=== PATIENT | female | born 1940 | race Two or more races ===

== ENCOUNTER 2017-09-08 08:51 | Inpatient (IN) | payer OTHER, MEDICAID ==
[~2017-09-08] VITALS: Ht 152.4 cm; Wt 97.3 kg
[~2017-09-08 08:51] MED LIST: AMLO5TAB2 PO; ASPI81CH59 PO; FURO20TA3 PO; HYDR25TA4 PO; INSUINJ32 SC; LOSA50TA6 PO; OMEP20CA74 PO
[2017-09-08 10:19] LABS: Basophils # (auto) 0.1 uL; Basophils % (auto) 0.8 % (0.0-2.0); Eosinophils # (auto) 0.6 uL; Eosinophils % (auto) 4.6 % (0.0-7.0); Hematocrit 44.2 % (36.0-46.0); Hemoglobin 14.2 g/dL (12.2-16.2); Lymphocytes # (auto) 1.9 uL; Lymphocytes % (auto) 14.8 % (10.0-50.0); Mean Corpuscular Hemoglobin 29.5 pg (28.0-32.0); Mean Corpuscular Hgb Conc. 32.1 g/dL (32.0-36.0); Mean Corpuscular Volume 91.9 fL (80.0-100.0); Monocytes # (auto) 0.8 uL; Monocytes % (auto) 6.5 % (0.0-12.0); Neutrophils # (auto) 9.2 uL; Neutrophils % (auto) 73.3 % (37.0-80.0); Platelet Count (auto) 343 10^3/uL (140-450); Red Blood Cells 4.81 10^6/uL (4.0-5.20); Red Cell Distribution Width 14.7 % (11.8-14.3); White Blood Cell 12.6 10^3/uL (4.4-10.8)
[2017-09-08 10:39] LABS: Alanine Aminotransferase 17 U/L (13-56); Albumin 3.2 g/dL (3.4-5.0); Alkaline Phosphatase 100 U/L (45-117); Anion Gap 5 (5-15); Aspartate Aminotransferase 16 U/L (15-37); BUN/Creatinine Ratio 12.6; Bilirubin, Total 0.4 mg/dL (0.2-1.0); Blood Urea Nitrogen 14 mg/dL (7-18); Calcium 8.7 mg/dL (8.5-10.1); Carbon Dioxide 31 mmol/L (21-32); Chloride 104 mmol/L (98-107); GFR African American 61 mL/min; GFR Non-African American 50 mL/min; Glucose 62 mg/dL (74-106); Potassium 3.3 mmol/L (3.5-5.1); Sodium 140 mmol/L (136-145); Total Protein 7.4 g/dL (6.4-8.2)
[2017-09-08] MEDS ORDERED: FUROSEMIDE 40 MG/4 ML VIAL IV ONE (10:45)
[2017-09-08] MEDS ORDERED: NITROGLYCERIN 0.4 MG SL TAB SL PRN (11:45)
[2017-09-08] MEDS ORDERED: MORPHINE SULFATE 4 MG/ML SYR/VIAL IV PRN (11:45)
[2017-09-08] MEDS ORDERED: PANTOPRAZOLE 40 MG/10 ML VIAL IV ONE (11:45)
[2017-09-08] MEDS ORDERED: ASPirin 81 mg TAB PO ONE (11:45)
[2017-09-08] MEDS ORDERED: DEXTROSE (50%) 50ML SYRG IV PRN (11:45)
[2017-09-08] MEDS ORDERED: AZITHROMYCIN 500MG/ 250ML 250 ML IV ONE (11:45)
[2017-09-08] MEDS ORDERED: ONDANSETRON HCL 4 MG/2 ML VIAL IV PRN (11:45)
[2017-09-08] MEDS ORDERED: methylPREDNISolone SOD SUCC 125 MG/2 ML VL IV ONE (11:45)
[2017-09-08] MEDS ORDERED: SIMV-13 PO (11:52)
[2017-09-08] MEDS ORDERED: ACLI1AER2 IN (11:52)
[2017-09-08] MEDS ORDERED: BUME2TAB3 PO (11:52)
[2017-09-08] MEDS ORDERED: METO25TA5 PO (11:52)
[2017-09-08] MEDS ORDERED: ALBU0.084 NEB (11:52)
[2017-09-08] MEDS: POTASSIUM CHL 10% (20 MEQ/15ML) 15ml ORAL SOLN PO SCH (12:05)
[2017-09-08] MEDS: hydrALAZINE HCL 20 MG/ML VL IV SCH ×2 (12:12→18:09)
[2017-09-08] MEDS: ALBUTEROL SULF 2.5 MG/0.5ML(0.5%) NEB SOLN NEB SCH ×2 (12:15→18:49)
[2017-09-08] MEDS: IPRATROPIUM BROM 0.5 MG/2.5ML INH SOL NEB SCH ×2 (12:15→18:49)
[2017-09-08] MEDS: BUDESONIDE (INHALATION) 0.5 MG/2 ML NEB NEB SCH ×2 (12:15→18:51)
[2017-09-08 12:34] LABS: Cholesterol 132 mg/dL (< 200); HDL Cholesterol 33 mg/dL (40-59); LDL Cholesterol 82 mg/dL (< 100); Triglycerides 177 mg/dL (< 150)
[2017-09-08] MEDS ORDERED: FUROSEMIDE 20 MG/2 ML VIAL IV ONE (13:15)
[2017-09-08] MEDS ORDERED: ENOXAPARIN SOD 40 MG/0.4 ML SYRINGE SC ONE (13:15)
[2017-09-08 13:17] VITALS: BP 138/68
[2017-09-08] MEDS ORDERED: cefTRIAXone 1GM/10ml IVPUSH 10 ML IV ONE (13:30)
[2017-09-08 13:37] LABS: INR 0.95 (0.9-1.15); Partial Thromboplastin Time 30.5 sec (22.64-33.71); Prothrombin Time 10.4 sec (9.37-12.3)
[2017-09-08] MEDS: ACCU-CHEK COMFORT CURVE STRIP VI SCH ×2 (16:48→21:41)
[2017-09-08] MEDS: InsuLIN REG 1unit/0.01ml Soln (100units/ml) SC SCH (16:57)
[2017-09-08 18:18] VITALS: BP 150/61
[2017-09-08] MEDS ORDERED: cefTRIAXone 1GM/10ml IVPUSH 10 ML IV SCH (21:00)
[2017-09-08] MEDS: MORPHINE SULFATE 4 MG/ML SYR/VIAL IV PRN (21:41)
[2017-09-08 21:42] VITALS: BP 131/73
[2017-09-08] MEDS: methylPREDNISolone SOD SUCC 125 MG/2 ML VL IV SCH (21:43)
[2017-09-08] MEDS: ATORVASTATIN 20 MG TAB PO SCH (21:44)
[2017-09-08] MEDS ORDERED: InsuLIN REG 1unit/0.01ml Soln (100units/ml) SC SCH (22:00)
[2017-09-08] MEDS ORDERED: METOPROLOL TARTRATE 25 MG TAB PO SCH (22:00)
[2017-09-09] MEDS: IPRATROPIUM BROM 0.5 MG/2.5ML INH SOL NEB SCH ×4 (00:02→18:25)
[2017-09-09] MEDS: ALBUTEROL SULF 2.5 MG/0.5ML(0.5%) NEB SOLN NEB SCH ×4 (00:02→18:25)
[2017-09-09] MEDS: hydrALAZINE HCL 20 MG/ML VL IV SCH ×5 (00:24→23:44)
[2017-09-09 04:42] VITALS: BP 144/63
[2017-09-09 06:51] LABS: Basophils # (auto) 0 uL; Basophils % (auto) 0.3 % (0.0-2.0); Eosinophils # (auto) 0 uL; Hematocrit 42.3 % (36.0-46.0); Hemoglobin 13.9 g/dL (12.2-16.2); Lymphocytes # (auto) 0.6 uL; Lymphocytes % (auto) 4.9 % (10.0-50.0); Mean Corpuscular Hemoglobin 29.8 pg (28.0-32.0); Mean Corpuscular Hgb Conc. 32.8 g/dL (32.0-36.0); Monocytes # (auto) 0.3 uL; Monocytes % (auto) 2.2 % (0.0-12.0); Neutrophils # (auto) 11.5 uL; Neutrophils % (auto) 92.6 % (37.0-80.0); Nucleated Red Blood Cells % 0.1 %; Platelet Count (auto) 351 10^3/uL (140-450); Red Blood Cells 4.65 10^6/uL (4.0-5.20); Red Cell Distribution Width 14.2 % (11.8-14.3); White Blood Cell 12.5 10^3/uL (4.4-10.8)
[2017-09-09] MEDS: BUDESONIDE (INHALATION) 0.5 MG/2 ML NEB NEB SCH ×2 (07:00→18:25)
[2017-09-09 07:08] LABS: Potassium 3.6 mmol/L (3.5-5.1)
[2017-09-09] MEDS: InsuLIN REG 1unit/0.01ml Soln (100units/ml) SC SCH ×4 (07:09→21:37)
[2017-09-09] MEDS: INSULIN LANTUS (GLARGINE) 1 /0.01ml (100units/ml) SC SCH (07:10)
[2017-09-09] MEDS: ACCU-CHEK COMFORT CURVE STRIP VI SCH ×4 (07:10→21:31)
[2017-09-09 07:12] LABS: Calcium 9.2 mg/dL (8.5-10.1)
[2017-09-09 08:00] VITALS: BP 143/69
[2017-09-09] MEDS ORDERED: THROAT LOZENGES(CEPASTAT) MT ONE (08:35)
[2017-09-09] MEDS ORDERED: THROAT LOZENGES(CEPASTAT) MT PRN (08:45)
[2017-09-09 09:00] VITALS: BP 143/69
[2017-09-09] MEDS: MORPHINE SULFATE 4 MG/ML SYR/VIAL IV PRN (09:12)
[2017-09-09] MEDS ORDERED: METOPROLOL TARTRATE 50 MG TAB PO SCH (10:00)
[2017-09-09] MEDS ORDERED: FUROSEMIDE 20 MG/2 ML VIAL IV SCH (10:00)
[2017-09-09] MEDS: cefTRIAXone 1GM/10ml IVPUSH 10 ML IV SCH (10:39)
[2017-09-09] MEDS: methylPREDNISolone SOD SUCC 125 MG/2 ML VL IV SCH ×2 (10:40→21:29)
[2017-09-09] MEDS: ASPirin 81 mg TAB PO SCH (10:40)
[2017-09-09] MEDS: AZITHROMYCIN 500MG/ 250ML 200 ML IV SCH (10:40)
[2017-09-09] MEDS: ENOXAPARIN SOD 40 MG/0.4 ML SYRINGE SC SCH (10:41)
[2017-09-09] MEDS: PANTOPRAZOLE 40 MG TAB PO SCH (10:41)
[2017-09-09] MEDS: POTASSIUM CHL 10% (20 MEQ/15ML) 15ml ORAL SOLN PO SCH (10:46)
[2017-09-09] MEDS: Boost Glucose Control 8 Ounces PO SCH ×2 (12:04→18:20)
[2017-09-09] MEDS ORDERED: DEXTROSE (50%) 50ML SYRG IV PRN (12:15)
[2017-09-09 13:00] VITALS: BP 125/64
[2017-09-09 17:00] VITALS: BP 126/65
[2017-09-09] MEDS: FUROSEMIDE 20 MG/2 ML VIAL IV SCH (21:29)
[2017-09-09] MEDS: ATORVASTATIN 20 MG TAB PO SCH (21:30)
[2017-09-09] MEDS: SOTALOL HCL 80 MG TAB PO SCH (21:30)
[2017-09-09 22:00] VITALS: BP 150/83
[2017-09-09] MEDS ORDERED: PROMETHAZINE HCL 25 MG/ML 1ML IV PRN (23:15)
[2017-09-10 00:42] VITALS: BP 129/78
[2017-09-10 05:57] VITALS: BP 122/51
[2017-09-10] MEDS: hydrALAZINE HCL 20 MG/ML VL IV SCH ×3 (06:00→18:00)
[2017-09-10] MEDS: INSULIN LANTUS (GLARGINE) 1 /0.01ml (100units/ml) SC SCH ×2 (06:26→21:21)
[2017-09-10] MEDS: ACCU-CHEK COMFORT CURVE STRIP VI SCH ×4 (06:26→21:21)
[2017-09-10] MEDS: InsuLIN REG 1unit/0.01ml Soln (100units/ml) SC SCH ×4 (06:27→21:20)
[2017-09-10] MEDS: ALBUTEROL SULF 2.5 MG/0.5ML(0.5%) NEB SOLN NEB SCH ×5 (06:39→19:55)
[2017-09-10] MEDS: BUDESONIDE (INHALATION) 0.5 MG/2 ML NEB NEB SCH ×3 (06:39→19:54)
[2017-09-10] MEDS: IPRATROPIUM BROM 0.5 MG/2.5ML INH SOL NEB SCH ×5 (06:39→19:55)
[2017-09-10 08:29] VITALS: BP 128/58
[2017-09-10] MEDS: cefTRIAXone 1GM/10ml IVPUSH 10 ML IV SCH (09:38)
[2017-09-10] MEDS: FUROSEMIDE 20 MG/2 ML VIAL IV SCH (09:38)
[2017-09-10] MEDS: ASPirin 81 mg TAB PO SCH (09:39)
[2017-09-10] MEDS: SOTALOL HCL 80 MG TAB PO SCH ×2 (09:39→21:06)
[2017-09-10] MEDS: methylPREDNISolone SOD SUCC 125 MG/2 ML VL IV SCH (09:39)
[2017-09-10] MEDS: Boost Glucose Control 8 Ounces PO SCH ×3 (09:40→18:22)
[2017-09-10] MEDS: POTASSIUM CHL 10% (20 MEQ/15ML) 15ml ORAL SOLN PO SCH (09:40)
[2017-09-10] MEDS: PANTOPRAZOLE 40 MG TAB PO SCH (09:40)
[2017-09-10] MEDS: AZITHROMYCIN 500MG/ 250ML 200 ML IV SCH (09:40)
[2017-09-10] MEDS: ENOXAPARIN SOD 40 MG/0.4 ML SYRINGE SC SCH (09:40)
[2017-09-10 12:35] VITALS: BP 122/56
[2017-09-10] MEDS ORDERED: DOCUSATE SOD 100 MG CAP PO ONE (13:15)
[2017-09-10] MEDS ORDERED: FLEET ENEMA(ADULT) 135 ML PR ONE (13:30)
[2017-09-10] MEDS: methylPREDNISolone SOD SUCC 40 MG/ML VL IV SCH ×2 (14:15→21:06)
[2017-09-10 14:53] LABS: Basophils # (auto) 0.1 uL; Basophils % (auto) 0.3 % (0.0-2.0); Eosinophils # (auto) 0 uL; Hematocrit 45.8 % (36.0-46.0); Hemoglobin 14.5 g/dL (12.2-16.2); Lymphocytes # (auto) 0.8 uL; Lymphocytes % (auto) 3.6 % (10.0-50.0); Mean Corpuscular Hemoglobin 29.5 pg (28.0-32.0); Mean Corpuscular Hgb Conc. 31.7 g/dL (32.0-36.0); Mean Corpuscular Volume 92.9 fL (80.0-100.0); Monocytes # (auto) 0.6 uL; Monocytes % (auto) 2.7 % (0.0-12.0); Neutrophils # (auto) 21.6 uL; Neutrophils % (auto) 93.4 % (37.0-80.0); Platelet Count (auto) 420 10^3/uL (140-450); Red Blood Cells 4.93 10^6/uL (4.0-5.20); White Blood Cell 23.1 10^3/uL (4.4-10.8)
[2017-09-10 15:09] LABS: BUN/Creatinine Ratio 31.3; Potassium 5.2 mmol/L (3.5-5.1)
[2017-09-10 16:33] VITALS: BP 108/51
[2017-09-10] MEDS: ATORVASTATIN 20 MG TAB PO SCH (21:07)
[2017-09-10] MEDS: DOCUSATE SOD 100 MG CAP PO SCH (21:07)
[2017-09-10 22:00] VITALS: BP 125/52
[2017-09-11] VITALS (7 sets, daily range): BP systolic 105–151; BP diastolic 42–69
[2017-09-11] MEDS: traMADol HCL 50 MG TAB PO PRN ×2 (01:55→11:19)
[2017-09-11] MEDS: IPRATROPIUM BROM 0.5 MG/2.5ML INH SOL NEB SCH ×4 (06:18→18:00)
[2017-09-11] MEDS: ALBUTEROL SULF 2.5 MG/0.5ML(0.5%) NEB SOLN NEB SCH ×4 (06:18→18:00)
[2017-09-11] MEDS: InsuLIN REG 1unit/0.01ml Soln (100units/ml) SC SCH ×4 (06:39→22:42)
[2017-09-11] MEDS: INSULIN LANTUS (GLARGINE) 1 /0.01ml (100units/ml) SC SCH ×2 (06:40→22:42)
[2017-09-11] MEDS: ACCU-CHEK COMFORT CURVE STRIP VI SCH ×4 (06:55→22:36)
[2017-09-11] MEDS: hydrALAZINE HCL 20 MG/ML VL IV SCH ×4 (06:55→17:39)
[2017-09-11] MEDS: Boost Glucose Control 8 Ounces PO SCH ×3 (08:00→17:40)
[2017-09-11 08:09] LABS: Basophils # (auto) 0 uL; Basophils % (auto) 0.2 % (0.0-2.0); Eosinophils # (auto) 0 uL; Hematocrit 45.3 % (36.0-46.0); Hemoglobin 14.7 g/dL (12.2-16.2); Lymphocytes # (auto) 0.9 uL; Lymphocytes % (auto) 4.3 % (10.0-50.0); Mean Corpuscular Hemoglobin 29.9 pg (28.0-32.0); Mean Corpuscular Hgb Conc. 32.5 g/dL (32.0-36.0); Monocytes # (auto) 0.9 uL; Monocytes % (auto) 4.5 % (0.0-12.0); Neutrophils # (auto) 19.2 uL; Platelet Count (auto) 446 10^3/uL (140-450); Red Blood Cells 4.92 10^6/uL (4.0-5.20); Red Cell Distribution Width 14.7 % (11.8-14.3); White Blood Cell 21.1 10^3/uL (4.4-10.8)
[2017-09-11 08:33] LABS: Albumin 2.9 g/dL (3.4-5.0); BUN/Creatinine Ratio 39.5; Bilirubin, Total 0.2 mg/dL (0.2-1.0); Potassium 4.8 mmol/L (3.5-5.1); Total Protein 6.7 g/dL (6.4-8.2)
[2017-09-11] MEDS: cefTRIAXone 1GM/10ml IVPUSH 10 ML IV SCH (11:08)
[2017-09-11] MEDS: FUROSEMIDE 20 MG/2 ML VIAL IV SCH (11:10)
[2017-09-11] MEDS: ENOXAPARIN SOD 40 MG/0.4 ML SYRINGE SC SCH (11:10)
[2017-09-11] MEDS: POTASSIUM CHL 10% (20 MEQ/15ML) 15ml ORAL SOLN PO SCH (11:11)
[2017-09-11] MEDS: AZITHROMYCIN 500MG/ 250ML 200 ML IV SCH (11:12)
[2017-09-11] MEDS: DOCUSATE SOD 100 MG CAP PO SCH ×2 (11:12→22:20)
[2017-09-11] MEDS: SOTALOL HCL 80 MG TAB PO SCH ×2 (11:13→22:21)
[2017-09-11] MEDS: PANTOPRAZOLE 40 MG TAB PO SCH (11:14)
[2017-09-11] MEDS: ASPirin 81 mg TAB PO SCH (11:14)
[2017-09-11] MEDS: methylPREDNISolone SOD SUCC 40 MG/ML VL IV SCH (11:16)
[2017-09-11] MEDS: BUDESONIDE (INHALATION) 0.5 MG/2 ML NEB NEB SCH ×2 (11:20→22:00)
[2017-09-11] MEDS ORDERED: LACTULOSE 20Gm/30ML SOLN PO SCH (22:00)
[2017-09-11] MEDS: ATORVASTATIN 20 MG TAB PO SCH (22:20)
[2017-09-12] MEDS: hydrALAZINE HCL 20 MG/ML VL IV SCH ×3 (00:49→13:00)
[2017-09-12] MEDS: traMADol HCL 50 MG TAB PO PRN (01:35)
[2017-09-12 05:00] VITALS: BP 146/67
[2017-09-12 05:30] LABS: Basophils # (auto) 0.1 uL; Basophils % (auto) 0.4 % (0.0-2.0); Eosinophils # (auto) 0 uL; Eosinophils % (auto) 0.1 % (0.0-7.0); Hematocrit 45.4 % (36.0-46.0); Hemoglobin 14.9 g/dL (12.2-16.2); Lymphocytes # (auto) 1.4 uL; Mean Corpuscular Hgb Conc. 32.9 g/dL (32.0-36.0); Mean Corpuscular Volume 91.3 fL (80.0-100.0); Monocytes # (auto) 1.6 uL; Monocytes % (auto) 8.8 % (0.0-12.0); Neutrophils # (auto) 14.6 uL; Neutrophils % (auto) 82.7 % (37.0-80.0); Nucleated Red Blood Cells % 0.1 %; Platelet Count (auto) 388 10^3/uL (140-450); Red Blood Cells 4.97 10^6/uL (4.0-5.20); Red Cell Distribution Width 14.7 % (11.8-14.3); White Blood Cell 17.6 10^3/uL (4.4-10.8)
[2017-09-12 05:45] LABS: BUN/Creatinine Ratio 45.6; Calcium 9.1 mg/dL (8.5-10.1); Potassium 4.5 mmol/L (3.5-5.1)
[2017-09-12] MEDS: InsuLIN REG 1unit/0.01ml Soln (100units/ml) SC SCH ×2 (06:25→13:15)
[2017-09-12] MEDS: ACCU-CHEK COMFORT CURVE STRIP VI SCH ×2 (06:25→11:30)
[2017-09-12] MEDS: INSULIN LANTUS (GLARGINE) 1 /0.01ml (100units/ml) SC SCH (06:26)
[2017-09-12] MEDS: ALBUTEROL SULF 2.5 MG/0.5ML(0.5%) NEB SOLN NEB SCH ×3 (07:16→12:10)
[2017-09-12] MEDS: BUDESONIDE (INHALATION) 0.5 MG/2 ML NEB NEB SCH (07:16)
[2017-09-12] MEDS: IPRATROPIUM BROM 0.5 MG/2.5ML INH SOL NEB SCH ×3 (07:16→12:10)
[2017-09-12 08:00] VITALS: BP 124/51
[2017-09-12] MEDS: Boost Glucose Control 8 Ounces PO SCH ×2 (08:00→12:00)
[2017-09-12 09:01] VITALS: BP 124/51
[2017-09-12] MEDS ORDERED: ASPI81CH43 PO (10:19)
[2017-09-12] MEDS: ENOXAPARIN SOD 40 MG/0.4 ML SYRINGE SC SCH (10:26)
[2017-09-12] MEDS: POTASSIUM CHL 10% (20 MEQ/15ML) 15ml ORAL SOLN PO SCH (10:27)
[2017-09-12] MEDS: PANTOPRAZOLE 40 MG TAB PO SCH (10:28)
[2017-09-12] MEDS: DOCUSATE SOD 100 MG CAP PO SCH (10:29)
[2017-09-12] MEDS: ASPirin 81 mg TAB PO SCH (10:29)
[2017-09-12] MEDS: FUROSEMIDE 20 MG/2 ML VIAL IV SCH (10:45)
[2017-09-12] MEDS ORDERED: MORPHINE SULFATE 8mg/ml INJ SDV IV PRN (11:15)
[2017-09-12 13:00] VITALS: BP 136/60
[2017-09-12] MEDS ORDERED: FLEET ENEMA(ADULT) 135 ML PR ONE (15:15)
[2017-09-12] MEDS ORDERED: SOTALOL HCL 80 MG TAB PO SCH (22:00)
== END 2017-09-12 17:05 | disposition home or self-care (01) | DRG 291 ==
LOC: ER 08:51 → TELE 08:52 → TELE-WESTW 17:30
PROVIDERS: ADMIT Internal Medicine; ATTEND Internal Medicine
DX: I13.0 Hypertensive heart and chronic kidney disease with heart failure and stage 1 through stage 4 chronic kidney disease, or unspecified chronic kidney disease (principal); I50.33 Acute on chronic diastolic (congestive) heart failure; J96.20 Acute and chronic respiratory failure, unspecified whether with hypoxia or hypercapnia; N17.9 Acute kidney failure, unspecified; E44.0 Moderate protein-calorie malnutrition; E11.21 Type 2 diabetes mellitus with diabetic nephropathy; D68.69 Other thrombophilia; E11.65 Type 2 diabetes mellitus with hyperglycemia; E11.22 Type 2 diabetes mellitus with diabetic chronic kidney disease; N18.3 Chronic kidney disease, stage 3 (moderate); J44.0 Chronic obstructive pulmonary disease with (acute) lower respiratory infection; J44.1 Chronic obstructive pulmonary disease with (acute) exacerbation; E87.1 Hypo-osmolality and hyponatremia; I48.92 Unspecified atrial flutter; Z68.41 Body mass index [BMI] 40.0-44.9, adult; E87.6 Hypokalemia; E66.01 Morbid (severe) obesity due to excess calories; E78.00 Pure hypercholesterolemia, unspecified; E78.5 Hyperlipidemia, unspecified; I48.0 Paroxysmal atrial fibrillation; K21.9 Gastro-esophageal reflux disease without esophagitis; K59.00 Constipation, unspecified; T38.0X5A Adverse effect of glucocorticoids and synthetic analogues, initial encounter; T50.2X5A Adverse effect of carbonic-anhydrase inhibitors, benzothiadiazides and other diuretics, initial encounter; Z79.4 Long term (current) use of insulin; Z79.82 Long term (current) use of aspirin; Z83.3 Family history of diabetes mellitus; Z87.891 Personal history of nicotine dependence; Z90.710 Acquired absence of both cervix and uterus; Z99.81 Dependence on supplemental oxygen; Z79.899 Other long term (current) drug therapy
CPT/HCPCS: 36415; 36600; 71045; 71046; 76775; 80048; 80053; 80061; 82805; 82962; 83036; 83880; 84443; 84484; 85025; 85379; 85610; 85730; 93005; 93306; 94640; 96365; 96367; 96372; 96375; 99291; C9113; J1815; J2405

== ENCOUNTER 2018-01-19 12:46 | Emergency (ER) | payer OTHER, MEDICAID ==
[~2018-01-19] VITALS: Ht 152.4 cm; Wt 86.2 kg
[~2018-01-19 12:46] MED LIST changes: +ACLI1AER2 IN; +ALBU0.084 NEB; -AMLO5TAB2 PO; +ASPI81CH43 PO; -ASPI81CH59 PO; +BUME2TAB3 PO; -FURO20TA3 PO; -HYDR25TA4 PO; -LOSA50TA6 PO; +SIMV-13 PO
[2018-01-19] MEDS ORDERED: PHENAZOPYRIDINE HCL 100 MG TAB PO ONE (16:30)
[2018-01-19] MEDS ORDERED: cefTRIAXone 1GM/10ml IVPUSH 10 ML IV ONE (16:45)
[2018-01-19] MEDS ORDERED: SODIUM CHLORIDE 0.9% 1,000 ML IV ONE (16:45)
[2018-01-19 16:50] VITALS: BP 162/61
[2018-01-19 16:54] LABS: Basophils # (auto) 0.1 uL; Eosinophils # (auto) 0.5 uL; Eosinophils % (auto) 2.9 % (0.0-7.0); Hemoglobin 11.3 g/dL (12.2-16.2); Lymphocytes # (auto) 1.7 uL; Lymphocytes % (auto) 10.8 % (10.0-50.0); Mean Corpuscular Hgb Conc. 32.4 g/dL (32.0-36.0); Mean Corpuscular Volume 92.6 fL (80.0-100.0); Monocytes # (auto) 0.9 uL; Monocytes % (auto) 5.8 % (0.0-12.0); Neutrophils # (auto) 12.3 uL; Neutrophils % (auto) 79.5 % (37.0-80.0); Nucleated Red Blood Cells % 0.1 %; Platelet Count (auto) 310 10^3/uL (140-450); Red Blood Cells 3.78 10^6/uL (4.0-5.20); Red Cell Distribution Width 13.8 % (11.8-14.3); White Blood Cell 15.5 10^3/uL (4.4-10.8)
[2018-01-19 17:12] LABS: Albumin 3.3 g/dL (3.4-5.0); BUN/Creatinine Ratio 19.9; Bilirubin, Total 0.3 mg/dL (0.2-1.0); Calcium 9.5 mg/dL (8.5-10.1); INR 0.91 (0.9-1.15); Partial Thromboplastin Time 31.7 sec (23.78-33.04); Potassium 4.6 mmol/L (3.5-5.1); Prothrombin Time 9.8 sec (9.27-12.13); Total Protein 7.8 g/dL (6.4-8.2)
[2018-01-19 18:29] LABS: Urine Bacteria NONE SEEN /hpf (None Seen); Urine Blood 1+ /uL (Negative); Urine Specific Gravity 1.018 (1.001-1.035); Urine WBC 3976 /hpf (0 - 5); Urine WBC Clumps PRESENT /hpf (None Seen)
== END 2018-01-19 19:11 | disposition home or self-care (01) ==
LOC: ER 12:50
DX: N30.90 Cystitis, unspecified without hematuria (principal); M25.361 Other instability, right knee; J44.9 Chronic obstructive pulmonary disease, unspecified; E11.9 Type 2 diabetes mellitus without complications; I10 Essential (primary) hypertension; Z90.49 Acquired absence of other specified parts of digestive tract; Z90.710 Acquired absence of both cervix and uterus; Z90.89 Acquired absence of other organs
CPT/HCPCS: 36415; 73700; 74176; 80053; 81001; 85025; 85610; 85730; 96374; 99285; J0696; J7030

== ENCOUNTER 2018-09-15 13:33 | Inpatient (IN) | payer OTHER, MEDICAID ==
[~2018-09-15] VITALS: Ht 154.9 cm; Wt 96.8 kg
[2018-09-15 15:29] LABS: Urine Bacteria FEW /hpf (None Seen); Urine Blood Negative /uL (Negative); Urine Hyaline Cast FEW /lpf (0 - 2); Urine Specific Gravity 1.017 (1.001-1.035); Urine WBC 9 /hpf (0 - 5)
[2018-09-15 15:35] LABS: Basophils # (auto) 0 uL; Basophils % (auto) 0.3 % (0.0-2.0); Eosinophils # (auto) 0.4 uL; Eosinophils % (auto) 2.9 % (0.0-7.0); Hematocrit 33.4 % (36.0-46.0); Hemoglobin 10.4 g/dL (12.2-16.2); Lymphocytes # (auto) 1.4 uL; Lymphocytes % (auto) 10.9 % (10.0-50.0); Mean Corpuscular Hemoglobin 27.9 pg (28.0-32.0); Mean Corpuscular Hgb Conc. 31.3 g/dL (32.0-36.0); Mean Corpuscular Volume 89.2 fL (80.0-100.0); Monocytes % (auto) 7.6 % (0.0-12.0); Neutrophils # (auto) 10.2 uL; Neutrophils % (auto) 78.3 % (37.0-80.0); Platelet Count (auto) 353 10^3/uL (140-450); Red Blood Cells 3.74 10^6/uL (4.0-5.20)
[2018-09-15 15:42] LABS: INR 0.94 (0.9-1.15); Prothrombin Time 10.1 sec (9.27-12.13)
[2018-09-15 15:47] LABS: Alanine Aminotransferase 18 U/L (13-56); Anion Gap 4 (5-15); Aspartate Aminotransferase 14 U/L (15-37); Blood Urea Nitrogen 20 mg/dL (7-18); Calcium 8.9 mg/dL (8.5-10.1); Carbon Dioxide 37 mmol/L (21-32); Chloride 100 mmol/L (98-107); Glucose 129 mg/dL (74-106); Potassium 3.6 mmol/L (3.5-5.1); Sodium 141 mmol/L (136-145)
[2018-09-15 15:52] LABS: Alkaline Phosphatase 109 U/L (45-117); BUN/Creatinine Ratio 20.2; Bilirubin, Total 0.3 mg/dL (0.2-1.0); GFR African American 69 mL/min; GFR Non-African American 57 mL/min; Total Protein 7.1 g/dL (6.4-8.2)
[2018-09-15] MEDS ORDERED: FUROSEMIDE 40 MG/4 ML VIAL IV ONE (16:00)
[2018-09-15] MEDS ORDERED: cefTRIAXone 1GM/50ML D5W 50 ML IV ONE (17:15)
[2018-09-15] MEDS ORDERED: KETOROLAC TROMETH 30 MG/ML 1ML VIAL IV ONE (17:30)
[2018-09-15] MEDS ORDERED: NITROGLYCERIN 0.4 MG SL TAB SL PRN (17:45)
[2018-09-15] MEDS ORDERED: hydrALAZINE HCL 20 MG/ML VL IV PRN (17:45)
[2018-09-15] MEDS ORDERED: ONDANSETRON HCL 4 MG/2 ML VIAL IV PRN (17:45)
[2018-09-15] MEDS: cefTRIAXone 1GM/50ML D5W 50 ML IV SCH (17:45)
[2018-09-15] MEDS ORDERED: MORPHINE SULF INJ 2 MG/ML SYRINGE 1ML IV PRN ×2 (17:45)
[2018-09-15] MEDS ORDERED: DEXTROSE (50%) 50ML SYRG IV PRN (17:45)
[2018-09-15] MEDS: IPRATROPIUM BROM 0.5 MG/2.5ML INH SOL NEB SCH (18:00)
[2018-09-15] MEDS: ALBUTEROL SULF 2.5 MG/0.5ML(0.5%) NEB SOLN NEB SCH (18:00)
[2018-09-15] MEDS: BUDESONIDE (INHALATION) 0.5 MG/2 ML NEB NEB SCH (18:10)
[2018-09-15] MEDS: ATORVASTATIN 20 MG TAB PO SCH (18:38)
[2018-09-15] MEDS: AZITHROMYCIN 500MG/ 250ML 250 ML IV SCH (18:38)
[2018-09-15] MEDS: KETOROLAC TROMETH 30 MG/ML 1ML VIAL IV PRN (19:55)
[2018-09-15] MEDS: ACCU-CHEK COMFORT CURVE STRIP VI SCH (22:00)
[2018-09-15 22:14] VITALS: BP 170/68
--- NOTE | 2018-09-15 22:14 | NUR ---
Telemetry admit from [facility] admitted to Telemetry unit after SBAR received. Patient oriented to WALLACE WEBER RN primary RN, unit, room, bed, and unit policies regarding patient care and visiting hours. Patient now on continuous telemetry monitoring, tele box # 33 and telemetry reading on arrival to unit is SINUS RHYTHM WITH PAC AT 71BPM. Patient placed on bedside oxygen, weighed by bedscale and encouraged to call if they need something. All questions and concerns addressed, patient verbalized understanding. Note: PATIENT IS ALERT AND ORIENTED, ON 4LNC SATURATING AT 94%. COMPLAINTS OF PAIN TO BACK, AMBULATORY TO COMMODE WITH LIMITED ASSIST, SOB WITH EXERTION. RT IN ROOM TO SET-UP BI-PAP. PATIENT HAS 2 IV;20G TO RIGHT HAND AND 22G TO LEFT HAND, HAS PITTING EDEMA TO BILATERAL LOWER EXTREMITIES. PATIENT RESTING IN BED IN A SEMIFOWLERS POSITION, NO DISTRESS NOTED.
[2018-09-15] MEDS: CARVEDILOL 12.5 MG TAB PO SCH (23:08)
[2018-09-15] MEDS: InsuLIN REG 1unit/0.01ml Soln (100units/ml) SC SCH (23:09)
[2018-09-15] MEDS: BENAZEPRIL HCL 10 MG TAB PO SCH (23:09)
[2018-09-15] MEDS: INSULIN LANTUS (GLARGINE) 1 /0.01ml (100units/ml) SC SCH (23:10)
[2018-09-15 23:30] VITALS: BP 170/68
[2018-09-16] VITALS (7 sets, daily range): BP systolic 109–142; BP diastolic 59–98
[2018-09-16] MEDS: ZOLPIDEM TARTRATE 5 MG TAB PO PRN (01:23)
--- NOTE | 2018-09-16 01:39 | NUR ---
PATIENT WOKE UP AND STATES THAT SHE DOES NOT WANT TO BE ON BIPAP TONIGHT. PATIENT IS SLIGHTLY ANXIOUS AND RESTLESS.
[2018-09-16] MEDS ORDERED: LEVEMIR SC (02:06)
[2018-09-16] MEDS ORDERED: MONT10TA34 PO (02:06)
[2018-09-16] MEDS ORDERED: CAR125T PO (02:06)
[2018-09-16] MEDS ORDERED: FAMO-12 PO (02:06)
[2018-09-16] MEDS ORDERED: POTA10TA51 PO (02:06)
[2018-09-16] MEDS ORDERED: HYDR50TA15 PO (02:06)
--- NOTE | 2018-09-16 04:20 | NUR ---
PATIENT WOKE UP CONFUSED AND HALLUCINATING, STATING THAT 3 BOYS CAME INTO HER ROOM. PATIENT ACCIDENTALLY PULLED IV TO RIGHT HAND AND LEFT HAND, NOTICED CATHETER FULLY INTACT, PRESSURE DRESSING APPLIED TO BOTH LEFT AND RIGHT HAND. WILL MONITOR.
--- NOTE | 2018-09-16 05:08 | NUR ---
PATIENT RESTING IN BED WITH EYES CLOSED, ON 4LNC SATURATING 94%. WILL MONITOR.
[2018-09-16] MEDS: ALBUTEROL SULF 2.5 MG/0.5ML(0.5%) NEB SOLN NEB SCH ×3 (06:36→19:04)
[2018-09-16] MEDS: IPRATROPIUM BROM 0.5 MG/2.5ML INH SOL NEB SCH ×3 (06:36→19:03)
[2018-09-16] MEDS: BUDESONIDE (INHALATION) 0.5 MG/2 ML NEB NEB SCH ×2 (06:37→19:04)
[2018-09-16] MEDS: InsuLIN REG 1unit/0.01ml Soln (100units/ml) SC SCH ×4 (07:00→21:48)
[2018-09-16] MEDS: ACCU-CHEK COMFORT CURVE STRIP VI SCH ×4 (07:15→21:49)
--- NOTE | 2018-09-16 07:55 | NUR ---
PT RESTING IN BED WITH EYES CLOSED. ALFREDITO CHEST MOVEMENT WITH SPONTANEOUS RESPIRATION. NO S/S OF ACUTE DISTRESS NOTED. BED LOCKED IN THE LOWEST POSITION, CALL LIGHT WITHIN EASY REACH, WILL CONTINUE CARE.
[2018-09-16 09:03] LABS: Basophils # (auto) 0.1 uL; Basophils % (auto) 0.7 % (0.0-2.0); Eosinophils # (auto) 0.5 uL; Hematocrit 31.4 % (36.0-46.0); Hemoglobin 9.9 g/dL (12.2-16.2); Lymphocytes # (auto) 1.2 uL; Lymphocytes % (auto) 10.5 % (10.0-50.0); Mean Corpuscular Hemoglobin 28.5 pg (28.0-32.0); Mean Corpuscular Hgb Conc. 31.5 g/dL (32.0-36.0); Mean Corpuscular Volume 90.3 fL (80.0-100.0); Monocytes # (auto) 0.9 uL; Monocytes % (auto) 8.1 % (0.0-12.0); Neutrophils % (auto) 76.7 % (37.0-80.0); Platelet Count (auto) 274 10^3/uL (140-450); Red Blood Cells 3.48 10^6/uL (4.0-5.20); Red Cell Distribution Width 14.6 % (11.8-14.3); White Blood Cell 11.8 10^3/uL (4.4-10.8)
[2018-09-16 09:20] LABS: Magnesium 2.2 mg/dL (1.6-2.6)
--- NOTE | 2018-09-16 10:20 | NUR ---
DR. LINCOLN AT BEDSIDE.
[2018-09-16] MEDS: cefTRIAXone 1GM/50ML D5W 50 ML IV SCH (10:54)
[2018-09-16] MEDS: PANTOPRAZOLE 40 MG/10 ML VIAL IV SCH (10:54)
[2018-09-16] MEDS: BUMETANIDE (0.25MG/ML) 4 ML VIAL IV SCH (10:54)
[2018-09-16] MEDS: AZITHROMYCIN 500MG/ 250ML 250 ML IV SCH (10:55)
[2018-09-16] MEDS: ASPirin 81 mg TAB PO SCH (10:55)
[2018-09-16] MEDS: CARVEDILOL 12.5 MG TAB PO SCH ×3 (10:56→21:43)
[2018-09-16] MEDS: BENAZEPRIL HCL 10 MG TAB PO SCH ×2 (10:56→21:44)
[2018-09-16] MEDS ORDERED: FUROSEMIDE 40 MG/4 ML VIAL IV ONE (12:15)
[2018-09-16] MEDS: ATORVASTATIN 20 MG TAB PO SCH (18:13)
[2018-09-16] MEDS: FUROSEMIDE 40 MG/4 ML VIAL IV SCH (18:14)
--- NOTE | 2018-09-16 19:16 | NUR ---
CARE ENDORSED TO WALLACE FERRELL.
--- NOTE | 2018-09-16 19:32 | NUR ---
Opening Shift Note Received report from benny Carpenter RN. Assumed care of patient, awake and alert lying in bed. No S/S of distress/SOB or pain. Instructed on POC and to call for assist PRN, will continue to monitor for changes Q1hr and PRN. Bed placed in lowest position, bed alarm turned on and call light within reach.
[2018-09-16] MEDS: POTASSIUM CHL 10% (20 MEQ/15ML) 15ml ORAL SOLN GT SCH (21:43)
[2018-09-16] MEDS: INSULIN LANTUS (GLARGINE) 1 /0.01ml (100units/ml) SC SCH (21:49)
[2018-09-17] MEDS ORDERED: VANCOMYCIN 1GM/250ML 250 ML IV SCH
[2018-09-17 05:00] VITALS: BP 142/54
[2018-09-17] MEDS: InsuLIN REG 1unit/0.01ml Soln (100units/ml) SC SCH ×4 (07:00→21:46)
[2018-09-17] MEDS: BUDESONIDE (INHALATION) 0.5 MG/2 ML NEB NEB SCH ×2 (07:00→18:56)
[2018-09-17] MEDS: ALBUTEROL SULF 2.5 MG/0.5ML(0.5%) NEB SOLN NEB SCH ×3 (07:00→18:56)
[2018-09-17] MEDS: IPRATROPIUM BROM 0.5 MG/2.5ML INH SOL NEB SCH ×3 (07:00→18:56)
--- NOTE | 2018-09-17 07:00 | NUR ---
CARE ENDORSED TO LUCITA ALARCON RN. PATIENT IS ALERT AND AWAKE, NO DISTRESS NOTED AND PATIENT DENIES PAIN
[2018-09-17] MEDS: ACCU-CHEK COMFORT CURVE STRIP VI SCH ×4 (07:11→21:45)
[2018-09-17] MEDS: FUROSEMIDE 40 MG/4 ML VIAL IV SCH ×2 (07:11→18:04)
--- NOTE | 2018-09-17 07:45 | NUR ---
Opening Shift Note Assumed care of patient, awake and alert. No S/S of distress/SOB or pain. Instructed on POC and to call for assist PRN, will continue to monitor for changes Q1hr and PRN.
[2018-09-17 08:00] VITALS: BP 150/51
[2018-09-17 09:00] VITALS: BP 150/51
[2018-09-17] MEDS: POTASSIUM CHL 10% (20 MEQ/15ML) 15ml ORAL SOLN GT SCH ×2 (10:08→21:44)
[2018-09-17] MEDS: AZITHROMYCIN 500MG/ 250ML 250 ML IV SCH (10:08)
[2018-09-17] MEDS: cefTRIAXone 1GM/50ML D5W 50 ML IV SCH (10:08)
[2018-09-17] MEDS: PANTOPRAZOLE 40 MG/10 ML VIAL IV SCH (10:09)
[2018-09-17] MEDS: BENAZEPRIL HCL 10 MG TAB PO SCH ×2 (10:10→21:44)
[2018-09-17] MEDS: CARVEDILOL 12.5 MG TAB PO SCH ×2 (10:11→21:44)
[2018-09-17] MEDS: ASPirin 81 mg TAB PO SCH (10:11)
[2018-09-17] MEDS: KETOROLAC TROMETH 30 MG/ML 1ML VIAL IV PRN (10:12)
[2018-09-17] MEDS: BUMETANIDE (0.25MG/ML) 4 ML VIAL IV SCH (10:12)
--- NOTE | 2018-09-17 10:55 | NUR ---
DR. LINCOLN AT BEDSIDE.
--- NOTE | 2018-09-17 11:10 | NUR ---
PT OFF UNIT TO RADIOLOGY FOR CT CHEST VIA W/C. NO ACUTE DISTRESS NOTED AT DEPARTURE.
--- NOTE | 2018-09-17 12:25 | NUR ---
IV insertion IV access obtained, via clean sterile technique by inserting 20 gauge catheter at right FA after one attempt. IV secured properly. No trauma to site. Patient tolerated well.
[2018-09-17 12:37] VITALS: BP 160/89
--- NOTE | 2018-09-17 13:10 | NUR ---
PT BACK FROM RADIOLOGY DEP, VS WNL. WILL CONTINUE CARE.
[2018-09-17] MEDS ORDERED: IODIXANOL 320MG/ML 100ML BTL IV ONE (16:07)
[2018-09-17 16:33] VITALS: BP 157/68
[2018-09-17] MEDS: ATORVASTATIN 20 MG TAB PO SCH (18:06)
--- NOTE | 2018-09-17 19:30 | NUR ---
OPENING NOTE REPORT RECEIVED FROM DAY SHIFT RN. PATIENT IS A/OX4 SITTING AT EDGE OF BED. PHYSICAL ASSESSMENT DONE-SEE INTERVENTIONS. PATIENT IS ON 4L NC, NO S/S OF SOB OR DISTRESS NOTED. SWELLING NOTED TO LEFT HAND, PATIENT STATES FROM PREVIOUS IV LINE. NEW IV PLACEMENT X 2 TO LEFT FOREARM BY DAY SHIFT. POC FOR TONIGHT DISCUSSED AND ALL QUESTIONS ANSWERED. WILL MONITOR Q1H PRN THROUGHOUT SHIFT, CALL LIGHT WITHIN REACH.
--- NOTE | 2018-09-17 19:31 | NUR ---
CARE ENDORSED TO TOYA FERRELL.
--- NOTE | 2018-09-17 20:27 | NUR ---
RECEIVED CALL FROM LAB PATIENT HAS POSITIVE BLOOD CULTURE: GRAM POSITIVE COCCI IN CLUSTERS. WILL PAGE HOSPITALIST TO NOTIFY OF THIS RESULT
[2018-09-17] MEDS: INSULIN LANTUS (GLARGINE) 1 /0.01ml (100units/ml) SC SCH (21:46)
[2018-09-17 22:00] VITALS: BP 158/57
--- NOTE | 2018-09-17 22:00 | NUR ---
REPAGED HOSPITALIST RE: POSITIVE BLOOD CULTURE STILL WAITING FOR CALL BACK
--- NOTE | 2018-09-17 22:34 | NUR ---
RECEIVED CALL BACK FROM HOSPITALIST KEE NEW ORDER FOR VANCO PER PHARMACY. ORDER READ BACK AND VERIFIED WILL CARRY OUT ORDER
[2018-09-17] MEDS ORDERED: VANCOMYCIN PER PHARMACY 0 MG IV SCH (22:45)
--- NOTE | 2018-09-17 23:15 | NUR ---
VERIFIED WITH INTRANET SPECIALIST PHARMACIST VANCO 1GM X 2 BAGS IN TOTAL ORDER VERIFIED
[2018-09-17] MEDS: ZOLPIDEM TARTRATE 5 MG TAB PO PRN (23:28)
--- NOTE | 2018-09-17 23:51 | NUR ---
CALLED BLOCKING MACHINE OPERATOR PHARMACY TO NOTIFY THEM THAT ORDERED VANCO IS NOT SHOWING UP IN MEDICATION ROOM PYXIS. PER PHARMACIST, "I JUST REFRESHED IT. GIVE IT LIKE 10 MINUTES, IF NOT, SEE IF YOU CAN JUST OVERRIDE IT".
[2018-09-17] MEDS: VANCOMYCIN 1GM/250ML 250 ML IV SCH (23:59)
[2018-09-18] MEDS: IPRATROPIUM BROM 0.5 MG/2.5ML INH SOL NEB SCH ×4 (00:17→18:30)
[2018-09-18] MEDS: ALBUTEROL SULF 2.5 MG/0.5ML(0.5%) NEB SOLN NEB SCH ×4 (00:17→18:30)
[2018-09-18] MEDS: VANCOMYCIN 1GM/250ML 250 ML IV SCH (01:04)
[2018-09-18 04:50] VITALS: BP 151/65
--- NOTE | 2018-09-18 04:59 | NUR ---
PATIENT WOKE UP CONFUSED PATIENT CAME OUT TO NURSES STATION. WHEN ASKED IF SHE NEEDED SOMETHING, PATIENT REPLIED, "I NEED TO GET THAT THING". PATIENT VISIBLY SHORT OF BREATH. PATIENT BEDSIDE TABLE FOUND IN HALLWAY OUTSIDE OF ROOM TO WHICH PATIENT STATES SHE WAS "CLEANING". PATIENT REORIENTED TO TIME/PLACE SITUATION AND WALKED BACK INTO ROOM. PT PLACED ON BEDSIDE OXYGEN AT 5LNC, SPO2 AT 95%. PATIENT ENCOURAGED TO TAKE DEEP BREATHS IN THROUGH NOSE AND OUT THROUGH MOUTH. PATIENT REQUESTED BLOOD SUGAR TO BE CHECKED. BLOOD SUGAR AT THIS TIME: 128. PATIENT NOW A/OX4, STATES SHE FEELS "BETTER". WILL CONTINUE TO MONITOR CLOSELY. BED EXIT ALARM IN PLACE.
[2018-09-18] MEDS: FUROSEMIDE 40 MG/4 ML VIAL IV SCH ×2 (06:09→17:34)
[2018-09-18] MEDS: InsuLIN REG 1unit/0.01ml Soln (100units/ml) SC SCH ×4 (06:10→21:26)
[2018-09-18] MEDS: ACCU-CHEK COMFORT CURVE STRIP VI SCH ×4 (06:10→21:26)
[2018-09-18] MEDS: BUDESONIDE (INHALATION) 0.5 MG/2 ML NEB NEB SCH ×2 (06:42→23:02)
--- NOTE | 2018-09-18 07:26 | NUR ---
CLOSING NOTE REPORT ENDORSED TO DAY SHIFT RN PT IS RESTING IN BED, AWAITING BREAKFAST TRAY. NO S/S OF DISTRESS. FALL PRECAUTIONS IN PLACE, CALL LIGHT WITHIN REACH.
[2018-09-18 08:00] VITALS: BP 162/71
[2018-09-18 09:00] VITALS: BP 162/72
[2018-09-18] MEDS: AZITHROMYCIN 500MG/ 250ML 250 ML IV SCH (09:10)
[2018-09-18] MEDS: cefTRIAXone 1GM/50ML D5W 50 ML IV SCH (09:10)
[2018-09-18] MEDS: PANTOPRAZOLE 40 MG/10 ML VIAL IV SCH (09:11)
[2018-09-18] MEDS: BUMETANIDE (0.25MG/ML) 4 ML VIAL IV SCH (09:11)
[2018-09-18] MEDS: ASPirin 81 mg TAB PO SCH (09:12)
[2018-09-18] MEDS: POTASSIUM CHL 10% (20 MEQ/15ML) 15ml ORAL SOLN GT SCH ×2 (09:12→21:26)
[2018-09-18] MEDS: amLODIPine BESYLATE 5 MG TAB PO SCH (09:12)
[2018-09-18] MEDS: CARVEDILOL 12.5 MG TAB PO SCH ×2 (09:13→21:24)
[2018-09-18] MEDS: BENAZEPRIL HCL 10 MG TAB PO SCH ×2 (09:13→21:23)
[2018-09-18 13:00] VITALS: BP 127/79
[2018-09-18 13:54] LABS: Chloride 97 mmol/L (98-107); Potassium 4.4 mmol/L (3.5-5.1); Sodium 136 mmol/L (136-145)
[2018-09-18 13:57] LABS: Anion Gap 3 (5-15); Blood Urea Nitrogen 33 mg/dL (7-18); Calcium 8.8 mg/dL (8.5-10.1); Carbon Dioxide 36 mmol/L (21-32); Glucose 236 mg/dL (74-106)
[2018-09-18 14:00] LABS: BUN/Creatinine Ratio 28.2; GFR African American 57 mL/min; GFR Non-African American 47 mL/min
--- NOTE | 2018-09-18 14:35 | NUR ---
DR. LINCOLN AT BEDSIDE. POC DISCUSSED WITH PT.
[2018-09-18 17:19] VITALS: BP 136/86
[2018-09-18] MEDS: ATORVASTATIN 20 MG TAB PO SCH (17:21)
--- NOTE | 2018-09-18 19:30 | NUR ---
OPENING NOTE REPORT RECEIVED FROM DAY SHIFT RN. PATIENT IS A/OX4 RESTING IN BED WATCHING TV.PHYSICAL ASSESSMENT DONE-SEE INTERVENTIONS. PATIENT IS ON 4L NC, NO S/S OF SOB OR DISTRESS NOTED. IV PLACEMENT NOTED X 2 TO LEFT FOREARM INTACT AND PATENT. POC FOR TONIGHT DISCUSSED AND ALL QUESTIONS ANSWERED. WILL MONITOR Q1H PRN THROUGHOUT SHIFT, CALL LIGHT WITHIN REACH
--- NOTE | 2018-09-18 19:37 | NUR ---
CARE ENDORSED TO TOYA FERRELL.
[2018-09-18 21:12] VITALS: BP 134/50
[2018-09-18] MEDS: INSULIN LANTUS (GLARGINE) 1 /0.01ml (100units/ml) SC SCH (21:27)
[2018-09-19] VITALS (7 sets, daily range): BP systolic 117–132; BP diastolic 47–84
[2018-09-19] MEDS: KETOROLAC TROMETH 30 MG/ML 1ML VIAL IV PRN (05:28)
--- NOTE | 2018-09-19 05:29 | NUR ---
PAIN PATIENT WOKE UP COMPLAINING OF LEFT ANKLE PAIN. ANKLE ASSESSED, STILL SWOLLEN, NO CHANGE FROM START OF SHIFT. PATIENT REQUESTS PAIN MEDICATION. TORADOL ADMINISTERED ORDERED BY .
[2018-09-19] MEDS: FUROSEMIDE 40 MG/4 ML VIAL IV SCH ×2 (06:01→17:30)
[2018-09-19] MEDS: ACCU-CHEK COMFORT CURVE STRIP VI SCH ×4 (06:07→21:27)
[2018-09-19] MEDS: InsuLIN REG 1unit/0.01ml Soln (100units/ml) SC SCH ×4 (06:07→21:26)
[2018-09-19] MEDS: IPRATROPIUM BROM 0.5 MG/2.5ML INH SOL NEB SCH ×3 (06:11→18:47)
[2018-09-19] MEDS: ALBUTEROL SULF 2.5 MG/0.5ML(0.5%) NEB SOLN NEB SCH ×3 (06:11→18:46)
[2018-09-19] MEDS: BUDESONIDE (INHALATION) 0.5 MG/2 ML NEB NEB SCH ×2 (06:12→18:47)
--- NOTE | 2018-09-19 07:03 | NUR ---
CLOSING NOTE REPORT ENDORSED TO DAY SHIFT RN PT STABLE. NO S/S OF DISTRESS. CALL LIGHT WITHIN REACH.
[2018-09-19] MEDS: cefTRIAXone 1GM/50ML D5W 50 ML IV SCH (09:23)
[2018-09-19] MEDS: PANTOPRAZOLE 40 MG/10 ML VIAL IV SCH (09:23)
[2018-09-19] MEDS: BUMETANIDE (0.25MG/ML) 4 ML VIAL IV SCH (09:23)
[2018-09-19] MEDS: BENAZEPRIL HCL 10 MG TAB PO SCH ×2 (09:31→21:25)
[2018-09-19] MEDS: amLODIPine BESYLATE 5 MG TAB PO SCH (09:33)
[2018-09-19] MEDS: ASPirin 81 mg TAB PO SCH (09:33)
[2018-09-19] MEDS: POTASSIUM CHL 10% (20 MEQ/15ML) 15ml ORAL SOLN GT SCH ×2 (09:34→21:26)
[2018-09-19] MEDS: CARVEDILOL 12.5 MG TAB PO SCH ×2 (09:34→21:26)
--- NOTE | 2018-09-19 09:45 | NUR ---
DR. LINCOLN AT BEDSIDE. POC DISCUSSED WITH PT.
[2018-09-19] MEDS: VANCOMYCIN 750 MG in D5W 5% 250 ML IV SCH (10:00)
[2018-09-19] MEDS: AZITHROMYCIN 500MG/ 250ML 250 ML IV SCH (12:16)
--- NOTE | 2018-09-19 14:57 | NUR ---
Nutrition Assessment Notes please see attached link for complete assessment Est. Needs ABW [id number] kcal (17-20 kcal/kgBW), 56-70 gms pro (0.8-1.0 gms/kgBW r/t elev RFT). Will continue to monitor pertinent labs and reassess nutrient need prn Addendum: 09/19/18 at [address] Amended: Links added.
[2018-09-19] MEDS: ATORVASTATIN 20 MG TAB PO SCH (16:56)
--- NOTE | 2018-09-19 19:17 | NUR ---
CARE GIVEN TO LIBRADO FERRELL.
--- NOTE | 2018-09-19 19:25 | NUR ---
Opening Shift Note Assumed care of patient, awake and alert x 3. No S/S of distress/SOB. Bed is in lowest position and locked. Call light within reach. Board updated. Tele box number matches monitor and leads are in correct placement. Instructed on POC and to call for assist PRN, will continue to monitor for changes Q1hr and PRN.
[2018-09-19] MEDS: ACETAMINOPHEN 500 MG TAB PO PRN (20:48)
--- NOTE | 2018-09-19 21:14 | NUR ---
Called and spoke to patient's granddaughter, Thalia, and, after verifying password, gave her a brief update on the patient's condition, per patient request. Patient wants granddaughter to be updated frequently.
[2018-09-19] MEDS: ZOLPIDEM TARTRATE 5 MG TAB PO PRN (21:25)
[2018-09-19] MEDS: INSULIN LANTUS (GLARGINE) 1 /0.01ml (100units/ml) SC SCH (21:26)
--- NOTE | 2018-09-19 22:41 | NUR ---
Respiratory note: PT DOES NOT WANT TO WEAR BIPAP AT THIS TIME, PT STATES SHE ONLY WEARS THE BIPAP SOMETIMES. PT NOTIFIED TO CALL RT IF SHE DECIDES TO WEAR BIPAP.
[2018-09-20 05:56] VITALS: BP 140/51
[2018-09-20 06:01] LABS: Basophils # (auto) 0 uL; Basophils % (auto) 0.3 % (0.0-2.0); Eosinophils # (auto) 0.5 uL; Eosinophils % (auto) 4.2 % (0.0-7.0); Hematocrit 30.8 % (36.0-46.0); Hemoglobin 9.8 g/dL (12.2-16.2); Lymphocytes # (auto) 1.4 uL; Lymphocytes % (auto) 11.2 % (10.0-50.0); Mean Corpuscular Hemoglobin 28.4 pg (28.0-32.0); Mean Corpuscular Hgb Conc. 31.9 g/dL (32.0-36.0); Mean Corpuscular Volume 89.1 fL (80.0-100.0); Monocytes % (auto) 7.9 % (0.0-12.0); Neutrophils # (auto) 9.3 uL; Neutrophils % (auto) 76.4 % (37.0-80.0); Platelet Count (auto) 326 10^3/uL (140-450); Red Blood Cells 3.46 10^6/uL (4.0-5.20); Red Cell Distribution Width 14.7 % (11.8-14.3); White Blood Cell 12.2 10^3/uL (4.4-10.8)
[2018-09-20] MEDS: FUROSEMIDE 40 MG/4 ML VIAL IV SCH (06:05)
[2018-09-20] MEDS: InsuLIN REG 1unit/0.01ml Soln (100units/ml) SC SCH ×4 (06:05→21:51)
[2018-09-20] MEDS: ACCU-CHEK COMFORT CURVE STRIP VI SCH ×4 (06:05→21:51)
[2018-09-20] MEDS: ALBUTEROL SULF 2.5 MG/0.5ML(0.5%) NEB SOLN NEB SCH ×3 (06:14→19:08)
[2018-09-20] MEDS: IPRATROPIUM BROM 0.5 MG/2.5ML INH SOL NEB SCH ×3 (06:14→19:08)
[2018-09-20 06:15] LABS: BUN/Creatinine Ratio 29.3; Calcium 8.8 mg/dL (8.5-10.1); Potassium 4.5 mmol/L (3.5-5.1)
[2018-09-20] MEDS: BUDESONIDE (INHALATION) 0.5 MG/2 ML NEB NEB SCH ×2 (06:15→19:08)
--- NOTE | 2018-09-20 08:00 | NUR ---
Opening Shift Note Assumed care of patient, asleep. No S/S of distress/SOB or pain. Will continue to monitor for changes Q1hr and PRN.
[2018-09-20] MEDS: PANTOPRAZOLE 40 MG/10 ML VIAL IV SCH (09:32)
[2018-09-20] MEDS: cefTRIAXone 1GM/50ML D5W 50 ML IV SCH (09:32)
[2018-09-20] MEDS: POTASSIUM CHL 10% (20 MEQ/15ML) 15ml ORAL SOLN GT SCH (09:32)
[2018-09-20] MEDS: ASPirin 81 mg TAB PO SCH (09:32)
[2018-09-20] MEDS: BUMETANIDE (0.25MG/ML) 4 ML VIAL IV SCH (09:32)
[2018-09-20] MEDS: BENAZEPRIL HCL 10 MG TAB PO SCH ×2 (09:33→21:52)
[2018-09-20] MEDS: amLODIPine BESYLATE 5 MG TAB PO SCH (09:33)
[2018-09-20] MEDS: CARVEDILOL 12.5 MG TAB PO SCH ×2 (09:34→21:52)
--- NOTE | 2018-09-20 10:20 | NUR ---
Dr. Ferguson at bedside.
[2018-09-20] MEDS: VANCOMYCIN 750 MG in D5W 5% 250 ML IV SCH (10:50)
[2018-09-20] MEDS: AZITHROMYCIN 500MG/ 250ML 250 ML IV SCH (12:13)
--- NOTE | 2018-09-20 19:00 | NUR ---
Closing note Patient resting in bed, no signs of distress noted.
[2018-09-20] MEDS: ATORVASTATIN 20 MG TAB PO SCH (19:11)
[2018-09-20] MEDS: ACETAMINOPHEN 500 MG TAB PO PRN (19:12)
[2018-09-20 21:30] VITALS: BP 113/67
[2018-09-20] MEDS: ZOLPIDEM TARTRATE 5 MG TAB PO PRN (21:51)
[2018-09-20] MEDS: INSULIN LANTUS (GLARGINE) 1 /0.01ml (100units/ml) SC SCH (21:51)
--- NOTE | 2018-09-20 23:51 | NUR ---
Report given to GHASSAN Swan. Beny taking over care for patient. Patient is sleeping in bed at this time. No distress noted.
--- NOTE | 2018-09-21 | NUR ---
Assumed care of pt Pt currently laying in bed sleeping. No signs of distress noted. Call light within reach. Will continue to monitor.
[2018-09-21 05:00] VITALS: BP 138/46
[2018-09-21] MEDS: ACCU-CHEK COMFORT CURVE STRIP VI SCH ×3 (06:27→18:06)
[2018-09-21] MEDS: InsuLIN REG 1unit/0.01ml Soln (100units/ml) SC SCH ×3 (06:27→18:06)
[2018-09-21] MEDS: ACETAMINOPHEN 500 MG TAB PO PRN (06:28)
[2018-09-21] MEDS: BUDESONIDE (INHALATION) 0.5 MG/2 ML NEB NEB SCH ×2 (06:43→18:46)
[2018-09-21] MEDS: ALBUTEROL SULF 2.5 MG/0.5ML(0.5%) NEB SOLN NEB SCH ×3 (06:43→18:45)
[2018-09-21] MEDS: IPRATROPIUM BROM 0.5 MG/2.5ML INH SOL NEB SCH ×3 (06:43→18:45)
[2018-09-21 08:11] VITALS: BP 131/51
[2018-09-21] MEDS: cefTRIAXone 1GM/50ML D5W 50 ML IV SCH (09:06)
[2018-09-21] MEDS: PANTOPRAZOLE 40 MG/10 ML VIAL IV SCH (09:30)
[2018-09-21] MEDS: CARVEDILOL 12.5 MG TAB PO SCH (09:30)
[2018-09-21] MEDS: ASPirin 81 mg TAB PO SCH (09:30)
--- NOTE | 2018-09-21 09:30 | NUR ---
Spoke to Jeni for radiology. Jeni states that they cannot do the thyroid biopsy as patient cannot lie flat due to breathing issues.
[2018-09-21] MEDS: BENAZEPRIL HCL 10 MG TAB PO SCH (09:31)
[2018-09-21] MEDS: amLODIPine BESYLATE 5 MG TAB PO SCH (09:31)
--- NOTE | 2018-09-21 09:39 | NUR ---
Received a call from radiology department confirming that they are not doing the thyroid biopsy due to patient's anatomy and breathing.
[2018-09-21] MEDS: VANCOMYCIN 750 MG in D5W 5% 250 ML IV SCH (10:26)
[2018-09-21 11:49] VITALS: BP 98/46
[2018-09-21] MEDS: AZITHROMYCIN 500MG/ 250ML 250 ML IV SCH (12:11)
--- NOTE | 2018-09-21 13:00 | NUR ---
Patient's daughter, Gloria called and was informed that patient is for discharge today. Gloria states she will inform Thalia her neice to seed cone picker the patient.
--- NOTE | 2018-09-21 15:49 | NUR ---
Spoke to Thalia, grand daughter. Thaila states she will get the oxygen and will be back to picket [employer] the patient.
[2018-09-21 16:27] VITALS: BP 115/45
--- NOTE | 2018-09-21 17:33 | NUR ---
assessment Patient is a 78 year old female who is alert and oriented. Patients cognitive abilities are intact. Prior to admission patient lived home with family and functioned with assistance. Per patient she will return home to her prior living arrangements post discharge and her granddaughter Thalia will transport her home. Patient informed me she has a fww, 02, and a wheelchair for home use. Thalia is her [facility] caregiver. Patient feels safe returning home on discharge. Patient has no post discharge needs at this time. I informed patient she has a right to speak to a social media marketing analyst regarding all care. I informed patient she has a right to participate in any and all discharge planning. Patient is aware of visiting hours on the hospital floor. I informed patient she has a right to privacy. Patient does not have a POA and advanced directive. I have offered patient information on POA and advanced directives. I informed the patient the advantages and benefits of having an Advanced Directive. Patient verbalized understanding and agreed to discharge plan. Addendum: 09/21/18 at 1735 by Clau RAMEY Amended: Links added.
[2018-09-21] MEDS: ATORVASTATIN 20 MG TAB PO SCH (18:06)
--- NOTE | 2018-09-21 19:07 | NUR ---
Discharge instructions given as ordered. Encourage to follow up with PMD and screen tacker as instructed. All questions and concerns addressed. Patient verbalized understanding. Medication reconciliation form completed and copy given to patient. IV removed with catheter intact, pressure dressing applied. Telemetry unit returned to [facility]. Patient taken to vehicle via wheelchair with all personal belongings, accompanied by staff and family member. No distress noted at time of departure.
[2018-09-24] MEDS ORDERED: INSUINJ18 SC (02:52)
== END 2018-09-21 19:07 | disposition home or self-care (01) | DRG 871 ==
LOC: ER 13:39 → TELE 17:52 → TELE-WESTW 22:06
PROVIDERS: ADMIT Nurse Practitioner Acute Care; ATTEND Family Medicine
PROC: 5A09357 Assistance with Respiratory Ventilation, Less than 24 Consecutive Hours, Continuous Positive Airway Pressure (ICD-10-PCS; principal; 2018-09-16)
DX: A41.1 Sepsis due to other specified staphylococcus (principal); J96.20 Acute and chronic respiratory failure, unspecified whether with hypoxia or hypercapnia; J18.9 Pneumonia, unspecified organism; I50.43 Acute on chronic combined systolic (congestive) and diastolic (congestive) heart failure; E44.0 Moderate protein-calorie malnutrition; J44.1 Chronic obstructive pulmonary disease with (acute) exacerbation; N39.0 Urinary tract infection, site not specified; J44.0 Chronic obstructive pulmonary disease with (acute) lower respiratory infection; Z68.41 Body mass index [BMI] 40.0-44.9, adult; D70.9 Neutropenia, unspecified; I11.0 Hypertensive heart disease with heart failure; D63.8 Anemia in other chronic diseases classified elsewhere; M19.90 Unspecified osteoarthritis, unspecified site; E78.5 Hyperlipidemia, unspecified; N28.9 Disorder of kidney and ureter, unspecified; E04.1 Nontoxic single thyroid nodule; E66.01 Morbid (severe) obesity due to excess calories; E78.00 Pure hypercholesterolemia, unspecified; G47.30 Sleep apnea, unspecified; M54.5 Low back pain; E11.40 Type 2 diabetes mellitus with diabetic neuropathy, unspecified; G89.29 Other chronic pain; Z79.4 Long term (current) use of insulin; Z79.82 Long term (current) use of aspirin; Z83.3 Family history of diabetes mellitus; Z87.891 Personal history of nicotine dependence; Z90.710 Acquired absence of both cervix and uterus
CPT/HCPCS: 36415; 71045; 71275; 76536; 80048; 80053; 80061; 80202; 81001; 82962; 83605; 83735; 83880; 84443; 84484; 85025; 85379; 85610; 85730; 87040; 87070; 87077; 87186; 87205; 87804; 93306; 93970; 94640; 94660; 94761; 96365; 96367; 96375; 96376; C9113; G0378; J0696; J1815; J1885; J7060; Q9967

== ENCOUNTER 2019-03-05 13:41 | Inpatient (IN) | payer OTHER, MEDICAID ==
[~2019-03-05] VITALS: Ht 154.9 cm; Wt 88.7 kg
[~2019-03-05 13:41] MED LIST changes: -BUME2TAB3 PO; +BUME2TAB5 PO; +CAR125T PO; +FAMO-12 PO; +HYDR50TA15 PO; +INSUINJ18 SC; -INSUINJ32 SC; +LEVEMIR SC; +MONT10TA34 PO; -OMEP20CA74 PO; +POTA10TA51 PO
[2019-03-05 14:19] LABS: Basophils # (auto) 0.1 uL; Basophils % (auto) 0.6 % (0.0-2.0); Eosinophils # (auto) 0.5 uL; Eosinophils % (auto) 3.8 % (0.0-7.0); Hematocrit 35.8 % (36.0-46.0); Hemoglobin 11.2 g/dL (12.2-16.2); Lymphocytes # (auto) 1.2 uL; Lymphocytes % (auto) 9.8 % (10.0-50.0); Mean Corpuscular Hemoglobin 27.5 pg (28.0-32.0); Mean Corpuscular Hgb Conc. 31.3 g/dL (32.0-36.0); Mean Corpuscular Volume 87.7 fL (80.0-100.0); Monocytes # (auto) 0.7 uL; Monocytes % (auto) 5.4 % (0.0-12.0); Neutrophils # (auto) 9.7 uL; Neutrophils % (auto) 80.4 % (37.0-80.0); Platelet Count (auto) 286 10^3/uL (140-450); Red Blood Cells 4.08 10^6/uL (4.0-5.20); Red Cell Distribution Width 15.2 % (11.8-14.3); White Blood Cell 12.1 10^3/uL (4.4-10.8)
[2019-03-05 15:07] LABS: INR < 0.93 (0.9-1.15); Partial Thromboplastin Time 28.4 sec (23.64-32.05)
[2019-03-05 15:39] LABS: Albumin 3.4 g/dL (3.4-5.0); Anion Gap 4 (5-15); Blood Urea Nitrogen 27 mg/dL (7-18); Calcium 9.4 mg/dL (8.5-10.1); Carbon Dioxide 35 mmol/L (21-32); Chloride 102 mmol/L (98-107); Glucose 132 mg/dL (74-106); Magnesium 2.2 mg/dL (1.6-2.6); Potassium 4.4 mmol/L (3.5-5.1); Sodium 141 mmol/L (136-145)
[2019-03-05 15:41] LABS: Alanine Aminotransferase 13 U/L (13-56); Aspartate Aminotransferase 14 U/L (15-37); BUN/Creatinine Ratio 27.6; GFR African American 70 mL/min; GFR Non-African American 58 mL/min
[2019-03-05 15:46] LABS: Alkaline Phosphatase 93 U/L (45-117); Bilirubin, Total 0.3 mg/dL (0.2-1.0); Total Protein 7.6 g/dL (6.4-8.2)
[2019-03-05] MEDS ORDERED: methylPREDNISolone SOD SUCC 125 MG/2 ML VL IV ONE (17:30)
[2019-03-05] MEDS ORDERED: IPRATROPIUM BROM 0.5 MG/2.5ML INH SOL NEB ONE (17:30)
[2019-03-05] MEDS ORDERED: ALBUTEROL SULF 2.5 MG/0.5ML(0.5%) NEB SOLN NEB ONE (17:30)
[2019-03-05] MEDS ORDERED: FUROSEMIDE 20 MG/2 ML VIAL IV ONE (17:30)
[2019-03-05 20:57] LABS: Urine Bacteria FEW /hpf (None Seen); Urine Blood TRACE /uL (Negative); Urine Specific Gravity 1.012 (1.001-1.035); Urine WBC 4 /hpf (0 - 5)
[2019-03-05] MEDS ORDERED: TEMAZEPAM 15 MG CAP PO PRN (21:00)
[2019-03-05] MEDS ORDERED: ONDANSETRON HCL 4 MG/2 ML VIAL IV PRN (21:00)
[2019-03-05] MEDS ORDERED: ALBUTEROL SULF 2.5 MG/0.5ML(0.5%) NEB SOLN NEB PRN (21:00)
[2019-03-05] MEDS ORDERED: DEXTROSE (50%) 50ML SYRG IV PRN (21:00)
[2019-03-05 21:26] VITALS: BP 197/76
[2019-03-05] MEDS ORDERED: MORPHINE SULF INJ 2 MG/ML SYRINGE 1ML IV PRN (21:30)
[2019-03-05] MEDS ORDERED: NITROGLYCERIN 0.4 MG SL TAB SL PRN (21:30)
[2019-03-05] MEDS: ACETAMINOPHEN 325 MG TAB PO PRN (22:03)
[2019-03-05] MEDS: ATORVASTATIN 20 MG TAB PO SCH (22:08)
[2019-03-05] MEDS: MONTELUKAST SODIUM 10 MG TAB PO SCH (22:09)
[2019-03-05] MEDS: CARVEDILOL 12.5 MG TAB PO SCH (22:09)
[2019-03-05] MEDS ORDERED: cloNIDine HCL 0.1 MG TAB PO ONE (22:30)
[2019-03-06] MEDS ORDERED: IOHEXOL 350 MG/ML 100ML IJ ONE (00:20)
[2019-03-06] MEDS ORDERED: hydrALAZINE HCL 20 MG/ML VL IV ONE (01:00)
[2019-03-06] MEDS: ACCU-CHEK COMFORT CURVE STRIP VI SCH ×5 (01:01→23:37)
[2019-03-06] MEDS: InsuLIN REG 1unit/0.01ml Soln (100units/ml) SC SCH ×5 (01:25→23:37)
[2019-03-06 02:00] VITALS: BP 174/73
--- NOTE | 2019-03-06 02:00 | NUR ---
Telemetry admit from [facility]S admitted to Telemetry unit after SBAR received. Patient oriented to PATRICIO MARTIN RN primary RN, unit, room, bed, and unit policies regarding patient care and visiting hours. Patient now on continuous telemetry monitoring, tele box # 54 and telemetry reading on arrival to unit is SR 80S 1ST AVB. Patient placed on bedside oxygen, weighed by bedscale and encouraged to call if they need something. Received order to give Lovenox 80mg SQ for PE. adminsitered lovenox 80mg SQ to RLQ abdomen. All questions and concerns addressed, patient verbalized understanding. Note:
[2019-03-06] MEDS: ENOXAPARIN SOD 80 MG/0.8ML SYRINGE SC SCH ×2 (02:05→14:45)
[2019-03-06] MEDS: HYDROcodone-ACET 5/325MG TAB PO PRN ×2 (02:05→22:46)
[2019-03-06] MEDS ORDERED: TEMA15CA PO (02:23)
[2019-03-06 04:49] VITALS: BP 164/76
[2019-03-06] MEDS: FUROSEMIDE 20 MG/2 ML VIAL IV SCH ×2 (06:07→18:41)
[2019-03-06 06:08] LABS: Basophils # (auto) 0 uL; Basophils % (auto) 0.3 % (0.0-2.0); Eosinophils # (auto) 0 uL; Hematocrit 37.1 % (36.0-46.0); Lymphocytes # (auto) 0.8 uL; Lymphocytes % (auto) 6.7 % (10.0-50.0); Mean Corpuscular Hemoglobin 28.5 pg (28.0-32.0); Mean Corpuscular Hgb Conc. 32.2 g/dL (32.0-36.0); Mean Corpuscular Volume 88.4 fL (80.0-100.0); Monocytes # (auto) 0.1 uL; Monocytes % (auto) 1.1 % (0.0-12.0); Neutrophils # (auto) 11.5 uL; Neutrophils % (auto) 91.9 % (37.0-80.0); Platelet Count (auto) 287 10^3/uL (140-450); Red Cell Distribution Width 15.7 % (11.8-14.3); White Blood Cell 12.5 10^3/uL (4.4-10.8)
[2019-03-06 06:27] LABS: Calcium 9.3 mg/dL (8.5-10.1); Potassium 4.5 mmol/L (3.5-5.1)
--- NOTE | 2019-03-06 07:30 | NUR ---
RECEIVED REPORT FROM NIGHT NURSE, PATIENT RESTING IN BED. NOTICEABLE SHORTNESS OF BREATH. WILL CONTINUE TO MONITOR.
[2019-03-06 09:00] VITALS: BP 181/95
[2019-03-06] MEDS: PANTOPRAZOLE 40 MG TAB PO SCH (10:00)
[2019-03-06] MEDS ORDERED: ENOXAPARIN SOD 40 MG/0.4 ML SYRINGE SC SCH (10:00)
[2019-03-06] MEDS: CARVEDILOL 12.5 MG TAB PO SCH ×2 (10:00→21:24)
[2019-03-06] MEDS ORDERED: LABETALOL HCL 5 MG/ML ML 20ML VIAL IV PRN (11:00)
[2019-03-06] MEDS ORDERED: amLODIPine BESYLATE 5 MG TAB PO ONE (11:00)
--- NOTE | 2019-03-06 11:29 | NUR ---
Respiratory note: PT PLACED ON BIPAP PER DR. GABRIEL BECAUSE OF INCREASED WOB AND ACIDEMIA. RN AWARE. REPEAT ABG TO BE DRAWN. CONTINUOUS POX IS CONNECTED AND FUNCTIONAL. ALARMS ARE ON AND AUDIBLE.
[2019-03-06 12:30] VITALS: BP 161/72
--- NOTE | 2019-03-06 13:10 | NUR ---
Respiratory note: DR. GABRIEL PAGED REGARDING CRITICAL ABG RESULTS. AWAITING CALL BACK FOR POSSIBLE ORDER CHANGES REGARDING THE BIPAP.
--- NOTE | 2019-03-06 14:50 | NUR ---
DR. MATHEW AT BEDSIDE. ORDERS RECEIVED, WILL PLACE AND CARRY OUT.
--- NOTE | 2019-03-06 14:55 | NUR ---
SPOKE TO BROOKE, TOMATO PULPER OPERATOR ABOUT [facility] TRANSFER ORDERS.
--- NOTE | 2019-03-06 15:50 | NUR ---
[facility]OS received to [facility] from Tele floor via hospital bed on threat monitoring analyst, and portable 02. Patient connected to unit monitoring and BIPAP 18/8, 30% FIO2, rate 12, and [facility] Patient awake and oriented x3, re-oriented to time. Patient SOB, oxygen saturation 94% on BIPAP. No S/S of pain. See interventions for complete assessment. Patient oriented to Yohana yeboah RN, unit, room, bed, and unit policies regarding patient care and visiting hours. All questions and concerns addressed, patient verbalized understanding. Bed locked on low position, side rails up x2, bed alarms on at all times, call nickerson within reach, instructed to call for needed assistance. Will continue to monitor.
--- NOTE | 2019-03-06 16:00 | NUR ---
PATIENT TRANSFERRED TO ROOM 261, RT PRESENT DURING TRANSPORT. REPORT GIVEN TO NURSE, RADHA. PATIENT'S BELONGINGS TAKEN WITH HER.
--- NOTE | 2019-03-06 16:10 | NUR ---
Paged Dr Najera and called back, updated on patient's status. Informed patient is having SOB and urinary incontinence. Received telephone order to insert patel catheter. Orders read back and verified. Will carry out.
--- NOTE | 2019-03-06 17:00 | NUR ---
Patel catheter insertion Patient assessed and determined to be in need of patel catheter. Order obtained from MD. Patient educated on catheter and reason for insertion. All questions answered. Patel catheter 16 guage Albanian inserted with clean sterile technique by Genesis FERRELL. Patient tolerated well.
--- NOTE | 2019-03-06 17:37 | NUR ---
Patient's blood sugar 150mg/dl, Regular Insulin held, patient not able to eat/drink at this time due to SOB.
--- NOTE | 2019-03-06 19:45 | NUR ---
SHIFT OPENING NOTE RECEIVED PATIENT LAYING IN BED WITH EYES CLOSED. APPEARS WEAK.AWOKEN WITH TOUCH. ANSWERED SIMPLE QUESTIONS. ON BIPAP 17/01, R 12, 40% FI02. CHINCHILLA CATH DRAINING URINE TO GRAVITY. PHYSICAL ASSESSMENT COMPLETED, SEE INTERVENTIONS. ATTEMPTED TO INSTRUCT ON POC. BED IS IN THE LOWEST POSITION WITH SIDE RAILS UP X2, CALL LIGHT IS WITHIN REACH. WILL CLOSELY MONITOR.
[2019-03-06 20:00] VITALS: BP 136/43
[2019-03-06] MEDS: MONTELUKAST SODIUM 10 MG TAB PO SCH (21:24)
[2019-03-06] MEDS: ATORVASTATIN 20 MG TAB PO SCH (21:24)
[2019-03-06] MEDS ORDERED: LORazepam 2MG/ML-1ML VIAL IV ONE (23:45)
[2019-03-07] VITALS (13 sets, daily range): BP systolic 113–157; BP diastolic 39–69
[2019-03-07] MEDS: ENOXAPARIN SOD 80 MG/0.8ML SYRINGE SC SCH ×2 (02:00→13:45)
--- NOTE | 2019-03-07 05:00 | NUR ---
MORNING HYGIENE CARE FULL BED BATH PERFORMED USING CHG WIPES. GOWN CHANGED. PARTIAL LINEN CHANGED. PATIENT REPOSITIONED FOR COMFORT. TOLERATED IT WELL.
[2019-03-07] MEDS: InsuLIN REG 1unit/0.01ml Soln (100units/ml) SC SCH ×3 (06:00→18:26)
[2019-03-07] MEDS: ACCU-CHEK COMFORT CURVE STRIP VI SCH ×3 (06:10→18:26)
[2019-03-07] MEDS: FUROSEMIDE 20 MG/2 ML VIAL IV SCH ×2 (06:11→18:25)
--- NOTE | 2019-03-07 07:20 | NUR ---
REPORT RECEIVED FROM WEAVING TEACHER NURSE. PATIENT RESTING IN BED AT THIS TIME. RESPIRATIONS EVEN AND LABORED ON BIPAP, SATURATIONS 94% PENDING ABG RESULTS. PATIENT IS ALERT AND ORIENTED X3 WITH MOMENTS OF CONFUSION. BED IN LOW POSITION, CALL LIGHT IN REACH. WILL CONTINUE TO MONITOR.
--- NOTE | 2019-03-07 07:26 | NUR ---
END OF SHIFT REPORT GIVEN AND CARE ENDORSED TO TOYA FERRELL.
--- NOTE | 2019-03-07 08:25 | NUR ---
NPO AT THIS TIME DUE TO DEPENDENCY OF BIPAP. SATURATIONS DECREASED TO 86% WHEN GIVING WATER. Addendum: 03/07/19 at 0907 by Quin Bajwa RN Amended: Links added.
[2019-03-07] MEDS: CARVEDILOL 12.5 MG TAB PO SCH ×3 (09:34→23:03)
[2019-03-07] MEDS: PANTOPRAZOLE 40 MG TAB PO SCH (09:34)
[2019-03-07] MEDS: amLODIPine BESYLATE 5 MG TAB PO SCH (09:35)
[2019-03-07] MEDS ORDERED: MORPHINE SULFATE 4 MG/ML SYR/VIAL IV PRN (10:45)
--- NOTE | 2019-03-07 11:00 | NUR ---
HOLD P.T. BECAUSE OF TRANSFER TO [facility].
[2019-03-07 11:04] LABS: Basophils # (auto) 0.1 uL; Basophils % (auto) 0.4 % (0.0-2.0); Eosinophils # (auto) 0.1 uL; Eosinophils % (auto) 0.5 % (0.0-7.0); Hematocrit 32.4 % (36.0-46.0); Hemoglobin 10.4 g/dL (12.2-16.2); Lymphocytes # (auto) 1.1 uL; Mean Corpuscular Hemoglobin 28.1 pg (28.0-32.0); Mean Corpuscular Volume 87.7 fL (80.0-100.0); Monocytes # (auto) 1.1 uL; Monocytes % (auto) 8.3 % (0.0-12.0); Neutrophils # (auto) 11.1 uL; Neutrophils % (auto) 82.8 % (37.0-80.0); Platelet Count (auto) 241 10^3/uL (140-450); Red Blood Cells 3.69 10^6/uL (4.0-5.20); Red Cell Distribution Width 15.7 % (11.8-14.3); White Blood Cell 13.4 10^3/uL (4.4-10.8)
[2019-03-07 11:23] LABS: BUN/Creatinine Ratio 34.1; Calcium 8.6 mg/dL (8.5-10.1); Potassium 4.1 mmol/L (3.5-5.1)
[2019-03-07 11:27] LABS: Magnesium 2.5 mg/dL (1.6-2.6); Phosphorus 3.1 mg/dL (2.5-4.90)
--- NOTE | 2019-03-07 13:24 | NUR ---
UPDATED FAMILY AT BEDSIDE ON PATIENT STATUS. NO DECISION MADE FOR CODE STATUS AT THIS TIME THAT WAS DISCUSSED WITH MD VIA TELEPHONE IN THE MORNING. AWAITING PATIENTS OTHER DAUGHTER TO BE INFORMED PER FAMILY.
[2019-03-07] MEDS: ALBUTEROL SULF 2.5 MG/0.5ML(0.5%) NEB SOLN NEB PRN ×2 (18:30→22:04)
[2019-03-07] MEDS: ACETYLCYSTEINE 20%(200MG/ML) SOL 4ML NEB SCH ×2 (18:30→22:03)
[2019-03-07] MEDS: IPRATROPIUM BROM 0.5 MG/2.5ML INH SOL NEB SCH ×2 (18:30→22:03)
--- NOTE | 2019-03-07 20:00 | NUR ---
Opening Shift Note Assumed care of patient, awake and alert, shouting through out the BiPAP mask, requesting for water to drink. Water provided as well as mouth care. Lowest POX while drinking and mouth care = 89%. Breathing on BiPAP mask, nonlabored, shallowed and diminished breath sound, No S/S of distress/SOB or pain, occasional coughing. Saline lock on right hang 22G, flushed well, CDI site. Saline lock on left AC 20G, flushed well, CDI site. Salazar's catheter hung to gravity with clear light deyvi urine. Bed in low position, call light within reach, fall and safety measure in place, all alarms are audible. Instructed on POC and to call for assist PRN, will continue to monitor for changes Q1hr and PRN.
[2019-03-07] MEDS: methylPREDNISolone SOD SUCC 40 MG/ML VL IV SCH (21:12)
[2019-03-07] MEDS: ATORVASTATIN 20 MG TAB PO SCH (21:12)
[2019-03-07] MEDS ORDERED: SODIUM CHLORIDE 0.9% 1,000 ML IV SCH (21:45)
--- NOTE | 2019-03-07 21:50 | NUR ---
Condition update V/S and condition stable, tachypneic without BiPAP and activities. Occasional cough with productive sound, no secretion cough out now. Denied pain. Able to turn self slowly, pillow provided for back support. Continue care. Addendum: 03/08/19 at 0055 by Erendira Drake RN BiPAP was leaking and alarming most of the time, Paged RT and notified the problem. No s/s of distress, POX about mid 90's %.
[2019-03-07] MEDS ORDERED: SODIUM CHLORIDE 0.9% 500 ML IV SCH (22:45)
[2019-03-07] MEDS: MONTELUKAST SODIUM 10 MG TAB PO SCH (23:04)
--- NOTE | 2019-03-07 23:30 | NUR ---
Condition update/ IVF started V/S and condition stable, resting on bed with eyes closed. New order from Jose Roberto LICEA received and carried out. Explained to Pt about IVF and MD's new order, Pt verbalized understanding. BiPAP alarmed leaking, attempted re-fitting the mask for Pt. Continue care.
[2019-03-08] VITALS (14 sets, daily range): BP systolic 131–171; BP diastolic 40–73
[2019-03-08] MEDS: InsuLIN REG 1unit/0.01ml Soln (100units/ml) SC SCH ×5 (01:00→23:55)
[2019-03-08] MEDS: ACCU-CHEK COMFORT CURVE STRIP VI SCH ×5 (01:00→23:55)
--- NOTE | 2019-03-08 02:20 | NUR ---
Condition update/ desaturation Pt woke up and pulled the mask, desaturation to 70's, RR30's-40's. Put Pt back to the BiPAP mask, calmed Pt down and waited until POX above 90's%. Pt probably had a ? period of confusion. Pt asked if she is in the hospital. Re-oriented Pt. Mouth care done. Pt sipped some water. Fall and safety precaution in place. Continue care.
[2019-03-08] MEDS: ALBUTEROL SULF 2.5 MG/0.5ML(0.5%) NEB SOLN NEB PRN ×5 (02:23→22:00)
[2019-03-08] MEDS: IPRATROPIUM BROM 0.5 MG/2.5ML INH SOL NEB SCH ×6 (02:23→22:00)
[2019-03-08] MEDS: ACETYLCYSTEINE 20%(200MG/ML) SOL 4ML NEB SCH ×6 (02:24→22:00)
[2019-03-08] MEDS: methylPREDNISolone SOD SUCC 40 MG/ML VL IV SCH ×3 (05:19→22:46)
[2019-03-08 05:35] LABS: Basophils # (auto) 0 uL; Basophils % (auto) 0.4 % (0.0-2.0); Eosinophils # (auto) 0 uL; Hematocrit 33.2 % (36.0-46.0); Hemoglobin 10.5 g/dL (12.2-16.2); Lymphocytes # (auto) 0.6 uL; Lymphocytes % (auto) 5.2 % (10.0-50.0); Mean Corpuscular Hemoglobin 27.6 pg (28.0-32.0); Mean Corpuscular Hgb Conc. 31.6 g/dL (32.0-36.0); Mean Corpuscular Volume 87.1 fL (80.0-100.0); Monocytes # (auto) 0.1 uL; Monocytes % (auto) 0.9 % (0.0-12.0); Neutrophils # (auto) 10.9 uL; Neutrophils % (auto) 93.5 % (37.0-80.0); Platelet Count (auto) 235 10^3/uL (140-450); Red Blood Cells 3.81 10^6/uL (4.0-5.20); Red Cell Distribution Width 15.4 % (11.8-14.3); White Blood Cell 11.6 10^3/uL (4.4-10.8)
[2019-03-08 05:55] LABS: BUN/Creatinine Ratio 36.8; Calcium 8.9 mg/dL (8.5-10.1); Potassium 4.3 mmol/L (3.5-5.1)
[2019-03-08] MEDS ORDERED: FUROSEMIDE 40 MG/4 ML VIAL IV SCH (06:00)
--- NOTE | 2019-03-08 06:40 | NUR ---
Elimination Pt asked for a bedpan for BM. BM provided, Pt turned self well. Pt passed a large amount of brown pasty stool. Sinai rectal cleaned, z-guard applied. Linens changed. Re-positioned for comfort. Tolerated fairly, unable to lie flat, RR 40-60's with activities. O2sat 90% while tachypneic.
--- NOTE | 2019-03-08 07:30 | NUR ---
RECEIVED PATIENT SITTING UP IN THE BED, A/O TIMES 4, STATES SHE IS TIRED AND NEEDS TO GET SOME SLEEP, O2 BY THE BIPAP AT 8L 18/8 12, 30%, ABLE TO MOVE HER ARMS, LEGS ARE WEAK, CHINCHILLA TO GRAVITY, LAC 20G AND RT HAND 22G BOTH SALINE LOCK FLUSHED AND PATENT,
--- NOTE | 2019-03-08 08:00 | NUR ---
ABLE TO HELP US TURN HER
--- NOTE | 2019-03-08 08:30 | NUR ---
NOT ABLE TO EAT HER BREAKFAST CAN'T TAKE HER OFF THE BIPAP YET, GETS SOB WHEN WE MOVE HER
--- NOTE | 2019-03-08 08:45 | NUR ---
TYLENOL GIVEN FOR A H/A, 01/09 STATES SHE DIDN'T GET ANY SLEEP LAST NIGHT AND HER HEAD IS HURTING, EXPRESS TO HER THAT I WOULD TRY AND LET HER SLEEP FOR ABOUT 2 HOURS
[2019-03-08] MEDS: ACETAMINOPHEN 325 MG TAB PO PRN (08:47)
--- NOTE | 2019-03-08 09:30 | NUR ---
EYES CLOSED APPEARS TO BE SLEEPING
--- NOTE | 2019-03-08 10:00 | NUR ---
PATIENT REFUSED TO BE TURNED
[2019-03-08] MEDS: amLODIPine BESYLATE 5 MG TAB PO SCH (10:12)
[2019-03-08] MEDS: CARVEDILOL 12.5 MG TAB PO SCH ×2 (10:13→22:46)
[2019-03-08] MEDS: PANTOPRAZOLE 40 MG TAB PO SCH (10:13)
[2019-03-08] MEDS: LEVOFLOXACIN 250MG 50 ML IV SCH (10:13)
[2019-03-08] MEDS: ENOXAPARIN SOD 80 MG/0.8ML SYRINGE SC SCH (10:14)
--- NOTE | 2019-03-08 10:15 | NUR ---
EXPLAIN MEDICATIONS TO THE PATIENT REGARDING THE DOSAGE, USAGE AND THE SIDE EFFECTS, VERBALIZED THAT SHE UNDERSTOOD AND MEDS GIVEN ORDERED
--- NOTE | 2019-03-08 10:20 | NUR ---
STATED HER H/A WAS GONE
--- NOTE | 2019-03-08 10:25 | NUR ---
DR GABRIEL IN TO SEE THE PATIENT AND DISCUSSED THE POC
--- NOTE | 2019-03-08 10:39 | NUR ---
PT SWITCHED TO NASAL CUSHION SIZE "B" MASK. PT TOLERATING MASK WELL, MINIMAL LEAK NOTED ON BIPAP.
--- NOTE | 2019-03-08 11:30 | NUR ---
PATIENT DOZING ON AND OFF
--- NOTE | 2019-03-08 12:30 | NUR ---
SITTING UP IN THE BED WITH EYES, CLOSED
--- NOTE | 2019-03-08 13:20 | NUR ---
PT TAKEN OFF BIPAP AT THIS TIME TO EAT LUNCH. PT IS ON 3LNC, SPO2 RANGES 91%-94%.
[2019-03-08] MEDS ORDERED: ALBUMIN 5% 250 ML IV ONE (13:45)
--- NOTE | 2019-03-08 14:00 | NUR ---
AGUILABryon ATE HER LUNCH FEED HERSELF AND TOLERATED T
--- NOTE | 2019-03-08 14:45 | NUR ---
FAMILY AT THE BEDSIDE CALLED DR GABRIEL AND STATED SHE HAS LEFT FOR THE DAY, STATED TO TELL THE FAMILY TO COME BACK TOMORROW ABOUT 10:30 TO TALK WITH THEM REGARDING THE POC
--- NOTE | 2019-03-08 15:00 | NUR ---
no change in condition, talking with family
--- NOTE | 2019-03-08 15:15 | NUR ---
dr rahman in to talk with the family
--- NOTE | 2019-03-08 16:02 | NUR ---
sitting up in the bed talking with her family on o2 at 2l by n/c .
--- NOTE | 2019-03-08 16:14 | NUR ---
Pt is an 78 yr old female, alert and oriented but unable to communicate well with Bi-pap machine. Pt asked SW to contact family member to discuss information. Pt's granddaughter, Thalia, is her caregiver and her point of contact at [phone]. Prior to admit, pt able to ambulate with walker. Pt lives with her daughter and her granddaughter Thalia helps with bathing, laundry, cooking, transportation,etc. Pt utilizes a walker, in Home 02, nebulizer and C-pap machine in the home. Pt was not currently on HH but received services recently through [place]. Pt's Primary is Dr. Shields. Pt does not have an advanced directive and has no interest at this time. Pt's granddaughter Thalia will transport pt home upon d/c. D/C needs and placement will be further assessed closer to d/c. Addendum: 03/08/19 at 1620 by STEVE RAMEY Amended: Links added.
--- NOTE | 2019-03-08 17:00 | NUR ---
SITTING UP IN BED WATCHING TV, EXPRESS TO HER THAT WE WILL PUT HER BACK ON THE BIPAP AFTER SHE EATS
--- NOTE | 2019-03-08 18:03 | NUR ---
DISCUSSED MEDICATIONS WITH THE PATIENT REGARDING THE DOSAGE, USAGE AND THE SIDE EFFECTS, OF 1800, VERBALIZED SHE UNDERSTOOD AND MEDS GIVEN AND ORDERED, WAITING FOR DINNER TO COME.
--- NOTE | 2019-03-08 18:12 | NUR ---
BREATHING TREATMENT BEING GIVEN AT THIS TIME, LAC 20G AND 22G RT HAND BOTH FLUSHED AND PATENT, CHINCHILLA TO GRAVITY, A/O TIMES, 4, AWARE THAT SHE WILL GO BACK ON THE BI PAP AFTER SHE EATS, NO COMPLAINTS OF PAIN, WILL CONTINUE TO MONITOR AND GIVE REPORT TO THE NEXT SHIFT
[2019-03-08] MEDS: HYDROcodone-ACET 5/325MG TAB PO PRN (18:24)
--- NOTE | 2019-03-08 18:26 | NUR ---
MEDICATED FOR PAIN TO THE LEGS WITH NORCO 10/10, SITTING UP IN BED TRYIGN TO EAT HER DINNER,
--- NOTE | 2019-03-08 19:07 | NUR ---
OPENING SHIFT RECEIVED REPORT FROM DAY SHIFT RN. ASSUMED CARE OF PATIENT. PATIENT IN BED WATCHING TV WITH NO SIGNS OR SYMPTOMS OF SOB, PAIN OR DISTRESS. CURRENTLY ON 2L 02 NASAL CANNULA, 02 SAT - 92%. LEFT ANTECUBITAL AND RIGHT HAND IV - CLEAN/DRY/INTACT. CHINCHILLA HUNG TO GRAVITY ON BED RAIL. UPDATED PATIENT ON PLAN OF CARE. REPOSITIONED FOR COMFORT. BED IN LOWEST POSITION, SIDE RAILS UPX2, CALL LIGHT WITHIN REACH. WILL CONTINUE TO MONITOR.
[2019-03-08] MEDS: MONTELUKAST SODIUM 10 MG TAB PO SCH (22:47)
[2019-03-08] MEDS: ATORVASTATIN 20 MG TAB PO SCH (22:47)
[2019-03-09] VITALS (14 sets, daily range): BP systolic 151–185; BP diastolic 47–70
[2019-03-09] MEDS: IPRATROPIUM BROM 0.5 MG/2.5ML INH SOL NEB SCH ×6 (01:51→22:09)
[2019-03-09] MEDS: ALBUTEROL SULF 2.5 MG/0.5ML(0.5%) NEB SOLN NEB PRN ×6 (01:51→22:09)
[2019-03-09] MEDS: ACETYLCYSTEINE 20%(200MG/ML) SOL 4ML NEB SCH ×6 (01:51→22:10)
--- NOTE | 2019-03-09 04:30 | NUR ---
MORNING CARE PATIENT REFUSED BED BATH AT THIS TIME, STATES SHE HAD ONE YESTERDAY. PARTIAL LINEN CHANGE AND GOWN CHANGED AT THIS TIME. REPOSITIONED FOR COMFORT. SKIN REASSESSED AT THIS TIME. BED IN LOWEST POSITION, SIDE RAILS UP X2, CALL LIGHT WITHIN REACH. WILL CONTINUE TO MONITOR.
[2019-03-09] MEDS: methylPREDNISolone SOD SUCC 40 MG/ML VL IV SCH (05:50)
[2019-03-09] MEDS: ACCU-CHEK COMFORT CURVE STRIP VI SCH ×4 (05:51→23:46)
[2019-03-09] MEDS: InsuLIN REG 1unit/0.01ml Soln (100units/ml) SC SCH ×4 (05:51→23:46)
[2019-03-09 05:57] LABS: BUN/Creatinine Ratio 41.8; Calcium 8.9 mg/dL (8.5-10.1); Potassium 4.4 mmol/L (3.5-5.1)
--- NOTE | 2019-03-09 07:18 | NUR ---
END OF SHIFT REPORT GIVEN TO DAY SHIFT RN, CARE ENDORSED.
[2019-03-09 07:21] LABS: Basophils # (auto) 0 uL; Basophils % (auto) 0.1 % (0.0-2.0); Eosinophils # (auto) 0 uL; Hematocrit 31.8 % (36.0-46.0); Hemoglobin 10.5 g/dL (12.2-16.2); Lymphocytes # (auto) 0.7 uL; Lymphocytes % (auto) 7.4 % (10.0-50.0); Mean Corpuscular Hemoglobin 28.6 pg (28.0-32.0); Mean Corpuscular Hgb Conc. 33.2 g/dL (32.0-36.0); Mean Corpuscular Volume 86.2 fL (80.0-100.0); Monocytes # (auto) 0.5 uL; Monocytes % (auto) 5.3 % (0.0-12.0); Neutrophils # (auto) 7.9 uL; Neutrophils % (auto) 87.2 % (37.0-80.0); Platelet Count (auto) 223 10^3/uL (140-450); Red Blood Cells 3.69 10^6/uL (4.0-5.20); Red Cell Distribution Width 14.7 % (11.8-14.3); White Blood Cell 9.1 10^3/uL (4.4-10.8)
--- NOTE | 2019-03-09 07:30 | NUR ---
RECEIVED PATIENT SITTING UP IN BED, A/O TIMES 4 TO NAME BEING CALLED O2 BY THE BIPAP AT THIS TIME 18/8 30%FIO2, EXPRESS TO HER THAT I WOULD TAKE IT OFF WHEN SHE GOT READY TO EAT AND STATED THAT WILL BE OKAY, CHINCHILLA TO GRAVITY, 22G LEFT HAND SALINE LOCK AND 20G SALINE LOCK TO THE LAC, BOTH FLUSHED AND PATENT, DENIES PAIN AT THIS TIME
--- NOTE | 2019-03-09 08:20 | NUR ---
PATIENT TAKEN OFF BIPAP AND PLACED ON N/C AT 2.5 L SO THAT SHE CAN EAT HER BREAKFAST NO HELP NEEDED TO EAT
--- NOTE | 2019-03-09 09:30 | NUR ---
WATCHING TV AFTER EATING HER BREAKFAST, WHICH SHE TOLERATED,
[2019-03-09] MEDS: CARVEDILOL 12.5 MG TAB PO SCH ×2 (10:00→22:00)
[2019-03-09] MEDS: PANTOPRAZOLE 40 MG TAB PO SCH (10:34)
[2019-03-09] MEDS: LEVOFLOXACIN 250MG 50 ML IV SCH (10:34)
[2019-03-09] MEDS: amLODIPine BESYLATE 5 MG TAB PO SCH (10:35)
[2019-03-09] MEDS: ENOXAPARIN SOD 80 MG/0.8ML SYRINGE SC SCH (10:35)
[2019-03-09] MEDS: HYDROcodone-ACET 5/325MG TAB PO PRN (10:35)
--- NOTE | 2019-03-09 10:35 | NUR ---
DISCUSSED MEDICATIONS WITH THE PATIENT REGARDING THE DOSAGE, USAGE AND THE SIDE EFFECTS, VERBALIZED THAT SHE UNDERSTOOD AND MDS GIVEN ORDERED
--- NOTE | 2019-03-09 10:55 | NUR ---
DR GABRIEL IN TO SEE THE PATIENT AND STATED TO CALL HER WHEN THE FAMILY COMES IN TO VISIT
--- NOTE | 2019-03-09 11:21 | NUR ---
NUTRITION ASSESSMENT NOTES Please refer to link notes of nutrition screen form filed under the intervention section of the plan of care for further details. Est. Needs: 1350 kcal to 1800 kcal (25-30 kcal/kgBW), 48 gms to 58 gms pro (1.0-1.2 gms/kgIBW: 48 kg). Will continue to monitor pertinent labs and reassess nutrient need prn Thank you. Addendum: 03/09/19 at [address] Amended: Links added.
--- NOTE | 2019-03-09 11:30 | NUR ---
SITTING UP IN BED WITH EYES CLOSED APPEARS TO BE SLEEPING
[2019-03-09] MEDS: FUROSEMIDE 20 MG/2 ML VIAL IV SCH ×2 (11:54→18:32)
--- NOTE | 2019-03-09 12:30 | NUR ---
SITTING UP IN BED EATING HER LUNCH
--- NOTE | 2019-03-09 13:20 | NUR ---
CALLED DR GABRIEL TO COME AND TALK TO THE FAMILY, STATED EARLIER THAT SHE WANTED TO MEET WITH THEM
[2019-03-09] MEDS: hydrALAZINE HCL 10 MG TAB PO SCH ×2 (14:20→22:15)
--- NOTE | 2019-03-09 14:30 | NUR ---
FAMILY AT THE BEDSIDE, NO COMPLAINTS, O2 AT 2.5L BY THE N/C
--- NOTE | 2019-03-09 15:00 | NUR ---
DR GABRIEL HAS NOT COME TO SEE THE FAMILY OR CALLED BACK
--- NOTE | 2019-03-09 15:30 | NUR ---
NO CHANGE IN CONDITION, TALKING WITH FAMILY , NO SOB NOTED
--- NOTE | 2019-03-09 16:30 | NUR ---
DR LYONS IN TO SEE THE PATIENT AND STATED TO PUT HER ON THE BIPAP AT NIGHT
--- NOTE | 2019-03-09 17:30 | NUR ---
LAUGHING AND TALKING WITH HER FAMILY
--- NOTE | 2019-03-09 18:30 | NUR ---
SITTING UP IN THE BED, EATING HER DINNER, NO HELP NEEDED, FAMILY AT THE BEDSIDE, O2 AT 2.5L BY N/C, CHINCHILLA TO GRAVITY, 20G SALINE LOCK TO THE LAC AND THE 22G SALINE LOCK TO THE RT HAND BOTH PATENT AND INTACT, A/O TIMES 4, NO COMPLAINTS OF PAIN, WILL CONTINUE TO MONITOR AND GIVE REPORT TO THE NEXT SHIFT
--- NOTE | 2019-03-09 19:04 | NUR ---
OPENING SHIFT RECEIVED REPORT FROM DAY SHIFT RN. ASSUMED CARE OF PATIENT. PATIENT IN BED EATING DINNER WITH NO SIGNS OR SYMPTOMS OF SOB, PAIN OR DISTRESS. CURRENTLY ON 2L NASAL CANNULA, 02 SAT - 93%. LEFT ANTECUBITAL AND RIGHT HAND IV - CLEAN/DRY/INTACT. REPOSITIONED FOR COMFORT. UPDATED PATIENT ON PLAN OF CARE. BED IN LOWEST POSITION, SIDE RAILS UP X2, CALL LIGHT WITHIN REACH. WILL CONTINUE TO MONITOR. Addendum: 03/09/19 at 2016 by JIAN GUY RN RN *CHINCHILLA PATENT AND DRAINING, HUNG TO GRAVITY ON BED RAIL.
[2019-03-09] MEDS: MONTELUKAST SODIUM 10 MG TAB PO SCH (22:16)
[2019-03-09] MEDS: INSULIN LANTUS (GLARGINE) 1 /0.01ml (100units/ml) SC SCH (22:16)
[2019-03-09] MEDS: ATORVASTATIN 20 MG TAB PO SCH (22:16)
[2019-03-10] VITALS (9 sets, daily range): BP systolic 129–169; BP diastolic 49–66
[2019-03-10] MEDS: IPRATROPIUM BROM 0.5 MG/2.5ML INH SOL NEB SCH ×6 (02:25→22:25)
[2019-03-10] MEDS: ALBUTEROL SULF 2.5 MG/0.5ML(0.5%) NEB SOLN NEB PRN ×5 (02:25→22:25)
[2019-03-10] MEDS: ACETYLCYSTEINE 20%(200MG/ML) SOL 4ML NEB SCH ×6 (02:26→22:25)
--- NOTE | 2019-03-10 04:45 | NUR ---
OFF BIPAP PATIENT REQUESTED TO BE OFF BIPAP. PATIENT PLACED ON 2L NASAL CANNULA, PATIENT TOLERATING WELL. WILL CONTINUE TO MONITOR.
--- NOTE | 2019-03-10 05:01 | NUR ---
MORNING CARE PERFORMED MORNING CARE WITH CHG WIPES AND WASH CLOTHS TO THE FACE. PARTIAL LINEN CHANGE AND GOWN CHANGED. SKIN REASSESSED AT THIS TIME. REPOSITIONED FOR COMFORT. BED IN LOWEST POSITION, SIDE RAILS UP X2, CALL LIGHT WITHIN REACH. WILL CONTINUE TO MONITOR.
[2019-03-10] MEDS: FUROSEMIDE 20 MG/2 ML VIAL IV SCH (05:49)
[2019-03-10] MEDS: InsuLIN REG 1unit/0.01ml Soln (100units/ml) SC SCH ×4 (05:49→22:58)
[2019-03-10] MEDS: hydrALAZINE HCL 10 MG TAB PO SCH ×3 (05:49→22:11)
[2019-03-10] MEDS: ACCU-CHEK COMFORT CURVE STRIP VI SCH ×4 (05:50→22:58)
[2019-03-10 06:02] LABS: Basophils # (auto) 0 uL; Basophils % (auto) 0.1 % (0.0-2.0); Eosinophils # (auto) 0 uL; Eosinophils % (auto) 0.1 % (0.0-7.0); Hematocrit 32.2 % (36.0-46.0); Hemoglobin 10.5 g/dL (12.2-16.2); Lymphocytes # (auto) 1.3 uL; Lymphocytes % (auto) 8.7 % (10.0-50.0); Mean Corpuscular Hgb Conc. 32.5 g/dL (32.0-36.0); Mean Corpuscular Volume 86.2 fL (80.0-100.0); Monocytes # (auto) 1.4 uL; Monocytes % (auto) 9.5 % (0.0-12.0); Neutrophils # (auto) 12.2 uL; Neutrophils % (auto) 81.6 % (37.0-80.0); Platelet Count (auto) 242 10^3/uL (140-450); Red Blood Cells 3.73 10^6/uL (4.0-5.20); Red Cell Distribution Width 15.4 % (11.8-14.3); White Blood Cell 14.9 10^3/uL (4.4-10.8)
[2019-03-10 06:22] LABS: BUN/Creatinine Ratio 45.4; Calcium 9.1 mg/dL (8.5-10.1); Potassium 3.7 mmol/L (3.5-5.1)
[2019-03-10] MEDS: INSULIN LANTUS (GLARGINE) 1 /0.01ml (100units/ml) SC SCH ×2 (06:37→22:15)
--- NOTE | 2019-03-10 07:05 | NUR ---
END OF SHIFT REPORT GIVEN TO DAY SHIFT RN. CARE ENDORSED.
--- NOTE | 2019-03-10 07:45 | NUR ---
Opening Shift Note Assumed care of patient, awake and oriented x3, re-oriented to time. No S/S of distress/SOB or pain. Oxygen saturation 98% on @ LPM oxygen via nasal cannula. See interventions for complete assessment. Bed locked on low position, side rails up x2, bed alarms on at all times, call nickerson within reach, instructed on POC and to call for assist PRN, will continue to monitor for changes Q1hr and PRN.
--- NOTE | 2019-03-10 09:48 | NUR ---
Patient out of bed standing using walker with Kevin PT, fall precautions in placed. Patient tolerated well.
[2019-03-10] MEDS: CARVEDILOL 12.5 MG TAB PO SCH ×3 (10:00→22:14)
[2019-03-10] MEDS: LEVOFLOXACIN 250MG 50 ML IV SCH (10:50)
[2019-03-10] MEDS: ENOXAPARIN SOD 80 MG/0.8ML SYRINGE SC SCH (10:51)
[2019-03-10] MEDS: HYDROcodone-ACET 5/325MG TAB PO PRN (10:51)
[2019-03-10] MEDS: PANTOPRAZOLE 40 MG TAB PO SCH (10:52)
[2019-03-10] MEDS: amLODIPine BESYLATE 5 MG TAB PO SCH (10:52)
--- NOTE | 2019-03-10 12:55 | NUR ---
BARBIE pt transferred to floor [facility] Lui transfered to Tele floor via hopsital bed on textile cutting machine operator and portable 02. All patient medications and personal belongings transfered with patient to receiving floor. Patient care transfered to Alma FERRELL
--- NOTE | 2019-03-10 13:10 | NUR ---
Telemetry admit from [facility] admitted to Telemetry unit after SBAR received. Patient oriented to Corrine Tracey, primary RN, unit, room, bed, and unit policies regarding patient care and visiting hours. Patient now on continuous telemetry monitoring, tele box #37 and telemetry reading on arrival to unit is SINUS MIKY. Patient placed on bedside oxygen as ordered, weighed by bedscale and encouraged to call if they need something. All questions and concerns addressed, patient verbalized understanding. No distress or acute sob noted. Will cont care
--- NOTE | 2019-03-10 19:00 | NUR ---
Patient care endorsed endorsed care to Dipak callaway
--- NOTE | 2019-03-10 19:24 | NUR ---
Opening Shift Note Assumed care of patient, awake and alert x 4. No S/S of distress/SOB. Bed is in lowest position and locked. Call light within reach. Board updated. Tele box number matches monitor and leads are in correct placement. Salazar catheter hung below bladder and secured to non-moveable part of bedframe. Instructed on POC and to call for assist PRN, will continue to monitor for changes Q1hr and PRN.
--- NOTE | 2019-03-10 21:58 | NUR ---
Paging hospitalist to request cough medication. Patient admitted for diastolic CHF and PE to [facility]. Patient does not have a productive cough but is coughing frequently anyway and her throat and airway are sore. Requests cough medication.
[2019-03-10] MEDS: ATORVASTATIN 20 MG TAB PO SCH (22:14)
[2019-03-10] MEDS: MONTELUKAST SODIUM 10 MG TAB PO SCH (22:15)
--- NOTE | 2019-03-10 22:18 | NUR ---
Respiratory note: PT RECEIVED BREATHING TX, TOLERATED WELL. PT STATES SHE DOES NOT WANT A TX AT 0200, WILL TAKE HER NEXT ONE IN THE AM. PT AWARE TO CALL IF SHE BECOMES SOB OR CHANGES HER MIND.
[2019-03-10] MEDS: ACETAMINOPHEN 325 MG TAB PO PRN (22:23)
[2019-03-10] MEDS: guaiFENesin-DM 100/10mg/5ml SYR PO PRN (22:58)
[2019-03-11] MEDS: ACETYLCYSTEINE 20%(200MG/ML) SOL 4ML NEB SCH ×4 (01:58→14:36)
[2019-03-11] MEDS: IPRATROPIUM BROM 0.5 MG/2.5ML INH SOL NEB SCH ×6 (01:58→23:18)
[2019-03-11 05:00] VITALS: BP 148/58
[2019-03-11 05:43] LABS: BUN/Creatinine Ratio 45.7; Calcium 8.9 mg/dL (8.5-10.1); Potassium 3.9 mmol/L (3.5-5.1)
[2019-03-11] MEDS: hydrALAZINE HCL 10 MG TAB PO SCH ×3 (06:04→21:45)
[2019-03-11] MEDS: ACCU-CHEK COMFORT CURVE STRIP VI SCH ×4 (06:04→23:08)
[2019-03-11] MEDS: INSULIN LANTUS (GLARGINE) 1 /0.01ml (100units/ml) SC SCH ×2 (06:04→22:21)
[2019-03-11] MEDS: InsuLIN REG 1unit/0.01ml Soln (100units/ml) SC SCH ×4 (06:04→23:07)
[2019-03-11] MEDS: ALBUTEROL SULF 2.5 MG/0.5ML(0.5%) NEB SOLN NEB PRN ×3 (07:08→14:36)
--- NOTE | 2019-03-11 07:43 | NUR ---
OPENING NOTE Assumed care of patient from [facility] RN, Dipak. Patient awake and alert with no S/S of distress/SOB or pain. Nasal cannula in place, connected to 3L O2. Salazar catheter intact, patent and hung below bed. Salazar bag currently empty. Instructed on POC and to call for assist PRN, verbalized understanding. Bed in lowest, locked position with side rails up x2. Fall precautions in place and call light within reach. Will continue to monitor for changes Q1hr and PRN.
[2019-03-11 08:09] VITALS: BP 124/48
--- NOTE | 2019-03-11 10:40 | NUR ---
PAGED Patient c/o "itchiness" on chest, states "it's from the Lipitor". Paged Dr. Cid, awaiting call back.
--- NOTE | 2019-03-11 10:48 | NUR ---
MD AWARE Received call back from MD, informed of potential medication allergy. New order to change Lipitor to home medication Zocor.
[2019-03-11] MEDS ORDERED: diphenhdrAMINE HCL 25 MG CAP PO ONE (11:00)
[2019-03-11] MEDS: amLODIPine BESYLATE 5 MG TAB PO SCH (11:07)
[2019-03-11] MEDS: CARVEDILOL 12.5 MG TAB PO SCH ×2 (11:08→21:46)
[2019-03-11] MEDS: PANTOPRAZOLE 40 MG TAB PO SCH (11:09)
--- NOTE | 2019-03-11 11:10 | NUR ---
MEDICATION NOT AVAIL Spoke with pharmacy stock clerk, states that Simvastatin is not available. Patient advised to have home medication brought in,Dr. Cid aware.
[2019-03-11] MEDS ORDERED: APIXABAN 2.5 MG TAB PO SCH (11:15)
[2019-03-11] MEDS ORDERED: APIXABAN 5 MG TAB PO SCH ×2 (11:15→22:00)
--- NOTE | 2019-03-11 11:23 | NUR ---
AT BEDSIDE Dr. Cid at patient's bedside.
[2019-03-11 11:59] VITALS: BP 143/56
--- NOTE | 2019-03-11 13:40 | NUR ---
ROUNDS Patient resting in bed with eyes closed, even rise and fall of chest noted. No S/S of distress/SOB or pain. Will continue to monitor.
[2019-03-11] MEDS ORDERED: FUROSEMIDE 40 MG/4 ML VIAL IV ONE (14:45)
[2019-03-11 16:24] VITALS: BP 140/63
--- NOTE | 2019-03-11 16:34 | NUR ---
ROUNDS Patient resting in bed, watching television. No S/S of distress noted. Will continue to monitor.
--- NOTE | 2019-03-11 17:26 | NUR ---
CONSENTS Approached patient in regards to left heart consent forms. Patient states "no one mentioned anything to me about a procedure tomorrow". Educated patient on heart catheterization procedure. Patient states she does not feel comfortable signing consents until the physician explains the procedure to her.
--- NOTE | 2019-03-11 19:15 | NUR ---
CLOSING NOTE Endorsed care of patient to NOC RN, Dipak.
--- NOTE | 2019-03-11 20:00 | NUR ---
Respiratory note: PT REFUSED BIPAP FOR TONIGHT. EXPLAINED TO PT THE BENEFITS OF WEARING BIPAP. PT AWARE TO NOTIFY RN IF BIPAP IS NEEDED, WILL CONTINUE TO MONITOR.
[2019-03-11] MEDS: ACETAMINOPHEN 325 MG TAB PO PRN (20:34)
[2019-03-11 21:11] VITALS: BP 128/63
[2019-03-11] MEDS: DOCUSATE SOD 100 MG CAP PO SCH (21:45)
[2019-03-11] MEDS: APIXABAN 2.5 MG TAB PO SCH (21:47)
[2019-03-11] MEDS: MONTELUKAST SODIUM 10 MG TAB PO SCH (21:47)
--- NOTE | 2019-03-11 21:56 | NUR ---
Paging hospitalist to request Temazepam to help the patient sleep. She states she has had medication before and it has helped her. She has not been able to sleep more than 4 hours the last three days.
[2019-03-11] MEDS: guaiFENesin-DM 100/10mg/5ml SYR PO PRN (22:21)
[2019-03-11] MEDS ORDERED: TEMAZEPAM 15 MG CAP PO PRN (22:30)
[2019-03-12] MEDS: IPRATROPIUM BROM 0.5 MG/2.5ML INH SOL NEB SCH ×6 (02:42→22:16)
--- NOTE | 2019-03-12 02:42 | NUR ---
Respiratory note: AT BEDSIDE FOR SCHEDULED MED NEB TX, PT REQUESTED NOT TO BE WOKEN UP FOR TX . PT SLEEPING COMFORTABLY AT THIS TIME. NO RESPIRATORY DISTRESS NOTED. WILL CONTINUE TO MONITOR.
[2019-03-12 02:51] VITALS: BP 122/58
[2019-03-12 04:27] VITALS: BP 137/67
[2019-03-12 05:21] LABS: Basophils # (auto) 0.1 uL; Basophils % (auto) 0.6 % (0.0-2.0); Eosinophils # (auto) 0.4 uL; Eosinophils % (auto) 3.1 % (0.0-7.0); Hematocrit 35.8 % (36.0-46.0); Hemoglobin 11.6 g/dL (12.2-16.2); Lymphocytes # (auto) 1.4 uL; Lymphocytes % (auto) 11.9 % (10.0-50.0); Mean Corpuscular Hgb Conc. 32.5 g/dL (32.0-36.0); Mean Corpuscular Volume 86.3 fL (80.0-100.0); Monocytes # (auto) 1.2 uL; Monocytes % (auto) 10.2 % (0.0-12.0); Neutrophils # (auto) 8.7 uL; Neutrophils % (auto) 74.2 % (37.0-80.0); Platelet Count (auto) 239 10^3/uL (140-450); Red Blood Cells 4.15 10^6/uL (4.0-5.20); Red Cell Distribution Width 15.2 % (11.8-14.3); White Blood Cell 11.7 10^3/uL (4.4-10.8)
[2019-03-12 05:29] LABS: Potassium 3.9 mmol/L (3.5-5.1)
[2019-03-12 05:33] LABS: BUN/Creatinine Ratio 36.5; Calcium 9.1 mg/dL (8.5-10.1)
[2019-03-12] MEDS: InsuLIN REG 1unit/0.01ml Soln (100units/ml) SC SCH ×3 (06:00→18:32)
[2019-03-12] MEDS: ACCU-CHEK COMFORT CURVE STRIP VI SCH ×3 (06:02→18:32)
[2019-03-12] MEDS: hydrALAZINE HCL 10 MG TAB PO SCH ×3 (06:02→21:59)
[2019-03-12] MEDS: INSULIN LANTUS (GLARGINE) 1 /0.01ml (100units/ml) SC SCH ×2 (06:02→22:00)
[2019-03-12] MEDS: guaiFENesin-DM 100/10mg/5ml SYR PO PRN ×2 (06:03→18:32)
--- NOTE | 2019-03-12 06:33 | NUR ---
Patient does not want to have left heart cath procedure done. She states "There is too much stuff happening right now. They can do it another day after he (MD Mejia) has explained everything to me. They don;t have to do it today." I explained to patient that MD Mejia would be available prior to the procedure in curb and gutter laborer to explain the procedure and answer any questions, but patient still says she wants the procdure done another day. I will keep patient NPO until curb and gutter laborer is notified.
--- NOTE | 2019-03-12 07:06 | NUR ---
Spoke to Rosa in [employer] and notified them that patient does not want the heart cath to be performed. MD Mejia needs to be notified next. Endorsed this to day shift RN.
--- NOTE | 2019-03-12 07:34 | NUR ---
OPENING NOTE Assumed care of patient from [facility] RN, Dipak. Patient awake and alert with no S/S of distress/SOB or pain. Nasal cannula in place, connected to 3L O2. Salazar catheter intact, patent and hung below bed. Instructed on POC and to call for assist PRN, verbalized understanding. Bed in lowest, locked position with side rails up x2. Fall precautions in place and call light within reach. Will continue to monitor for changes Q1hr and PRN.
--- NOTE | 2019-03-12 07:45 | NUR ---
AWARE Informed Dr. Mejia that patient is refusing left heart cath, states he will speak with patient regarding procedure.
[2019-03-12 09:00] VITALS: BP 132/63
--- NOTE | 2019-03-12 09:25 | NUR ---
AT BEDSIDE Dr. Cid at patient's bedside.
--- NOTE | 2019-03-12 09:39 | NUR ---
AT BEDSIDE Dr. Mejia at patient's bedside, per MD patient has agreed to proceed with LHC. Will have patient sign consent forms.
[2019-03-12] MEDS: APIXABAN 2.5 MG TAB PO SCH ×2 (10:00→22:01)
[2019-03-12] MEDS: FUROSEMIDE 40 MG/4 ML VIAL IV SCH (10:00)
[2019-03-12] MEDS: amLODIPine BESYLATE 5 MG TAB PO SCH (10:16)
[2019-03-12] MEDS: PANTOPRAZOLE 40 MG TAB PO SCH (10:16)
[2019-03-12] MEDS: HYDROcodone-ACET 5/325MG TAB PO PRN ×2 (10:17→18:32)
[2019-03-12] MEDS: DOCUSATE SOD 100 MG CAP PO SCH ×2 (10:17→22:01)
[2019-03-12] MEDS: CARVEDILOL 12.5 MG TAB PO SCH ×2 (10:17→22:00)
--- NOTE | 2019-03-12 12:29 | NUR ---
Nutrition Follow-up Notes Wt.: 91.1 kg as of yesterday. Pt's on oxygen via nasal cannula, asleep, no immediate family member at bedside during rounds this morning. Pt's no signs of distress noted earlier, currently on NPO for a procedure today, noted for active Cardiology consult. Est. Needs: 1350 kcal to 1800 kcal (25-30 kcal/kgBW), 48 gms to 58 gms pro (1.0-1.2 gms/kgIBW: 48 kg). Will continue to monitor pertinent labs and reassess nutrient need prn Labs: Gluc 135 H, CO2 35 H, BUN 46 H, Cr 1.26 H, Skin: Christiano scale 18, mod risk, skin intact per documentation coordinator. GI: Pt had 1 BM yesterday per documentation coordinator. PES: Altered nutrition related lab values r/t current/chronic medical condition aeb hyperglycemia,elev. renal labs Obesity r/t food intake more than body requirement aeb 189% IBW, BMI 37.5 kg/m2 and increased body adiposity Will continue to monitor NPO status, skin status, pertinent labs and weight trend. F/u in 2 to 3 days. Rec.: 1.) Resume oral diet ( Consistent Standard Carb: 60 gms/meal, Cardiac: 2 gms Na, Low Chol, Low Fat diet) when medically appropriate. 2.) Continue close supervision during meals. 3.) Refer pt to CDE/RD for further nutrition education and weight monitoring upon discharge. 4.) Continue current plan of care.
[2019-03-12] MEDS ORDERED: LIDOCAINE 2%HCL (LOCAL ANESTH.) INJ 20ML MDV ONE ×2 (12:44→13:18)
[2019-03-12] MEDS ORDERED: IOHEXOL 350 MG/ML 100ML IJ ONE (12:44)
--- NOTE | 2019-03-12 12:45 | NUR ---
OFF UNIT Patient taken off unit via bed for scheduled procedure. No S/S of distress noted.
[2019-03-12 12:51] VITALS: BP 104/52
[2019-03-12] MEDS ORDERED: ANGIOMAX 250 MG VIAL IV ONE (12:52)
[2019-03-12] MEDS ORDERED: fentaNYL CITRATE 100 MCG/2 ML VL ONE (12:53)
[2019-03-12] MEDS ORDERED: SODIUM CHL 0.9% 0 ML ONE (12:53)
[2019-03-12] MEDS ORDERED: MIDAZOLAM HCL 1MG/1ML-2 ML VIAL ONE (12:53)
--- NOTE | 2019-03-12 15:16 | NUR ---
RETURN TO UNIT Patient returned to unit via bed. Assessed right groin incision, soft to touch with no S/S of bleeding noted. Will continue to monitor.
--- NOTE | 2019-03-12 17:24 | NUR ---
REASSESSED Reassessed patient's right groin, soft to touch with no S/S of bleeding noted. Will continue to monitor.
--- NOTE | 2019-03-12 19:40 | NUR ---
CLOSING NOTE Endorsed care of patient to NOC Gisella FERRELL.
--- NOTE | 2019-03-12 20:00 | NUR ---
Opening Shift Note Assumed care of patient, awake and alert. No S/S of distress/SOB or pain. Instructed on POC and to call for assist PRN, will continue to monitor for changes Q1hr and PRN. Bed in low position; call light in reach. Patient assisted to bedside commode as needed. Salazar Cath intact draining to gravity clear yellow urine.
[2019-03-12 22:00] VITALS: BP 92/79
[2019-03-12] MEDS: MONTELUKAST SODIUM 10 MG TAB PO SCH (22:37)
[2019-03-13] MEDS: InsuLIN REG 1unit/0.01ml Soln (100units/ml) SC SCH ×4 (00:17→18:04)
[2019-03-13] MEDS: ACCU-CHEK COMFORT CURVE STRIP VI SCH ×4 (00:17→18:03)
--- NOTE | 2019-03-13 00:28 | NUR ---
Patient resting comfortably. No distress noted. Report given to GHASSAN Benz
[2019-03-13] MEDS: IPRATROPIUM BROM 0.5 MG/2.5ML INH SOL NEB SCH ×6 (02:00→22:03)
--- NOTE | 2019-03-13 02:18 | NUR ---
RT NOTE PT ASKED NOT TO BE WOKEN FOR THIS SCHEDULED TX IF SLEEPING. PT SLEEPING. NO SIGNS OF RESP DISTRESS NOTED BY RT. PT AWARE THAT HE CAN HAVE RT PAGED IF NEEDED.
[2019-03-13] MEDS: ACETAMINOPHEN 325 MG TAB PO PRN (04:11)
[2019-03-13 05:20] VITALS: BP 138/68
[2019-03-13 05:28] LABS: BUN/Creatinine Ratio 32.1; Calcium 8.8 mg/dL (8.5-10.1); Potassium 4.6 mmol/L (3.5-5.1)
[2019-03-13] MEDS: ALBUTEROL SULF 2.5 MG/0.5ML(0.5%) NEB SOLN NEB PRN ×5 (05:41→22:03)
--- NOTE | 2019-03-13 05:41 | NUR ---
Respiratory note: PT NOT ON BIPAP AND DOES NOT WANT TO WEAR IT. BIPAP NOT IN ROOM.
[2019-03-13] MEDS: hydrALAZINE HCL 10 MG TAB PO SCH ×3 (05:52→22:42)
[2019-03-13] MEDS: INSULIN LANTUS (GLARGINE) 1 /0.01ml (100units/ml) SC SCH ×2 (06:30→22:00)
--- NOTE | 2019-03-13 08:10 | NUR ---
OPENING SHIFT NOTE: PATIENT RESTING IN BED, EVEN AN UNLABORED RESPIRATIONS NOTED. FALL PRECAUTIONS IN PLACE. CALL LIGHT WITHIN REACH. WILL CONTINUE TO MONITOR.
[2019-03-13 09:00] VITALS: BP 136/50
[2019-03-13] MEDS: amLODIPine BESYLATE 5 MG TAB PO SCH (10:12)
[2019-03-13] MEDS: CARVEDILOL 12.5 MG TAB PO SCH ×2 (10:12→22:40)
[2019-03-13] MEDS: PANTOPRAZOLE 40 MG TAB PO SCH (10:13)
[2019-03-13] MEDS: APIXABAN 2.5 MG TAB PO SCH ×2 (10:13→22:42)
[2019-03-13] MEDS: DOCUSATE SOD 100 MG CAP PO SCH ×2 (10:13→22:00)
[2019-03-13] MEDS: FUROSEMIDE 40 MG/4 ML VIAL IV SCH (10:14)
--- NOTE | 2019-03-13 11:05 | NUR ---
PATIENT UPDATED ON PLAN OF CARE. DR. EDY GARCIA.
[2019-03-13 13:00] VITALS: BP 136/58
--- NOTE | 2019-03-13 16:04 | NUR ---
PATIENT C/O ITCHING IN LEFT CHEST/ POSTERIOR UPPER BACK. PAGE MADE TO DR. ORTIZ.
[2019-03-13] MEDS: diphenhdrAMINE HCL 25 MG CAP PO PRN (16:19)
--- NOTE | 2019-03-13 16:20 | NUR ---
RECEIVED CALL BACK FROM DR. ORTIZ. NEW ORDERS RECEIVED.
[2019-03-13 17:00] VITALS: BP 127/48
--- NOTE | 2019-03-13 18:31 | NUR ---
CLOSING SHIFT NOTE: PATIENT RESTING IN BED. BREATHING EVEN AND UNLABORED, MILD SOB ON EXERTION. NASAL CANNULA IN PLACE. CHINCHILLA HUNG BELOW BLADDER, DRAINING, AND IS FREE OF KINKS. BED IN LOWEST LOCKED POSITION. CALL LIGHT WITHIN REACH. WILL ENDORSE CARE TO NOC RN.
--- NOTE | 2019-03-13 19:25 | NUR ---
CARE ENDORSED TO GAEL FERRELL.
--- NOTE | 2019-03-13 20:00 | NUR ---
Opening Shift Note Assumed care of patient, awake and alert. No S/S of distress/SOB or pain. Instructed on POC and to call for assist PRN, will continue to monitor for changes Q1hr and PRN.
[2019-03-13 21:29] VITALS: BP 131/36
[2019-03-13] MEDS: MONTELUKAST SODIUM 10 MG TAB PO SCH (22:39)
[2019-03-14] MEDS: IPRATROPIUM BROM 0.5 MG/2.5ML INH SOL NEB SCH ×3 (02:00→10:03)
--- NOTE | 2019-03-14 02:00 | NUR ---
Respiratory note: PT REQUESTED NOT TO BE WOKEN UP FOR 0200 TREATMENT SO THAT SHE COULD SLEEP. TX HELD AT THIS TIME.
[2019-03-14 04:38] VITALS: BP 144/101
[2019-03-14] MEDS: ALBUTEROL SULF 2.5 MG/0.5ML(0.5%) NEB SOLN NEB PRN ×2 (05:52→10:03)
[2019-03-14] MEDS: InsuLIN REG 1unit/0.01ml Soln (100units/ml) SC SCH ×2 (06:00)
[2019-03-14] MEDS: ACCU-CHEK COMFORT CURVE STRIP VI SCH ×2 (06:00)
[2019-03-14] MEDS: hydrALAZINE HCL 10 MG TAB PO SCH (06:54)
--- NOTE | 2019-03-14 07:00 | NUR ---
Closing note: No changes in patient's status. Shift change report given to day shift RN.
[2019-03-14] MEDS: INSULIN LANTUS (GLARGINE) 1 /0.01ml (100units/ml) SC SCH (07:04)
--- NOTE | 2019-03-14 08:14 | NUR ---
OPENING SHIFT NOTE: PATIENT AWAKE IN BED. BREATHING EVEN AND UNLABORED. BED IN LOWEST LOCKED POSITION. CALL LIGHT WITHIN REACH. WILL CONTINUE TO MONITOR.
[2019-03-14 09:00] VITALS: BP 142/52
[2019-03-14] MEDS: FUROSEMIDE 40 MG/4 ML VIAL IV SCH (09:12)
[2019-03-14] MEDS: PANTOPRAZOLE 40 MG TAB PO SCH (09:13)
[2019-03-14] MEDS: DOCUSATE SOD 100 MG CAP PO SCH (09:13)
[2019-03-14] MEDS: amLODIPine BESYLATE 5 MG TAB PO SCH (09:13)
[2019-03-14] MEDS: APIXABAN 2.5 MG TAB PO SCH (09:16)
[2019-03-14] MEDS: CARVEDILOL 12.5 MG TAB PO SCH (09:16)
[2019-03-14] MEDS: diphenhdrAMINE HCL 25 MG CAP PO PRN (09:16)
--- NOTE | 2019-03-14 10:22 | NUR ---
CHINCHILLA CATHETER REMOVED. 10CC REMOVED OUT OF BALLOON. 1300 URINE IN BAG UPON REMOVAL. CATHETER INTACT. PATIENT TOLERATED WELL.
--- NOTE | 2019-03-14 10:32 | NUR ---
PATIENT ON 2L NC, O2 SATURATION 96-97%. MD. ORTIZ MADE AWARE.
--- NOTE | 2019-03-14 10:35 | NUR ---
PATIENT ATTEMPTING TO REACH FAMILY FOR TRANSPORTATION HOME. UNSUCCESSFUL SO FAR. PATIENT STATED, "THEY MIGHT BE AT [facility]."
--- NOTE | 2019-03-14 11:01 | NUR ---
PATIENT URINATED 65 ML CLEAR YELLOW URINE.
[2019-03-14 11:15] VITALS: BP 137/51
--- NOTE | 2019-03-14 11:55 | NUR ---
PATIENT DISCHARGED HOME. PATIENT EDUCATED ON NEW PRESCRIPTIONS, AND ALL EDUCATION MATERIALS GIVEN TO PATIENT. PATIENT BREATHING EVEN AND UNLABORED. PATIENT LEFT VIA WHEELCHAIR OUT TO PRIVATE AUTO WITH OXYGEN TANK. NO SIGNS OF DISTRESS NOTED. TELE BOX SENT TO CARDIO UNIT.
== END 2019-03-14 11:50 | disposition home or self-care (01) | DRG 286 ==
LOC: ER 13:45 → TELE 13:46 → TELE-WESTW 23:13 → DOU IN ICU 03-06 01:35 → TELE-CENTR 03-10 13:05
PROVIDERS: ADMIT Nurse Practitioner; ATTEND Internal Medicine Nephrology
PROC: 5A09457 Assistance with Respiratory Ventilation, 24-96 Consecutive Hours, Continuous Positive Airway Pressure (ICD-10-PCS; 2019-03-06)
PROC: 5A09457 Assistance with Respiratory Ventilation, 24-96 Consecutive Hours, Continuous Positive Airway Pressure (ICD-10-PCS; 2019-03-09)
PROC: 4A023N8 Measurement of Cardiac Sampling and Pressure, Bilateral, Percutaneous Approach (ICD-10-PCS; principal; 2019-03-12)
PROC: B2111ZZ Fluoroscopy of Multiple Coronary Arteries using Low Osmolar Contrast (ICD-10-PCS; 2019-03-12)
PROC: B2151ZZ Fluoroscopy of Left Heart using Low Osmolar Contrast (ICD-10-PCS; 2019-03-12)
DX: I13.0 Hypertensive heart and chronic kidney disease with heart failure and stage 1 through stage 4 chronic kidney disease, or unspecified chronic kidney disease (principal); I26.99 Other pulmonary embolism without acute cor pulmonale; J96.22 Acute and chronic respiratory failure with hypercapnia; I50.43 Acute on chronic combined systolic (congestive) and diastolic (congestive) heart failure; J96.21 Acute and chronic respiratory failure with hypoxia; E87.4 Mixed disorder of acid-base balance; J44.1 Chronic obstructive pulmonary disease with (acute) exacerbation; E87.3 Alkalosis; N17.9 Acute kidney failure, unspecified; E11.65 Type 2 diabetes mellitus with hyperglycemia; E11.22 Type 2 diabetes mellitus with diabetic chronic kidney disease; E78.5 Hyperlipidemia, unspecified; E86.0 Dehydration; G47.33 Obstructive sleep apnea (adult) (pediatric); I08.0 Rheumatic disorders of both mitral and aortic valves; I27.20 Pulmonary hypertension, unspecified; I70.0 Atherosclerosis of aorta; J44.9 Chronic obstructive pulmonary disease, unspecified; Z99.81 Dependence on supplemental oxygen; N18.3 Chronic kidney disease, stage 3 (moderate); E66.01 Morbid (severe) obesity due to excess calories; I27.21 Secondary pulmonary arterial hypertension; G47.00 Insomnia, unspecified; M19.90 Unspecified osteoarthritis, unspecified site; K59.00 Constipation, unspecified; Z79.899 Other long term (current) drug therapy; Z83.3 Family history of diabetes mellitus; Z86.711 Personal history of pulmonary embolism; Z87.891 Personal history of nicotine dependence; Z90.710 Acquired absence of both cervix and uterus; Z90.49 Acquired absence of other specified parts of digestive tract; Z68.36 Body mass index [BMI] 36.0-36.9, adult
CPT/HCPCS: 36415; 36600; 71045; 71275; 80048; 80053; 81001; 82805; 82962; 83735; 83880; 84100; 84484; 85025; 85379; 85610; 85730; 86850; 86900; 86901; 87804; 93005; 93460; 93970; 94640; 94660; 94761; 96374; 96375; 97110; 97116; 97163; 97530; 99152; G0378; J1815; J2250

== ENCOUNTER 2019-05-04 08:54 | Inpatient (IN) | payer OTHER, MEDICAID ==
[~2019-05-04] VITALS: Ht 167.6 cm; Wt 88.4 kg
[~2019-05-04 08:54] MED LIST changes: -ACLI1AER2 IN; -ASPI81CH43 PO; -BUME2TAB5 PO; -FAMO-12 PO; -INSUINJ18 SC; -LEVEMIR SC; -MONT10TA34 PO; +TEMA15CA PO
[2019-05-04] MEDS ORDERED: SODIUM CHLORIDE 0.9% 1,000 ML IV ONE ×2 (09:20)
[2019-05-04] MEDS ORDERED: PIPERACILLIN-TAZOB 3.375GM 100 ML IV ONE (09:30)
[2019-05-04 09:35] LABS: Urine Amorphous Crystal FEW /hpf (None Seen); Urine Bacteria FEW /hpf (None Seen); Urine Blood TRACE /uL (Negative); Urine Hyaline Cast MANY /lpf (0 - 2); Urine Specific Gravity 1.012 (1.001-1.035); Urine WBC 1 /hpf (0 - 5)
[2019-05-04 09:46] LABS: Basophils # (auto) 0.2 uL; Basophils % (auto) 1.2 % (0.0-2.0); Eosinophils # (auto) 0.3 uL; Eosinophils % (auto) 2.2 % (0.0-7.0); Hematocrit 34.1 % (36.0-46.0); Hemoglobin 10.8 g/dL (12.2-16.2); Lymphocytes # (auto) 1.2 uL; Lymphocytes % (auto) 8.8 % (10.0-50.0); Mean Corpuscular Hemoglobin 28.1 pg (28.0-32.0); Mean Corpuscular Hgb Conc. 31.6 g/dL (32.0-36.0); Monocytes % (auto) 7.3 % (0.0-12.0); Neutrophils # (auto) 11.2 uL; Neutrophils % (auto) 80.5 % (37.0-80.0); Nucleated Red Blood Cells % 0.1 %; Platelet Count (auto) 311 10^3/uL (140-450); Red Blood Cells 3.83 10^6/uL (4.0-5.20); Red Cell Distribution Width 15.3 % (11.8-14.3)
[2019-05-04 10:03] LABS: BUN/Creatinine Ratio 24.1; Calcium 8.9 mg/dL (8.5-10.1); Magnesium 2.5 mg/dL (1.6-2.6); Potassium 4.5 mmol/L (3.5-5.1)
[2019-05-04 10:07] LABS: Partial Thromboplastin Time 29.6 sec (23.64-32.05)
[2019-05-04 10:09] LABS: Bilirubin, Total 0.3 mg/dL (0.2-1.0); Total Protein 7.3 g/dL (6.4-8.2)
[2019-05-04] MEDS ORDERED: ACETAMINOPHEN 500 MG TAB PO PRN (13:15)
[2019-05-04] MEDS ORDERED: TEMAZEPAM 15 MG CAP PO PRN (13:15)
[2019-05-04] MEDS ORDERED: FUROSEMIDE 40 MG/4 ML VIAL IV ONE (13:15)
[2019-05-04] MEDS ORDERED: methylPREDNISolone SOD SUCC 125 MG/2 ML VL IV ONE (13:15)
[2019-05-04] MEDS ORDERED: ONDANSETRON HCL 4 MG/2 ML VIAL IV PRN (13:15)
[2019-05-04] MEDS ORDERED: MORPHINE SULF INJ 2 MG/ML SYRINGE 1ML IV PRN ×2 (13:15→14:45)
[2019-05-04] MEDS ORDERED: IPRATROPIUM BROM 0.5 MG/2.5ML INH SOL NEB PRN (13:15)
[2019-05-04] MEDS ORDERED: DEXTROSE (50%) 50ML SYRG IV PRN (13:30)
[2019-05-04] MEDS ORDERED: FAMOTIDINE 20 MG TAB PO ONE (13:45)
[2019-05-04] MEDS ORDERED: CARVEDILOL 12.5 MG TAB PO ONE (13:45)
[2019-05-04] MEDS ORDERED: hydrALAZINE HCL 25 MG TAB PO ONE (13:45)
[2019-05-04] MEDS ORDERED: BUDESONIDE (INHALATION) 0.5 MG/2 ML NEB NEB ONE (13:45)
[2019-05-04] MEDS ORDERED: FUROSEMIDE 20 MG/2 ML VIAL IV ONE ×2 (13:45→20:30)
[2019-05-04] MEDS: cefTRIAXone 1GM/50ML D5W 50 ML IV SCH (13:48)
[2019-05-04] MEDS: AZITHROMYCIN 500MG/ 250ML 250 ML IV SCH (14:33)
[2019-05-04] MEDS ORDERED: NITROGLYCERIN 0.4 MG SL TAB SL PRN (14:45)
[2019-05-04 16:44] VITALS: BP 139/49
[2019-05-04] MEDS ORDERED: LORazepam 2MG/ML-1ML VIAL IV ONE (16:45)
[2019-05-04] MEDS: ACCU-CHEK COMFORT CURVE STRIP VI SCH ×2 (16:52→22:10)
[2019-05-04] MEDS: InsuLIN REG 1unit/0.01ml Soln (100units/ml) SC SCH ×2 (16:55→22:00)
[2019-05-04 17:40] VITALS: BP 146/61
[2019-05-04] MEDS: ZOCOR 40 MG PO SCH (18:00)
--- NOTE | 2019-05-04 18:10 | NUR ---
PT ADMITTED TO FLOOR VIA GURNEY FROM E... PT ON BIPAP AND UNRESPONSIVE TO QUESTIONS. SIDE RAILS UP X2, BED IN LOWEST LOCKED POSITION, BED ALARM ON. VITALS: 97.3, 166/73, HR 70, 02 88, RR 40 ON BIPAP.
--- NOTE | 2019-05-04 19:30 | NUR ---
Opening Shift Note Assumed care of patient from day shift RN. Patient is on BIPAP with oxygen saturation at 89%. Patient is arousable to painful stimuli/shaking. Patient is alert and oriented to self at this time. No signs/symptoms of distress noted at this time. Instructed on plan of care and to call for assistance as needed, reinforcement needed. Bed is locked in lowest position, side rails x 2 are up, call light is within reach, and bed alarm is on.
[2019-05-04] MEDS ORDERED: FUROSEMIDE 20 MG TAB PO ONE (19:45)
--- NOTE | 2019-05-04 19:52 | NUR ---
CALLED PT GRAND DAUGHTER KING AND ASKED PT HISTORY, AND ADMISSION INFORMATION. SHE REPORTS PT REFUSES FLU AND PNEUMONIA VACCINES. SHE REPORTS FAMILY HAS A POA OF WORKERS' COMPENSATION CLAIMS EXAMINER. ASKED KING FOR A COPY OF POA AND LIST OF HOME MEDS. KING REPORTS SHE WILL HAVE HER MOTHER BRING BOTH TOMORROW.
[2019-05-04 19:57] VITALS: BP 166/73
--- NOTE | 2019-05-04 20:06 | NUR ---
HOSPITLAIST PAGED RE: LASIX ORDER Hospitalist paged regarding Lasix 20mg PO x 1 now. Patient is unable to swallow at this time. Awaiting call back.
--- NOTE | 2019-05-04 21:30 | NUR ---
UNABLE TO GIVE SCHEDULED PO MEDICATIONS DUE TO PATIENT NOT BEING ABLE TO SWALLOW Patient is alert and oriented to self. Attempted to give patient a sip of water and apple sauce but patient is unable to swallow at this time, therefore unable to give scheduled medications at this time. Will inform hospitalist.
--- NOTE | 2019-05-04 21:57 | NUR ---
HOSPITALIST PAGED RE: 220 BLOOD PRESSURE MEDICATIONS Patients blood pressure is 180/56, heart rate is 63. Patient is alert and oriented to self. Attempted to give patient a sip of water and apple sauce but patient is unable to swallow at this time, therefore unable to give scheduled blood pressure medications at this time. Awaiting call back.
[2019-05-04] MEDS: hydrALAZINE HCL 25 MG TAB PO SCH (22:00)
[2019-05-04] MEDS: CARVEDILOL 12.5 MG TAB PO SCH (22:00)
[2019-05-04 22:27] VITALS: BP 166/73
--- NOTE | 2019-05-04 22:30 | NUR ---
HOSPITALIST PAGED 2ND TIME RE: ELEVATED BLOOD PRESSURE Hospitalist paged regarding elevated blood pressure. Patient unable to swallow PO medications at this time. Awaiting call back.
[2019-05-04] MEDS: ALBUTEROL SULF 2.5 MG/0.5ML(0.5%) NEB SOLN NEB SCH (23:18)
[2019-05-04] MEDS: IPRATROPIUM BROM 0.5 MG/2.5ML INH SOL NEB SCH (23:18)
[2019-05-04] MEDS: BUDESONIDE (INHALATION) 0.5 MG/2 ML NEB NEB SCH (23:19)
[2019-05-04 23:24] VITALS: BP 134/65
--- NOTE | 2019-05-04 23:26 | NUR ---
ROUNDS Patient is laying in bed, eyes closed, with head of the bed greater than 30 degrees. Patient is on BIPAP with oxygen saturation at 89%. No signs/symptoms of distress noted at this time. Bed is locked in lowest position, side rails x 2 are up, call light is within reach, and bed alarm is on.
[2019-05-04 23:50] VITALS: BP 179/67
--- NOTE | 2019-05-04 23:53 | NUR ---
HOSPITALIST PAGED RE: ELEVATED BLOOD PRESSURE Hospitalist paged regarding elevated blood pressure. Blood pressure:179/67, heart rate: 71. Patient is alert and oriented to self and is unable to swallow PO pills at this time. Awaiting call back.
[2019-05-05] VITALS (8 sets, daily range): BP systolic 111–153; BP diastolic 46–91
--- NOTE | 2019-05-05 00:36 | NUR ---
BLOOD PRESSURE REASSESSMENT Blood pressure reassessment is 153/88 and heart rate 73. No signs/symptoms of distress noted at this time. Patient is laying in bed, eyes closed, with symmetrical chest rise and fall. Oxygen saturation is 90% on BIPAP. Bed is locked in lowest position, side rails x 2 are up, call light is within reach, and bed alarm is on.
[2019-05-05] MEDS ORDERED: hydrALAZINE HCL 20 MG/ML VL IV ONE (00:45)
--- NOTE | 2019-05-05 06:20 | NUR ---
ROUNDS Patient is arousable to name and painful stimuli. Patient is alert and oriented to self at this time. Patient was offered water, BIPAP was removed briefly and patient was able to take a few sips of water without difficulty or coughing. Patient placed back on BIPAP with oxygen saturation at 90%. Patient repositioned with head of the bed greater than 30 degrees. Bed is locked in lowest position, side rails x 2 are up, call light is within reach, and bed alarm is on.
[2019-05-05] MEDS: IPRATROPIUM BROM 0.5 MG/2.5ML INH SOL NEB SCH ×3 (06:36→18:49)
[2019-05-05] MEDS: BUDESONIDE (INHALATION) 0.5 MG/2 ML NEB NEB SCH ×2 (06:36→18:49)
[2019-05-05] MEDS: ALBUTEROL SULF 2.5 MG/0.5ML(0.5%) NEB SOLN NEB SCH ×3 (06:36→18:49)
[2019-05-05] MEDS: ACCU-CHEK COMFORT CURVE STRIP VI SCH ×4 (06:38→23:08)
[2019-05-05] MEDS: InsuLIN REG 1unit/0.01ml Soln (100units/ml) SC SCH ×4 (06:39→23:09)
--- NOTE | 2019-05-05 06:51 | NUR ---
CLOSING SHIFT NOTE Patient is laying in bed, eyes closed, with head of the bed greater than 30 degrees. Symmetrical chest rise and fall noted. Patient is on BIPAP with oxygen saturation at 93%. Bed is locked in lowest position, side rails x 2 are up, call light is within reach, and bed alarm is on. Addendum: 05/05/19 at 0654 by PATRICIA BRYANT RN RN CLOSING SHIFT NOTE Patient is laying in bed, eyes closed, with head of the bed greater than 30 degrees. Symmetrical chest rise and fall noted. Patient is on BIPAP with oxygen saturation at 93%. Bed is locked in lowest position, side rails x 2 are up, call light is within reach, and bed alarm is on. Will endorse patient care to day shift RN.
--- NOTE | 2019-05-05 07:00 | NUR ---
Opening Shift Note Assumed care of patIENT ASLEEP AND ON A BIPAP, AROUSABLE. No S/S of distress/SOB or pain. Instructed on POC and to call for assist PRN, will continue to monitor for changes Q1hr and PRN.
--- NOTE | 2019-05-05 07:30 | NUR ---
Opening Shift Note Assumed care of patient, awake and alert. No S/S of distress/SOB or pain. Instructed on POC and to call for assist PRN, will continue to monitor for changes Q1hr and PRN.
[2019-05-05 07:38] LABS: Basophils # (auto) 0 uL; Basophils % (auto) 0.3 % (0.0-2.0); Eosinophils # (auto) 0 uL; Hematocrit 32.1 % (36.0-46.0); Hemoglobin 10.2 g/dL (12.2-16.2); Lymphocytes # (auto) 0.7 uL; Lymphocytes % (auto) 7.8 % (10.0-50.0); Mean Corpuscular Hemoglobin 28.3 pg (28.0-32.0); Mean Corpuscular Hgb Conc. 31.9 g/dL (32.0-36.0); Mean Corpuscular Volume 88.7 fL (80.0-100.0); Monocytes # (auto) 0.5 uL; Monocytes % (auto) 5.8 % (0.0-12.0); Neutrophils # (auto) 7.6 uL; Neutrophils % (auto) 86.1 % (37.0-80.0); Platelet Count (auto) 317 10^3/uL (140-450); Red Blood Cells 3.62 10^6/uL (4.0-5.20); Red Cell Distribution Width 15.2 % (11.8-14.3); White Blood Cell 8.8 10^3/uL (4.4-10.8)
[2019-05-05 07:54] LABS: Calcium 8.6 mg/dL (8.5-10.1); Potassium 4.4 mmol/L (3.5-5.1)
[2019-05-05 07:56] LABS: BUN/Creatinine Ratio 25.9
--- NOTE | 2019-05-05 09:30 | NUR ---
PT WAS UP IN BED, EATING HER BREAKFAST. PT IS CONSIDERABLY MORE ALERT COMPARED TO THE NOC REPORT. PT IS COMPREHENSIBLE AND ALERT X 4. PT WAS ALSO ABLE TO GET OUT OF BED AND TO THE COMMODE WITH A STANDBY ASSISTANCE ONLY.
--- NOTE | 2019-05-05 09:48 | NUR ---
Respiratory note: FOUND PT OFF BIPAP. HR 82, RR 20, POX 96% NOW ON 3L NC. NO S/S OF RESPIRATORY DISTRESS NOTED AT THIS TIME. PT LAYING COMFORTABLY IN BED, AWAKE AND ALERT, FOLLOWING COMMANDS, TALKING WITH DR GABRIEL AT BEDSIDE. WILL CONTINUE TO MONITOR.
[2019-05-05] MEDS: FUROSEMIDE 20 MG/2 ML VIAL IV SCH (10:05)
[2019-05-05] MEDS: hydrALAZINE HCL 25 MG TAB PO SCH ×2 (10:06→21:40)
[2019-05-05] MEDS: CARVEDILOL 12.5 MG TAB PO SCH ×2 (10:06→21:41)
[2019-05-05] MEDS: FAMOTIDINE 20 MG TAB PO SCH (10:07)
[2019-05-05] MEDS ORDERED: amLODIPine BESYLATE 5 MG TAB PO ONE (10:15)
--- NOTE | 2019-05-05 10:15 | NUR ---
IV removal IV LEAKING. DC'd with clean sterile technique, catheter fully intact. Pressure dressing applied to site. Patient tolerated well.
[2019-05-05] MEDS: AZITHROMYCIN 500MG/ 250ML 250 ML IV SCH (11:30)
--- NOTE | 2019-05-05 11:45 | NUR ---
IV insertion IV access obtained, via clean sterile technique by inserting 22 gauge catheter at RIGHT FOREARM after 1 attempt(s). IV secured properly. No trauma to site. Patient tolerated well.
[2019-05-05] MEDS: cefTRIAXone 1GM/50ML D5W 50 ML IV SCH (11:59)
[2019-05-05] MEDS: APIXABAN 2.5 MG TAB PO SCH ×2 (13:18→21:41)
[2019-05-05] MEDS: ZOCOR 40 MG PO SCH (18:00)
--- NOTE | 2019-05-05 19:30 | NUR ---
REPORT GIVEN TO NED GOMEZ RN. Patient awake and alert, WATCHING TV. No S/S of distress/SOB or pain.
--- NOTE | 2019-05-05 19:30 | NUR ---
Opening Shift Note Assumed care of patient from GHASSAN Chan. Patient is on 3L NC, with oxygen saturation at 98%. No signs/symptoms of distress noted at this time. Patient is alert and oriented x3 and easily reoriented to time. Patient denies pain or shortness of breath at this time. Instructed on plan of care and to call for assistance as needed, patient verbalized understanding, reinforcement needed. Bed is locked in lowest position, side rails x 2 are up, call light is within reach, and bed alarm is on.
[2019-05-05] MEDS: HYDROcodone-ACET 5/325MG TAB PO PRN (21:42)
[2019-05-06] VITALS (7 sets, daily range): BP systolic 123–171; BP diastolic 48–74
--- NOTE | 2019-05-06 01:09 | NUR ---
ROUNDS Patient laying in bed, eyes closed, with even and unlabored respirations noted. Patient is on BIPAP with oxygen saturation at 96%. No signs/symptoms of distress noted at this time. Bed is locked in lowest position, side rails x 2 are up, call light is within reach, and bed alarm is on.
[2019-05-06 05:35] LABS: Basophils # (auto) 0.1 uL; Basophils % (auto) 0.6 % (0.0-2.0); Eosinophils # (auto) 0.2 uL; Eosinophils % (auto) 1.9 % (0.0-7.0); Hematocrit 30.3 % (36.0-46.0); Hemoglobin 9.7 g/dL (12.2-16.2); Lymphocytes # (auto) 1.4 uL; Mean Corpuscular Hemoglobin 28.3 pg (28.0-32.0); Mean Corpuscular Volume 88.3 fL (80.0-100.0); Monocytes % (auto) 8.7 % (0.0-12.0); Neutrophils # (auto) 8.9 uL; Neutrophils % (auto) 76.8 % (37.0-80.0); Platelet Count (auto) 303 10^3/uL (140-450); Red Blood Cells 3.43 10^6/uL (4.0-5.20); Red Cell Distribution Width 15.5 % (11.8-14.3); White Blood Cell 11.6 10^3/uL (4.4-10.8)
[2019-05-06] MEDS: HYDROcodone-ACET 5/325MG TAB PO PRN (05:37)
[2019-05-06 05:49] LABS: BUN/Creatinine Ratio 33.8; Calcium 8.8 mg/dL (8.5-10.1); Potassium 3.9 mmol/L (3.5-5.1)
[2019-05-06] MEDS: ACCU-CHEK COMFORT CURVE STRIP VI SCH ×4 (05:59→22:46)
[2019-05-06] MEDS: InsuLIN REG 1unit/0.01ml Soln (100units/ml) SC SCH ×4 (05:59→22:45)
[2019-05-06] MEDS: BUDESONIDE (INHALATION) 0.5 MG/2 ML NEB NEB SCH ×2 (06:46→18:44)
[2019-05-06] MEDS: ALBUTEROL SULF 2.5 MG/0.5ML(0.5%) NEB SOLN NEB SCH ×2 (06:46→18:44)
[2019-05-06] MEDS: IPRATROPIUM BROM 0.5 MG/2.5ML INH SOL NEB SCH ×3 (06:46→18:44)
--- NOTE | 2019-05-06 07:25 | NUR ---
Opening Shift Note Assumed care of patient, resting with eyes closed, awoken by name. Patient is alert and oriented x3, easily reoriented. No S/S of distress/SOB on 3L O2 via NC. No pain noted or reported. Updated on POC and instructed to call for assistance as needed, patient verbalized understanding. Bed locked in lowest position, side rails up x2, call light within reach, safety measures in place. Will continue to monitor q1hr and PRN for changes.
[2019-05-06] MEDS: FAMOTIDINE 20 MG TAB PO SCH (10:48)
[2019-05-06] MEDS: APIXABAN 2.5 MG TAB PO SCH ×2 (10:48→22:39)
[2019-05-06] MEDS: amLODIPine BESYLATE 5 MG TAB PO SCH (10:49)
[2019-05-06] MEDS: CARVEDILOL 12.5 MG TAB PO SCH ×2 (10:49→22:37)
[2019-05-06] MEDS: FUROSEMIDE 20 MG/2 ML VIAL IV SCH (10:50)
[2019-05-06] MEDS: cefTRIAXone 1GM/50ML D5W 50 ML IV SCH (10:50)
[2019-05-06] MEDS: hydrALAZINE HCL 25 MG TAB PO SCH ×2 (10:50→22:40)
[2019-05-06] MEDS: AZITHROMYCIN 500MG/ 250ML 250 ML IV SCH (11:34)
--- NOTE | 2019-05-06 14:36 | NUR ---
Patient requesting RN to look at tail bone No redness noted, applied z-gaurd barrier cream for preventative care.
[2019-05-06] MEDS: ZOCOR 40 MG PO SCH (17:35)
--- NOTE | 2019-05-06 19:02 | NUR ---
Patient Rounds Patient resting in bed watching television. No s/s of distress. Will endorse care to material handler 1st shift RN.
[2019-05-06] MEDS: ACETYLCYSTEINE 20%(200MG/ML) SOL 4ML NEB SCH (22:00)
[2019-05-07] VITALS (8 sets, daily range): BP systolic 65–163; BP diastolic 20–70
--- NOTE | 2019-05-07 00:31 | NUR ---
PT REQUESTED TO BE REMOVED FROM BIPAP. PT PLACED ON 6L SIMPLE MASK. SPO2 92%, HR 86. BIPAP ON STANDBY AT BEDSIDE.
[2019-05-07] MEDS: InsuLIN REG 1unit/0.01ml Soln (100units/ml) SC SCH ×4 (05:48→22:14)
[2019-05-07] MEDS: ACCU-CHEK COMFORT CURVE STRIP VI SCH ×4 (05:49→22:13)
[2019-05-07] MEDS: ALBUTEROL SULF 2.5 MG/0.5ML(0.5%) NEB SOLN NEB SCH ×3 (06:59→19:15)
[2019-05-07] MEDS: BUDESONIDE (INHALATION) 0.5 MG/2 ML NEB NEB SCH ×2 (06:59→19:15)
[2019-05-07] MEDS: ACETYLCYSTEINE 20%(200MG/ML) SOL 4ML NEB SCH ×3 (06:59→19:15)
[2019-05-07] MEDS: IPRATROPIUM BROM 0.5 MG/2.5ML INH SOL NEB SCH ×3 (06:59→19:15)
--- NOTE | 2019-05-07 07:06 | NUR ---
RECD PT OFF BIPAP AND ON 3LNC, SPO2 99%. PT IN NO RESPIRATORY DISTRESS AT THIS TIME. HHN TX ADMINISTERED ORDERED. NO ADVERSE REACTIONS TO MEDICATION. BIPAP AT BEDSIDE.
--- NOTE | 2019-05-07 08:36 | NUR ---
Opening Shift Note Received report on the patient. Awake lying in bed. Patient shows no signs of distress at this time. Discussed plan of care with the patient. Bed in lowest position, side rails up x2, and the call light is within reach. Will continue to monitor.
[2019-05-07] MEDS: amLODIPine BESYLATE 5 MG TAB PO SCH (09:54)
[2019-05-07] MEDS: APIXABAN 2.5 MG TAB PO SCH ×2 (09:54→22:11)
[2019-05-07] MEDS: FAMOTIDINE 20 MG TAB PO SCH (09:54)
[2019-05-07] MEDS: FUROSEMIDE 20 MG/2 ML VIAL IV SCH (09:54)
[2019-05-07] MEDS: hydrALAZINE HCL 25 MG TAB PO SCH ×3 (09:55→22:10)
[2019-05-07] MEDS: CARVEDILOL 12.5 MG TAB PO SCH ×2 (09:55→22:11)
[2019-05-07] MEDS: AZITHROMYCIN 500MG/ 250ML 250 ML IV SCH (09:55)
[2019-05-07] MEDS: cefTRIAXone 1GM/50ML D5W 50 ML IV SCH (10:00)
--- NOTE | 2019-05-07 12:59 | NUR ---
Nutrition Assessment Notes please see attached link for complete assessment Estimated energy needs AdBW 75 [id number] kcals (23-25 kcals) Estimated protein needs: 60-75gms/day (0.8-1.0 gms/kg AdjBW) Addendum: 05/07/19 at [address] Amended: Links added.
[2019-05-07] MEDS: ZOCOR 40 MG PO SCH (18:00)
--- NOTE | 2019-05-07 19:15 | NUR ---
RT NOTE RT TOLD PT THAT THEY WOULD BE BACK TO PLACE THE PT ON THE BIPAP FOR NOC PER MD ORDER. PT STATED THEY DID NOT WANT TO USE IT TONIGHT. RT EXPLAINED THE BENEFITS OF USING THE BIPAP WHILE SLEEPING. PT SAID THEY UNDERSTOOD AND MAYBE, BUT THEY DIDN'T THINK IT WAS WORKING THE NIGHT BEFORE. RT SAID THEY WOULD CHECK BACK IN LATER TO SEE IF THE PT CHANGED THEIR MIND.
--- NOTE | 2019-05-08 00:30 | NUR ---
RT NOTE RT CHECKED ON THE PT AGAIN AFTER NOT HEARING FROM THEM ABOUT GOING ON THE BIPAP FOR NOC. PT STATED THEY STILL DID NOT WANT TO USE IT. RT AGAIN EXPLAINED THE BENEFIT OF WEARING IT, PT SAID THEY UNDERSTOOD, BUT DID NOT WANT IT. PT UNDERSTANDS TO HAVE RT PAGED IF THEY CHANGE THEIR MIND. RT NAME AND PAGER NUMBER ON PTS BOARD IN ROOM.
[2019-05-08] MEDS: HYDROcodone-ACET 5/325MG TAB PO PRN (04:07)
[2019-05-08 05:15] VITALS: BP 160/61
[2019-05-08] MEDS: ALBUTEROL SULF 2.5 MG/0.5ML(0.5%) NEB SOLN NEB SCH ×3 (05:54→19:06)
[2019-05-08] MEDS: IPRATROPIUM BROM 0.5 MG/2.5ML INH SOL NEB SCH ×3 (05:54→19:07)
[2019-05-08] MEDS: BUDESONIDE (INHALATION) 0.5 MG/2 ML NEB NEB SCH ×2 (05:55→19:06)
[2019-05-08] MEDS: ACETYLCYSTEINE 20%(200MG/ML) SOL 4ML NEB SCH ×3 (05:55→19:06)
[2019-05-08 05:56] LABS: Basophils # (auto) 0.1 uL; Basophils % (auto) 0.7 % (0.0-2.0); Eosinophils # (auto) 0.5 uL; Eosinophils % (auto) 3.9 % (0.0-7.0); Hematocrit 32.8 % (36.0-46.0); Hemoglobin 10.7 g/dL (12.2-16.2); Lymphocytes # (auto) 1.3 uL; Lymphocytes % (auto) 10.8 % (10.0-50.0); Mean Corpuscular Hemoglobin 28.6 pg (28.0-32.0); Mean Corpuscular Hgb Conc. 32.5 g/dL (32.0-36.0); Mean Corpuscular Volume 87.8 fL (80.0-100.0); Monocytes # (auto) 1.2 uL; Monocytes % (auto) 9.4 % (0.0-12.0); Neutrophils # (auto) 9.4 uL; Neutrophils % (auto) 75.2 % (37.0-80.0); Platelet Count (auto) 350 10^3/uL (140-450); Red Blood Cells 3.74 10^6/uL (4.0-5.20); Red Cell Distribution Width 15.2 % (11.8-14.3); White Blood Cell 12.5 10^3/uL (4.4-10.8)
[2019-05-08 06:17] LABS: Potassium 4.4 mmol/L (3.5-5.1)
[2019-05-08] MEDS: ACCU-CHEK COMFORT CURVE STRIP VI SCH ×4 (06:19→20:41)
[2019-05-08 06:20] LABS: BUN/Creatinine Ratio 27.8
[2019-05-08] MEDS: InsuLIN REG 1unit/0.01ml Soln (100units/ml) SC SCH ×4 (06:20→20:40)
--- NOTE | 2019-05-08 08:00 | NUR ---
Opening Shift Note Assumed care of patient, awake, alert and oriented X4. No S/S of distress/SOB or pain. O2 @ 3 LPM via nasal cannula with sats @ 96%. Tele# 64, sinus rhythm @ 68 bpm. IV to right forearm swollen and tender to touch, removed with clean technique, catheter intact. New IV inserted to right antecubital, 20 gauge, with clean technique, saline locked. Urethral Salazar catheter draining clear, yellow urine to gravity. Instructed on POC and to call for assist PRN, verbalized understanding. Bed locked, in lowest position, call light within reach, will continue to monitor for changes Q1hr and PRN.
[2019-05-08 08:30] VITALS: BP 153/59
[2019-05-08] MEDS: FUROSEMIDE 20 MG/2 ML VIAL IV SCH (10:27)
[2019-05-08] MEDS: hydrALAZINE HCL 25 MG TAB PO SCH ×2 (10:28→20:38)
[2019-05-08] MEDS: cefTRIAXone 1GM/50ML D5W 50 ML IV SCH (10:28)
[2019-05-08] MEDS: amLODIPine BESYLATE 5 MG TAB PO SCH (10:29)
[2019-05-08] MEDS: APIXABAN 2.5 MG TAB PO SCH ×2 (10:29→20:38)
[2019-05-08] MEDS: CARVEDILOL 12.5 MG TAB PO SCH ×2 (10:29→20:37)
[2019-05-08] MEDS: FAMOTIDINE 20 MG TAB PO SCH (10:29)
--- NOTE | 2019-05-08 11:45 | NUR ---
PULMONARY Dr Dugan at bedside for Pulmonary follow up, no new orders at this time.
[2019-05-08 12:30] VITALS: BP 165/67
[2019-05-08] MEDS: AZITHROMYCIN 500MG/ 250ML 250 ML IV SCH (12:31)
[2019-05-08] MEDS ORDERED: hydrALAZINE HCL 20 MG/ML VL IV PRN (16:30)
[2019-05-08 17:13] VITALS: BP 142/78
--- NOTE | 2019-05-08 17:23 | NUR ---
ROUNDS Dr Shields at bedside for rounds, new orders received and followed through. Patient updated on plan of care, verbalized understanding.
[2019-05-08] MEDS: ZOCOR 40 MG PO SCH (17:31)
--- NOTE | 2019-05-08 19:08 | NUR ---
Care endorsed to GHASSAN Garcia, night nurse.
--- NOTE | 2019-05-08 19:19 | NUR ---
Respiratory note: PT STATES SHE DOES NOT WANT TO WEAR BIPAP TONIGHT. EXPLAINED TO PT THE BENEFITS OF WEARING BIPAP AND NOTIFIED PT TO HAVE RT PAGED IF BIPAP IS NEEDED. PT PRESENTING NO RESPIRATORY DISTRESS, WILL CONTINUE TO MONITOR.
[2019-05-08 20:00] VITALS: BP 165/67
[2019-05-08 22:20] VITALS: BP 124/57
[2019-05-09] MEDS: InsuLIN REG 1unit/0.01ml Soln (100units/ml) SC SCH ×4 (05:06→20:25)
[2019-05-09] MEDS: ACCU-CHEK COMFORT CURVE STRIP VI SCH ×4 (05:08→20:26)
[2019-05-09 05:42] VITALS: BP 147/69
[2019-05-09] MEDS: ALBUTEROL SULF 2.5 MG/0.5ML(0.5%) NEB SOLN NEB SCH ×3 (06:34→19:35)
[2019-05-09] MEDS: BUDESONIDE (INHALATION) 0.5 MG/2 ML NEB NEB SCH ×2 (06:35→19:35)
[2019-05-09] MEDS: IPRATROPIUM BROM 0.5 MG/2.5ML INH SOL NEB SCH ×3 (06:35→19:35)
[2019-05-09] MEDS: ACETYLCYSTEINE 20%(200MG/ML) SOL 4ML NEB SCH ×3 (06:35→19:35)
[2019-05-09] MEDS: HYDROcodone-ACET 5/325MG TAB PO PRN ×2 (06:41→20:37)
--- NOTE | 2019-05-09 08:00 | NUR ---
Opening Shift Note Assumed care of patient, awake, alert and oriented X4. No S/S of distress/SOB or pain. O2 @ 3 LPM via nasal cannula with sats @ 97%. Tele# 64, sinus rhythm @ 82 bpm. IV to right antecubital, 20 gauge, patent and saline locked. Urethral Salazar catheter draining clear, yellow urine to gravity. Instructed on POC and to call for assist PRN, verbalized understanding. Bed locked, in lowest position, call light within reach, will continue to monitor for changes Q1hr and PRN
[2019-05-09 09:26] VITALS: BP 144/61
[2019-05-09] MEDS: FUROSEMIDE 40 MG/4 ML VIAL IV SCH (09:51)
[2019-05-09] MEDS: cefTRIAXone 1GM/50ML D5W 50 ML IV SCH (09:51)
[2019-05-09] MEDS: hydrALAZINE HCL 25 MG TAB PO SCH ×2 (09:51→20:38)
[2019-05-09] MEDS: CARVEDILOL 12.5 MG TAB PO SCH ×2 (09:52→20:46)
[2019-05-09] MEDS: APIXABAN 2.5 MG TAB PO SCH ×2 (09:52→20:36)
[2019-05-09] MEDS: FAMOTIDINE 20 MG TAB PO SCH (09:52)
[2019-05-09] MEDS: amLODIPine BESYLATE 5 MG TAB PO SCH (09:52)
[2019-05-09] MEDS: AZITHROMYCIN 500MG/ 250ML 250 ML IV SCH (11:29)
--- NOTE | 2019-05-09 11:30 | NUR ---
ROUNDS Dr Shields at bedside for rounds, no new orders at this time. Patient updated on plan of care, verbalized understanding.
[2019-05-09 12:30] VITALS: BP 125/56
[2019-05-09 17:22] VITALS: BP 146/85
[2019-05-09] MEDS: ZOCOR 40 MG PO SCH (17:39)
--- NOTE | 2019-05-09 19:07 | NUR ---
Care endorsed to GHASSAN Garcia, night nurse.
[2019-05-09 20:29] VITALS: BP 125/56
[2019-05-09 22:00] VITALS: BP 143/75
[2019-05-10 05:13] VITALS: BP 148/63
[2019-05-10] MEDS: InsuLIN REG 1unit/0.01ml Soln (100units/ml) SC SCH ×3 (05:51→16:59)
[2019-05-10] MEDS: ACCU-CHEK COMFORT CURVE STRIP VI SCH ×3 (05:53→17:00)
[2019-05-10] MEDS: BUDESONIDE (INHALATION) 0.5 MG/2 ML NEB NEB SCH (06:37)
[2019-05-10] MEDS: ACETYLCYSTEINE 20%(200MG/ML) SOL 4ML NEB SCH ×2 (06:37→14:30)
[2019-05-10] MEDS: ALBUTEROL SULF 2.5 MG/0.5ML(0.5%) NEB SOLN NEB SCH ×2 (06:37→11:37)
[2019-05-10] MEDS: IPRATROPIUM BROM 0.5 MG/2.5ML INH SOL NEB SCH ×2 (06:37→11:37)
[2019-05-10 09:00] VITALS: BP 148/53
[2019-05-10] MEDS: FUROSEMIDE 40 MG/4 ML VIAL IV SCH (09:37)
[2019-05-10] MEDS: cefTRIAXone 1GM/50ML D5W 50 ML IV SCH (09:37)
[2019-05-10] MEDS: hydrALAZINE HCL 25 MG TAB PO SCH (09:37)
[2019-05-10] MEDS: CARVEDILOL 12.5 MG TAB PO SCH (09:38)
[2019-05-10] MEDS: APIXABAN 2.5 MG TAB PO SCH (09:38)
[2019-05-10] MEDS: amLODIPine BESYLATE 5 MG TAB PO SCH (09:38)
[2019-05-10] MEDS: FAMOTIDINE 20 MG TAB PO SCH (09:39)
[2019-05-10] MEDS: AZITHROMYCIN 500MG/ 250ML 250 ML IV SCH (10:31)
[2019-05-10 12:30] VITALS: BP 111/46
[2019-05-10] MEDS ORDERED: AML5T PO (14:25)
[2019-05-10] MEDS ORDERED: APIX2.5T PO (14:25)
--- NOTE | 2019-05-10 15:16 | NUR ---
NOTIFIED RADIOLOGIC TECHNOLOGIST CHIEF OF DISCHARGE WITH HOME HEALTH ORDER
--- NOTE | 2019-05-10 15:49 | NUR ---
Discharge planning per consult, patient has orders for home health. Referral sent to [facility] [phone] as patient was previously on services, placed a follow up call, spoke with Abena and was advise that they will accept this patient onto services and start of care will be on Fri05.12.19. [facility] notified of acceptance and auth was requested. Nurse Leanne was advised of dc plan. Addendum: 05/10/19 at 1554 by KAYLEY TRAN Amended: Links added.
--- NOTE | 2019-05-10 15:50 | NUR ---
called clara hobbs listed as next of kin to inform of discharge, per granddaughter she will call her mom and notify he rof discharge
[2019-05-10 16:26] VITALS: BP 110/46
--- NOTE | 2019-05-10 16:39 | NUR ---
CALLED [facility] AGAIN TO INQUIRE IF SHE CONTACTED HER MOM FOR SCALP SPECIALIST OF PT UNABLE TO LEAVE VOICEMAIL VOICEMAILBOX IS FULL
--- NOTE | 2019-05-10 16:53 | NUR ---
CALLED [facility] AGAIN UNABLE TO LEAVE VOICEMAIL, PER PT HER AND KING DO NOT HAVE A GOOD RELATIONSHIP BECAUSE SHE FIRED HER, TOLD ME WE SHOULD BE CONTACTING REZA HER DAUGHTER, ADVISED PATIENT THAT [facility] [phone] IS THE ONLY CONTACT, REACHED HER THE FIRST CALL SEE PREVIOUS NOTE EVERY CALL [facility] GOES TO VOICEMAIL CHARGE NURSE MADE AWARE
--- NOTE | 2019-05-10 16:58 | NUR ---
MD GABRIEL AWARE OF UNABLE TO REACH FAMILY
[2019-05-10 17:00] VITALS: BP 120/58
[2019-05-10] MEDS: ZOCOR 40 MG PO SCH (17:00)
--- NOTE | 2019-05-10 17:36 | NUR ---
PT DISCHARGED HOME ACCOMPANED BY DAUGHTER REZA
== END 2019-05-10 17:30 | disposition home health service (06) | DRG 291 ==
LOC: ER 08:54 → EDBD 08:54 → TELE 08:55 → TELE-WESTW 18:11
PROVIDERS: ADMIT Nurse Practitioner Acute Care; ATTEND Internal Medicine Nephrology
PROC: 5A09357 Assistance with Respiratory Ventilation, Less than 24 Consecutive Hours, Continuous Positive Airway Pressure (ICD-10-PCS; principal; 2019-05-04)
PROC: 5A09357 Assistance with Respiratory Ventilation, Less than 24 Consecutive Hours, Continuous Positive Airway Pressure (ICD-10-PCS; 2019-05-05)
PROC: 5A09357 Assistance with Respiratory Ventilation, Less than 24 Consecutive Hours, Continuous Positive Airway Pressure (ICD-10-PCS; 2019-05-06)
PROC: 5A09357 Assistance with Respiratory Ventilation, Less than 24 Consecutive Hours, Continuous Positive Airway Pressure (ICD-10-PCS; 2019-05-07)
DX: I13.0 Hypertensive heart and chronic kidney disease with heart failure and stage 1 through stage 4 chronic kidney disease, or unspecified chronic kidney disease (principal); I50.23 Acute on chronic systolic (congestive) heart failure; J18.9 Pneumonia, unspecified organism; G93.41 Metabolic encephalopathy; J96.22 Acute and chronic respiratory failure with hypercapnia; J96.21 Acute and chronic respiratory failure with hypoxia; I26.99 Other pulmonary embolism without acute cor pulmonale; N17.0 Acute kidney failure with tubular necrosis; J44.0 Chronic obstructive pulmonary disease with (acute) lower respiratory infection; J98.11 Atelectasis; N18.3 Chronic kidney disease, stage 3 (moderate); E66.9 Obesity, unspecified; G47.33 Obstructive sleep apnea (adult) (pediatric); I25.10 Atherosclerotic heart disease of native coronary artery without angina pectoris; Z68.31 Body mass index [BMI] 31.0-31.9, adult; Z90.49 Acquired absence of other specified parts of digestive tract
CPT/HCPCS: 36415; 36600; 70450; 71045; 76604; 80048; 80053; 81001; 82805; 82962; 83605; 83735; 83880; 84484; 85025; 85610; 85730; 87040; 87070; 87086; 87205; 87804; 93005; 94640; 94660; 96365; 96367; 96375; 97116; 97530; G0378; J0696; J1815; J2543

== ENCOUNTER 2019-09-10 16:39 | Inpatient (IN) | payer OTHER, MEDICAID ==
[~2019-09-10] VITALS: Ht 154.9 cm; Wt 89.0 kg
[~2019-09-10 16:39] MED LIST changes: +AML5T PO; +APIX2.5T PO; -POTA10TA51 PO; -TEMA15CA PO
[2019-09-10] MEDS ORDERED: SUCCINYLCHOLINE CHLORIDE 20 MG/ML 10ML VIAL IV ONE ×2 (16:47→18:30)
[2019-09-10] MEDS ORDERED: ETOMIDATE (2MG/ML) 20ML VIAL IV ONE ×2 (16:47→18:30)
[2019-09-10] MEDS ORDERED: MIDAZOLAM DRIP 50 mg/50mL 50 ML IV ONE ×2 (16:48→18:08)
[2019-09-10] MEDS ORDERED: PROPOFOL 100 ML IV ONE (17:16)
[2019-09-10] MEDS ORDERED: NOREPINEPHRINE 8 MG/250ML KIT 250 ML IV ONE (17:16)
[2019-09-10 17:25] VITALS: BP 101/34
[2019-09-10] MEDS: PROPOFOL 100 ML IV SCH (17:30)
[2019-09-10] MEDS: NOREPINEPHRINE 8 MG/250ML KIT 250 ML IV SCH (17:30)
[2019-09-10] MEDS ORDERED: DOPamine 1600MCG/ML D5W 250 ML IV ONE ×2 (17:30→18:45)
[2019-09-10] MEDS ORDERED: FUROSEMIDE 40 MG/4 ML VIAL IV ONE (17:45)
[2019-09-10 17:54] LABS: Basophils # (auto) 0.1 10 ^3/uL (0-0.2); Basophils % (auto) 0.7 % (0.0-2.0); Eosinophils # (auto) 0.1 10 ^3/uL (0-0.8); Eosinophils % (auto) 0.6 % (0.0-7.0); Hematocrit 31.8 % (36.0-46.0); Hemoglobin 10.3 g/dL (12.2-16.2); Lymphocytes # (auto) 0.8 10 ^3/uL (0.4-5.4); Lymphocytes % (auto) 6.7 % (10.0-50.0); Mean Corpuscular Hemoglobin 28.4 pg (28.0-32.0); Mean Corpuscular Hgb Conc. 32.3 g/dL (32.0-36.0); Mean Corpuscular Volume 87.7 fL (80.0-100.0); Monocytes # (auto) 0.5 10 ^3/uL (0-1.3); Neutrophils # (auto) 10.3 10 ^3/uL (1.6-8.6); Nucleated Red Blood Cells % 0.1 %; Platelet Count (auto) 295 10^3/uL (140-450); Red Blood Cells 3.62 10^6/uL (4.0-5.20); Red Cell Distribution Width 16.7 % (11.8-14.3); White Blood Cell 11.7 10^3/uL (4.4-10.8)
[2019-09-10 18:04] LABS: Urine Bacteria NONE SEEN /hpf (None Seen); Urine Blood TRACE /uL (Negative); Urine Hyaline Cast FEW /lpf (0 - 2); Urine Specific Gravity 1.016 (1.001-1.035); Urine WBC 1 /hpf (0 - 5)
[2019-09-10] MEDS ORDERED: MIDAZOLAM DRIP 50 mg/50mL 50 ML IV SCH (18:06)
[2019-09-10 18:14] LABS: Alanine Aminotransferase 15 U/L (13-56); Albumin 2.4 g/dL (3.4-5.0); Anion Gap 4 (5-15); Aspartate Aminotransferase 17 U/L (15-37); BUN/Creatinine Ratio 25.6; Blood Urea Nitrogen 33 mg/dL (7-18); Calcium 8.5 mg/dL (8.5-10.1); Carbon Dioxide 32 mmol/L (21-32); Chloride 105 mmol/L (98-107); GFR African American 51 mL/min; GFR Non-African American 42 mL/min; Glucose 193 mg/dL (74-106); INR 1.04 (0.9-1.15); Partial Thromboplastin Time 27.3 sec (23.64-32.05); Potassium 5.1 mmol/L (3.5-5.1); Sodium 141 mmol/L (136-145)
[2019-09-10] MEDS ORDERED: ZINC SULFATE 220mg CAP or TAB PO ONE (18:15)
[2019-09-10] MEDS ORDERED: ASCORBIC ACID 500 MG TAB PO ONE (18:15)
[2019-09-10] MEDS ORDERED: cefTRIAXone 1GM/50ML D5W 50 ML IV ONE (18:15)
[2019-09-10] MEDS ORDERED: AZITHROMYCIN 500MG/ 250ML 250 ML IV ONE (18:15)
[2019-09-10 18:19] LABS: Alkaline Phosphatase 78 U/L (45-117); Bilirubin, Total 0.2 mg/dL (0.2-1.0); Total Protein 6.4 g/dL (6.4-8.2)
[2019-09-10] MEDS ORDERED: DOBUTamine 1000MCG/ML 250 ML IV SCH (18:30)
[2019-09-10] MEDS ORDERED: DEXTROSE (50%) 50ML SYRG IV PRN (18:45)
[2019-09-10] MEDS ORDERED: MORPHINE SULF INJ 2 MG/ML SYRINGE 1ML IV PRN (18:45)
[2019-09-10] MEDS ORDERED: NITROGLYCERIN 0.4 MG SL TAB SL PRN (18:45)
[2019-09-10 18:49] LABS: Lactic Acid w/Reflex 0.5 mmol/L (0.4-2.0)
[2019-09-10 19:05] LABS: % Iron Saturation 21.7 % (15-50)
[2019-09-10] MEDS: FUROSEMIDE INJECTION 100 MG in D5W 5% 100 ML IV SCH (20:27)
[2019-09-10] MEDS: ACCU-CHEK COMFORT CURVE STRIP VI SCH (20:28)
[2019-09-10] MEDS: InsuLIN REG 1unit/0.01ml Soln (100units/ml) SC SCH (21:01)
[2019-09-10] MEDS: CARVEDILOL 3.125 MG TAB PO SCH (22:00)
[2019-09-10] MEDS ORDERED: ATORVASTATIN 20 MG TAB PO SCH (22:00)
[2019-09-10 22:10] VITALS: BP 124/58
[2019-09-10 22:18] VITALS: BP 192/81
[2019-09-11] VITALS (46 sets, daily range): BP systolic 99–180; BP diastolic 45–135
[2019-09-11] MEDS: FUROSEMIDE INJECTION 100 MG in D5W 5% 100 ML IV SCH ×3 (00:49→09:04)
[2019-09-11] MEDS: ACCU-CHEK COMFORT CURVE STRIP VI SCH ×6 (00:53→22:00)
[2019-09-11] MEDS: InsuLIN REG 1unit/0.01ml Soln (100units/ml) SC SCH ×6 (00:55→22:00)
[2019-09-11 05:44] LABS: Basophils # (auto) 0.1 10 ^3/uL (0-0.2); Basophils % (auto) 0.6 % (0.0-2.0); Eosinophils # (auto) 0 10 ^3/uL (0-0.8); Eosinophils % (auto) 0.2 % (0.0-7.0); Hematocrit 29.9 % (36.0-46.0); Hemoglobin 9.6 g/dL (12.2-16.2); Lymphocytes % (auto) 6.7 % (10.0-50.0); Mean Corpuscular Hemoglobin 27.6 pg (28.0-32.0); Mean Corpuscular Hgb Conc. 32.2 g/dL (32.0-36.0); Mean Corpuscular Volume 85.7 fL (80.0-100.0); Monocytes # (auto) 1.2 10 ^3/uL (0-1.3); Monocytes % (auto) 7.7 % (0.0-12.0); Neutrophils # (auto) 12.9 10 ^3/uL (1.6-8.6); Neutrophils % (auto) 84.8 % (37.0-80.0); Nucleated Red Blood Cells % 0.1 %; Platelet Count (auto) 267 10^3/uL (140-450); Red Blood Cells 3.48 10^6/uL (4.0-5.20); Red Cell Distribution Width 16.1 % (11.8-14.3); White Blood Cell 15.2 10^3/uL (4.4-10.8)
[2019-09-11 05:55] LABS: % Iron Saturation 10.7 % (15-50)
[2019-09-11 05:57] LABS: Potassium 3.9 mmol/L (3.5-5.1)
[2019-09-11 06:00] LABS: INR 1.01 (0.9-1.15); Partial Thromboplastin Time 27.9 sec (23.64-32.05)
[2019-09-11 06:04] LABS: Ferritin 94.3 ng/mL (10-322)
[2019-09-11 06:05] LABS: Albumin 2.2 g/dL (3.4-5.0); BUN/Creatinine Ratio 24.4; Bilirubin, Total 0.3 mg/dL (0.2-1.0); CRP High Sensitivity 0.76 mg/dL (< 0.3); Calcium 8.6 mg/dL (8.5-10.1); Magnesium 2.3 mg/dL (1.6-2.6); Phosphorus 1.5 mg/dL (2.5-4.90); Total Protein 5.8 g/dL (6.4-8.2)
[2019-09-11] MEDS: AZITHROMYCIN 500MG/ 250ML 250 ML IV SCH (09:04)
[2019-09-11] MEDS: ENOXAPARIN SOD 40 MG/0.4 ML SYRINGE SC SCH (09:04)
[2019-09-11] MEDS: CARVEDILOL 3.125 MG TAB PO SCH ×3 (09:04→22:00)
[2019-09-11] MEDS: cefTRIAXone 1GM/50ML D5W 50 ML IV SCH (09:05)
[2019-09-11] MEDS: fentaNYL Drip 2500mCg/250mlNS 250 ML IV SCH (09:20)
[2019-09-11] MEDS ORDERED: DEXTROSE (50%) 50ML SYRG IV PRN (09:30)
[2019-09-11] MEDS: CHOLECALCIFEROL (VITD3) 1,000IU=25mCg TAB PO SCH (10:00)
[2019-09-11] MEDS ORDERED: ENALAPRIL MALEATE 2.5 MG TAB PO SCH (10:00)
[2019-09-11] MEDS: INSULIN LANTUS (GLARGINE) 1 /0.01ml (100units/ml) SC SCH (10:00)
[2019-09-11] MEDS: ZINC SULFATE 220mg CAP or TAB PO SCH (10:27)
[2019-09-11] MEDS: ASCORBIC ACID 500 MG TAB PO SCH ×2 (10:27→22:00)
--- NOTE | 2019-09-11 11:00 | NUR ---
RT Transport Note: Patient transported to ICU 101 with RN AYAKA ADAMS. Patient transported to and from procedure on ventilator with previous ordered settings. Patient on shark biologist with alarms set and audible, ambu-bag/mask connected to 02 tank. Patient returned to room with no adverse reaction noted. Transport completed without incident.
--- NOTE | 2019-09-11 11:30 | NUR ---
Admit to ICU from ER on vent John VIVEROSdmitted to ICU via ana laurarsaundra on classroom monitor, intubated and being bagged by Respiratory Therapist. Patient transfered to bed, connected to mechanical ventilator by therapist, ZENAIDA at bedside. Patient connected to ICU monitoring, weighed by bedscale, oriented to Thanh yeboah RN, unit, ventilator and sedation.
--- NOTE | 2019-09-11 12:13 | NUR ---
WOUND CARE NOTE: SPECIALTY AIR BED ORDERED WITH TURN ASSIST FUNCTION. PATIENT TO BE PLACED, PENDING DELIVERY BY JEANETTE BOND
--- NOTE | 2019-09-11 16:00 | NUR ---
LEVOPHED OFF AT THIS TIME DUE SBP 160-170 CONT TO MONITOR
--- NOTE | 2019-09-11 17:00 | NUR ---
WOUND CARE NOTE: PATIENT RECENTLY ADMITTED TO [facility] WITH DIAGNOSIS OF PULMONARY EDEMA, ACUTE EXACERBATION OF SYSTOLIC HEART FAILURE, GRAM POSITIVE PNA VS VIRAL PNA, ACUTE HYPOXEMIC RESPIRATORY FAILURE. SHE IS INTUBATED, SEDATED, CURRENT NYDIA SCORE IS 10. PATIENT ON AIRBORNE ISOLATION. PATIENT IS WOUND FREE AT THIS TIME. SHE HAS GENERALIZED EDEMA WITH PITTING EDEMA NOTED TO BILATERAL LOWER EXTREMITIES PER BEDSIDE NURSE. PATIENT WILL BE PLACED ON SPECIALTY AIR MATTRESS PREVENTATIVE UPON DELIVERY BY JEANETTE ZABALA. RECOMMEND: FREQUENT TURN SCHEDULE Q 2 HOURS, PRN CONDITION PERMITS, WITH PRESSURE REDISTRIBUTION USING PILLOWS/WEDGES, BID/PRN APPLICATION WITH MOISTURE BARRIER CREAM, OPTIFOAM GENTLE SACRAL DRESSING PREVENTATIVE, SPECIALTY AIR MATTRESS, ELEVATION OF BILATERAL FEET/HEELS USING PILLOWS, DIETARY CONSULT, SKIN/WOUND CARE PLAN, CONTINUED MONITORING BY WOUND CARE TEAM.
[2019-09-11] MEDS: PROPOFOL 100 ML IV SCH (17:59)
[2019-09-11] MEDS ORDERED: BUMETANIDE 2.5mg/10ml (0.25 mg/ml) INJ IV SCH ×2 (18:00)
--- NOTE | 2019-09-11 18:00 | NUR ---
FAMILY TO CALL BACK REGARDING HOME MEDS AND CONSENT FOR RIGHT THORACENTESIS PER DR GOOD FOR TOMORROW
--- NOTE | 2019-09-11 19:30 | NUR ---
REPORT GIVEN TO BRITTANEY FERRELL, ENDORSED TO FINISH MED REC WHEN PATIENT FAMILY CALLS BACK AND ALSO TO PLACE ON NEW BARIATRIC BED.
--- NOTE | 2019-09-11 19:45 | NUR ---
OPENING SHIFT RECEIVED REPORT FROM DAY SHIFT RN. ASSUMED CARE OF PATIENT. PATIENT INTUBATED AND SEDATED WITH NO SIGNS OR SYMPTOMS OF SOB, PAIN OR DISTRESS. 02 SAT - 97%. POSITIVE COUGH AND GAG. RIGHT INTERNAL JUGULAR TLC, RIGHT ANTECUBITAL AND RIGHT HAND IV CLEAN/DRY/INTACT. CHINCHILLA HUNG TO GRAVITY. ORAL CARE PERFORMED. SEDATION: PROPOFOL - 25MCG/KG/MIN FENTANYL - 25MCG/HR REPOSITIONED FOR COMFORT. BED IN LOWEST POSITION, SIDE RAILS UP X2. WILL CONTINUE TO MONITOR.
[2019-09-11] MEDS: NOREPINEPHRINE 8 MG/250ML KIT 250 ML IV SCH (20:15)
--- NOTE | 2019-09-11 21:07 | NUR ---
ATTEMPTED TO CALL FAMILY - PHONE NUMBER FROM CHART - TO OBTAIN CONSENT FOR RIGHT SIDE THORACENTESIS 09/12/19. LEFT VOICEMAIL. AWAITING CALL BACK.
[2019-09-11] MEDS: ATORVASTATIN 20 MG TAB PO SCH (22:00)
--- NOTE | 2019-09-11 23:50 | NUR ---
PM CARE PERFORMED PM CARE WITH WASH CLOTHS. FULL LINEN CHANGE AND GOWN CHANGED. TRANSFERRED PATIENT TO [facility]. SKIN REASSESSED AT THIS TIME. REPOSITIONED FOR COMFORT. ORAL AND CHINCHILLA CARE PERFORMED. BED IN LOWEST POSITION, SIDE RAILS UPX2. WILL CONTINUE TO MONITOR.
[2019-09-12] VITALS (97 sets, daily range): BP systolic 92–185; BP diastolic 32–125
--- NOTE | 2019-09-12 | NUR ---
PM CARE PERFORMED PM CARE WITH WASH CLOTHS. PARTIAL LINEN CHANGE AND GOWN CHANGED. TRANSFERRED PATIENT TO [facility]. SKIN REASSESSED AT THIS TIME. REPOSITIONED FOR COMFORT. ORAL AND CHINCHILLA CARE PERFORMED. BED IN LOWEST POSITION, SIDE RAILS UPX2. WILL CONTINUE TO MONITOR.
--- NOTE | 2019-09-12 00:08 | NUR ---
HOSPITALIST MADE AWARE OF BLOOD PRESSURE SUSTAINING IN THE 180'S SYSTOLIC, RECEIVED ORDERS FOR HYDRALAZINE 10MG TID PRN FOR SYSTOLIC BLOOD PRESSURES GREATER THAN 160. NOTED AND CARRIED OUT.
[2019-09-12] MEDS ORDERED: hydrALAZINE HCL 20 MG/ML VL IV PRN (00:15)
[2019-09-12] MEDS ORDERED: hydrALAZINE HCL 20 MG/ML VL ONE (00:19)
[2019-09-12] MEDS: hydrALAZINE HCL 20 MG/ML VL IV PRN ×2 (00:41→09:37)
--- NOTE | 2019-09-12 03:47 | NUR ---
CHG WIPE DOWN
[2019-09-12 04:37] LABS: Basophils # (auto) 0.1 10 ^3/uL (0-0.2); Basophils % (auto) 0.5 % (0.0-2.0); Eosinophils # (auto) 0.2 10 ^3/uL (0-0.8); Hematocrit 30.2 % (36.0-46.0); Hemoglobin 9.9 g/dL (12.2-16.2); Lymphocytes # (auto) 1.6 10 ^3/uL (0.4-5.4); Lymphocytes % (auto) 8.8 % (10.0-50.0); Mean Corpuscular Hemoglobin 27.9 pg (28.0-32.0); Mean Corpuscular Hgb Conc. 32.6 g/dL (32.0-36.0); Mean Corpuscular Volume 85.7 fL (80.0-100.0); Monocytes # (auto) 1.2 10 ^3/uL (0-1.3); Monocytes % (auto) 6.9 % (0.0-12.0); Neutrophils # (auto) 14.6 10 ^3/uL (1.6-8.6); Neutrophils % (auto) 82.8 % (37.0-80.0); Platelet Count (auto) 249 10^3/uL (140-450); Red Blood Cells 3.53 10^6/uL (4.0-5.20); Red Cell Distribution Width 16.5 % (11.8-14.3); White Blood Cell 17.7 10^3/uL (4.4-10.8)
[2019-09-12 04:44] LABS: Albumin 2.1 g/dL (3.4-5.0); BUN/Creatinine Ratio 23.6; Calcium 8.1 mg/dL (8.5-10.1); Potassium 3.2 mmol/L (3.5-5.1)
[2019-09-12 04:46] LABS: Bilirubin, Total 0.4 mg/dL (0.2-1.0); Total Protein 5.5 g/dL (6.4-8.2)
[2019-09-12] MEDS: InsuLIN REG 1unit/0.01ml Soln (100units/ml) SC SCH ×4 (05:44→23:01)
[2019-09-12] MEDS: INSULIN LANTUS (GLARGINE) 1 /0.01ml (100units/ml) SC SCH (05:44)
[2019-09-12] MEDS: ACCU-CHEK COMFORT CURVE STRIP VI SCH ×4 (05:45→22:43)
[2019-09-12] MEDS: PROPOFOL 100 ML IV SCH ×3 (05:57→18:18)
--- NOTE | 2019-09-12 05:57 | NUR ---
RIGHT ANTECUBITAL IV REMOVED.
--- NOTE | 2019-09-12 06:15 | NUR ---
HOSPITALIST PAGED, AWAITING CALL BACK.
--- NOTE | 2019-09-12 07:23 | NUR ---
END OF SHIFT REPORT GIVEN TO DAY SHIFT RN. CARE ENDORSED.
--- NOTE | 2019-09-12 07:23 | NUR ---
REPORT RECEIVED FROM JOURNEYMAN POWERHOUSE OPERATOR NURSE. PATIENT RESTING IN BED AT THIS TIME. RESPIRATIONS EVEN AND UNLABORED, INTUBATED AND SEDATED. NO SIGNS OF ACUTE DISTRESS NOTED. BED IN LOW POSITION. WILL CONTINUE TO MONITOR.
--- NOTE | 2019-09-12 09:00 | NUR ---
SPOKE TO DR MATHEW AND REVIEWED THE MORNING ABG RESULTS. PER MD DECREASE RATE TO 10. INFORMED RESPIRATORY THERAPIST.
[2019-09-12] MEDS ORDERED: Glucerna 1.2 Cal 1Liter BOTTLE GT SCH (09:15)
[2019-09-12] MEDS: cefTRIAXone 1GM/50ML D5W 50 ML IV SCH (09:20)
[2019-09-12] MEDS: fentaNYL Drip 2500mCg/250mlNS 250 ML IV SCH (09:20)
[2019-09-12] MEDS: CHOLECALCIFEROL (VITD3) 1,000IU=25mCg TAB PO SCH (09:24)
[2019-09-12] MEDS: ZINC SULFATE 220mg CAP or TAB PO SCH (09:25)
[2019-09-12] MEDS: ASCORBIC ACID 500 MG TAB PO SCH ×2 (09:25→23:01)
[2019-09-12] MEDS: POTASSIUM CHL 20MEQ/100ML 100 ML IV SCH ×2 (09:32→11:15)
[2019-09-12] MEDS: AZITHROMYCIN 500MG/ 250ML 250 ML IV SCH (09:37)
--- NOTE | 2019-09-12 09:40 | NUR ---
LUIS ALBERTO MCDERMOTT DIRECTOR OF FIELD SALES AT BEDSIDE TO ASSESS PATIENT AND DISCUSS PLAN OF CARE. ALL ORDERS NOTED IN CHART.
[2019-09-12] MEDS: ENOXAPARIN SOD 40 MG/0.4 ML SYRINGE SC SCH (09:45)
[2019-09-12] MEDS ORDERED: POTASSIUM PHOSPHATE 44 MEQ in D5W 5% 250 ML IV ONE (10:45)
--- NOTE | 2019-09-12 10:46 | NUR ---
DR HOLLINGSWORTH ON UNIT TO DISCUSS PLAN OF CARE. ALL ORDERS NOTED IN CHART.
--- NOTE | 2019-09-12 10:50 | NUR ---
CONSENT OBTAINED CONSENT FROM [facility] PATIENTS GRAND DAUGHTER FOR RIGHT THORACENTESIS. DOUBLE NURSE CONSENT WAS OBTAINED WITH PERLA FERRELL.
--- NOTE | 2019-09-12 11:33 | NUR ---
NUTRITION CONSULT/ASSESSMENT NOTES Please refer to link notes of nutrition screen form filed under the intervention section of the plan of care for further details. Est. Energy Needs: 3436-8890 kcal ( 14-18 kcal/kg BW). Est. Protein Needs: 57-68 gms/day ( 1.0-1.2 gms/kg Adj.BW). Will continue to monitor pertinent labs and reassess nutrient need prn Addendum: 09/12/19 at [address] Amended: Links added.
[2019-09-12] MEDS: LINEZOLID 600MG/300ML 300 ML IV SCH ×2 (13:03→23:01)
--- NOTE | 2019-09-12 13:37 | NUR ---
SPOKE TO DANIA FROM INFECTIOUS CONTROL. PATIENTS RESULTS HAVE NOT COME BACK AT THIS TIME. INFORMED DR MATHEW. PER WILL DO THORACENTESIS TOMORROW.
[2019-09-12 19:06] LABS: Protein, Urine 242.3 mg/dL (0.0-11.9)
[2019-09-12] MEDS: NOREPINEPHRINE 8 MG/250ML KIT 250 ML IV SCH (19:30)
--- NOTE | 2019-09-12 19:30 | NUR ---
OPENING SHIFT RECEIVED REPORT FROM DAY SHIFT RN. ASSUMED CARE OF PATIENT. PATIENT RESTING IN BED, INTUBATED AND SEDATED. POSITIVE COUGH AND GAG. 02 SAT - 99%. RIGHT INTERNAL JUGULAR TLC AND RIGHT HAND IV - CLEAN/DRY/INTACT. CHINCHILLA HUNG TO GRAVITY. SEDATION: PROPOFOL - 25MCG/KG/MIN FENTANYL - 25MCG/MIN REPOSITIONED FOR COMFORT. BED IN LOWEST POSITION, SIDE RAILS UP X2. WILL CONTINUE TO MONITOR.
[2019-09-12] MEDS: ATORVASTATIN 20 MG TAB PO SCH (23:01)
[2019-09-13] VITALS (94 sets, daily range): BP systolic 98–165; BP diastolic 30–70
--- NOTE | 2019-09-13 | NUR ---
PM CARE PERFORMED PM CARE WITH WASH CLOTHS. FULL LINEN CHANGE AND GOWN CHANGED. TRANSFERRED PATIENT TO [facility]. SKIN REASSESSED AT THIS TIME. REPOSITIONED FOR COMFORT. ORAL AND CHINCHILLA CARE PERFORMED. BED IN LOWEST POSITION, SIDE RAILS UPX2. WILL CONTINUE TO MONITOR.
[2019-09-13 04:57] LABS: Basophils # (auto) 0 10 ^3/uL (0-0.2); Basophils % (auto) 0.3 % (0.0-2.0); Eosinophils # (auto) 0.4 10 ^3/uL (0-0.8); Eosinophils % (auto) 2.1 % (0.0-7.0); Hematocrit 27.5 % (36.0-46.0); Lymphocytes # (auto) 1.2 10 ^3/uL (0.4-5.4); Lymphocytes % (auto) 6.7 % (10.0-50.0); Mean Corpuscular Hemoglobin 28.1 pg (28.0-32.0); Mean Corpuscular Hgb Conc. 32.9 g/dL (32.0-36.0); Mean Corpuscular Volume 85.4 fL (80.0-100.0); Monocytes # (auto) 1.2 10 ^3/uL (0-1.3); Monocytes % (auto) 7.1 % (0.0-12.0); Neutrophils # (auto) 14.5 10 ^3/uL (1.6-8.6); Neutrophils % (auto) 83.8 % (37.0-80.0); Platelet Count (auto) 241 10^3/uL (140-450); Red Blood Cells 3.22 10^6/uL (4.0-5.20); White Blood Cell 17.2 10^3/uL (4.4-10.8)
[2019-09-13 05:08] LABS: Calcium 7.5 mg/dL (8.5-10.1); Potassium 3.5 mmol/L (3.5-5.1)
[2019-09-13 05:12] LABS: BUN/Creatinine Ratio 28.8; Magnesium 2.4 mg/dL (1.6-2.6)
[2019-09-13] MEDS: INSULIN LANTUS (GLARGINE) 1 /0.01ml (100units/ml) SC SCH (06:38)
[2019-09-13] MEDS: ACCU-CHEK COMFORT CURVE STRIP VI SCH ×4 (06:38→22:07)
[2019-09-13] MEDS: InsuLIN REG 1unit/0.01ml Soln (100units/ml) SC SCH ×4 (06:38→22:25)
--- NOTE | 2019-09-13 07:39 | NUR ---
ENF OF SHIFT REPORT GIVEN TO DAY SHIFT RN. CARE ENDORSED.
--- NOTE | 2019-09-13 08:58 | NUR ---
CONTRACT MAIL CARRIER AT BEDSIDE.
[2019-09-13] MEDS: fentaNYL Drip 2500mCg/250mlNS 250 ML IV SCH (09:20)
[2019-09-13 10:00] LABS: Folate (Folic Acid) 16.44 ng/mL (5.38-24)
[2019-09-13] MEDS: CHOLECALCIFEROL (VITD3) 1,000IU=25mCg TAB PO SCH (10:00)
[2019-09-13] MEDS: ENOXAPARIN SOD 40 MG/0.4 ML SYRINGE SC SCH (10:00)
[2019-09-13] MEDS: ASCORBIC ACID 500 MG TAB PO SCH ×2 (10:00→22:06)
[2019-09-13] MEDS: ZINC SULFATE 220mg CAP or TAB PO SCH (10:00)
--- NOTE | 2019-09-13 10:00 | NUR ---
HYPERTENSIVE PATIENT NOTED TO HAVE SBP 180'S. PATIENT SLIGHTLY RESTLESS. SEDATION INCREASED FOR COMFORT. WILL REASSESS.
--- NOTE | 2019-09-13 10:15 | NUR ---
LOVENOX DOSE HELD PATIENT PENDING THORACENTESIS.
--- NOTE | 2019-09-13 10:15 | NUR ---
PO MEDICATIONS AND TUBE FEEDINGS HELD PATIENT PENDING THORACENTESIS. WILL ADMINISTER AFTER PROCEDURE PERFORMED.
[2019-09-13] MEDS: PROPOFOL 100 ML IV SCH ×2 (10:27→16:52)
[2019-09-13] MEDS: LINEZOLID 600MG/300ML 300 ML IV SCH ×2 (10:27→22:06)
[2019-09-13] MEDS: NOREPINEPHRINE 8 MG/250ML KIT 250 ML IV SCH (11:03)
--- NOTE | 2019-09-13 11:08 | NUR ---
MEDICATION RECONCILIATION PENDING GRANDDAUGHTER UNABLE TO PROVIDE LIST AT THIS TIME. PER JACKIE, SHE WILL CALL WHEN SHE OBTAINS LIST. GRANDDAUGHTER UPDATED ON PATIENTS CURRENT STATUS. QUESTIONS AND CONCERNS ADDRESSED.
--- NOTE | 2019-09-13 11:23 | NUR ---
PRIVATE CHEF PRIVATE CHEF UPDATED ON PATIENTS STATUS. NEW ORDERS IN PLACE.
[2019-09-13] MEDS: cefTRIAXone 1GM/50ML D5W 50 ML IV SCH (11:39)
[2019-09-13] MEDS ORDERED: AZITHROMYCIN 500MG/ 250ML 250 ML IV SCH (12:00)
[2019-09-13] MEDS ORDERED: BUMETANIDE 2.5mg/10ml (0.25 mg/ml) INJ IV ONE (12:00)
--- NOTE | 2019-09-13 12:31 | NUR ---
ELECTRICIAN APPRENTICE POWERHOUSE DR. POLLARD UPDATED ON PATIENT STATUS. SEE MD NOTES/ ORDERS.
--- NOTE | 2019-09-13 13:29 | NUR ---
LEAD PERSON PERFORMED RIGHT THORACENTESIS VIA STERILE TECHNIQUE. PT TOLERATED PROCEDURE WELL. APPROX 500ML OF SANGUINOUS DRAINAGE NOTED. FLUIDS TO BE SENT TO LAB.
--- NOTE | 2019-09-13 13:33 | NUR ---
MD AT BEDSIDE MD UPDATED ON PATIENTS STATUS. SEE NEW ORDERS.
[2019-09-13] MEDS: POTASSIUM EFFERVESENT TAB 25 MEQ NG SCH (15:39)
--- NOTE | 2019-09-13 15:50 | NUR ---
CARES COMPLETE BED BATH GIVEN WITH COMPLETE LINEN CHANGE. PATIENT LIGHTLY- MODERATELY SEDATED. SKIN CARE PROVIDED. ZGUARD AND OPTIFOAM TO SACRUM IN PLACE. PATIENT TURNED AND BILATERAL HEELS OFF LOADED WITH PILLOWS. PT TOLERATED ACTIVITY WELL.
--- NOTE | 2019-09-13 16:02 | NUR ---
Family updated on pt status Family of VIVEROS,LOLY updated on patient's status and condition. All questions and concerns addressed. Steve, granddaughter verbalized understanding.
--- NOTE | 2019-09-13 16:17 | NUR ---
assessment re: ss consult intubated and home 02 Patient is a 79 year old female who is on a vent. Per patients granddaughter Trista prior to admission patient was living home with family and needed assistance. Patient has home 02 and a wheelchair for home use. Patient has a daily caregiver. Per Trista patient was wheezing and having shortness of breath and family called 911. Patient was admitted and put on a vent. Patient tested negative for Covid 19. I informed Trista patients granddaughter that patients post discharge needs to be determined after extubation and prior to discharge. Trista verbalized understanding. Addendum: 09/13/19 at 1623 by Clau RAMEY Amended: Links added.
--- NOTE | 2019-09-13 18:00 | NUR ---
Tube feedings tolerated Tube feeding tolerated well 10ml of gastric residual noted. Tf increased to 20ml/hr. Aspiration precautions in place.
--- NOTE | 2019-09-13 20:00 | NUR ---
OPENING SHIFT RECEIVED REPORT FROM DAY SHIFT RN. ASSUMED CARE OF PATIENT. PATIENT INTUBATED AND SEDATED WITH NO SIGNS OR SYMPTOMS OF SOB, PAIN OR DISTRESS. 02 SAT - 96%. POSITIVE COUGH AND GAG. RIGHT INTERNAL JUGULAR TLC, RIGHT ANTECUBITAL AND RIGHT HAND IV CLEAN/DRY/INTACT. CHINCHILLA HUNG TO GRAVITY. SEDATION: PROPOFOL - 25MCG/KG/MIN FENTANYL - 50MCG/HR BED IN LOWEST POSITION, SIDE RAILS UP X2. WILL CONTINUE TO MONITOR.
[2019-09-13] MEDS: ATORVASTATIN 20 MG TAB PO SCH (22:07)
[2019-09-14] VITALS (95 sets, daily range): BP systolic 84–155; BP diastolic 31–105
--- NOTE | 2019-09-14 00:06 | NUR ---
PT OFF FEEDING FOR CPAP TRIAL.
[2019-09-14] MEDS: PROPOFOL 100 ML IV SCH ×3 (01:11→23:48)
--- NOTE | 2019-09-14 03:00 | NUR ---
COMPLETE LINEN CHANGE, BATH GIVEN
[2019-09-14 03:45] LABS: Basophils # (auto) 0.2 10 ^3/uL (0-0.2); Eosinophils # (auto) 0.5 10 ^3/uL (0-0.8); Eosinophils % (auto) 3.1 % (0.0-7.0); Hematocrit 26.4 % (36.0-46.0); Hemoglobin 8.8 g/dL (12.2-16.2); Lymphocytes # (auto) 1.2 10 ^3/uL (0.4-5.4); Lymphocytes % (auto) 7.2 % (10.0-50.0); Mean Corpuscular Hemoglobin 28.4 pg (28.0-32.0); Mean Corpuscular Hgb Conc. 33.2 g/dL (32.0-36.0); Mean Corpuscular Volume 85.8 fL (80.0-100.0); Monocytes # (auto) 1.3 10 ^3/uL (0-1.3); Monocytes % (auto) 7.8 % (0.0-12.0); Neutrophils # (auto) 13.6 10 ^3/uL (1.6-8.6); Neutrophils % (auto) 80.9 % (37.0-80.0); Platelet Count (auto) 236 10^3/uL (140-450); Red Blood Cells 3.08 10^6/uL (4.0-5.20); Red Cell Distribution Width 16.8 % (11.8-14.3); White Blood Cell 16.8 10^3/uL (4.4-10.8)
[2019-09-14 04:05] LABS: RPR Non Reactive (Non Reactive)
[2019-09-14 04:11] LABS: BUN/Creatinine Ratio 26.9; Calcium 7.4 mg/dL (8.5-10.1); Potassium 3.9 mmol/L (3.5-5.1)
[2019-09-14] MEDS: ACCU-CHEK COMFORT CURVE STRIP VI SCH ×4 (06:34→22:09)
[2019-09-14] MEDS: InsuLIN REG 1unit/0.01ml Soln (100units/ml) SC SCH ×4 (06:35→22:00)
[2019-09-14] MEDS: INSULIN LANTUS (GLARGINE) 1 /0.01ml (100units/ml) SC SCH (06:44)
--- NOTE | 2019-09-14 08:00 | NUR ---
IV removal IV DC'd with clean sterile technique, catheter fully intact. Pressure dressing applied to site. Patient tolerated well. Addendum: 09/15/19 at 0354 by MATHEW CHADWICK RN RN WRONG TIME 1999
--- NOTE | 2019-09-14 09:00 | NUR ---
SEDATION OFF AT THIS TIME. PATIENT PENDING CPAP TRIAL. Addendum: 09/14/19 at 0922 by Linda Fisher RN Amended: Links added.
[2019-09-14] MEDS: fentaNYL Drip 2500mCg/250mlNS 250 ML IV SCH (09:20)
[2019-09-14] MEDS: ASCORBIC ACID 500 MG TAB PO SCH (10:00)
[2019-09-14] MEDS: POTASSIUM EFFERVESENT TAB 25 MEQ NG SCH ×2 (10:00→15:17)
[2019-09-14] MEDS: LINEZOLID 600MG/300ML 300 ML IV SCH ×2 (10:07→21:52)
[2019-09-14] MEDS: cefTRIAXone 1GM/50ML D5W 50 ML IV SCH (10:07)
[2019-09-14] MEDS: BUMETANIDE 2.5mg/10ml (0.25 mg/ml) INJ IV SCH (10:07)
[2019-09-14] MEDS: ENOXAPARIN SOD 40 MG/0.4 ML SYRINGE SC SCH (10:08)
--- NOTE | 2019-09-14 10:10 | NUR ---
Respiratory note: ALARMS VERIFIED AND AUDIBLE. RN AT BEDSIDE. NIF 16.5, VC 662, PLACED PT ON CPAP TRIAL. TERMINATED TRAIL WITHIN 5 MINS DO TO TACHYPNEA AND LOW VT. WILL CONTINUE TO MONITOR ORDERED.
--- NOTE | 2019-09-14 12:00 | NUR ---
BOUFFANT CURTAIN MACHINE TENDER DR. HOLLINGSWORTH UPDATED ON PATIENTS STATUS. SEE MD ORDERS.
--- NOTE | 2019-09-14 12:30 | NUR ---
PAGED DR. MATHEW PAGED TO OBTAIN PRECEDEX AT THIS TIME . SEE R.T NOTE. PATIENT COULD POSSIBLY BENEFIT FROM MEDICATION AT THIS TIME.
[2019-09-14] MEDS: DexMEDEtomidine 400 MCG in D5W 5% 96 ML IV SCH (13:42)
--- NOTE | 2019-09-14 13:42 | NUR ---
RE-SEDATED PATIENT APPEARS TO BE "TIRED", LABORED BREATHING NOTED, RR MID 20'S. PATIENT TO BE RE-SEDATED THIS TIME SHE IS NOT TOLERATING VENTILATOR AT THIS TIME.
--- NOTE | 2019-09-14 14:12 | NUR ---
AT BEDSIDE DR. SORIA UPDATED ON PATIENT STATUS. NEW ORDERS IN PLACE. Addendum: 09/14/19 at 1848 by Linda Fisher RN updated obie Landers on patients status via phone.
[2019-09-14] MEDS ORDERED: FLUCONAZOLE 200MG/100ML 100 ML IV ONE (14:15)
[2019-09-14] MEDS ORDERED: methylPREDNISolone SOD SUCC 40 MG/ML VL IV ONE (14:15)
--- NOTE | 2019-09-14 15:11 | NUR ---
NUTRITION FOLLOWUP NOTES Pt wt is 89 kg Pt is off sedation and EN support is held d/t scheduled CPAP trial. Will continue to monitor and followup prn. Est. Energy Needs: 9844-4660 kcal ( 14-18 kcal/kg BW). Est. Protein Needs: 57-68 gms/day ( 1.0-1.2 gms/kg Adj.BW). Will continue to monitor pertinent labs and reassess nutrient need prn LABS: NA 134 L, CL 94 L, BUN 46 H, CR 1.71 H, GFR 30 L, GLUC 152 H, A1c 7.6 H, CA 7.4 L, TP 5.5 L, ALB 2.1 L GI: Last noted BM on 09/14/19 per carry out clerk and shelf stocker BS: 12 high risk. Please refer to wound assessment report for full details. PES: Problem 1) Obese, Class II r/t energy intake exceeding energy expenditure prior to admission aeb BMI 35.9 kg.m2 and 181 % IBW 2) Altered nutrition related lab values r/t current medical condition aeb hypokalemia, hyponatremia, elevated RFTs, hypoalbuminemia Comments Will continue to monitor NPO status, skin status, pertinent labs and weight trend. F/u in 2 to 3 days. Recommendations: 1) Continue EN support with Glucerna 1.2 Julio C @ 40 ml/hr, as tolerated. Increase EN support goal rate to @45ml/hr when propofol is held/discontinued. 2) If Albumin continues trending down, consider Prostat 1 pkt BID. 3) Advance gradually to oral CCHO 45g diet when medically appropriate. 4) Refer pt to CDE/RD for further nutrition education and weight monitoring upon discharge. 5) Continue current plan of care.
--- NOTE | 2019-09-14 15:49 | NUR ---
NUTRITION OG PLACEMENT VERIFICATIONS MADE VIA AUSCULTATION. NO GASTRIC RESIDUAL NOTED. CPAP HELD AT THIS TIME. TUBE FEEDINGS RESTARTED AT 15ML/HR. ASPIRATION PRECAUTIONS IN PLACE.
--- NOTE | 2019-09-14 16:00 | NUR ---
Cares/ Elimination Complete bed linen change performed. Patient noted to have a brown, soft smear during bed change. Skin care provided. Optifoam remains CDI. No skin issues noted. Patient turned to side and heels off loaded with pillows. Patient tolerated activity well.
--- NOTE | 2019-09-14 17:00 | NUR ---
Curriculum And Assessment Director at bedside Dr. Dugan updated on patients status. Per md, possible cpap trial in a.m. Precedex to be attempted.
[2019-09-14] MEDS: IPRATROPIUM BROM 0.5 MG/2.5ML INH SOL NEB SCH (18:32)
[2019-09-14] MEDS: ALBUTEROL SULF 2.5 MG/0.5ML(0.5%) NEB SOLN NEB SCH (18:32)
--- NOTE | 2019-09-14 18:51 | NUR ---
Stable Patient remains intubated/ sedated. Tolerating ventilator well. VSS. Report to be given to oncoming nurse.
--- NOTE | 2019-09-14 20:00 | NUR ---
OPENING SHIFT RECEIVED REPORT FROM DAY SHIFT RN. ASSUMED CARE OF PATIENT. PATIENT INTUBATED AND SEDATED WITH NO SIGNS OR SYMPTOMS OF SOB, PAIN OR DISTRESS. 02 SAT - 96%. POSITIVE COUGH AND GAG. RIGHT INTERNAL JUGULAR TLC, RIGHT ANTECUBITAL AND RIGHT HAND IV CLEAN/DRY/INTACT. CHINCHILLA HUNG TO GRAVITY. SEDATION: PROPOFOL - 25MCG/KG/MIN FENTANYL - 15MCG/HR BED IN LOWEST POSITION, SIDE RAILS UP X2. WILL CONTINUE TO MONITOR.
--- NOTE | 2019-09-14 20:00 | NUR ---
IV removal IV DC'd with clean sterile technique, catheter fully intact. Pressure dressing applied to site. Patient tolerated well.
[2019-09-14] MEDS: methylPREDNISolone SOD SUCC 40 MG/ML VL IV SCH (21:51)
[2019-09-14] MEDS: ATORVASTATIN 20 MG TAB PO SCH (21:52)
[2019-09-15] VITALS (57 sets, daily range): BP systolic 101–177; BP diastolic 33–80
[2019-09-15] MEDS: ALBUTEROL SULF 2.5 MG/0.5ML(0.5%) NEB SOLN NEB SCH ×4 (00:10→19:10)
[2019-09-15] MEDS: IPRATROPIUM BROM 0.5 MG/2.5ML INH SOL NEB SCH ×4 (00:10→19:09)
--- NOTE | 2019-09-15 00:10 | NUR ---
FEEDING OFF FOR CPAP TRIAL
--- NOTE | 2019-09-15 02:00 | NUR ---
COMPLETE LINEN CHANGE, BATH PROVIDED
[2019-09-15 04:47] LABS: Basophils # (auto) 0 10 ^3/uL (0-0.2); Basophils % (auto) 0.3 % (0.0-2.0); Eosinophils # (auto) 0 10 ^3/uL (0-0.8); Hematocrit 25.8 % (36.0-46.0); Hemoglobin 8.7 g/dL (12.2-16.2); Lymphocytes # (auto) 0.5 10 ^3/uL (0.4-5.4); Lymphocytes % (auto) 4.8 % (10.0-50.0); Mean Corpuscular Hemoglobin 29.1 pg (28.0-32.0); Mean Corpuscular Hgb Conc. 33.9 g/dL (32.0-36.0); Mean Corpuscular Volume 85.7 fL (80.0-100.0); Monocytes # (auto) 0.2 10 ^3/uL (0-1.3); Monocytes % (auto) 1.4 % (0.0-12.0); Neutrophils # (auto) 9.9 10 ^3/uL (1.6-8.6); Neutrophils % (auto) 93.5 % (37.0-80.0); Platelet Count (auto) 238 10^3/uL (140-450); Red Blood Cells 3.01 10^6/uL (4.0-5.20); Red Cell Distribution Width 16.6 % (11.8-14.3); White Blood Cell 10.6 10^3/uL (4.4-10.8)
[2019-09-15 05:04] LABS: BUN/Creatinine Ratio 28.7; Calcium 7.8 mg/dL (8.5-10.1); Potassium 4.2 mmol/L (3.5-5.1)
[2019-09-15] MEDS: ACCU-CHEK COMFORT CURVE STRIP VI SCH ×4 (06:44→21:42)
[2019-09-15] MEDS: InsuLIN REG 1unit/0.01ml Soln (100units/ml) SC SCH ×4 (06:58→21:42)
--- NOTE | 2019-09-15 08:00 | NUR ---
RESPIRATORY RT Blanca placed patient on CPAP mode, patient tolerating well.
[2019-09-15] MEDS: cefTRIAXone 1GM/50ML D5W 50 ML IV SCH (09:00)
[2019-09-15] MEDS: fentaNYL Drip 2500mCg/250mlNS 250 ML IV SCH (09:20)
[2019-09-15] MEDS: methylPREDNISolone SOD SUCC 40 MG/ML VL IV SCH ×2 (10:06→21:38)
[2019-09-15] MEDS: BUMETANIDE 2.5mg/10ml (0.25 mg/ml) INJ IV SCH (10:06)
[2019-09-15] MEDS: ENOXAPARIN SOD 40 MG/0.4 ML SYRINGE SC SCH (10:06)
[2019-09-15] MEDS: POTASSIUM EFFERVESENT TAB 25 MEQ NG SCH (10:06)
[2019-09-15] MEDS: LINEZOLID 600MG/300ML 300 ML IV SCH ×2 (10:07→21:38)
--- NOTE | 2019-09-15 10:10 | NUR ---
MD Dr. Dugan at bedside and updated on patient condition: aware of ABG post CPAP trial. gave new orders to extubate patient. This RN to input into system.
--- NOTE | 2019-09-15 10:20 | NUR ---
RESPIRATORY RT Blanca at bedside and received orders from Dr. Dugan to extubate patient. Patient extubated and placed on simple mask with aerosol mist. Patient sating at 98% with no stridor heard.
--- NOTE | 2019-09-15 11:20 | NUR ---
MD Dr. Sin at bedside updated on patient condition with no new orders received.
[2019-09-15] MEDS: DexMEDEtomidine 400 MCG in D5W 5% 96 ML IV SCH (11:23)
[2019-09-15] MEDS: FLUCONAZOLE 200MG/100ML 100 ML IV SCH (11:30)
--- NOTE | 2019-09-15 11:40 | NUR ---
TEMPERATURE Rectal temperature reading 96.8-96.4 checked it orally and it reads 97.8.
--- NOTE | 2019-09-15 17:39 | NUR ---
Received a report from ICU. Patient will transfer with the bed, including special mattress.
--- NOTE | 2019-09-15 18:40 | NUR ---
REPORT Report given to JACK RN who will continue plan of care. Transferred patient to [facility] with all belongings with patient.
--- NOTE | 2019-09-15 18:44 | NUR ---
Transfer to [facility] from ICU LOLY VIVEROS transferred to [facility] via hospital bed with special mattress, on site monitor, and portable 02. Patient connected to unit monitoring and oxygen, and weighed by bedscale. Patient oriented to RODRIGUEZ PENN RN primary RN, unit, room, bed, and unit policies regarding patient care and visiting hours, follow direction, no agitation noted at this time, call light within reach. On O2 NC 2 LPM, O2 saturation 93%, RR 22-24/min, BP 134/72 mmHg, HR 65-70 with SR. Salazar's catheter No 16, drain to bag well. 3-lumen at right IJ.
--- NOTE | 2019-09-15 19:20 | NUR ---
OPENING NOTE PT RESTING IN BED. NO DISTRESS NOTED. CALL LIGHT WITHIN REACH AND BED LOCKED FOR SAFETY. COMPLETE ASSESSMENT UNDER INTERVENTIONS AND WILL CONTINUE TO MONITOR.
[2019-09-15] MEDS: ATORVASTATIN 20 MG TAB PO SCH (21:38)
[2019-09-16] VITALS (8 sets, daily range): BP systolic 154–185; BP diastolic 57–93
[2019-09-16] MEDS: hydrALAZINE HCL 20 MG/ML VL IV PRN ×2 (00:43→15:23)
[2019-09-16] MEDS: ALBUTEROL SULF 2.5 MG/0.5ML(0.5%) NEB SOLN NEB SCH ×4 (01:12→18:15)
[2019-09-16] MEDS: IPRATROPIUM BROM 0.5 MG/2.5ML INH SOL NEB SCH ×4 (01:12→18:15)
--- NOTE | 2019-09-16 04:00 | NUR ---
PT CALLED WANTING TO USE COMMODE. REMINDED JUST GOT EXTUBATED AND ENDED UP USING BED LEGER. PT AWARE AND WILL USE CALL LIGHT WHEN DONE.
[2019-09-16 04:48] LABS: Basophils # (auto) 0 10 ^3/uL (0-0.2); Basophils % (auto) 0.2 % (0.0-2.0); Eosinophils # (auto) 0 10 ^3/uL (0-0.8); Hematocrit 29.6 % (36.0-46.0); Hemoglobin 9.9 g/dL (12.2-16.2); Lymphocytes # (auto) 0.6 10 ^3/uL (0.4-5.4); Lymphocytes % (auto) 4.2 % (10.0-50.0); Mean Corpuscular Hemoglobin 28.4 pg (28.0-32.0); Mean Corpuscular Hgb Conc. 33.4 g/dL (32.0-36.0); Mean Corpuscular Volume 85.1 fL (80.0-100.0); Monocytes % (auto) 6.7 % (0.0-12.0); Neutrophils # (auto) 12.9 10 ^3/uL (1.6-8.6); Neutrophils % (auto) 88.9 % (37.0-80.0); Nucleated Red Blood Cells % 0.1 %; Platelet Count (auto) 402 10^3/uL (140-450); Red Blood Cells 3.48 10^6/uL (4.0-5.20); Red Cell Distribution Width 16.4 % (11.8-14.3); White Blood Cell 14.5 10^3/uL (4.4-10.8)
[2019-09-16 05:21] LABS: BUN/Creatinine Ratio 31.4; Calcium 8.5 mg/dL (8.5-10.1); Potassium 4.1 mmol/L (3.5-5.1)
[2019-09-16] MEDS: InsuLIN REG 1unit/0.01ml Soln (100units/ml) SC SCH ×4 (06:23→22:42)
[2019-09-16] MEDS: ACCU-CHEK COMFORT CURVE STRIP VI SCH ×4 (06:23→22:24)
--- NOTE | 2019-09-16 07:38 | NUR ---
ENDORSED CARE TO DAY NURSE VSS. PT RESTING IN BED AND CALL LIGHT WITHIN REACH. REPORT GIVEN TO GHASSAN BAILEY.
--- NOTE | 2019-09-16 07:45 | NUR ---
OPENING SHIFT NOTE: Received report from NOC RNLevi. Assumed care of patient. Received patient lying on specialty mattress, connected to bedside monitor with no s/s of distress noted. Patient is A&Ox3 (person, place, situation) and denies pain. Patient on 3LNC with O2 sats >95%. Patient with Rt IJ TLC with all ports flushing and returning blood. Salazar draining to gravity clear yellow urine. Patient pending swallow eval and PT eval. Patient asking for water and coffee and reeducated about need for swallow study due to intubation. Bed in lowest position, rails x3 up and call light within reach. Updated on plan of care. Will continue to monitor.
[2019-09-16] MEDS: cefTRIAXone 1GM/50ML D5W 50 ML IV SCH (08:45)
[2019-09-16] MEDS: LINEZOLID 600MG/300ML 300 ML IV SCH ×2 (11:00→22:22)
[2019-09-16] MEDS: BUMETANIDE 2.5mg/10ml (0.25 mg/ml) INJ IV SCH (11:00)
[2019-09-16] MEDS ORDERED: TEMAZEPAM 15 MG CAP PO PRN (11:00)
[2019-09-16] MEDS ORDERED: CARVEDILOL 3.125 MG TAB PO ONE (11:00)
[2019-09-16] MEDS: methylPREDNISolone SOD SUCC 40 MG/ML VL IV SCH ×2 (11:00→22:22)
[2019-09-16] MEDS: ENOXAPARIN SOD 40 MG/0.4 ML SYRINGE SC SCH (11:01)
--- NOTE | 2019-09-16 11:10 | NUR ---
Dr Simmons at bedside to see patient. Orders received. Patient cleared by MD for clear liquid diet.
[2019-09-16] MEDS: POTASSIUM EFFERVESENT TAB 25 MEQ NG SCH (11:50)
[2019-09-16] MEDS: FLUCONAZOLE 200MG/100ML 100 ML IV SCH (11:51)
--- NOTE | 2019-09-16 12:03 | NUR ---
Report given to GHASSAN Weiss. Patient to be transferred to room 297A via bed on tele monitor.
--- NOTE | 2019-09-16 12:21 | NUR ---
Patient received from [facility]. Patient oriented to Isela callaway. Room 297a. sbar received from Sheri lin rn.
--- NOTE | 2019-09-16 12:21 | NUR ---
SWALLOW EVALUATED. PATIENT HAS NO TEETH OR DENTURES PRESENT. ABLE TO FOLLOW COMMANDS. PATIENT IS VERY CONGESTED AND COUGHED BEFORE AND AFTER EVALUATION RELATED TO PRIMARY DIAGNOSIS. ABLE TO TOLERATE PUREE DIET TEXTURE WITH THIN LIQUIDS WITH NO OVERT SIGNS OR SYMPTOMS OF ASPIRATION. NURSING NOTIFIED.
--- NOTE | 2019-09-16 12:28 | NUR ---
Patient transferred via bed to [address]
--- NOTE | 2019-09-16 14:53 | NUR ---
PT PT REFUSED PHYSICAL THERAPY. Signed: 09/16/19 at 1454 by ESPERANZA BUTLER PTT <Co-Signature Required> Co-Signed: 09/16/19 at 1454 by Pj Keating PT Addendum: 09/16/19 at 1454 by ESPERANZA BUTLER PTT Amended: Links added.
[2019-09-16] MEDS: ACETAMINOPHEN 500 MG TAB PO PRN (17:45)
--- NOTE | 2019-09-16 19:44 | NUR ---
Opening Shift Note Assumed care of patient after receiving report from GHASSAN Weiss. Patient awake and alert resting in bed comfortably. No S/S of distress/SOB or pain. Instructed on POC and to call for assist PRN, call light within reach, will continue to monitor for changes Q1hr and PRN.
[2019-09-16] MEDS: CARVEDILOL 3.125 MG TAB PO SCH (22:23)
[2019-09-16] MEDS: ATORVASTATIN 20 MG TAB PO SCH (22:24)
[2019-09-17] MEDS: hydrALAZINE HCL 20 MG/ML VL IV PRN ×2 (01:58→21:27)
--- NOTE | 2019-09-17 01:58 | NUR ---
Elevated BP Patient BP at 187/84 with HR of 69. Patient asymptomatic. Will reassess and continue to monitor. Addendum: 09/17/19 at 0758 by Jessa Verdin RN BP was reassessed one hour later and read 160/72 with HR of 70.
[2019-09-17 05:42] VITALS: BP 160/72
[2019-09-17 05:51] LABS: Calcium 8.5 mg/dL (8.5-10.1); Potassium 4.2 mmol/L (3.5-5.1)
[2019-09-17 05:55] LABS: BUN/Creatinine Ratio 36.6
[2019-09-17] MEDS: InsuLIN REG 1unit/0.01ml Soln (100units/ml) SC SCH ×4 (06:55→21:29)
[2019-09-17] MEDS: ACCU-CHEK COMFORT CURVE STRIP VI SCH ×4 (06:58→21:30)
[2019-09-17] MEDS: ALBUTEROL SULF 2.5 MG/0.5ML(0.5%) NEB SOLN NEB SCH ×4 (07:21→18:36)
[2019-09-17] MEDS: IPRATROPIUM BROM 0.5 MG/2.5ML INH SOL NEB SCH ×4 (07:21→18:36)
--- NOTE | 2019-09-17 07:35 | NUR ---
Opening Shift Note Assumed care of patient, resting in bed with eyes closed. No S/S of distress/SOB or pain. Bed is set in lowest locked position with side rails up x 2 for safety and call light is within reach, will continue to monitor for changes Q1hr and PRN.
--- NOTE | 2019-09-17 07:59 | NUR ---
Care endorsed to HGASSAN Correia.
[2019-09-17] MEDS: cefTRIAXone 1GM/50ML D5W 50 ML IV SCH (08:48)
[2019-09-17 09:00] VITALS: BP 147/84
[2019-09-17] MEDS: LINEZOLID 600MG/300ML 300 ML IV SCH ×2 (09:59→21:25)
[2019-09-17] MEDS: methylPREDNISolone SOD SUCC 40 MG/ML VL IV SCH (10:00)
[2019-09-17] MEDS: BUMETANIDE 2.5mg/10ml (0.25 mg/ml) INJ IV SCH (10:00)
[2019-09-17] MEDS: POTASSIUM EFFERVESENT TAB 25 MEQ NG SCH (10:06)
[2019-09-17] MEDS: CARVEDILOL 3.125 MG TAB PO SCH ×2 (10:09→21:27)
[2019-09-17] MEDS: ENOXAPARIN SOD 40 MG/0.4 ML SYRINGE SC SCH (10:09)
[2019-09-17] MEDS: FLUCONAZOLE 200MG/100ML 100 ML IV SCH (11:40)
[2019-09-17] MEDS: ACETAMINOPHEN 500 MG TAB PO PRN (11:56)
[2019-09-17 13:00] VITALS: BP 159/82
[2019-09-17 17:14] VITALS: BP 154/94
--- NOTE | 2019-09-17 19:17 | NUR ---
Care endorsed to NOC RN.
[2019-09-17 21:00] VITALS: BP 204/81
--- NOTE | 2019-09-17 21:27 | NUR ---
PT B/P ELEVATED AT THIS TIME= 204/86. PT MEDICATED WITH HYDRALAZINE 10MG IVP PER ORDERS AT THIS TIME. WILL CONTINUE TO MONITOR PT AND B/P.
[2019-09-17] MEDS: ATORVASTATIN 20 MG TAB PO SCH (21:28)
--- NOTE | 2019-09-17 22:00 | NUR ---
PT B/P IS NOW 119/59 AND HR =74. PT APPEARS TO BE SLEEPING, EYES ARE CLOSED AND RESP RATE IS EVEN AND UNLABORED.
[2019-09-18] VITALS (7 sets, daily range): BP systolic 119–193; BP diastolic 59–76
[2019-09-18] MEDS: ALBUTEROL SULF 2.5 MG/0.5ML(0.5%) NEB SOLN NEB SCH ×4 (00:04→19:29)
[2019-09-18] MEDS: IPRATROPIUM BROM 0.5 MG/2.5ML INH SOL NEB SCH ×4 (00:04→19:29)
--- NOTE | 2019-09-18 04:00 | NUR ---
PT INCONT OF STOOL AND LINENS AND GOWN CHANGED AFTER GIVING PT A PARTIAL BED BATH. PT KAREN VERY WELL.
[2019-09-18] MEDS: InsuLIN REG 1unit/0.01ml Soln (100units/ml) SC SCH ×4 (05:16→22:00)
[2019-09-18] MEDS: ACCU-CHEK COMFORT CURVE STRIP VI SCH ×4 (05:16→22:00)
[2019-09-18] MEDS: hydrALAZINE HCL 20 MG/ML VL IV PRN (05:17)
[2019-09-18 07:51] LABS: Basophils # (auto) 0 10 ^3/uL (0-0.2); Basophils % (auto) 0.2 % (0.0-2.0); Eosinophils # (auto) 0.1 10 ^3/uL (0-0.8); Eosinophils % (auto) 0.3 % (0.0-7.0); Hematocrit 35.3 % (36.0-46.0); Hemoglobin 11.3 g/dL (12.2-16.2); Lymphocytes # (auto) 1.6 10 ^3/uL (0.4-5.4); Lymphocytes % (auto) 8.6 % (10.0-50.0); Mean Corpuscular Hemoglobin 27.5 pg (28.0-32.0); Mean Corpuscular Volume 85.8 fL (80.0-100.0); Monocytes # (auto) 2.1 10 ^3/uL (0-1.3); Monocytes % (auto) 11.4 % (0.0-12.0); Neutrophils # (auto) 14.7 10 ^3/uL (1.6-8.6); Neutrophils % (auto) 79.5 % (37.0-80.0); Platelet Count (auto) 416 10^3/uL (140-450); Red Blood Cells 4.11 10^6/uL (4.0-5.20); White Blood Cell 18.5 10^3/uL (4.4-10.8)
[2019-09-18 08:14] LABS: BUN/Creatinine Ratio 46.2; Calcium 8.7 mg/dL (8.5-10.1); Potassium 4.4 mmol/L (3.5-5.1)
[2019-09-18] MEDS: cefTRIAXone 1GM/50ML D5W 50 ML IV SCH (08:53)
[2019-09-18] MEDS: POTASSIUM EFFERVESENT TAB 25 MEQ NG SCH (08:58)
[2019-09-18] MEDS: predniSONE 20 MG TAB PO SCH (08:59)
[2019-09-18] MEDS: BUMETANIDE 1 MG TAB PO SCH (09:00)
[2019-09-18] MEDS: CARVEDILOL 3.125 MG TAB PO SCH (09:01)
[2019-09-18] MEDS: ENOXAPARIN SOD 40 MG/0.4 ML SYRINGE SC SCH (09:02)
[2019-09-18] MEDS: FLUCONAZOLE 100 MG TAB PO SCH (09:02)
--- NOTE | 2019-09-18 10:00 | NUR ---
IV insertion IV access obtained, via clean sterile technique by inserting 22 gauge catheter at right hand after one attempt. IV secured properly. No trauma to site. Patient tolerated well.
--- NOTE | 2019-09-18 10:17 | NUR ---
WOUND CARE NOTE: Wound care in to see patient for skin integrity monitoring. Patient has been extubated and now in [facility]/telemetry unit. Patient continue resting on air mattress in Rm. 297A. Patient is awake, alert and follow simple direction. Patient appears to be in no pain using Rainey Jade Faces Pain Scale, however mild pain noted upon turning. She's able to assist in turning and repositioning by grabbing onto bed rails. Her Christiano score is 12. Skin assessment done with the assistance of patient's nurse, GHASSAN Correia. No wound noted other than dry hyperkeratotic skin to bilateral heels. No pressure injury noted. Patient is incontinent of stool and noted smear of stool to perirectal area. Lavern care given and applied Z Guard cream. Repositioned patient for comfort facing her L side, redistributed pressure points with pillows. Patient tolerated well. Bed in low position, call nickerson within reach, all safety precautions in placed. RECOMMENDATION: Continuation of all wound care orders prescribed by MD, continue with skin/wound plan of care, continue monitoring by wound care while patient is hospitalized. Addendum: 09/18/19 at 1201 by Alberta Cruz RN Amended: Links added.
--- NOTE | 2019-09-18 10:20 | NUR ---
Paged To notify of elevated blood pressure 178/63, awaiting call back.
[2019-09-18] MEDS: LINEZOLID 600MG/300ML 300 ML IV SCH ×2 (10:45→21:55)
--- NOTE | 2019-09-18 11:52 | NUR ---
BP re-check 154/61. Patient is now resting in bed with eyes closed. Will continue to monitor.
[2019-09-18] MEDS ORDERED: hydrALAZINE HCL 25 MG TAB PO ONE (13:00)
[2019-09-18] MEDS ORDERED: guaiFENesin-DM 100/10mg/5ml SYR PO PRN (13:00)
[2019-09-18] MEDS ORDERED: ZOLPIDEM TARTRATE 5 MG TAB PO PRN (13:00)
--- NOTE | 2019-09-18 13:25 | NUR ---
Patel catheter dc'd Order to discontinue patel catheter. Patel dc'd with clean technique following deflation of balloon. Patient tolerated well with no complaints of pain. Continue care. Total urine output is 1100 ml.
--- NOTE | 2019-09-18 15:16 | NUR ---
NUTRITION FOLLOWUP NOTES Pt wt is 96.6 kg Pt is on a pureed diet, with a good appetite aeb 75% PO intake per rubber curer. Pt with no distress or complaints. Will continue to monitor PO status, skin status, pertinent labs and weight trends. Will f/u in 3 to 5 days. Est. Energy Needs: 3666-8392 kcal ( 14-18 kcal/kg BW). Est. Protein Needs: 57-68 gms/day ( 1.0-1.2 gms/kg Adj.BW). Will continue to monitor pertinent labs and reassess nutrient need prn LABS: BUN 54 H, CR 1.17 H, GFR 47 L, GLUC 185 H, A1c 7.6 H, TP 5.5 L, ALB 2.1 L GI: Last noted BM on 09/18/19 per rubber curer BS: 12 high risk. Please refer to wound assessment report for full details. PES: Problem 1) Obese, Class II r/t energy intake exceeding energy expenditure prior to admission aeb BMI 35.9 kg.m2 and 181 % IBW 2) Altered nutrition related lab values r/t current medical condition aeb hypokalemia, hyponatremia, elevated RFTs, hypoalbuminemia Comments Will continue to monitor NPO status, skin status, pertinent labs and weight trend. F/u in 2 to 3 days. Recommendations: 1) Continue EN support with Glucerna 1.2 Julio C @ 40 ml/hr, as tolerated. Increase EN support goal rate to @45ml/hr when propofol is held/discontinued. 2) If Albumin continues trending down, consider Prostat 1 pkt BID. 3) Advance gradually to oral CCHO 45g diet when medically appropriate. 4) Refer pt to CDE/RD for further nutrition education and weight monitoring upon discharge. 5) Continue current plan of care.
--- NOTE | 2019-09-18 16:09 | NUR ---
Spoke to patient's family member Granddaughter, Trista. After verifying patient information password, updated Trista on patient's status and POC. All questions addressed at this time.
[2019-09-18] MEDS: ACETAMINOPHEN 500 MG TAB PO PRN (16:41)
[2019-09-18] MEDS: CARVEDILOL 12.5 MG TAB PO SCH (17:02)
--- NOTE | 2019-09-18 19:00 | NUR ---
Opening Shift Note Assumed care of patient, awake alert & oriented x 3. No S/S of distress/SOB or pain. Instructed on POC and to call for assist PRN, will continue to monitor for changes Q1hr and PRN.
[2019-09-18] MEDS: hydrALAZINE HCL 25 MG TAB PO SCH (21:57)
[2019-09-18] MEDS: ATORVASTATIN 20 MG TAB PO SCH (22:34)
[2019-09-19] MEDS: IPRATROPIUM BROM 0.5 MG/2.5ML INH SOL NEB SCH ×3 (00:32→18:53)
[2019-09-19] MEDS: ALBUTEROL SULF 2.5 MG/0.5ML(0.5%) NEB SOLN NEB SCH ×3 (00:32→18:53)
[2019-09-19 05:00] VITALS: BP 165/65
[2019-09-19 05:29] LABS: Basophils # (auto) 0.1 10 ^3/uL (0-0.2); Basophils % (auto) 0.8 % (0.0-2.0); Eosinophils # (auto) 0.1 10 ^3/uL (0-0.8); Eosinophils % (auto) 0.7 % (0.0-7.0); Hematocrit 35.5 % (36.0-46.0); Hemoglobin 11.6 g/dL (12.2-16.2); Lymphocytes # (auto) 1.7 10 ^3/uL (0.4-5.4); Lymphocytes % (auto) 10.6 % (10.0-50.0); Mean Corpuscular Hemoglobin 28.4 pg (28.0-32.0); Mean Corpuscular Hgb Conc. 32.7 g/dL (32.0-36.0); Mean Corpuscular Volume 86.7 fL (80.0-100.0); Monocytes # (auto) 1.8 10 ^3/uL (0-1.3); Monocytes % (auto) 11.2 % (0.0-12.0); Neutrophils # (auto) 12.3 10 ^3/uL (1.6-8.6); Neutrophils % (auto) 76.7 % (37.0-80.0); Nucleated Red Blood Cells % 0.1 %; Platelet Count (auto) 349 10^3/uL (140-450); Red Blood Cells 4.09 10^6/uL (4.0-5.20); Red Cell Distribution Width 16.2 % (11.8-14.3); White Blood Cell 16.1 10^3/uL (4.4-10.8)
[2019-09-19 05:54] LABS: Calcium 8.6 mg/dL (8.5-10.1); Potassium 4.7 mmol/L (3.5-5.1)
[2019-09-19 05:56] LABS: BUN/Creatinine Ratio 43.3
--- NOTE | 2019-09-19 06:29 | NUR ---
Rechecked BP 135/94 HR82
[2019-09-19] MEDS: ACCU-CHEK COMFORT CURVE STRIP VI SCH ×4 (06:58→22:00)
[2019-09-19] MEDS: InsuLIN REG 1unit/0.01ml Soln (100units/ml) SC SCH ×4 (07:00→22:00)
--- NOTE | 2019-09-19 08:16 | NUR ---
Opening Shift Note Assumed care of patient, awake alert & oriented x 3. Patient is comfortably sitting up eating breakfast. No S/S of distress/SOB or pain. Instructed on POC and to call for assist PRN, will continue to monitor for changes Q1hr and PRN.
[2019-09-19 09:00] VITALS: BP 173/77
[2019-09-19] MEDS: ENOXAPARIN SOD 40 MG/0.4 ML SYRINGE SC SCH (09:09)
[2019-09-19] MEDS: FLUCONAZOLE 100 MG TAB PO SCH (09:10)
[2019-09-19] MEDS: predniSONE 20 MG TAB PO SCH (09:10)
[2019-09-19] MEDS: hydrALAZINE HCL 25 MG TAB PO SCH ×2 (09:10→21:59)
[2019-09-19] MEDS: BUMETANIDE 1 MG TAB PO SCH (09:11)
[2019-09-19] MEDS: LINEZOLID 600MG/300ML 300 ML IV SCH ×2 (09:11→21:59)
[2019-09-19] MEDS: CARVEDILOL 12.5 MG TAB PO SCH ×2 (09:11→17:24)
[2019-09-19] MEDS: cefTRIAXone 1GM/50ML D5W 50 ML IV SCH (09:12)
[2019-09-19] MEDS: POTASSIUM EFFERVESENT TAB 25 MEQ NG SCH (09:12)
[2019-09-19 13:00] VITALS: BP 145/61
[2019-09-19 16:41] VITALS: BP 155/90
--- NOTE | 2019-09-19 17:20 | NUR ---
Rounds Patient is comfortably sitting up on a chair. No s/s of distress/sob noted. Call light within reach. Will continue to monitor.
[2019-09-19] MEDS: Glucerna Carbsteady SHAKE Vanilla 8oz PO SCH (18:00)
--- NOTE | 2019-09-19 19:00 | NUR ---
Opening Shift Note Assumed care of patient, awake and alert. No S/S of distress/SOB or pain. Instructed on POC and to call for assist PRN, will continue to monitor for changes Q1hr and PRN.
--- NOTE | 2019-09-19 19:00 | NUR ---
Care endorsed to NOC GHASSAN Yan.
[2019-09-19] MEDS: MUPIROCIN 2% OINT 15gm or 22gm EACHNOSTRI SCH (21:58)
[2019-09-19 22:00] VITALS: BP 172/56
[2019-09-19] MEDS: ATORVASTATIN 20 MG TAB PO SCH (22:00)
[2019-09-20] MEDS: ALBUTEROL SULF 2.5 MG/0.5ML(0.5%) NEB SOLN NEB SCH ×4 (00:23→18:16)
[2019-09-20] MEDS: IPRATROPIUM BROM 0.5 MG/2.5ML INH SOL NEB SCH ×4 (00:23→18:16)
[2019-09-20 03:02] VITALS: BP 172/56
[2019-09-20 05:24] VITALS: BP 109/63
[2019-09-20 06:02] LABS: Basophils # (auto) 0 10 ^3/uL (0-0.2); Basophils % (auto) 0.2 % (0.0-2.0); Eosinophils # (auto) 0.2 10 ^3/uL (0-0.8); Eosinophils % (auto) 1.1 % (0.0-7.0); Hematocrit 34.5 % (36.0-46.0); Hemoglobin 11.1 g/dL (12.2-16.2); Lymphocytes # (auto) 1.5 10 ^3/uL (0.4-5.4); Mean Corpuscular Hemoglobin 28.2 pg (28.0-32.0); Mean Corpuscular Hgb Conc. 32.1 g/dL (32.0-36.0); Mean Corpuscular Volume 87.8 fL (80.0-100.0); Monocytes # (auto) 1.7 10 ^3/uL (0-1.3); Monocytes % (auto) 9.9 % (0.0-12.0); Neutrophils # (auto) 13.6 10 ^3/uL (1.6-8.6); Neutrophils % (auto) 79.8 % (37.0-80.0); Platelet Count (auto) 337 10^3/uL (140-450); Red Blood Cells 3.93 10^6/uL (4.0-5.20); Red Cell Distribution Width 15.8 % (11.8-14.3)
[2019-09-20] MEDS: ACCU-CHEK COMFORT CURVE STRIP VI SCH ×4 (06:42→22:00)
[2019-09-20] MEDS: InsuLIN REG 1unit/0.01ml Soln (100units/ml) SC SCH ×4 (06:45→22:00)
[2019-09-20 07:31] LABS: BUN/Creatinine Ratio 41.1; Calcium 8.6 mg/dL (8.5-10.1)
[2019-09-20 09:00] VITALS: BP 159/49
[2019-09-20] MEDS: Glucerna Carbsteady SHAKE Vanilla 8oz PO SCH ×3 (09:31→18:41)
[2019-09-20] MEDS: cefTRIAXone 1GM/50ML D5W 50 ML IV SCH (09:45)
[2019-09-20] MEDS: CARVEDILOL 12.5 MG TAB PO SCH ×2 (09:46→17:06)
[2019-09-20] MEDS: ENOXAPARIN SOD 40 MG/0.4 ML SYRINGE SC SCH (09:53)
[2019-09-20] MEDS: MUPIROCIN 2% OINT 15gm or 22gm EACHNOSTRI SCH ×2 (09:53→23:00)
[2019-09-20] MEDS: LINEZOLID 600MG/300ML 300 ML IV SCH (09:53)
[2019-09-20] MEDS: FLUCONAZOLE 100 MG TAB PO SCH (09:54)
[2019-09-20] MEDS: POTASSIUM EFFERVESENT TAB 25 MEQ NG SCH (09:54)
[2019-09-20] MEDS: BUMETANIDE 1 MG TAB PO SCH (09:54)
[2019-09-20] MEDS: hydrALAZINE HCL 25 MG TAB PO SCH ×2 (09:54→23:09)
[2019-09-20] MEDS: predniSONE 20 MG TAB PO SCH (09:54)
--- NOTE | 2019-09-20 12:40 | NUR ---
DR. SORIA IN TO SEE PT. PT IN AGREEMENT WITH PLAN OF CARE.
[2019-09-20 13:00] VITALS: BP 149/47
--- NOTE | 2019-09-20 13:04 | NUR ---
SPOKE TO KING (GRAND-DAUGHTER) REGARDING DISCHARGE PLANNING OF [facility]. FAMILY IN AGREEMENT. AWARE.
[2019-09-20 17:00] VITALS: BP 120/57
[2019-09-20 22:00] VITALS: BP 180/69
[2019-09-20] MEDS: ATORVASTATIN 20 MG TAB PO SCH (23:10)
[2019-09-20] MEDS: APIXABAN 2.5 MG TAB PO SCH (23:22)
[2019-09-21] MEDS: ALBUTEROL SULF 2.5 MG/0.5ML(0.5%) NEB SOLN NEB SCH ×4 (00:59→18:40)
[2019-09-21] MEDS: IPRATROPIUM BROM 0.5 MG/2.5ML INH SOL NEB SCH ×4 (00:59→18:40)
[2019-09-21 05:00] VITALS: BP 141/52
[2019-09-21 06:22] LABS: Basophils # (auto) 0 10 ^3/uL (0-0.2); Basophils % (auto) 0.1 % (0.0-2.0); Eosinophils # (auto) 0.1 10 ^3/uL (0-0.8); Eosinophils % (auto) 0.4 % (0.0-7.0); Hematocrit 33.1 % (36.0-46.0); Hemoglobin 10.6 g/dL (12.2-16.2); Lymphocytes # (auto) 1.6 10 ^3/uL (0.4-5.4); Lymphocytes % (auto) 9.7 % (10.0-50.0); Mean Corpuscular Hemoglobin 27.3 pg (28.0-32.0); Mean Corpuscular Volume 85.4 fL (80.0-100.0); Monocytes # (auto) 1.1 10 ^3/uL (0-1.3); Monocytes % (auto) 6.5 % (0.0-12.0); Neutrophils # (auto) 13.6 10 ^3/uL (1.6-8.6); Neutrophils % (auto) 83.3 % (37.0-80.0); Platelet Count (auto) 322 10^3/uL (140-450); Red Blood Cells 3.87 10^6/uL (4.0-5.20); Red Cell Distribution Width 15.6 % (11.8-14.3); White Blood Cell 16.4 10^3/uL (4.4-10.8)
[2019-09-21 06:42] LABS: BUN/Creatinine Ratio 40.3; Calcium 8.9 mg/dL (8.5-10.1)
[2019-09-21] MEDS: InsuLIN REG 1unit/0.01ml Soln (100units/ml) SC SCH ×3 (07:00→17:21)
[2019-09-21] MEDS: ACCU-CHEK COMFORT CURVE STRIP VI SCH ×3 (07:00→17:24)
[2019-09-21] MEDS: Glucerna Carbsteady SHAKE Vanilla 8oz PO SCH ×3 (08:00→17:24)
[2019-09-21] MEDS: ACETAMINOPHEN 500 MG TAB PO PRN (08:44)
[2019-09-21] MEDS: CARVEDILOL 12.5 MG TAB PO SCH ×2 (08:44→17:22)
[2019-09-21] MEDS: cefTRIAXone 1GM/50ML D5W 50 ML IV SCH ×2 (08:45→10:28)
[2019-09-21 09:00] VITALS: BP 175/64
[2019-09-21] MEDS: MUPIROCIN 2% OINT 15gm or 22gm EACHNOSTRI SCH (10:00)
[2019-09-21] MEDS ORDERED: predniSONE 20 MG TAB PO SCH (10:00)
[2019-09-21] MEDS: POTASSIUM EFFERVESENT TAB 25 MEQ NG SCH (10:28)
[2019-09-21] MEDS: FLUCONAZOLE 100 MG TAB PO SCH (10:31)
[2019-09-21] MEDS: hydrALAZINE HCL 25 MG TAB PO SCH (10:31)
[2019-09-21] MEDS: APIXABAN 2.5 MG TAB PO SCH (10:32)
[2019-09-21] MEDS: BUMETANIDE 1 MG TAB PO SCH (10:32)
--- NOTE | 2019-09-21 11:10 | NUR ---
Pt refused PT tx saying "Not today. I don't feel good. I am coughing stuff up and they just stuck something up my nose. Addendum: 09/21/19 at 1149 by Sánchez Lieberman HUNTER TRAPPER Amended: Links added.
--- NOTE | 2019-09-21 12:03 | NUR ---
RT NOTE: PT REFUSED TX AT THIS TIME. NO SIGNS OF RESPIRATORY DISTRESS NOTED. ON 2L NC SPO2 98 HR 54 RR 20. LUNG SOUNDS CLEAR/DIMINISHED T/O. PT AWARE RESPIRATORY WILL RETURN FOR NEXT SCHEDULED TX. WILL CONTINUE TO MONITOR.
--- NOTE | 2019-09-21 12:17 | NUR ---
D/C Planning Per SS consult for SNF placement. Placed call to patient granddabrown Weston regarding order for skill nursing facility. Per Trista she agrees for patient to be discharge to a skill nursing facility. Trista verbalize understanding d/c plan. Faxed clinical information to [facility], [facility] and [facility]. Per Keila with [facility] Ph:( [phone]) they can accept patient and she will assigned room when they obtain authorization. Faxed Clinical information to [facility] requesting authorization for [facility]. Pending authorization. Informed GHASSAN Walter.
[2019-09-21 13:00] VITALS: BP_SYST 128; BP_SYST 159; BP_DIAS 67; BP_DIAS 76
--- NOTE | 2019-09-21 14:10 | NUR ---
Pt refused PT tx for the second time today and stated she is being discharged. RN informed, he confirmed the pt is being discharged today.. Addendum: 09/21/19 at 1509 by Sánchez Lieberman BULLET SLUG CASTING MACHINE OPERATOR Amended: Links added.
--- NOTE | 2019-09-21 14:55 | NUR ---
D/C Planning Received a call from Eileen with [facility] providing me with authorization for [facility] [id number] and for transportation is [phone]. Placed a follow up called to Keila with [facility] ) providing her with the authorization. Per Keila patient will be going to room [address] Ashby. Faxed transportation form to [facility] requesting for transportation to be arrange at 16:00 via gurney and oxygen. Per Brittni with [facility], transportation has been arrange with [facility] Ph:). Per Brittni the only availability [facility] had was for 19:00 via gurney with oxygen. Informed GHASSAN Walter.
[2019-09-21 17:00] VITALS: BP 179/66
[2019-09-21] MEDS: hydrALAZINE HCL 20 MG/ML VL IV PRN (18:53)
== END 2019-09-21 19:15 | DRG 870 ==
LOC: ER 16:39 → EDBD 16:39 → OVERFLOW 16:40 → ICU WEST 09-11 11:30 → DOU IN ICU 09-15 17:52 → TELE-WESTW 09-16 12:38
PROVIDERS: ADMIT Hospitalist; ATTEND Internal Medicine
PROC: 5A1955Z Respiratory Ventilation, Greater than 96 Consecutive Hours (ICD-10-PCS; principal; 2019-09-10)
PROC: 0BH17EZ Insertion of Endotracheal Airway into Trachea, Via Natural or Artificial Opening (ICD-10-PCS; 2019-09-10)
PROC: 0W993ZX Drainage of Right Pleural Cavity, Percutaneous Approach, Diagnostic (ICD-10-PCS; 2019-09-13)
PROC: 02HV33Z Insertion of Infusion Device into Superior Vena Cava, Percutaneous Approach (ICD-10-PCS; 2019-09-14)
DX: A41.01 Sepsis due to Methicillin susceptible Staphylococcus aureus (principal); I50.43 Acute on chronic combined systolic (congestive) and diastolic (congestive) heart failure; J18.9 Pneumonia, unspecified organism; J96.21 Acute and chronic respiratory failure with hypoxia; N17.0 Acute kidney failure with tubular necrosis; J96.02 Acute respiratory failure with hypercapnia; E87.3 Alkalosis; J44.0 Chronic obstructive pulmonary disease with (acute) lower respiratory infection; J98.11 Atelectasis; J44.1 Chronic obstructive pulmonary disease with (acute) exacerbation; J91.8 Pleural effusion in other conditions classified elsewhere; E87.1 Hypo-osmolality and hyponatremia; I13.0 Hypertensive heart and chronic kidney disease with heart failure and stage 1 through stage 4 chronic kidney disease, or unspecified chronic kidney disease; E11.22 Type 2 diabetes mellitus with diabetic chronic kidney disease; E66.01 Morbid (severe) obesity due to excess calories; E78.5 Hyperlipidemia, unspecified; E83.39 Other disorders of phosphorus metabolism; I27.20 Pulmonary hypertension, unspecified; D50.9 Iron deficiency anemia, unspecified; I48.91 Unspecified atrial fibrillation; I44.7 Left bundle-branch block, unspecified; G47.33 Obstructive sleep apnea (adult) (pediatric); E87.6 Hypokalemia; R80.9 Proteinuria, unspecified; I25.10 Atherosclerotic heart disease of native coronary artery without angina pectoris; N18.3 Chronic kidney disease, stage 3 (moderate); Z79.01 Long term (current) use of anticoagulants; Z79.899 Other long term (current) drug therapy; Z90.710 Acquired absence of both cervix and uterus; Z03.818 Encounter for observation for suspected exposure to other biological agents ruled out; Z68.35 Body mass index [BMI] 35.0-35.9, adult
CPT/HCPCS: 31500; 32555; 36415; 36556; 36600; 71045; 76604; 80048; 80053; 80061; 81001; 82570; 82607; 82728; 82746; 82805; 82962; 83036; 83540; 83550; 83605; 83615; 83735; 83880; 83986; 84100; 84156; 84300; 84443; 84484; 85025; 85045; 85379; 85610; 85652; 85730; 86141; 86592; 87040; 87070; 87077; 87081; 87186; 87205; 87804; 87880; 89051; 92610; 93005; 93306; 94003; 94640; 96365; 96367; 97110; 97163; 97530; 99291; G0378; J0330; J0696; J1450; J1815; J2250; J2704; J3480; J7060

== ENCOUNTER 2020-02-16 14:43 | Inpatient (IN) | payer OTHER, MEDICAID ==
[~2020-02-16] VITALS: Ht 154.9 cm; Wt 84.5 kg
[2020-02-16 15:43] LABS: Eosinophils # (auto) 0.4 10 ^3/uL (0-0.8); Eosinophils % (auto) 4.8 % (0.0-7.0); Hemoglobin 11.5 g/dL (12.2-16.2); Lymphocytes # (auto) 1.5 10 ^3/uL (0.4-5.4); Monocytes # (auto) 0.7 10 ^3/uL (0-1.3); Red Cell Distribution Width 15.3 % (11.8-14.3)
[2020-02-16 15:44] LABS: Basophils # (auto) 0 10 ^3/uL (0-0.2); Basophils % (auto) 0.5 % (0.0-2.0); Hematocrit 36.9 % (36.0-46.0); Lymphocytes % (auto) 16.1 % (10.0-50.0); Mean Corpuscular Hemoglobin 27.3 pg (28.0-32.0); Mean Corpuscular Hgb Conc. 31.1 g/dL (32.0-36.0); Mean Corpuscular Volume 87.9 fL (80.0-100.0); Monocytes % (auto) 7.6 % (0.0-12.0); Neutrophils # (auto) 6.6 10 ^3/uL (1.6-8.6); Platelet Count (auto) 276 10^3/uL (140-450); Red Blood Cells 4.19 10^6/uL (4.0-5.20); White Blood Cell 9.3 10^3/uL (4.4-10.8)
[2020-02-16] MEDS ORDERED: NITROGLYCERIN 0.4 MG SL TAB SL PRN ×2 (15:45→16:00)
[2020-02-16] MEDS ORDERED: FUROSEMIDE 40 MG/4 ML VIAL IV ONE ×2 (15:45)
[2020-02-16] MEDS ORDERED: MORPHINE SULF INJ 2 MG/ML SYRINGE 1ML IV PRN (15:45)
[2020-02-16] MEDS ORDERED: ENALAPRILAT 1.25 MG/ML-1ML VIAL IV ONE (15:45)
[2020-02-16] MEDS ORDERED: ALUM & MAG HYDROX-SIMETH LIQ(MAALOX) 30 ML PO PRN (16:00)
[2020-02-16] MEDS ORDERED: MORPHINE SULFATE 4 MG/ML SYR/VIAL IV PRN (16:00)
[2020-02-16] MEDS ORDERED: METOPROLOL TARTRATE 25 MG TAB PO ONE (16:00)
[2020-02-16] MEDS ORDERED: ATORVASTATIN 20 MG TAB PO ONE (16:00)
[2020-02-16 16:14] LABS: Urine Bacteria None Seen /hpf (None Seen)
[2020-02-16] MEDS: FUROSEMIDE 40 MG/4 ML VIAL IV SCH (16:34)
[2020-02-16] MEDS ORDERED: ASPI-498 PO (16:41)
[2020-02-16] MEDS ORDERED: HYDR-4298 PO (16:41)
[2020-02-16] MEDS ORDERED: CETI10CH PO (16:41)
[2020-02-16] MEDS ORDERED: INSU1INJ5 SC (16:44)
[2020-02-16] MEDS ORDERED: IPRA0.00 NEB (16:44)
[2020-02-16] MEDS ORDERED: hydrALAZINE HCL 25 MG TAB PO PRN (16:45)
[2020-02-16] MEDS ORDERED: hydrALAZINE HCL 25 MG TAB PO ONE (16:45)
[2020-02-16] MEDS: SODIUM CHLORIDE 0.9% 1,000 ML IV SCH (16:45)
[2020-02-16] MEDS ORDERED: ISOSORBIDE MONONITRATE ER 60 MG TAB PO ONE (16:45)
[2020-02-16] MEDS ORDERED: APIX2.5T PO (16:55)
[2020-02-16] MEDS ORDERED: DEXTROSE (50%) 50ML SYRG IV PRN (17:00)
[2020-02-16 17:02] VITALS: BP 190/73
[2020-02-16 17:37] LABS: Urine Hyaline Cast FEW /lpf (0 - 2); Urine WBC 1 /hpf (0 - 5)
[2020-02-16] MEDS: IPRATROPIUM BROM 0.5 MG/2.5ML INH SOL NEB SCH ×2 (18:16→22:31)
[2020-02-16 19:29] LABS: Anion Gap 4 (5-15); Blood Urea Nitrogen 33 mg/dL (7-18); Calcium 8.9 mg/dL (8.5-10.1); Carbon Dioxide 27 mmol/L (21-32); Chloride 108 mmol/L (98-107); Glucose 132 mg/dL (74-106); Magnesium 2.3 mg/dL (1.6-2.6); Potassium 4.6 mmol/L (3.5-5.1); Sodium 139 mmol/L (136-145)
[2020-02-16 19:30] VITALS: BP 161/70
[2020-02-16] MEDS: InsuLIN REG 1unit/0.01ml Soln (100units/ml) SC SCH (19:55)
[2020-02-16] MEDS: ACCU-CHEK COMFORT CURVE STRIP VI SCH (19:55)
[2020-02-16 20:29] LABS: Alkaline Phosphatase 85 U/L (45-117); Aspartate Aminotransferase 15 U/L (15-37); Bilirubin, Total 0.3 mg/dL (0.2-1.0); GFR African American 50 mL/min; GFR Non-African American 41 mL/min; Total Protein 6.9 g/dL (6.4-8.2)
[2020-02-16 20:59] LABS: Alanine Aminotransferase 12 U/L (13-56)
[2020-02-16 22:00] VITALS: BP 129/61
[2020-02-16] MEDS: BUDESONIDE (INHALATION) 0.5 MG/2 ML NEB NEB SCH (22:31)
[2020-02-16] MEDS: APIXABAN 2.5 MG TAB PO SCH (22:49)
[2020-02-16] MEDS: METOPROLOL TARTRATE 25 MG TAB PO SCH (22:50)
[2020-02-16] MEDS: LORazepam 0.5 MG TAB PO PRN (22:54)
[2020-02-16 23:23] LABS: INR 0.94 (0.9-1.15); Partial Thromboplastin Time 27.8 sec (23.0-31.2)
[2020-02-17] MEDS: ACCU-CHEK COMFORT CURVE STRIP VI SCH ×5 (00:58→23:43)
[2020-02-17] MEDS: InsuLIN REG 1unit/0.01ml Soln (100units/ml) SC SCH ×5 (01:00→23:44)
[2020-02-17] MEDS: IPRATROPIUM BROM 0.5 MG/2.5ML INH SOL NEB SCH ×7 (01:43→22:28)
[2020-02-17 05:30] VITALS: BP 136/62
[2020-02-17] MEDS: FUROSEMIDE 40 MG/4 ML VIAL IV SCH (05:48)
[2020-02-17] MEDS: BUDESONIDE (INHALATION) 0.5 MG/2 ML NEB NEB SCH ×2 (05:55→22:20)
[2020-02-17] MEDS: ACETAMINOPHEN 325 MG TAB PO PRN ×2 (06:02→21:52)
[2020-02-17 09:00] VITALS: BP 121/69
[2020-02-17] MEDS: ASPirin 81 mg TAB PO SCH (09:33)
[2020-02-17] MEDS: DOCUSATE SOD 100 MG CAP PO SCH (09:33)
[2020-02-17] MEDS: ISOSORBIDE MONONITRATE ER 60 MG TAB PO SCH (09:35)
[2020-02-17] MEDS: APIXABAN 2.5 MG TAB PO SCH ×2 (09:35→21:56)
[2020-02-17] MEDS: METOPROLOL TARTRATE 25 MG TAB PO SCH ×2 (09:36→21:51)
[2020-02-17] MEDS ORDERED: LOSARTAN POTASSIUM 25 MG TAB PO SCH (10:00)
[2020-02-17 13:00] VITALS: BP 137/49
[2020-02-17] MEDS: SODIUM CHLORIDE 0.9% 1,000 ML IV SCH (16:12)
[2020-02-17 17:00] VITALS: BP 162/71
[2020-02-17] MEDS: SUCRALFATE 1 GM/10 ML ORAL SUSP PO SCH (18:07)
[2020-02-17] MEDS: hydrALAZINE HCL 25 MG TAB PO SCH (21:51)
[2020-02-17] MEDS: ATORVASTATIN 20 MG TAB PO SCH (21:52)
[2020-02-17] MEDS: LORazepam 0.5 MG TAB PO PRN (21:54)
[2020-02-17 21:55] VITALS: BP 156/69
[2020-02-18] VITALS (8 sets, daily range): BP systolic 130–173; BP diastolic 52–80
[2020-02-18] MEDS: hydrALAZINE HCL 25 MG TAB PO SCH ×3 (05:15→21:33)
[2020-02-18] MEDS: InsuLIN REG 1unit/0.01ml Soln (100units/ml) SC SCH ×3 (05:37→17:32)
[2020-02-18] MEDS: ACCU-CHEK COMFORT CURVE STRIP VI SCH ×3 (05:37→11:51)
[2020-02-18] MEDS: SUCRALFATE 1 GM/10 ML ORAL SUSP PO SCH ×2 (06:08→11:19)
[2020-02-18] MEDS: IPRATROPIUM BROM 0.5 MG/2.5ML INH SOL NEB SCH ×6 (07:30→22:27)
[2020-02-18] MEDS: BUDESONIDE (INHALATION) 0.5 MG/2 ML NEB NEB SCH ×2 (07:30→18:17)
[2020-02-18] MEDS: ISOSORBIDE MONONITRATE ER 60 MG TAB PO SCH (09:32)
[2020-02-18] MEDS: METOPROLOL TARTRATE 25 MG TAB PO SCH ×2 (09:33→21:34)
[2020-02-18] MEDS: ACETAMINOPHEN 325 MG TAB PO PRN (09:34)
[2020-02-18] MEDS: APIXABAN 2.5 MG TAB PO SCH ×2 (09:35→21:33)
[2020-02-18] MEDS: DOCUSATE SOD 100 MG CAP PO SCH (09:35)
[2020-02-18] MEDS: ASPirin 81 mg TAB PO SCH (09:35)
[2020-02-18] MEDS: PANTOPRAZOLE 40 MG TAB PO SCH (09:36)
[2020-02-18] MEDS: ONDANSETRON HCL 4 MG/2 ML VIAL IV PRN (11:17)
[2020-02-18 13:17] LABS: Basophils # (auto) 0.1 10 ^3/uL (0-0.2); Basophils % (auto) 0.7 % (0.0-2.0); Eosinophils # (auto) 0.4 10 ^3/uL (0-0.8); Eosinophils % (auto) 4.7 % (0.0-7.0); Hematocrit 32.9 % (36.0-46.0); Hemoglobin 10.6 g/dL (12.2-16.2); Lymphocytes # (auto) 1.1 10 ^3/uL (0.4-5.4); Lymphocytes % (auto) 11.6 % (10.0-50.0); Mean Corpuscular Hemoglobin 28.3 pg (28.0-32.0); Mean Corpuscular Hgb Conc. 32.2 g/dL (32.0-36.0); Mean Corpuscular Volume 87.9 fL (80.0-100.0); Monocytes # (auto) 0.5 10 ^3/uL (0-1.3); Monocytes % (auto) 5.2 % (0.0-12.0); Neutrophils # (auto) 7.1 10 ^3/uL (1.6-8.6); Neutrophils % (auto) 77.8 % (37.0-80.0); Platelet Count (auto) 268 10^3/uL (140-450); Red Blood Cells 3.74 10^6/uL (4.0-5.20); Red Cell Distribution Width 14.7 % (11.8-14.3); White Blood Cell 9.1 10^3/uL (4.4-10.8)
[2020-02-18 13:32] LABS: Calcium 8.4 mg/dL (8.5-10.1); Potassium 4.1 mmol/L (3.5-5.1)
[2020-02-18 13:35] LABS: BUN/Creatinine Ratio 28.1
[2020-02-18] MEDS ORDERED: ONDANSETRON HCL 4 MG/2 ML VIAL IV ONE (14:45)
[2020-02-18] MEDS: SODIUM CHLORIDE 0.9% 1,000 ML IV SCH (16:28)
[2020-02-18] MEDS: ATORVASTATIN 20 MG TAB PO SCH (21:33)
[2020-02-19] MEDS: InsuLIN REG 1unit/0.01ml Soln (100units/ml) SC SCH ×4 (00:49→17:46)
[2020-02-19 05:31] VITALS: BP 151/60
[2020-02-19] MEDS: ACCU-CHEK COMFORT CURVE STRIP VI SCH ×5 (05:59→23:51)
[2020-02-19] MEDS: hydrALAZINE HCL 25 MG TAB PO SCH ×3 (05:59→21:46)
[2020-02-19] MEDS: BUDESONIDE (INHALATION) 0.5 MG/2 ML NEB NEB SCH ×2 (07:14→22:22)
[2020-02-19] MEDS: IPRATROPIUM BROM 0.5 MG/2.5ML INH SOL NEB SCH ×5 (07:15→22:22)
[2020-02-19 08:59] VITALS: BP 159/76
[2020-02-19] MEDS: ASPirin 81 mg TAB PO SCH (09:22)
[2020-02-19] MEDS: DOCUSATE SOD 100 MG CAP PO SCH (09:23)
[2020-02-19] MEDS: APIXABAN 2.5 MG TAB PO SCH ×2 (09:23→21:46)
[2020-02-19] MEDS: ISOSORBIDE MONONITRATE ER 60 MG TAB PO SCH (09:25)
[2020-02-19] MEDS: METOPROLOL TARTRATE 25 MG TAB PO SCH ×2 (09:26→21:47)
[2020-02-19] MEDS: PANTOPRAZOLE 40 MG TAB PO SCH (09:27)
[2020-02-19 13:00] VITALS: BP 135/67
[2020-02-19] MEDS: SODIUM CHLORIDE 0.9% 1,000 ML IV SCH (15:59)
[2020-02-19 17:16] VITALS: BP 132/57
[2020-02-19] MEDS: guaiFENesin-CODEINE Liq 5 ML UD GT SCH ×2 (17:37→23:50)
[2020-02-19] MEDS: ATORVASTATIN 20 MG TAB PO SCH (21:46)
[2020-02-19] MEDS: ACETAMINOPHEN 325 MG TAB PO PRN (21:48)
[2020-02-19] MEDS: LORazepam 0.5 MG TAB PO PRN (21:55)
[2020-02-19 22:00] VITALS: BP 156/70
[2020-02-19 22:58] VITALS: BP 156/70
[2020-02-20] MEDS: InsuLIN REG 1unit/0.01ml Soln (100units/ml) SC SCH ×5 (00:02→23:33)
[2020-02-20] MEDS: IPRATROPIUM BROM 0.5 MG/2.5ML INH SOL NEB SCH ×6 (02:13→22:48)
[2020-02-20 05:00] VITALS: BP 193/74
[2020-02-20 05:29] LABS: Basophils # (auto) 0 10 ^3/uL (0-0.2); Basophils % (auto) 0.3 % (0.0-2.0); Eosinophils # (auto) 0.5 10 ^3/uL (0-0.8); Eosinophils % (auto) 3.9 % (0.0-7.0); Hematocrit 31.9 % (36.0-46.0); Hemoglobin 10.4 g/dL (12.2-16.2); Lymphocytes # (auto) 1.5 10 ^3/uL (0.4-5.4); Lymphocytes % (auto) 12.4 % (10.0-50.0); Mean Corpuscular Hemoglobin 28.4 pg (28.0-32.0); Mean Corpuscular Hgb Conc. 32.4 g/dL (32.0-36.0); Mean Corpuscular Volume 87.7 fL (80.0-100.0); Monocytes # (auto) 0.9 10 ^3/uL (0-1.3); Monocytes % (auto) 7.3 % (0.0-12.0); Neutrophils % (auto) 76.1 % (37.0-80.0); Platelet Count (auto) 245 10^3/uL (140-450); Red Blood Cells 3.64 10^6/uL (4.0-5.20); Red Cell Distribution Width 14.8 % (11.8-14.3); White Blood Cell 11.8 10^3/uL (4.4-10.8)
[2020-02-20 05:52] LABS: Calcium 8.7 mg/dL (8.5-10.1); Potassium 4.4 mmol/L (3.5-5.1)
[2020-02-20 05:55] LABS: BUN/Creatinine Ratio 30.6
[2020-02-20] MEDS: ACCU-CHEK COMFORT CURVE STRIP VI SCH ×4 (06:00→23:34)
[2020-02-20] MEDS: guaiFENesin-CODEINE Liq 5 ML UD GT SCH ×4 (06:46→23:34)
[2020-02-20] MEDS: hydrALAZINE HCL 25 MG TAB PO SCH ×3 (06:47→21:36)
[2020-02-20] MEDS: APIXABAN 2.5 MG TAB PO SCH ×2 (10:00→21:35)
[2020-02-20] MEDS: ISOSORBIDE MONONITRATE ER 60 MG TAB PO SCH (10:00)
[2020-02-20] MEDS: PANTOPRAZOLE 40 MG TAB PO SCH (10:00)
[2020-02-20] MEDS: ASPirin 81 mg TAB PO SCH (10:00)
[2020-02-20] MEDS: DOCUSATE SOD 100 MG CAP PO SCH (10:00)
[2020-02-20] MEDS: METOPROLOL TARTRATE 25 MG TAB PO SCH ×2 (10:00→21:36)
[2020-02-20] MEDS: BUDESONIDE (INHALATION) 0.5 MG/2 ML NEB NEB SCH ×2 (10:00→22:49)
[2020-02-20] MEDS ORDERED: LACTULOSE 20Gm/30ML SOLN PO PRN (14:15)
[2020-02-20] MEDS: SODIUM CHLORIDE 0.9% 1,000 ML IV SCH (15:59)
[2020-02-20] MEDS: ATORVASTATIN 20 MG TAB PO SCH (21:35)
[2020-02-20] MEDS: ACETAMINOPHEN 325 MG TAB PO PRN (21:50)
[2020-02-20] MEDS: ONDANSETRON HCL 4 MG/2 ML VIAL IV PRN (21:50)
[2020-02-20 22:00] VITALS: BP 129/74
[2020-02-21] MEDS: IPRATROPIUM BROM 0.5 MG/2.5ML INH SOL NEB SCH ×6 (02:16→22:43)
[2020-02-21] MEDS: ONDANSETRON HCL 4 MG/2 ML VIAL IV PRN ×3 (02:56→20:44)
[2020-02-21] MEDS: ACCU-CHEK COMFORT CURVE STRIP VI SCH ×4 (05:44→23:46)
[2020-02-21] MEDS: guaiFENesin-CODEINE Liq 5 ML UD GT SCH ×4 (05:44→23:48)
[2020-02-21] MEDS: hydrALAZINE HCL 25 MG TAB PO SCH ×3 (05:44→22:00)
[2020-02-21] MEDS: InsuLIN REG 1unit/0.01ml Soln (100units/ml) SC SCH ×4 (05:45→23:47)
[2020-02-21 05:48] VITALS: BP 157/78
[2020-02-21 09:32] VITALS: BP 124/69
[2020-02-21] MEDS: BUDESONIDE (INHALATION) 0.5 MG/2 ML NEB NEB SCH ×2 (09:47→18:39)
[2020-02-21] MEDS: DOCUSATE SOD 100 MG CAP PO SCH (10:13)
[2020-02-21] MEDS: ASPirin 81 mg TAB PO SCH (10:13)
[2020-02-21] MEDS: APIXABAN 2.5 MG TAB PO SCH ×2 (10:14→22:00)
[2020-02-21] MEDS: ISOSORBIDE MONONITRATE ER 60 MG TAB PO SCH (10:14)
[2020-02-21] MEDS: METOPROLOL TARTRATE 25 MG TAB PO SCH ×2 (10:15→22:00)
[2020-02-21] MEDS: PANTOPRAZOLE 40 MG TAB PO SCH (10:15)
[2020-02-21 13:00] VITALS: BP 125/54
[2020-02-21] MEDS ORDERED: levoFLOXacin 250 MG TAB PO SCH ×2 (14:45→15:00)
[2020-02-21] MEDS ORDERED: FUROSEMIDE 40 MG/4 ML VIAL IV ONE (17:30)
[2020-02-21] MEDS: LORazepam 0.5 MG TAB PO PRN (20:44)
[2020-02-21] MEDS: ATORVASTATIN 20 MG TAB PO SCH (22:00)
[2020-02-21 23:17] VITALS: BP 174/74
[2020-02-22] MEDS: IPRATROPIUM BROM 0.5 MG/2.5ML INH SOL NEB SCH ×4 (00:46→14:17)
[2020-02-22 05:22] VITALS: BP 157/76
[2020-02-22] MEDS: hydrALAZINE HCL 25 MG TAB PO SCH ×2 (06:00→14:43)
[2020-02-22] MEDS: guaiFENesin-CODEINE Liq 5 ML UD GT SCH ×2 (06:00→12:23)
[2020-02-22] MEDS: ACCU-CHEK COMFORT CURVE STRIP VI SCH ×2 (06:00→12:23)
[2020-02-22] MEDS: InsuLIN REG 1unit/0.01ml Soln (100units/ml) SC SCH ×2 (06:24→12:29)
[2020-02-22 09:00] VITALS: BP 180/71
[2020-02-22] MEDS ORDERED: FUROSEMIDE 20 MG/2 ML VIAL IV ONE (09:45)
[2020-02-22] MEDS: ASPirin 81 mg TAB PO SCH (09:47)
[2020-02-22] MEDS: DOCUSATE SOD 100 MG CAP PO SCH (09:48)
[2020-02-22] MEDS: APIXABAN 2.5 MG TAB PO SCH (09:48)
[2020-02-22] MEDS: METOPROLOL TARTRATE 25 MG TAB PO SCH (09:49)
[2020-02-22] MEDS: PANTOPRAZOLE 40 MG TAB PO SCH (09:49)
[2020-02-22] MEDS: ISOSORBIDE MONONITRATE ER 60 MG TAB PO SCH (09:49)
[2020-02-22] MEDS: BUDESONIDE (INHALATION) 0.5 MG/2 ML NEB NEB SCH (09:52)
[2020-02-22 11:00] LABS: Basophils # (auto) 0 10 ^3/uL (0-0.2); Basophils % (auto) 0.3 % (0.0-2.0); Eosinophils # (auto) 0.4 10 ^3/uL (0-0.8); Eosinophils % (auto) 3.5 % (0.0-7.0); Hematocrit 32.3 % (36.0-46.0); Hemoglobin 10.5 g/dL (12.2-16.2); Lymphocytes # (auto) 1.1 10 ^3/uL (0.4-5.4); Lymphocytes % (auto) 9.9 % (10.0-50.0); Mean Corpuscular Hemoglobin 28.3 pg (28.0-32.0); Mean Corpuscular Hgb Conc. 32.6 g/dL (32.0-36.0); Mean Corpuscular Volume 86.8 fL (80.0-100.0); Monocytes # (auto) 0.7 10 ^3/uL (0-1.3); Monocytes % (auto) 6.6 % (0.0-12.0); Neutrophils # (auto) 8.8 10 ^3/uL (1.6-8.6); Neutrophils % (auto) 79.7 % (37.0-80.0); Platelet Count (auto) 292 10^3/uL (140-450); Red Blood Cells 3.73 10^6/uL (4.0-5.20); Red Cell Distribution Width 14.4 % (11.8-14.3); White Blood Cell 11.1 10^3/uL (4.4-10.8)
[2020-02-22 13:00] VITALS: BP 156/62
[2020-02-22 13:25] LABS: Potassium 4.8 mmol/L (3.5-5.1)
[2020-02-22 13:26] LABS: BUN/Creatinine Ratio 26.5; Calcium 9.1 mg/dL (8.5-10.1)
[2020-02-22] MEDS ORDERED: ATOR20TA50 PO (13:44)
[2020-02-22] MEDS ORDERED: LEVO500T21 PO (13:44)
[2020-02-22] MEDS ORDERED: FURO20TA3 PO (13:45)
[2020-02-22] MEDS ORDERED: HYDR-4298 PO (13:45)
[2020-02-22 14:53] VITALS: BP 156/62
[2020-02-22 17:00] VITALS: BP 158/81
== END 2020-02-22 18:01 | disposition home or self-care (01) | DRG 291 ==
LOC: ER 14:43 → TELE 14:44 → TELE-WESTW 17:47
PROVIDERS: ADMIT Hospitalist; ATTEND Internal Medicine Nephrology
DX: I13.0 Hypertensive heart and chronic kidney disease with heart failure and stage 1 through stage 4 chronic kidney disease, or unspecified chronic kidney disease (principal); I50.33 Acute on chronic diastolic (congestive) heart failure; J96.21 Acute and chronic respiratory failure with hypoxia; J96.22 Acute and chronic respiratory failure with hypercapnia; I16.1 Hypertensive emergency; D68.59 Other primary thrombophilia; J91.8 Pleural effusion in other conditions classified elsewhere; I48.19 Other persistent atrial fibrillation; J98.11 Atelectasis; R07.89 Other chest pain; E66.01 Morbid (severe) obesity due to excess calories; J44.9 Chronic obstructive pulmonary disease, unspecified; E78.5 Hyperlipidemia, unspecified; E11.22 Type 2 diabetes mellitus with diabetic chronic kidney disease; E04.1 Nontoxic single thyroid nodule; N18.3 Chronic kidney disease, stage 3 (moderate); E11.40 Type 2 diabetes mellitus with diabetic neuropathy, unspecified; Z90.710 Acquired absence of both cervix and uterus; Z86.711 Personal history of pulmonary embolism; Z87.01 Personal history of pneumonia (recurrent); Z87.891 Personal history of nicotine dependence; Z68.35 Body mass index [BMI] 35.0-35.9, adult; Z79.4 Long term (current) use of insulin; Z79.01 Long term (current) use of anticoagulants; Z83.3 Family history of diabetes mellitus; Z91.81 History of falling; R00.1 Bradycardia, unspecified
CPT/HCPCS: 36415; 36600; 70450; 71045; 71250; 73030; 73060; 73080; 73090; 78582; 80048; 80053; 81015; 82270; 82805; 82962; 83036; 83735; 83880; 84443; 84484; 85025; 85610; 85730; 87070; 87081; 87205; 93005; 93970; 93971; 94640; 96361; 96374; 96375; 99291; G0378; J1815; J2405

== ENCOUNTER 2021-04-30 17:51 | Inpatient (IN) | payer OTHER, MEDICAID ==
[~2021-04-30] VITALS: Ht 154.9 cm; Wt 75.0 kg
[~2021-04-30 17:51] MED LIST changes: -ALBU0.084 NEB; -AML5T PO; +ASPI-498 PO; +ATOR20TA50 PO; -HYDR50TA15 PO; +INSU1INJ5 SC; +IPRA0.00 NEB; +LEVO500T31 PO; -SIMV-13 PO
[2021-04-30] MEDS ORDERED: NIFEdipine 10 MG CAP PO ONE (20:00)
[2021-04-30] MEDS ORDERED: IPRATROPIUM BROM 0.5 MG/2.5ML INH SOL HHN ONE (20:00)
[2021-04-30] MEDS ORDERED: ALBUTEROL SULF 2.5 MG/0.5ML(0.5%) NEB SOLN HHN ONE (20:00)
[2021-04-30 21:08] LABS: Basophils # (auto) 0.1 10 ^3/uL (0-0.2); Basophils % (auto) 0.8 % (0.0-2.0); Eosinophils # (auto) 0.6 10 ^3/uL (0-0.8); Eosinophils % (auto) 4.9 % (0.0-7.0); Hematocrit 37.5 % (36.0-46.0); Lymphocytes # (auto) 2.3 10 ^3/uL (0.4-5.4); Lymphocytes % (auto) 17.6 % (10.0-50.0); Mean Corpuscular Hemoglobin 28.5 pg (28.0-32.0); Mean Corpuscular Hgb Conc. 31.9 g/dL (32.0-36.0); Mean Corpuscular Volume 89.2 fL (80.0-100.0); Monocytes # (auto) 0.8 10 ^3/uL (0-1.3); Neutrophils # (auto) 9.3 10 ^3/uL (1.6-8.6); Neutrophils % (auto) 70.7 % (37.0-80.0); Nucleated Red Blood Cells % 0.1 %; Red Cell Distribution Width 15.9 % (11.8-14.3); White Blood Cell 13.2 10^3/uL (4.4-10.8)
[2021-04-30 21:25] LABS: Potassium 3.9 mmol/L (3.5-5.1)
[2021-04-30 21:35] LABS: Albumin 2.9 g/dL (3.4-5.0); BUN/Creatinine Ratio 20.6; Bilirubin, Total 0.2 mg/dL (0.2-1.0); Calcium 8.6 mg/dL (8.5-10.1); Total Protein 7.2 g/dL (6.4-8.2)
[2021-04-30] MEDS ORDERED: PIPERACILLIN-TAZOB 3.375GM 100 ML IV ONE (23:45)
[2021-05-01] VITALS (7 sets, daily range): BP systolic 140–204; BP diastolic 65–114
[2021-05-01] MEDS ORDERED: AZITHROMYCIN 500MG/ 250ML 250 ML IV ONE (01:00)
[2021-05-01] MEDS ORDERED: ONDANSETRON HCL 4 MG/2 ML VIAL IV PRN (01:00)
[2021-05-01 01:15] LABS: Urine Bacteria NONE SEEN /hpf (None Seen); Urine Blood Negative /uL (Negative); Urine Hyaline Cast FEW /lpf (0 - 2); Urine Specific Gravity 1.018 (1.001-1.035); Urine WBC 31 /hpf (0 - 5)
[2021-05-01] MEDS ORDERED: TEMAZEPAM 15 MG CAP PO ONE (01:30)
[2021-05-01] MEDS: cloNIDine HCL 0.1 MG TAB PO PRN (03:13)
[2021-05-01] MEDS: IPRATROPIUM BROM 0.5 MG/2.5ML INH SOL NEB PRN ×3 (06:21→19:41)
[2021-05-01] MEDS: ALBUTEROL SULF 2.5 MG/0.5ML(0.5%) NEB SOLN NEB SCH ×3 (06:22→19:40)
[2021-05-01] MEDS: cefTRIAXone 1GM/50ML D5W 50 ML IV SCH (08:42)
[2021-05-01] MEDS: CARVEDILOL 12.5 MG TAB PO SCH ×2 (09:53→21:16)
[2021-05-01] MEDS: APIXABAN 2.5 MG TAB PO SCH ×2 (09:53→21:16)
[2021-05-01] MEDS ORDERED: PANTOPRAZOLE 40 MG TAB PO SCH (10:00)
[2021-05-01] MEDS ORDERED: hydrALAZINE HCL 25 MG TAB PO ONE (10:30)
[2021-05-01] MEDS ORDERED: FUROSEMIDE 20 MG/2 ML VIAL IV ONE (10:30)
[2021-05-01] MEDS ORDERED: DEXTROSE (50%) 50ML SYRG IV PRN (10:45)
[2021-05-01] MEDS: ACCU-CHEK COMFORT CURVE STRIP VI SCH ×3 (11:30→21:04)
[2021-05-01] MEDS: InsuLIN REG 1unit/0.01ml Soln (100units/ml) SC SCH ×3 (12:22→21:11)
[2021-05-01] MEDS: ACETAMINOPHEN 325 MG TAB PO PRN ×2 (15:01→21:17)
[2021-05-01] MEDS: TEMAZEPAM 15 MG CAP PO SCH (21:12)
[2021-05-01] MEDS: ATORVASTATIN 20 MG TAB PO SCH (21:17)
[2021-05-01] MEDS ORDERED: hydrALAZINE HCL 25 MG TAB PO SCH (22:00)
[2021-05-01] MEDS ORDERED: AZITHROMYCIN 500MG/ 250ML 250 ML IV SCH (22:00)
[2021-05-02] MEDS: cloNIDine HCL 0.1 MG TAB PO PRN (00:57)
[2021-05-02 05:19] VITALS: BP 160/76
[2021-05-02] MEDS: InsuLIN REG 1unit/0.01ml Soln (100units/ml) SC SCH ×4 (06:15→21:38)
[2021-05-02] MEDS: ACCU-CHEK COMFORT CURVE STRIP VI SCH ×4 (06:15→21:35)
[2021-05-02] MEDS: ALBUTEROL SULF 2.5 MG/0.5ML(0.5%) NEB SOLN NEB SCH ×4 (06:19→18:13)
[2021-05-02] MEDS: IPRATROPIUM BROM 0.5 MG/2.5ML INH SOL NEB PRN ×3 (06:19→18:13)
[2021-05-02 09:00] VITALS: BP 159/76
[2021-05-02 09:40] LABS: Basophils # (auto) 0 10 ^3/uL (0-0.2); Basophils % (auto) 0.5 % (0.0-2.0); Eosinophils # (auto) 0.6 10 ^3/uL (0-0.8); Eosinophils % (auto) 7.3 % (0.0-7.0); Hematocrit 32.2 % (36.0-46.0); Hemoglobin 10.7 g/dL (12.2-16.2); Lymphocytes # (auto) 1.3 10 ^3/uL (0.4-5.4); Lymphocytes % (auto) 16.6 % (10.0-50.0); Mean Corpuscular Hemoglobin 29.2 pg (28.0-32.0); Mean Corpuscular Hgb Conc. 33.2 g/dL (32.0-36.0); Monocytes # (auto) 0.6 10 ^3/uL (0-1.3); Monocytes % (auto) 7.5 % (0.0-12.0); Neutrophils # (auto) 5.4 10 ^3/uL (1.6-8.6); Neutrophils % (auto) 68.1 % (37.0-80.0); Red Blood Cells 3.66 10^6/uL (4.0-5.20); Red Cell Distribution Width 15.6 % (11.8-14.3)
[2021-05-02 09:50] LABS: Calcium 8.4 mg/dL (8.5-10.1); Potassium 4.1 mmol/L (3.5-5.1)
[2021-05-02] MEDS ORDERED: POTASSIUM CHL 20 Meq TABLET PO ONE (10:00)
[2021-05-02] MEDS: cefTRIAXone 1GM/50ML D5W 50 ML IV SCH (10:48)
[2021-05-02] MEDS: FUROSEMIDE 20 MG/2 ML VIAL IV SCH (10:49)
[2021-05-02] MEDS: hydrALAZINE HCL 25 MG TAB PO SCH ×2 (10:50→18:38)
[2021-05-02] MEDS: CARVEDILOL 3.125 MG TAB PO SCH ×2 (10:51→21:42)
[2021-05-02] MEDS: AZITHROMYCIN 250 MG TAB PO SCH (10:51)
[2021-05-02] MEDS: APIXABAN 2.5 MG TAB PO SCH ×2 (10:51→21:34)
[2021-05-02 13:00] VITALS: BP 142/79
[2021-05-02] MEDS: ACETAMINOPHEN 325 MG TAB PO PRN (16:20)
[2021-05-02 16:47] VITALS: BP 139/75
[2021-05-02] MEDS: ATORVASTATIN 20 MG TAB PO SCH (21:34)
[2021-05-02] MEDS: TEMAZEPAM 15 MG CAP PO SCH (21:35)
[2021-05-02 21:46] VITALS: BP 165/16
[2021-05-03] MEDS: IPRATROPIUM BROM 0.5 MG/2.5ML INH SOL NEB PRN ×2 (00:17→06:35)
[2021-05-03] MEDS: ALBUTEROL SULF 2.5 MG/0.5ML(0.5%) NEB SOLN NEB SCH ×3 (00:17→14:00)
[2021-05-03] MEDS: hydrALAZINE HCL 25 MG TAB PO SCH ×2 (02:01→09:24)
[2021-05-03 05:07] VITALS: BP 168/77
[2021-05-03] MEDS: cloNIDine HCL 0.1 MG TAB PO PRN (05:16)
[2021-05-03] MEDS: ACCU-CHEK COMFORT CURVE STRIP VI SCH ×2 (06:20→12:15)
[2021-05-03] MEDS: InsuLIN REG 1unit/0.01ml Soln (100units/ml) SC SCH ×2 (06:23→12:19)
[2021-05-03] MEDS: cefTRIAXone 1GM/50ML D5W 50 ML IV SCH (09:19)
[2021-05-03] MEDS: CARVEDILOL 3.125 MG TAB PO SCH (09:20)
[2021-05-03] MEDS: FUROSEMIDE 20 MG/2 ML VIAL IV SCH (09:20)
[2021-05-03] MEDS: AZITHROMYCIN 250 MG TAB PO SCH (09:21)
[2021-05-03] MEDS: APIXABAN 2.5 MG TAB PO SCH (09:21)
[2021-05-03 09:27] VITALS: BP 154/58
[2021-05-03 10:51] VITALS: BP 154/58
[2021-05-03 12:32] VITALS: BP 155/68
== END 2021-05-03 13:30 | disposition home or self-care (01) | DRG 193 ==
LOC: ER 17:51 → EDBD 17:51 → OVERFLOW 05-01 00:56 → CENTRAL 05-01 05:00
PROVIDERS: ADMIT Nurse Practitioner; ATTEND Internal Medicine
DX: J18.9 Pneumonia, unspecified organism (principal); I50.33 Acute on chronic diastolic (congestive) heart failure; G92.8 Other toxic encephalopathy; N39.0 Urinary tract infection, site not specified; J44.0 Chronic obstructive pulmonary disease with (acute) lower respiratory infection; J96.10 Chronic respiratory failure, unspecified whether with hypoxia or hypercapnia; I13.0 Hypertensive heart and chronic kidney disease with heart failure and stage 1 through stage 4 chronic kidney disease, or unspecified chronic kidney disease; I16.0 Hypertensive urgency; E66.9 Obesity, unspecified; F03.90 Unspecified dementia, unspecified severity, without behavioral disturbance, psychotic disturbance, mood disturbance, and anxiety; Z20.822 Contact with and (suspected) exposure to COVID-19; Z68.30 Body mass index [BMI] 30.0-30.9, adult; E11.22 Type 2 diabetes mellitus with diabetic chronic kidney disease; E78.5 Hyperlipidemia, unspecified; N18.30 Chronic kidney disease, stage 3 unspecified; Z79.899 Other long term (current) drug therapy; Z83.3 Family history of diabetes mellitus; Z87.891 Personal history of nicotine dependence; Z90.710 Acquired absence of both cervix and uterus; Z90.49 Acquired absence of other specified parts of digestive tract; Z79.4 Long term (current) use of insulin
CPT/HCPCS: 36415; 36600; 71045; 71250; 80048; 80053; 81001; 82728; 82805; 82962; 83036; 83735; 83880; 84443; 84484; 85025; 87040; 87426; 93005; 94640; 96365; 96366; 96368; 97116; 97163; 97530; G0378; J0696; J1815; J2543

== ENCOUNTER 2021-05-11 19:36 | Emergency (ER) | payer OTHER, MEDICAID ==
[~2021-05-11] VITALS: Ht 157.5 cm; Wt 90.7 kg
[2021-05-11] MEDS ORDERED: hydrALAZINE HCL 20 MG/ML VL IV ONE (22:45)
[2021-05-12] MEDS ORDERED: hydrALAZINE HCL 20 MG/ML VL IV ONE (00:15)
[2021-05-12 00:46] LABS: Basophils # (auto) 0.3 10 ^3/uL (0-0.2); Eosinophils # (auto) 0.5 10 ^3/uL (0-0.8); Eosinophils % (auto) 5.1 % (0.0-7.0); Hematocrit 34.1 % (36.0-46.0); Hemoglobin 10.8 g/dL (12.2-16.2); Lymphocytes # (auto) 1.5 10 ^3/uL (0.4-5.4); Lymphocytes % (auto) 14.3 % (10.0-50.0); Mean Corpuscular Hemoglobin 28.4 pg (28.0-32.0); Mean Corpuscular Hgb Conc. 31.7 g/dL (32.0-36.0); Mean Corpuscular Volume 89.6 fL (80.0-100.0); Monocytes # (auto) 0.6 10 ^3/uL (0-1.3); Neutrophils # (auto) 7.3 10 ^3/uL (1.6-8.6); Neutrophils % (auto) 71.6 % (37.0-80.0); Red Cell Distribution Width 15.4 % (11.8-14.3); White Blood Cell 10.2 10^3/uL (4.4-10.8)
[2021-05-12 01:01] LABS: Albumin 2.9 g/dL (3.4-5.0); Calcium 8.3 mg/dL (8.5-10.1)
[2021-05-12 01:06] LABS: Bilirubin, Total 0.2 mg/dL (0.2-1.0); Total Protein 6.1 g/dL (6.4-8.2)
[2021-05-12 01:54] LABS: Amphetamine Screen, Urine NEGATIVE (NEGATIVE); Barbiturate Scree,Urine NEGATIVE (NEGATIVE); Benzodiazephine Screen, Urine POSITIVE (NEGATIVE); Cannabinoid Screen, Urine NEGATIVE (NEGATIVE); Cocaine Screen, Urine NEGATIVE (NEGATIVE); Opiate Scree,Urine NEGATIVE (NEGATIVE); Phencyclidine Screen, Urine NEGATIVE (NEGATIVE)
[2021-05-12 01:56] LABS: Urine Bacteria NONE SEEN /hpf (None Seen); Urine Blood Negative /uL (Negative); Urine Hyaline Cast FEW /lpf (0 - 2); Urine Mucus FEW (None Seen); Urine Specific Gravity 1.009 (1.001-1.035); Urine WBC 14 /hpf (0 - 5)
[2021-05-12 02:02] LABS: Alcohol, Urine < 3.0 mg/dL (0-10)
[2021-05-12 07:10] VITALS: BP 125/85
== END 2021-05-12 07:45 | disposition home or self-care (01) ==
LOC: EDUNIT# 19:36 → ER 19:36 → EDBD 19:36 → ER 05-12 07:45
DX: I11.0 Hypertensive heart disease with heart failure (principal); I50.9 Heart failure, unspecified; J44.9 Chronic obstructive pulmonary disease, unspecified; E78.5 Hyperlipidemia, unspecified; Z90.49 Acquired absence of other specified parts of digestive tract; Z90.710 Acquired absence of both cervix and uterus; Z90.89 Acquired absence of other organs; Z79.4 Long term (current) use of insulin; Z79.82 Long term (current) use of aspirin; Z79.2 Long term (current) use of antibiotics; Z79.899 Other long term (current) drug therapy
CPT/HCPCS: 36415; 70450; 71045; 80053; 80307; 80320; 81001; 84484; 85025; 93005; 96374; 96376; 99285; J0360

== ENCOUNTER 2021-08-20 17:51 | Inpatient (IN) | payer OTHER, MEDICAID ==
[~2021-08-20] VITALS: Ht 162.6 cm; Wt 72.1 kg
[2021-08-20 21:14] LABS: Basophils # (auto) 0.2 10 ^3/uL (0-0.2); Basophils % (auto) 1.8 % (0.0-2.0); Eosinophils # (auto) 0.4 10 ^3/uL (0-0.8); Eosinophils % (auto) 3.2 % (0.0-7.0); Hematocrit 32.4 % (36.0-46.0); Hemoglobin 10.8 g/dL (12.2-16.2); Lymphocytes # (auto) 1.5 10 ^3/uL (0.4-5.4); Lymphocytes % (auto) 13.2 % (10.0-50.0); Mean Corpuscular Hemoglobin 28.9 pg (28.0-32.0); Mean Corpuscular Hgb Conc. 33.2 g/dL (32.0-36.0); Mean Corpuscular Volume 87.1 fL (80.0-100.0); Monocytes # (auto) 0.5 10 ^3/uL (0-1.3); Monocytes % (auto) 4.3 % (0.0-12.0); Neutrophils # (auto) 8.9 10 ^3/uL (1.6-8.6); Neutrophils % (auto) 77.5 % (37.0-80.0); Red Blood Cells 3.72 10^6/uL (4.0-5.20); Red Cell Distribution Width 14.5 % (11.8-14.3); White Blood Cell 11.5 10^3/uL (4.4-10.8)
[2021-08-20 21:34] LABS: Calcium 8.9 mg/dL (8.5-10.1); Potassium 4.2 mmol/L (3.5-5.1)
[2021-08-20 21:37] LABS: Albumin 2.8 g/dL (3.4-5.0); BUN/Creatinine Ratio 22.1
[2021-08-20 22:07] LABS: Bilirubin, Total 0.4 mg/dL (0.2-1.0); Total Protein 6.6 g/dL (6.4-8.2)
[2021-08-20] MEDS ORDERED: ACETAMINOPHEN 325 MG TAB PO ONE (22:30)
[2021-08-21] VITALS (8 sets, daily range): BP systolic 123–197; BP diastolic 49–92
[2021-08-21] MEDS ORDERED: AZITHROMYCIN 500MG/ 250ML 250 ML IV ONE
[2021-08-21] MEDS ORDERED: NITROGLYCERIN 0.4 MG SL TAB SL PRN
[2021-08-21] MEDS ORDERED: MORPHINE SULFATE INJECTION 2 MG/ML SYRG IV PRN
[2021-08-21] MEDS ORDERED: FUROSEMIDE 20 MG/2 ML VIAL IV ONE
[2021-08-21] MEDS ORDERED: ALBUTEROL SULF 2.5 MG/0.5ML(0.5%) NEB SOLN NEB PRN
[2021-08-21] MEDS ORDERED: DEXTROSE (50%) 50ML SYRG IV PRN
[2021-08-21] MEDS ORDERED: ONDANSETRON HCL 4 MG/2 ML VIAL IV PRN
[2021-08-21 00:17] LABS: Urine Bacteria NONE SEEN /hpf (None Seen); Urine Blood TRACE /uL (Negative); Urine Hyaline Cast FEW /lpf (0 - 2); Urine Specific Gravity 1.018 (1.001-1.035); Urine WBC 21 /hpf (0 - 5)
[2021-08-21 00:23] LABS: INR 1.01 (0.9-1.15); Partial Thromboplastin Time 31.4 sec (23.6-33.0)
[2021-08-21] MEDS: TEMAZEPAM 15 MG CAP PO PRN ×2 (01:26→21:25)
[2021-08-21] MEDS: cefTRIAXone 1GM/50ML D5W 50 ML IV SCH (04:48)
[2021-08-21] MEDS ORDERED: FUROSEMIDE 20 MG/2 ML VIAL IV SCH (06:00)
[2021-08-21] MEDS: InsuLIN REG 1unit/0.01ml Soln (100units/ml) SC SCH ×4 (06:10→21:38)
[2021-08-21] MEDS: ACCU-CHEK COMFORT CURVE STRIP VI SCH ×4 (06:10→21:25)
[2021-08-21] MEDS: hydrALAZINE HCL 25 MG TAB PO SCH ×2 (06:37→21:24)
[2021-08-21 07:37] LABS: Basophils # (auto) 0 10 ^3/uL (0-0.2); Basophils % (auto) 0.5 % (0.0-2.0); Eosinophils # (auto) 0.4 10 ^3/uL (0-0.8); Eosinophils % (auto) 4.3 % (0.0-7.0); Hematocrit 33.4 % (36.0-46.0); Lymphocytes # (auto) 1.4 10 ^3/uL (0.4-5.4); Lymphocytes % (auto) 15.1 % (10.0-50.0); Mean Corpuscular Hemoglobin 28.9 pg (28.0-32.0); Mean Corpuscular Hgb Conc. 32.8 g/dL (32.0-36.0); Mean Corpuscular Volume 87.9 fL (80.0-100.0); Monocytes # (auto) 0.8 10 ^3/uL (0-1.3); Monocytes % (auto) 9.4 % (0.0-12.0); Neutrophils # (auto) 6.3 10 ^3/uL (1.6-8.6); Neutrophils % (auto) 70.7 % (37.0-80.0); Red Cell Distribution Width 14.3 % (11.8-14.3)
[2021-08-21 07:54] LABS: Albumin 2.6 g/dL (3.4-5.0); Calcium 8.9 mg/dL (8.5-10.1); Potassium 3.9 mmol/L (3.5-5.1)
[2021-08-21 07:58] LABS: BUN/Creatinine Ratio 20.9; Bilirubin, Total 0.4 mg/dL (0.2-1.0); Total Protein 6.1 g/dL (6.4-8.2)
[2021-08-21] MEDS ORDERED: HYDR50TA15 PO (09:44)
[2021-08-21] MEDS ORDERED: CAL025T GT (09:44)
[2021-08-21] MEDS ORDERED: CETI1TAB36 PO (09:44)
[2021-08-21] MEDS ORDERED: FURO20TA3 PO (09:44)
[2021-08-21] MEDS ORDERED: POTA10TA51 PO (09:44)
[2021-08-21] MEDS ORDERED: AZITHROMYCIN 500MG/ 250ML 250 ML IV SCH (10:00)
[2021-08-21] MEDS ORDERED: ASPirin 81 mg TAB PO SCH (10:00)
[2021-08-21] MEDS: CARVEDILOL 12.5 MG TAB PO SCH ×2 (10:22→22:00)
[2021-08-21] MEDS: APIXABAN 2.5 MG TAB PO SCH ×2 (10:22→21:24)
[2021-08-21] MEDS: PANTOPRAZOLE 40 MG TAB PO SCH (10:22)
[2021-08-21] MEDS: ACETAMINOPHEN 325 MG TAB PO PRN (12:19)
[2021-08-21] MEDS: FUROSEMIDE 40 MG/4 ML VIAL IV SCH ×3 (17:08→21:23)
[2021-08-21] MEDS ORDERED: FUROSEMIDE 40 MG/4 ML VIAL IV ONE (17:15)
[2021-08-21] MEDS ORDERED: FUROSEMIDE 40 MG/4 ML VIAL IV SCH (18:45)
[2021-08-21] MEDS: ATORVASTATIN 20 MG TAB PO SCH (21:24)
[2021-08-21] MEDS ORDERED: hydrALAZINE HCL 20 MG/ML VL IV ONE (23:00)
[2021-08-22] VITALS (7 sets, daily range): BP systolic 154–188; BP diastolic 54–85
[2021-08-22] MEDS: ACCU-CHEK COMFORT CURVE STRIP VI SCH ×4 (06:25→21:58)
[2021-08-22] MEDS: InsuLIN REG 1unit/0.01ml Soln (100units/ml) SC SCH ×4 (06:27→22:01)
[2021-08-22 06:57] LABS: BUN/Creatinine Ratio 22.3; Calcium 8.8 mg/dL (8.5-10.1); Potassium 3.8 mmol/L (3.5-5.1)
[2021-08-22] MEDS: cefTRIAXone 1GM/50ML D5W 50 ML IV SCH (09:25)
[2021-08-22] MEDS: FUROSEMIDE 40 MG/4 ML VIAL IV SCH ×2 (09:25→19:42)
[2021-08-22] MEDS: CARVEDILOL 12.5 MG TAB PO SCH ×2 (10:00→21:58)
[2021-08-22] MEDS: hydrALAZINE HCL 25 MG TAB PO SCH ×2 (10:31→21:57)
[2021-08-22] MEDS: APIXABAN 2.5 MG TAB PO SCH ×2 (10:32→21:58)
[2021-08-22] MEDS: PANTOPRAZOLE 40 MG TAB PO SCH (10:32)
[2021-08-22] MEDS: ACETAMINOPHEN 325 MG TAB PO PRN ×2 (12:25→21:59)
[2021-08-22] MEDS: ATORVASTATIN 20 MG TAB PO SCH (21:58)
[2021-08-22] MEDS: TEMAZEPAM 15 MG CAP PO PRN (22:02)
[2021-08-23 05:00] VITALS: BP 164/46
[2021-08-23] MEDS: InsuLIN REG 1unit/0.01ml Soln (100units/ml) SC SCH ×2 (06:17→11:30)
[2021-08-23] MEDS: ACCU-CHEK COMFORT CURVE STRIP VI SCH ×2 (06:17→11:30)
[2021-08-23] MEDS ORDERED: FURO1TAB31 PO (08:55)
[2021-08-23] MEDS: FUROSEMIDE 40 MG/4 ML VIAL IV SCH (08:55)
[2021-08-23 09:07] VITALS: BP 184/57
[2021-08-23] MEDS: hydrALAZINE HCL 25 MG TAB PO SCH (09:09)
[2021-08-23] MEDS: cefTRIAXone 1GM/50ML D5W 50 ML IV SCH (09:09)
[2021-08-23] MEDS: PANTOPRAZOLE 40 MG TAB PO SCH (09:10)
[2021-08-23] MEDS: APIXABAN 2.5 MG TAB PO SCH (09:10)
[2021-08-23] MEDS: CARVEDILOL 12.5 MG TAB PO SCH (09:10)
[2021-08-23] MEDS: ACETAMINOPHEN 325 MG TAB PO PRN (09:11)
[2021-08-23 09:23] VITALS: BP 163/67
[2021-08-23 13:00] VITALS: BP 115/50
== END 2021-08-23 15:00 | disposition home or self-care (01) | DRG 291 ==
LOC: EDBD 17:51 → ER 17:51 → TELE 23:46 → TELE-EAST 08-21 04:15
PROVIDERS: ADMIT Nurse Practitioner; ATTEND Internal Medicine
DX: I13.0 Hypertensive heart and chronic kidney disease with heart failure and stage 1 through stage 4 chronic kidney disease, or unspecified chronic kidney disease (principal); J96.20 Acute and chronic respiratory failure, unspecified whether with hypoxia or hypercapnia; I50.43 Acute on chronic combined systolic (congestive) and diastolic (congestive) heart failure; I48.20 Chronic atrial fibrillation, unspecified; N39.0 Urinary tract infection, site not specified; J44.1 Chronic obstructive pulmonary disease with (acute) exacerbation; I16.1 Hypertensive emergency; D68.69 Other thrombophilia; J44.9 Chronic obstructive pulmonary disease, unspecified; E11.22 Type 2 diabetes mellitus with diabetic chronic kidney disease; N18.30 Chronic kidney disease, stage 3 unspecified; E66.9 Obesity, unspecified; E78.5 Hyperlipidemia, unspecified; Z83.3 Family history of diabetes mellitus; Z90.710 Acquired absence of both cervix and uterus; Z91.19 Patient's noncompliance with other medical treatment and regimen; Z90.49 Acquired absence of other specified parts of digestive tract; Z20.822 Contact with and (suspected) exposure to COVID-19
CPT/HCPCS: 36415; 71045; 80048; 80053; 81001; 82962; 83690; 83880; 84484; 85025; 85379; 85610; 85730; 93306; 94640; 96365; 96375; 97110; 97116; 97163; 97530; G0378; J0696; J1815

== ENCOUNTER 2021-09-26 13:25 | Inpatient (IN) | payer OTHER, MEDICAID ==
[2021-09-25 22:00] VITALS: BP 205/99
[~2021-09-26] VITALS: Ht 152.4 cm; Wt 70.1 kg
[~2021-09-26 13:25] MED LIST changes: +CETI1TAB36 PO; +FURO1TAB31 PO; +FURO20TA3 PO; +HYDR50TA15 PO; -IPRA0.00 NEB; -LEVO500T31 PO; +POTA10TA51 PO
[2021-09-26 14:53] LABS: Basophils # (auto) 0.1 10 ^3/uL (0-0.2); Basophils % (auto) 1.1 % (0.0-2.0); Eosinophils # (auto) 0.3 10 ^3/uL (0-0.8); Eosinophils % (auto) 3.1 % (0.0-7.0); Hematocrit 33.8 % (36.0-46.0); Hemoglobin 11.1 g/dL (12.2-16.2); Lymphocytes # (auto) 1.3 10 ^3/uL (0.4-5.4); Lymphocytes % (auto) 12.8 % (10.0-50.0); Mean Corpuscular Hemoglobin 29.1 pg (28.0-32.0); Mean Corpuscular Hgb Conc. 32.9 g/dL (32.0-36.0); Mean Corpuscular Volume 88.4 fL (80.0-100.0); Monocytes # (auto) 0.6 10 ^3/uL (0-1.3); Monocytes % (auto) 5.6 % (0.0-12.0); Neutrophils # (auto) 7.9 10 ^3/uL (1.6-8.6); Neutrophils % (auto) 77.4 % (37.0-80.0); Red Blood Cells 3.83 10^6/uL (4.0-5.20); Red Cell Distribution Width 15.9 % (11.8-14.3); White Blood Cell 10.2 10^3/uL (4.4-10.8)
[2021-09-26 15:07] LABS: Albumin 3.2 g/dL (3.4-5.0); Calcium 9.3 mg/dL (8.5-10.1); INR 1.02 (0.9-1.15); Magnesium 2.4 mg/dL (1.6-2.6); Potassium 4.7 mmol/L (3.5-5.1)
[2021-09-26 15:10] LABS: BUN/Creatinine Ratio 21.4
[2021-09-26 15:13] LABS: Bilirubin, Total 0.3 mg/dL (0.2-1.0); Total Protein 7.2 g/dL (6.4-8.2)
[2021-09-26] MEDS ORDERED: DEXTROSE (50%) 50ML SYRG IV PRN (16:00)
[2021-09-26] MEDS ORDERED: cefTRIAXone 1GM/50ML D5W 50 ML IV ONE (17:00)
[2021-09-26] MEDS ORDERED: AZITHROMYCIN 500MG/ 250ML 250 ML IV ONE (17:00)
[2021-09-26] MEDS ORDERED: FUROSEMIDE 100 MG/10ML VIAL IV ONE (17:00)
[2021-09-26 17:09] LABS: Cholesterol 189 mg/dL (< 200); Triglycerides 165 mg/dL (< 150)
[2021-09-26 17:12] LABS: HDL Cholesterol 41 mg/dL (40-59); LDL Cholesterol 120 mg/dL (< 100)
[2021-09-26] MEDS: ACCU-CHEK COMFORT CURVE STRIP VI SCH ×2 (17:42→22:55)
[2021-09-26] MEDS: InsuLIN REG 1unit/0.01ml Soln (100units/ml) SC SCH ×2 (17:43→22:55)
[2021-09-26] MEDS: LABETALOL HCL 5 MG/ML 4ML SYRINGE IV ONE ×2 (17:49→18:05)
[2021-09-26] MEDS ORDERED: ONDANSETRON HCL 4 MG/2 ML VIAL IV ONE ×2 (18:15)
[2021-09-26 19:17] VITALS: BP 128/83
[2021-09-26] MEDS: hydrALAZINE HCL 20 MG/ML VL IV PRN (20:55)
[2021-09-26] MEDS: ALBUTEROL SULF 2.5 MG/0.5ML(0.5%) NEB SOLN NEB PRN (21:14)
[2021-09-26 22:00] VITALS: BP 205/99
[2021-09-26] MEDS: ATORVASTATIN 20 MG TAB PO SCH (23:00)
[2021-09-26] MEDS: APIXABAN 2.5 MG TAB PO SCH (23:00)
[2021-09-27] VITALS (7 sets, daily range): BP systolic 81–205; BP diastolic 43–99
[2021-09-27] MEDS ORDERED: ONDANSETRON HCL 4 MG/2 ML VIAL IV ONE (01:30)
[2021-09-27] MEDS: hydrALAZINE HCL 20 MG/ML VL IV PRN (05:13)
[2021-09-27] MEDS: ACCU-CHEK COMFORT CURVE STRIP VI SCH ×4 (06:38→22:38)
[2021-09-27] MEDS: InsuLIN REG 1unit/0.01ml Soln (100units/ml) SC SCH ×4 (06:39→22:38)
[2021-09-27 08:22] LABS: Basophils # (auto) 0.1 10 ^3/uL (0-0.2); Basophils % (auto) 0.6 % (0.0-2.0); Eosinophils # (auto) 0.2 10 ^3/uL (0-0.8); Eosinophils % (auto) 1.9 % (0.0-7.0); Hemoglobin 11.7 g/dL (12.2-16.2); Lymphocytes % (auto) 8.2 % (10.0-50.0); Mean Corpuscular Hemoglobin 28.8 pg (28.0-32.0); Mean Corpuscular Hgb Conc. 32.6 g/dL (32.0-36.0); Mean Corpuscular Volume 88.4 fL (80.0-100.0); Monocytes # (auto) 0.9 10 ^3/uL (0-1.3); Monocytes % (auto) 6.8 % (0.0-12.0); Neutrophils # (auto) 10.5 10 ^3/uL (1.6-8.6); Neutrophils % (auto) 82.5 % (37.0-80.0); Nucleated Red Blood Cells % 0.1 %; Red Blood Cells 4.08 10^6/uL (4.0-5.20); Red Cell Distribution Width 16.1 % (11.8-14.3); White Blood Cell 12.7 10^3/uL (4.4-10.8)
[2021-09-27 09:13] LABS: Albumin 3.2 g/dL (3.4-5.0)
[2021-09-27 09:17] LABS: BUN/Creatinine Ratio 21.5; Bilirubin, Total 0.5 mg/dL (0.2-1.0); Calcium 9.5 mg/dL (8.5-10.1); Potassium 4.3 mmol/L (3.5-5.1); Total Protein 6.7 g/dL (6.4-8.2)
[2021-09-27] MEDS: cefTRIAXone 1GM/50ML D5W 50 ML IV SCH (09:40)
[2021-09-27] MEDS: APIXABAN 2.5 MG TAB PO SCH ×2 (09:49→22:38)
[2021-09-27] MEDS ORDERED: AZITHROMYCIN 500MG/ 250ML 250 ML IV SCH (10:00)
[2021-09-27] MEDS ORDERED: ASPirin-EC 81 mg tab PO SCH (10:00)
[2021-09-27] MEDS ORDERED: FUROSEMIDE 100 MG/10ML VIAL IV SCH (10:00)
[2021-09-27] MEDS ORDERED: POTASSIUM CHL 10 Meq TABLET PO SCH (10:00)
[2021-09-27] MEDS ORDERED: hydrALAZINE HCL 25 MG TAB PO ONE (11:30)
[2021-09-27] MEDS ORDERED: CARVEDILOL 3.125 MG TAB PO ONE (11:30)
[2021-09-27] MEDS ORDERED: SODIUM CHLORIDE 0.9 % NEB SOLN 3ML NEB ONE (18:54)
[2021-09-27] MEDS: ALBUTEROL SULF 2.5 MG/0.5ML(0.5%) NEB SOLN NEB PRN (20:48)
[2021-09-27] MEDS: CARVEDILOL 3.125 MG TAB PO SCH (22:00)
[2021-09-27] MEDS: ATORVASTATIN 20 MG TAB PO SCH (22:38)
[2021-09-27] MEDS: hydrALAZINE HCL 25 MG TAB PO SCH (22:38)
[2021-09-27] MEDS: ACETAMINOPHEN 325 MG TAB PO PRN (22:39)
[2021-09-27 23:47] LABS: Urine Bacteria FEW /hpf (None Seen); Urine Blood Negative /uL (Negative); Urine Hyaline Cast FEW /lpf (0 - 2); Urine Mucus FEW (None Seen); Urine WBC 22 /hpf (0 - 5)
[2021-09-28 05:00] VITALS: BP 159/67
[2021-09-28] MEDS: ACCU-CHEK COMFORT CURVE STRIP VI SCH ×4 (05:57→21:48)
[2021-09-28] MEDS: ACETAMINOPHEN 325 MG TAB PO PRN ×2 (05:58→16:40)
[2021-09-28] MEDS: hydrALAZINE HCL 25 MG TAB PO SCH ×3 (05:58→21:47)
[2021-09-28] MEDS: InsuLIN REG 1unit/0.01ml Soln (100units/ml) SC SCH ×4 (06:00→21:30)
[2021-09-28 07:16] LABS: Basophils # (auto) 0 10 ^3/uL (0-0.2); Basophils % (auto) 0.5 % (0.0-2.0); Eosinophils # (auto) 0.3 10 ^3/uL (0-0.8); Eosinophils % (auto) 3.8 % (0.0-7.0); Hematocrit 29.3 % (36.0-46.0); Hemoglobin 9.9 g/dL (12.2-16.2); Lymphocytes # (auto) 1.2 10 ^3/uL (0.4-5.4); Lymphocytes % (auto) 13.9 % (10.0-50.0); Mean Corpuscular Hemoglobin 29.8 pg (28.0-32.0); Mean Corpuscular Hgb Conc. 33.8 g/dL (32.0-36.0); Mean Corpuscular Volume 88.3 fL (80.0-100.0); Monocytes # (auto) 0.8 10 ^3/uL (0-1.3); Monocytes % (auto) 9.5 % (0.0-12.0); Neutrophils # (auto) 6.3 10 ^3/uL (1.6-8.6); Neutrophils % (auto) 72.3 % (37.0-80.0); Nucleated Red Blood Cells % 0.1 %; Red Blood Cells 3.31 10^6/uL (4.0-5.20); White Blood Cell 8.7 10^3/uL (4.4-10.8)
[2021-09-28 07:47] LABS: BUN/Creatinine Ratio 21.1; Calcium 8.6 mg/dL (8.5-10.1); Potassium 4.3 mmol/L (3.5-5.1)
[2021-09-28 09:00] VITALS: BP 173/45
[2021-09-28] MEDS: cefTRIAXone 1GM/50ML D5W 50 ML IV SCH (09:41)
[2021-09-28] MEDS: APIXABAN 2.5 MG TAB PO SCH ×2 (09:44→21:47)
[2021-09-28] MEDS: CARVEDILOL 3.125 MG TAB PO SCH ×2 (09:44→21:48)
[2021-09-28] MEDS ORDERED: FUROSEMIDE 40 MG/4 ML VIAL IV SCH (10:00)
[2021-09-28] MEDS: IPRATROPIUM BROM 0.5 MG/2.5ML INH SOL NEB SCH ×2 (12:52→18:27)
[2021-09-28] MEDS: ALBUTEROL SULF 2.5 MG/0.5ML(0.5%) NEB SOLN NEB SCH ×2 (12:53→18:27)
[2021-09-28 13:00] VITALS: BP 147/59
[2021-09-28 17:00] VITALS: BP 178/54
[2021-09-28 21:30] VITALS: BP 147/62
[2021-09-28] MEDS: ATORVASTATIN 20 MG TAB PO SCH (21:47)
[2021-09-29 05:00] VITALS: BP 188/54
[2021-09-29] MEDS: IPRATROPIUM BROM 0.5 MG/2.5ML INH SOL NEB SCH ×3 (05:51→18:31)
[2021-09-29] MEDS: ALBUTEROL SULF 2.5 MG/0.5ML(0.5%) NEB SOLN NEB SCH ×3 (05:51→18:31)
[2021-09-29] MEDS: ACCU-CHEK COMFORT CURVE STRIP VI SCH ×4 (06:18→22:13)
[2021-09-29] MEDS: hydrALAZINE HCL 25 MG TAB PO SCH ×3 (06:18→22:11)
[2021-09-29] MEDS: InsuLIN REG 1unit/0.01ml Soln (100units/ml) SC SCH ×4 (06:21→22:15)
[2021-09-29 06:37] LABS: Potassium 3.8 mmol/L (3.5-5.1)
[2021-09-29 06:43] LABS: BUN/Creatinine Ratio 21.2; Calcium 8.8 mg/dL (8.5-10.1)
[2021-09-29 09:00] VITALS: BP 177/53
[2021-09-29] MEDS: cefTRIAXone 1GM/50ML D5W 50 ML IV SCH (09:06)
[2021-09-29] MEDS: APIXABAN 2.5 MG TAB PO SCH ×2 (09:10→22:12)
[2021-09-29] MEDS: CARVEDILOL 3.125 MG TAB PO SCH ×2 (09:11→22:12)
[2021-09-29] MEDS: FUROSEMIDE 40 MG TAB PO SCH (09:11)
[2021-09-29] MEDS: ACETAMINOPHEN 325 MG TAB PO PRN ×2 (11:47→19:06)
[2021-09-29 13:00] VITALS: BP 128/50
[2021-09-29 17:00] VITALS: BP 155/62
[2021-09-29 22:00] VITALS: BP 171/80
[2021-09-29] MEDS: ATORVASTATIN 20 MG TAB PO SCH (22:13)
[2021-09-30] VITALS (8 sets, daily range): BP systolic 115–183; BP diastolic 44–54
[2021-09-30] MEDS: hydrALAZINE HCL 20 MG/ML VL IV PRN (00:27)
[2021-09-30] MEDS: hydrALAZINE HCL 25 MG TAB PO SCH ×3 (05:10→21:17)
[2021-09-30 05:43] LABS: Basophils # (auto) 0.1 10 ^3/uL (0-0.2); Basophils % (auto) 0.9 % (0.0-2.0); Eosinophils # (auto) 0.4 10 ^3/uL (0-0.8); Eosinophils % (auto) 3.5 % (0.0-7.0); Hematocrit 30.9 % (36.0-46.0); Hemoglobin 10.6 g/dL (12.2-16.2); Lymphocytes # (auto) 1.2 10 ^3/uL (0.4-5.4); Lymphocytes % (auto) 11.9 % (10.0-50.0); Mean Corpuscular Hgb Conc. 34.3 g/dL (32.0-36.0); Mean Corpuscular Volume 87.4 fL (80.0-100.0); Monocytes # (auto) 0.9 10 ^3/uL (0-1.3); Monocytes % (auto) 8.4 % (0.0-12.0); Neutrophils # (auto) 7.9 10 ^3/uL (1.6-8.6); Neutrophils % (auto) 75.3 % (37.0-80.0); Nucleated Red Blood Cells % 0.1 %; Red Blood Cells 3.54 10^6/uL (4.0-5.20); Red Cell Distribution Width 15.5 % (11.8-14.3); White Blood Cell 10.5 10^3/uL (4.4-10.8)
[2021-09-30 05:54] LABS: Potassium 4.2 mmol/L (3.5-5.1)
[2021-09-30 05:58] LABS: Albumin 2.6 g/dL (3.4-5.0); BUN/Creatinine Ratio 24.1; Bilirubin, Total 0.2 mg/dL (0.2-1.0); Calcium 8.7 mg/dL (8.5-10.1)
[2021-09-30] MEDS: ALBUTEROL SULF 2.5 MG/0.5ML(0.5%) NEB SOLN NEB SCH ×3 (06:05→18:37)
[2021-09-30] MEDS: IPRATROPIUM BROM 0.5 MG/2.5ML INH SOL NEB SCH ×3 (06:05→18:37)
[2021-09-30] MEDS: ACCU-CHEK COMFORT CURVE STRIP VI SCH ×4 (06:24→21:18)
[2021-09-30] MEDS: InsuLIN REG 1unit/0.01ml Soln (100units/ml) SC SCH ×4 (06:25→21:20)
[2021-09-30] MEDS: cefTRIAXone 1GM/50ML D5W 50 ML IV SCH (08:40)
[2021-09-30] MEDS: APIXABAN 2.5 MG TAB PO SCH ×2 (09:13→21:18)
[2021-09-30] MEDS: CARVEDILOL 3.125 MG TAB PO SCH ×2 (09:13→21:18)
[2021-09-30] MEDS: FUROSEMIDE 40 MG TAB PO SCH (09:14)
[2021-09-30] MEDS: ACETAMINOPHEN 325 MG TAB PO PRN (18:28)
[2021-09-30] MEDS: ATORVASTATIN 20 MG TAB PO SCH (21:18)
[2021-09-30] MEDS: TEMAZEPAM 15 MG CAP PO PRN (22:07)
[2021-10-01] VITALS (8 sets, daily range): BP systolic 138–183; BP diastolic 44–77
[2021-10-01] MEDS: hydrALAZINE HCL 25 MG TAB PO SCH ×3 (05:03→21:23)
[2021-10-01] MEDS: IPRATROPIUM BROM 0.5 MG/2.5ML INH SOL NEB SCH ×3 (05:48→18:40)
[2021-10-01] MEDS: ALBUTEROL SULF 2.5 MG/0.5ML(0.5%) NEB SOLN NEB SCH ×3 (05:48→18:40)
[2021-10-01] MEDS: ACCU-CHEK COMFORT CURVE STRIP VI SCH ×4 (06:18→21:24)
[2021-10-01] MEDS: InsuLIN REG 1unit/0.01ml Soln (100units/ml) SC SCH ×4 (06:22→21:25)
[2021-10-01] MEDS: CARVEDILOL 3.125 MG TAB PO SCH ×2 (10:00→21:23)
[2021-10-01] MEDS ORDERED: AML5T PO (10:39)
[2021-10-01] MEDS: APIXABAN 2.5 MG TAB PO SCH ×2 (10:42→21:24)
[2021-10-01] MEDS: FUROSEMIDE 40 MG TAB PO SCH (10:42)
[2021-10-01] MEDS: cefTRIAXone 1GM/50ML D5W 50 ML IV SCH (10:42)
[2021-10-01] MEDS ORDERED: amLODIPine BESYLATE 5 MG TAB PO ONE (10:45)
[2021-10-01] MEDS: ACETAMINOPHEN 325 MG TAB PO PRN (18:24)
[2021-10-01] MEDS: TEMAZEPAM 15 MG CAP PO PRN (21:24)
[2021-10-01] MEDS: ATORVASTATIN 20 MG TAB PO SCH (21:24)
[2021-10-02 05:00] VITALS: BP 168/62
[2021-10-02] MEDS: ACCU-CHEK COMFORT CURVE STRIP VI SCH ×2 (05:35→11:30)
[2021-10-02] MEDS: hydrALAZINE HCL 25 MG TAB PO SCH ×2 (05:35→13:55)
[2021-10-02] MEDS: InsuLIN REG 1unit/0.01ml Soln (100units/ml) SC SCH ×2 (05:36→12:00)
[2021-10-02] MEDS: ALBUTEROL SULF 2.5 MG/0.5ML(0.5%) NEB SOLN NEB SCH ×2 (05:54→13:01)
[2021-10-02] MEDS: IPRATROPIUM BROM 0.5 MG/2.5ML INH SOL NEB SCH ×2 (05:54→13:01)
[2021-10-02] MEDS: APIXABAN 2.5 MG TAB PO SCH (08:44)
[2021-10-02] MEDS: FUROSEMIDE 40 MG TAB PO SCH (08:54)
[2021-10-02] MEDS: CARVEDILOL 3.125 MG TAB PO SCH (08:55)
[2021-10-02] MEDS: cefTRIAXone 1GM/50ML D5W 50 ML IV SCH (08:55)
[2021-10-02 09:00] VITALS: BP 141/84
[2021-10-02] MEDS ORDERED: amLODIPine BESYLATE 5 MG TAB PO SCH (10:00)
[2021-10-02] MEDS: ACETAMINOPHEN 325 MG TAB PO PRN ×2 (11:50→18:10)
[2021-10-02 12:58] VITALS: BP 149/42
[2021-10-02 17:00] VITALS: BP 149/98
== END 2021-10-02 17:00 | disposition home health service (06) | DRG 291 ==
LOC: ER 13:25 → TELE 16:41 → TELE-CENTR 19:20
PROVIDERS: ADMIT Registered Nurse; ATTEND Internal Medicine
DX: I13.0 Hypertensive heart and chronic kidney disease with heart failure and stage 1 through stage 4 chronic kidney disease, or unspecified chronic kidney disease (principal); J96.20 Acute and chronic respiratory failure, unspecified whether with hypoxia or hypercapnia; I50.33 Acute on chronic diastolic (congestive) heart failure; I16.1 Hypertensive emergency; J44.1 Chronic obstructive pulmonary disease with (acute) exacerbation; N39.0 Urinary tract infection, site not specified; D68.69 Other thrombophilia; J44.0 Chronic obstructive pulmonary disease with (acute) lower respiratory infection; Z20.822 Contact with and (suspected) exposure to COVID-19; I48.91 Unspecified atrial fibrillation; N18.32 Chronic kidney disease, stage 3b; E66.9 Obesity, unspecified; E78.5 Hyperlipidemia, unspecified; F03.90 Unspecified dementia, unspecified severity, without behavioral disturbance, psychotic disturbance, mood disturbance, and anxiety; F17.200 Nicotine dependence, unspecified, uncomplicated; E11.22 Type 2 diabetes mellitus with diabetic chronic kidney disease; Z79.01 Long term (current) use of anticoagulants; Z79.899 Other long term (current) drug therapy; Z83.3 Family history of diabetes mellitus; Z90.710 Acquired absence of both cervix and uterus; Z90.49 Acquired absence of other specified parts of digestive tract; Z68.30 Body mass index [BMI] 30.0-30.9, adult
CPT/HCPCS: 36415; 70450; 71045; 73030; 80048; 80053; 80061; 81001; 82550; 82962; 83036; 83735; 83880; 84484; 85025; 85379; 85610; 85652; 85730; 87040; 87081; 87086; 93005; 93970; 94640; 96374; 96375; 97163; G0378; J0696; J1815; J2405; J3490

== ENCOUNTER 2021-10-12 09:29 | Inpatient (IN) | payer OTHER, MEDICAID ==
[2021-10-11 09:42] VITALS: BP 188/73
[2021-10-12] VITALS (43 sets, daily range): BP systolic 65–218; BP diastolic 31–85
[~2021-10-12] VITALS: Ht 152.4 cm; Wt 72.0 kg
[~2021-10-12 09:29] MED LIST changes: +AML5T PO
[2021-10-12] MEDS ORDERED: DEXTROSE 50% SYRINGE 50 ML IV ONE (09:40)
[2021-10-12] MEDS ORDERED: methylPREDNISolone SOD SUCC 125 MG/2 ML VL ONE (09:40)
[2021-10-12] MEDS ORDERED: IPRATROPIUM BROM 0.5 MG/2.5ML INH SOL ONE (09:42)
[2021-10-12] MEDS ORDERED: ALBUTEROL SULF 2.5 MG/0.5ML(0.5%) NEB SOLN ONE (09:42)
[2021-10-12] MEDS ORDERED: methylPREDNISolone SOD SUCC 125 MG/2 ML VL IV ONE (09:45)
[2021-10-12] MEDS ORDERED: ETOMIDATE (2MG/ML) 20ML VIAL IV ONE (09:45)
[2021-10-12] MEDS: MIDAZOLAM DRIP 50 mg/50mL 50 ML IV SCH (09:45)
[2021-10-12] MEDS ORDERED: SUCCINYLCHOLINE CHLORIDE 20 MG/ML 10ML VIAL IV ONE (09:45)
[2021-10-12] MEDS ORDERED: PROPOFOL 100 ML IV ONE (09:53)
[2021-10-12] MEDS ORDERED: ALBUTEROL SULF 2.5 MG/0.5ML(0.5%) NEB SOLN HHN ONE (10:00)
[2021-10-12] MEDS ORDERED: IPRATROPIUM BROM 0.5 MG/2.5ML INH SOL HHN ONE (10:00)
[2021-10-12] MEDS ORDERED: ALBUTEROL SULF 2.5 MG/0.5ML(0.5%) NEB SOLN NEB ONE (10:00)
[2021-10-12] MEDS ORDERED: IPRATROPIUM BROM 0.5 MG/2.5ML INH SOL NEB ONE (10:00)
[2021-10-12] MEDS ORDERED: PROPOFOL 100 ML IV SCH (10:00)
[2021-10-12] MEDS ORDERED: cefTRIAXone 1GM/50ML D5W 50 ML IV ONE (10:00)
[2021-10-12] MEDS ORDERED: fentaNYL Drip 2500mCg/250mlNS 250 ML IV ONE (10:05)
[2021-10-12] MEDS: fentaNYL Drip 2500mCg/250mlNS 250 ML IV SCH (10:15)
[2021-10-12 10:19] LABS: Basophils # (auto) 0.1 10 ^3/uL (0-0.2); Basophils % (auto) 0.6 % (0.0-2.0); Eosinophils # (auto) 0.5 10 ^3/uL (0-0.8); Eosinophils % (auto) 3.1 % (0.0-7.0); Hematocrit 30.6 % (36.0-46.0); Hemoglobin 10.2 g/dL (12.2-16.2); Lymphocytes # (auto) 2.2 10 ^3/uL (0.4-5.4); Mean Corpuscular Hemoglobin 29.3 pg (28.0-32.0); Mean Corpuscular Hgb Conc. 33.3 g/dL (32.0-36.0); Mean Corpuscular Volume 88.1 fL (80.0-100.0); Monocytes # (auto) 1.1 10 ^3/uL (0-1.3); Monocytes % (auto) 6.2 % (0.0-12.0); Neutrophils # (auto) 13.2 10 ^3/uL (1.6-8.6); Neutrophils % (auto) 77.1 % (37.0-80.0); Red Blood Cells 3.47 10^6/uL (4.0-5.20); Red Cell Distribution Width 15.2 % (11.8-14.3); White Blood Cell 17.1 10^3/uL (4.4-10.8)
[2021-10-12] MEDS ORDERED: ATROPINE SULF 0.5 MG/5ML SYR ONE (10:25)
[2021-10-12] MEDS ORDERED: DOPamine 1600MCG/ML D5W 250 ML IV ONE ×2 (10:27→10:30)
[2021-10-12 10:37] LABS: Urine Bacteria MOD /hpf (None Seen); Urine Blood Negative /uL (Negative); Urine Specific Gravity 1.016 (1.001-1.035); Urine WBC 4 /hpf (0 - 5)
[2021-10-12 10:41] LABS: Calcium 8.6 mg/dL (8.5-10.1); Magnesium 2.4 mg/dL (1.6-2.6); Potassium 4.5 mmol/L (3.5-5.1)
[2021-10-12 10:47] LABS: BUN/Creatinine Ratio 29.7; Bilirubin, Total 0.3 mg/dL (0.2-1.0); Total Protein 6.8 g/dL (6.4-8.2)
[2021-10-12] MEDS ORDERED: ATROPINE SULFATE 1 MG/1 ML VIAL ONE (11:12)
[2021-10-12] MEDS ORDERED: CALCIUM GLUC 1,000mg/50ml-NS 50 ML IV ONE ×2 (11:30→11:35)
[2021-10-12] MEDS ORDERED: ATROPINE SULF 1 MG/10ml SYR IV ONE ×2 (11:30→12:45)
[2021-10-12] MEDS ORDERED: GLUCAGON HYDROCHLORIDE (RDNA) 1 MG VIAL IV ONE (11:30)
[2021-10-12] MEDS ORDERED: GLUCAGON HYDROCHLORIDE (RDNA) 1 MG VIAL ONE (11:35)
[2021-10-12 12:15] LABS: Acetaminophen < 2.0 ug/mL (10-30); Salicylate < 1.7 mg/dL (2.8-20.0)
[2021-10-12] MEDS ORDERED: PATIENTS OWN MEDICATION (zyvox 600 MG) IV SCH (13:00)
[2021-10-12] MEDS ORDERED: FUROSEMIDE 20 MG/2 ML VIAL IV ONE (13:00)
[2021-10-12] MEDS ORDERED: PIPERACILLIN-TAZOB 3.375GM 100 ML IV SCH (14:00)
[2021-10-12] MEDS ORDERED: LINEZOLID 600MG/300ML 300 ML IV SCH (14:30)
[2021-10-12] MEDS: PROPOFOL 100 ML IV SCH (15:15)
[2021-10-12] MEDS: FUROSEMIDE 40 MG/4 ML VIAL IV SCH ×2 (15:15→16:54)
[2021-10-12] MEDS ORDERED: ENOXAPARIN SOD 40 MG/0.4 ML SYRINGE SC ONE (16:45)
[2021-10-12] MEDS: PIPERACILLIN-TAZOB 2.25GM 50 ML IV SCH ×2 (16:55→21:27)
[2021-10-12] MEDS: LINEZOLID 600MG/300ML 300 ML IV SCH (18:00)
[2021-10-12] MEDS ORDERED: DEXTROSE (50%) 50ML SYRG IV PRN (19:15)
[2021-10-12] MEDS ORDERED: InsuLIN REG 1unit/0.01ml Soln (100units/ml) SC SCH (20:00)
[2021-10-12] MEDS: ACCU-CHEK COMFORT CURVE STRIP VI SCH (23:54)
[2021-10-12] MEDS: InsuLIN REG 1unit/0.01ml Soln (100units/ml) SC SCH (23:56)
[2021-10-13] VITALS (101 sets, daily range): BP systolic 99–208; BP diastolic 50–107
[2021-10-13] MEDS: PIPERACILLIN-TAZOB 2.25GM 50 ML IV SCH ×4 (03:02→21:26)
[2021-10-13 04:11] LABS: Basophils # (auto) 0 10 ^3/uL (0-0.2); Basophils % (auto) 0.3 % (0.0-2.0); Eosinophils # (auto) 0 10 ^3/uL (0-0.8); Hematocrit 31.6 % (36.0-46.0); Lymphocytes # (auto) 0.6 10 ^3/uL (0.4-5.4); Lymphocytes % (auto) 4.5 % (10.0-50.0); Mean Corpuscular Hgb Conc. 34.8 g/dL (32.0-36.0); Mean Corpuscular Volume 86.1 fL (80.0-100.0); Monocytes # (auto) 0.7 10 ^3/uL (0-1.3); Monocytes % (auto) 4.9 % (0.0-12.0); Neutrophils # (auto) 12.1 10 ^3/uL (1.6-8.6); Neutrophils % (auto) 90.3 % (37.0-80.0); Red Blood Cells 3.67 10^6/uL (4.0-5.20); Red Cell Distribution Width 15.5 % (11.8-14.3); White Blood Cell 13.4 10^3/uL (4.4-10.8)
[2021-10-13 04:26] LABS: Albumin 2.7 g/dL (3.4-5.0); Calcium 8.8 mg/dL (8.5-10.1); Potassium 4.1 mmol/L (3.5-5.1)
[2021-10-13 04:28] LABS: BUN/Creatinine Ratio 25.7
[2021-10-13 04:29] LABS: Bilirubin, Total 0.4 mg/dL (0.2-1.0); Total Protein 6.3 g/dL (6.4-8.2)
[2021-10-13] MEDS: LINEZOLID 600MG/300ML 300 ML IV SCH ×2 (04:38→18:03)
[2021-10-13] MEDS: FUROSEMIDE 40 MG/4 ML VIAL IV SCH ×2 (05:42→18:02)
[2021-10-13] MEDS: ACCU-CHEK COMFORT CURVE STRIP VI SCH ×4 (05:43→23:46)
[2021-10-13] MEDS: InsuLIN REG 1unit/0.01ml Soln (100units/ml) SC SCH ×4 (05:44→23:41)
[2021-10-13] MEDS: ENOXAPARIN SOD 30 MG/0.3 ML SYRINGE SC SCH (09:38)
[2021-10-13] MEDS: MIDAZOLAM DRIP 50 mg/50mL 50 ML IV SCH ×2 (13:05→23:45)
[2021-10-13] MEDS ORDERED: hydrALAZINE HCL 10 MG TAB PO ONE ×2 (13:15→13:30)
[2021-10-13] MEDS: fentaNYL Drip 2500mCg/250mlNS 250 ML IV SCH (15:00)
[2021-10-13] MEDS: PROPOFOL 100 ML IV SCH (15:15)
[2021-10-13] MEDS: hydrALAZINE HCL 10 MG TAB PO SCH ×2 (18:03→23:40)
[2021-10-13] MEDS: ENALAPRILAT 1.25 MG/ML-1ML VIAL IV PRN (20:08)
[2021-10-14] VITALS (103 sets, daily range): BP systolic 71–245; BP diastolic 34–218
[2021-10-14] MEDS: PIPERACILLIN-TAZOB 2.25GM 50 ML IV SCH ×2 (03:01→09:13)
[2021-10-14 04:17] LABS: Basophils # (auto) 0.1 10 ^3/uL (0-0.2); Basophils % (auto) 0.6 % (0.0-2.0); Eosinophils # (auto) 0.3 10 ^3/uL (0-0.8); Eosinophils % (auto) 1.7 % (0.0-7.0); Hematocrit 30.7 % (36.0-46.0); Hemoglobin 10.5 g/dL (12.2-16.2); Lymphocytes # (auto) 1.9 10 ^3/uL (0.4-5.4); Lymphocytes % (auto) 12.7 % (10.0-50.0); Mean Corpuscular Hemoglobin 29.2 pg (28.0-32.0); Mean Corpuscular Hgb Conc. 34.2 g/dL (32.0-36.0); Mean Corpuscular Volume 85.4 fL (80.0-100.0); Monocytes # (auto) 1.1 10 ^3/uL (0-1.3); Monocytes % (auto) 7.2 % (0.0-12.0); Neutrophils # (auto) 11.4 10 ^3/uL (1.6-8.6); Neutrophils % (auto) 77.8 % (37.0-80.0); Red Cell Distribution Width 15.5 % (11.8-14.3); White Blood Cell 14.6 10^3/uL (4.4-10.8)
[2021-10-14 04:34] LABS: Albumin 2.5 g/dL (3.4-5.0); BUN/Creatinine Ratio 22.7; Calcium 8.5 mg/dL (8.5-10.1); Potassium 3.4 mmol/L (3.5-5.1)
[2021-10-14 04:37] LABS: Bilirubin, Total 0.5 mg/dL (0.2-1.0)
[2021-10-14] MEDS: LINEZOLID 600MG/300ML 300 ML IV SCH ×2 (04:52→16:51)
[2021-10-14] MEDS: InsuLIN REG 1unit/0.01ml Soln (100units/ml) SC SCH ×4 (05:46→23:47)
[2021-10-14] MEDS: ACCU-CHEK COMFORT CURVE STRIP VI SCH ×4 (05:48→23:38)
[2021-10-14] MEDS: FUROSEMIDE 40 MG/4 ML VIAL IV SCH (05:52)
[2021-10-14] MEDS: hydrALAZINE HCL 10 MG TAB PO SCH ×4 (05:53→23:35)
[2021-10-14] MEDS: DOPamine 1600MCG/ML D5W 250 ML IV SCH (07:30)
[2021-10-14] MEDS: ENOXAPARIN SOD 30 MG/0.3 ML SYRINGE SC SCH (09:51)
[2021-10-14] MEDS: fentaNYL Drip 2500mCg/250mlNS 250 ML IV SCH ×2 (10:00→21:14)
[2021-10-14] MEDS: PROPOFOL 100 ML IV SCH (15:15)
[2021-10-14 17:12] LABS: Urine Bacteria NONE SEEN /hpf (None Seen); Urine Blood Negative /uL (Negative); Urine Specific Gravity 1.009 (1.001-1.035); Urine WBC <1 /hpf (0 - 5)
[2021-10-14 17:29] LABS: Protein, Urine 169.7 mg/dL (0.0-11.9)
[2021-10-14] MEDS: ENALAPRILAT 1.25 MG/ML-1ML VIAL IV PRN (19:54)
[2021-10-14] MEDS ORDERED: cloNIDine HCL 0.1 MG TAB PO PRN (23:30)
[2021-10-15] VITALS (89 sets, daily range): BP systolic 92–220; BP diastolic 34–99
[2021-10-15 04:11] LABS: Basophils # (auto) 0.1 10 ^3/uL (0-0.2); Basophils % (auto) 0.4 % (0.0-2.0); Eosinophils # (auto) 0.3 10 ^3/uL (0-0.8); Hematocrit 33.3 % (36.0-46.0); Hemoglobin 11.2 g/dL (12.2-16.2); Lymphocytes # (auto) 1.3 10 ^3/uL (0.4-5.4); Lymphocytes % (auto) 8.4 % (10.0-50.0); Mean Corpuscular Hemoglobin 28.9 pg (28.0-32.0); Mean Corpuscular Hgb Conc. 33.6 g/dL (32.0-36.0); Mean Corpuscular Volume 86.1 fL (80.0-100.0); Monocytes # (auto) 1.2 10 ^3/uL (0-1.3); Monocytes % (auto) 7.4 % (0.0-12.0); Neutrophils % (auto) 81.8 % (37.0-80.0); Nucleated Red Blood Cells % 0.1 %; Red Blood Cells 3.87 10^6/uL (4.0-5.20); Red Cell Distribution Width 15.4 % (11.8-14.3); White Blood Cell 15.9 10^3/uL (4.4-10.8)
[2021-10-15 04:19] LABS: Calcium 8.5 mg/dL (8.5-10.1); Uric Acid 5.4 mg/dL (2.6-6.0)
[2021-10-15 04:26] LABS: Albumin 2.5 g/dL (3.4-5.0); BUN/Creatinine Ratio 20.8; Bilirubin, Total 0.5 mg/dL (0.2-1.0); Phosphorus 2.8 mg/dL (2.5-4.90); Total Protein 6.3 g/dL (6.4-8.2)
[2021-10-15 05:26] LABS: Potassium 2.9 mmol/L (3.5-5.1)
[2021-10-15] MEDS ORDERED: POTASSIUM CHL 20MEQ/100ML 100 ML IV ONE ×3 (05:30→08:00)
[2021-10-15] MEDS: LINEZOLID 600MG/300ML 300 ML IV SCH ×2 (05:43→17:41)
[2021-10-15] MEDS: ACCU-CHEK COMFORT CURVE STRIP VI SCH ×4 (05:50→23:41)
[2021-10-15] MEDS: InsuLIN REG 1unit/0.01ml Soln (100units/ml) SC SCH ×4 (05:58→23:43)
[2021-10-15] MEDS: hydrALAZINE HCL 10 MG TAB PO SCH ×4 (06:08→23:44)
[2021-10-15] MEDS: DOPamine 1600MCG/ML D5W 250 ML IV SCH (07:30)
[2021-10-15] MEDS: FUROSEMIDE 40 MG/4 ML VIAL IV SCH (09:26)
[2021-10-15] MEDS: amLODIPine BESYLATE 5 MG TAB PO SCH (09:26)
[2021-10-15] MEDS: ENOXAPARIN SOD 30 MG/0.3 ML SYRINGE SC SCH (09:26)
[2021-10-15] MEDS: MIDAZOLAM DRIP 50 mg/50mL 50 ML IV SCH (09:45)
[2021-10-15] MEDS: PROPOFOL 100 ML IV SCH (15:15)
[2021-10-16] VITALS (107 sets, daily range): BP systolic 67–170; BP diastolic 32–64
[2021-10-16 04:25] LABS: BUN/Creatinine Ratio 17.5; Calcium 8.4 mg/dL (8.5-10.1); Potassium 3.6 mmol/L (3.5-5.1)
[2021-10-16] MEDS: LINEZOLID 600MG/300ML 300 ML IV SCH ×2 (05:43→17:11)
[2021-10-16] MEDS: hydrALAZINE HCL 10 MG TAB PO SCH (05:43)
[2021-10-16] MEDS: ACCU-CHEK COMFORT CURVE STRIP VI SCH ×4 (05:44→23:27)
[2021-10-16] MEDS: InsuLIN REG 1unit/0.01ml Soln (100units/ml) SC SCH ×4 (06:12→23:33)
[2021-10-16] MEDS: MIDAZOLAM DRIP 50 mg/50mL 50 ML IV SCH (09:45)
[2021-10-16] MEDS: fentaNYL Drip 2500mCg/250mlNS 250 ML IV SCH (10:00)
[2021-10-16] MEDS: amLODIPine BESYLATE 5 MG TAB PO SCH (10:00)
[2021-10-16] MEDS: ONDANSETRON HCL 4 MG/2 ML VIAL IV PRN (10:31)
[2021-10-16] MEDS: ENOXAPARIN SOD 30 MG/0.3 ML SYRINGE SC SCH (10:31)
[2021-10-16] MEDS: FUROSEMIDE 40 MG/4 ML VIAL IV SCH (10:31)
[2021-10-16] MEDS ORDERED: SODIUM CHLORIDE 0.9% 500 ML IV ONE (11:30)
[2021-10-16] MEDS: PROPOFOL 100 ML IV SCH (15:15)
[2021-10-17] VITALS (55 sets, daily range): BP systolic 111–184; BP diastolic 33–115
[2021-10-17 04:27] LABS: Basophils # (auto) 0.1 10 ^3/uL (0-0.2); Basophils % (auto) 0.5 % (0.0-2.0); Eosinophils # (auto) 0.2 10 ^3/uL (0-0.8); Eosinophils % (auto) 1.9 % (0.0-7.0); Hemoglobin 9.4 g/dL (12.2-16.2); Lymphocytes # (auto) 1.2 10 ^3/uL (0.4-5.4); Lymphocytes % (auto) 9.6 % (10.0-50.0); Mean Corpuscular Hemoglobin 29.2 pg (28.0-32.0); Mean Corpuscular Hgb Conc. 33.7 g/dL (32.0-36.0); Mean Corpuscular Volume 86.7 fL (80.0-100.0); Monocytes # (auto) 0.7 10 ^3/uL (0-1.3); Monocytes % (auto) 5.7 % (0.0-12.0); Neutrophils # (auto) 9.8 10 ^3/uL (1.6-8.6); Neutrophils % (auto) 82.3 % (37.0-80.0); Red Blood Cells 3.23 10^6/uL (4.0-5.20)
[2021-10-17 04:54] LABS: Calcium 8.4 mg/dL (8.5-10.1); Potassium 3.3 mmol/L (3.5-5.1)
[2021-10-17] MEDS: LINEZOLID 600MG/300ML 300 ML IV SCH ×2 (05:18→16:38)
[2021-10-17] MEDS: ACCU-CHEK COMFORT CURVE STRIP VI SCH ×4 (05:18→23:11)
[2021-10-17] MEDS: InsuLIN REG 1unit/0.01ml Soln (100units/ml) SC SCH ×4 (05:24→23:11)
[2021-10-17] MEDS: MIDAZOLAM DRIP 50 mg/50mL 50 ML IV SCH (09:45)
[2021-10-17] MEDS: ONDANSETRON HCL 4 MG/2 ML VIAL IV PRN ×3 (09:52→23:16)
[2021-10-17] MEDS: amLODIPine BESYLATE 5 MG TAB PO SCH ×2 (10:30→11:09)
[2021-10-17] MEDS: fentaNYL Drip 2500mCg/250mlNS 250 ML IV SCH (11:09)
[2021-10-17] MEDS: ENOXAPARIN SOD 30 MG/0.3 ML SYRINGE SC SCH (11:58)
[2021-10-17] MEDS ORDERED: ALBUTEROL SULF 2.5 MG/0.5ML(0.5%) NEB SOLN ONE (12:14)
[2021-10-17] MEDS ORDERED: ALBUTEROL SULF 2.5 MG/0.5ML(0.5%) NEB SOLN NEB ONE (12:30)
[2021-10-17] MEDS: POTASSIUM CHL 20MEQ/100ML 100 ML IV SCH ×2 (15:22→17:21)
[2021-10-17] MEDS ORDERED: ACETAMINOPHEN 325 MG TAB PO ONE (19:45)
[2021-10-18] VITALS (23 sets, daily range): BP systolic 123–188; BP diastolic 39–118
[2021-10-18] MEDS ORDERED: hydrALAZINE HCL 20 MG/ML VL IV PRN (00:45)
[2021-10-18] MEDS ORDERED: amLODIPine BESYLATE 5 MG TAB PO ONE (00:45)
[2021-10-18] MEDS: hydrALAZINE HCL 20 MG/ML VL IV PRN (02:22)
[2021-10-18] MEDS: ACCU-CHEK COMFORT CURVE STRIP VI SCH ×4 (05:56→23:48)
[2021-10-18] MEDS: LINEZOLID 600MG/300ML 300 ML IV SCH ×2 (05:56→16:33)
[2021-10-18] MEDS: InsuLIN REG 1unit/0.01ml Soln (100units/ml) SC SCH ×3 (06:08→17:54)
[2021-10-18 06:24] LABS: Calcium 8.2 mg/dL (8.5-10.1)
[2021-10-18 06:26] LABS: BUN/Creatinine Ratio 15.7
[2021-10-18] MEDS: amLODIPine BESYLATE 5 MG TAB PO SCH (09:13)
[2021-10-18] MEDS: ENOXAPARIN SOD 30 MG/0.3 ML SYRINGE SC SCH (09:14)
[2021-10-18] MEDS: hydrALAZINE HCL 25 MG TAB PO SCH ×3 (10:33→21:49)
[2021-10-18] MEDS: ACETAMINOPHEN 500 MG TAB PO PRN (11:11)
[2021-10-18] MEDS ORDERED: ENALAPRIL MALEATE 2.5 MG TAB PO SCH (13:15)
[2021-10-18] MEDS ORDERED: FUROSEMIDE 40 MG/4 ML VIAL IV ONE (13:15)
[2021-10-18] MEDS ORDERED: ALBUMIN 25% 50 ML IV ONE (13:30)
[2021-10-18] MEDS: ONDANSETRON HCL 4 MG/2 ML VIAL IV PRN ×2 (15:41→16:30)
[2021-10-18] MEDS: VANCOMYCIN HCL 125MG/5ML ORAL SOL PO SCH ×2 (23:47→23:48)
[2021-10-19] MEDS: hydrALAZINE HCL 20 MG/ML VL IV PRN ×2 (00:03→22:32)
[2021-10-19] MEDS: InsuLIN REG 1unit/0.01ml Soln (100units/ml) SC SCH ×5 (00:03→23:34)
[2021-10-19] MEDS: ONDANSETRON HCL 4 MG/2 ML VIAL IV PRN (00:04)
[2021-10-19 01:45] VITALS: BP 150/55
[2021-10-19 05:00] VITALS: BP 178/58
[2021-10-19] MEDS: LINEZOLID 600MG/300ML 300 ML IV SCH ×2 (05:28→17:12)
[2021-10-19] MEDS: hydrALAZINE HCL 25 MG TAB PO SCH ×3 (05:29→22:32)
[2021-10-19] MEDS: ACCU-CHEK COMFORT CURVE STRIP VI SCH ×4 (06:31→23:39)
[2021-10-19] MEDS: VANCOMYCIN HCL 125MG/5ML ORAL SOL PO SCH ×4 (07:12→23:34)
[2021-10-19 09:00] VITALS: BP 150/60
[2021-10-19 09:11] LABS: BUN/Creatinine Ratio 15.3; Calcium 8.6 mg/dL (8.5-10.1)
[2021-10-19] MEDS: ENOXAPARIN SOD 30 MG/0.3 ML SYRINGE SC SCH (11:02)
[2021-10-19] MEDS: amLODIPine BESYLATE 5 MG TAB PO SCH (11:03)
[2021-10-19] MEDS: ACETAMINOPHEN 500 MG TAB PO PRN (12:21)
[2021-10-19 12:41] VITALS: BP 175/58
[2021-10-19 17:10] VITALS: BP 172/67
[2021-10-19 22:00] VITALS: BP 168/63
[2021-10-20] VITALS: BP 153/64
[2021-10-20 04:58] VITALS: BP 144/74
[2021-10-20] MEDS: LINEZOLID 600MG/300ML 300 ML IV SCH ×2 (05:20→17:09)
[2021-10-20] MEDS: InsuLIN REG 1unit/0.01ml Soln (100units/ml) SC SCH ×5 (05:20→23:24)
[2021-10-20] MEDS: VANCOMYCIN HCL 125MG/5ML ORAL SOL PO SCH ×4 (05:20→23:27)
[2021-10-20] MEDS: hydrALAZINE HCL 25 MG TAB PO SCH ×3 (05:21→22:14)
[2021-10-20] MEDS: ACCU-CHEK COMFORT CURVE STRIP VI SCH ×4 (06:12→23:27)
[2021-10-20 09:00] VITALS: BP 157/46
[2021-10-20] MEDS: ENOXAPARIN SOD 30 MG/0.3 ML SYRINGE SC SCH (09:37)
[2021-10-20] MEDS: amLODIPine BESYLATE 5 MG TAB PO SCH (09:38)
[2021-10-20] MEDS: CHOLESTYRAMINE 4 GM POWDER PO SCH (12:24)
[2021-10-20 13:00] VITALS: BP 147/70
[2021-10-20 17:00] VITALS: BP 151/64
[2021-10-20 22:00] VITALS: BP 163/61
[2021-10-20] MEDS: hydrALAZINE HCL 20 MG/ML VL IV PRN (22:21)
[2021-10-20] MEDS: TEMAZEPAM 15 MG CAP PO PRN (23:27)
[2021-10-21] MEDS: CHOLESTYRAMINE 4 GM POWDER PO SCH ×2 (01:07→12:47)
[2021-10-21] MEDS ORDERED: METOPROLOL TARTRATE 1MG/1ML-5ML VIAL IV PRN (02:00)
[2021-10-21 05:00] VITALS: BP 142/63
[2021-10-21] MEDS: InsuLIN REG 1unit/0.01ml Soln (100units/ml) SC SCH ×4 (05:24→23:10)
[2021-10-21] MEDS: LINEZOLID 600MG/300ML 300 ML IV SCH ×2 (05:24→17:01)
[2021-10-21] MEDS: hydrALAZINE HCL 25 MG TAB PO SCH ×3 (05:25→21:46)
[2021-10-21] MEDS: VANCOMYCIN HCL 125MG/5ML ORAL SOL PO SCH ×4 (05:25→23:13)
[2021-10-21] MEDS: ACCU-CHEK COMFORT CURVE STRIP VI SCH ×3 (05:34→18:23)
[2021-10-21] MEDS: ACETAMINOPHEN 500 MG TAB PO PRN ×2 (06:48→18:24)
[2021-10-21 08:23] VITALS: BP 158/63
[2021-10-21 08:57] LABS: BUN/Creatinine Ratio 16.2; Calcium 8.9 mg/dL (8.5-10.1); Potassium 4.6 mmol/L (3.5-5.1)
[2021-10-21] MEDS: amLODIPine BESYLATE 5 MG TAB PO SCH (10:09)
[2021-10-21] MEDS: ENALAPRIL MALEATE 2.5 MG TAB PO SCH (10:09)
[2021-10-21] MEDS: ENOXAPARIN SOD 30 MG/0.3 ML SYRINGE SC SCH (10:10)
[2021-10-21 12:30] VITALS: BP 149/65
[2021-10-21 16:35] VITALS: BP 135/65
[2021-10-21 21:21] VITALS: BP 145/64
[2021-10-21] MEDS: TEMAZEPAM 15 MG CAP PO PRN (23:13)
[2021-10-22] MEDS: CHOLESTYRAMINE 4 GM POWDER PO SCH ×3 (00:13→23:29)
[2021-10-22] MEDS: ACCU-CHEK COMFORT CURVE STRIP VI SCH ×5 (00:13→23:29)
[2021-10-22 05:00] VITALS: BP 138/70
[2021-10-22] MEDS: hydrALAZINE HCL 25 MG TAB PO SCH ×3 (05:30→23:28)
[2021-10-22] MEDS: LINEZOLID 600MG/300ML 300 ML IV SCH ×2 (05:30→18:26)
[2021-10-22] MEDS: VANCOMYCIN HCL 125MG/5ML ORAL SOL PO SCH ×4 (05:30→23:38)
[2021-10-22] MEDS: InsuLIN REG 1unit/0.01ml Soln (100units/ml) SC SCH ×3 (05:31→18:35)
[2021-10-22 05:51] LABS: Calcium 8.8 mg/dL (8.5-10.1); Potassium 4.8 mmol/L (3.5-5.1)
[2021-10-22 05:55] LABS: BUN/Creatinine Ratio 17.7
[2021-10-22 08:30] VITALS: BP 162/53
[2021-10-22] MEDS: amLODIPine BESYLATE 5 MG TAB PO SCH (09:50)
[2021-10-22] MEDS: ENALAPRIL MALEATE 2.5 MG TAB PO SCH (09:51)
[2021-10-22] MEDS: ENOXAPARIN SOD 30 MG/0.3 ML SYRINGE SC SCH (09:53)
[2021-10-22 10:11] LABS: Folate (Folic Acid) 7.41 ng/mL (5.38-24)
[2021-10-22] MEDS ORDERED: AMIODARONE HCL 200 MG TAB PO ONE (10:15)
[2021-10-22] MEDS ORDERED: METOPROLOL SUCCINATE XL 50 MG TAB PO ONE (10:15)
[2021-10-22] MEDS ORDERED: FUROSEMIDE 20 MG/2 ML VIAL IV ONE (10:15)
[2021-10-22 12:30] VITALS: BP 147/57
[2021-10-22 12:33] LABS: Protein, Urine 160.8 mg/dL (0.0-11.9)
[2021-10-22 16:30] VITALS: BP 140/67
[2021-10-22] MEDS: FUROSEMIDE 20 MG/2 ML VIAL IV SCH (18:28)
[2021-10-22 22:00] VITALS: BP 153/67
[2021-10-22] MEDS: TEMAZEPAM 15 MG CAP PO PRN (23:15)
[2021-10-22] MEDS: AMIODARONE HCL 200 MG TAB PO SCH (23:29)
[2021-10-23] MEDS: InsuLIN REG 1unit/0.01ml Soln (100units/ml) SC SCH ×4 (00:02→17:14)
[2021-10-23] MEDS: LINEZOLID 600MG/300ML 300 ML IV SCH ×2 (04:28→17:07)
[2021-10-23] MEDS: ACETAMINOPHEN 500 MG TAB PO PRN ×2 (04:40→15:59)
[2021-10-23] MEDS: VANCOMYCIN HCL 125MG/5ML ORAL SOL PO SCH ×3 (04:40→17:20)
[2021-10-23] MEDS: ACCU-CHEK COMFORT CURVE STRIP VI SCH ×3 (04:40→17:21)
[2021-10-23 05:00] VITALS: BP 154/78
[2021-10-23] MEDS: FUROSEMIDE 20 MG/2 ML VIAL IV SCH ×2 (05:36→17:14)
[2021-10-23] MEDS: hydrALAZINE HCL 25 MG TAB PO SCH ×3 (05:36→21:28)
[2021-10-23 06:36] LABS: Basophils # (auto) 0.1 10 ^3/uL (0-0.2); Basophils % (auto) 0.7 % (0.0-2.0); Eosinophils # (auto) 0.5 10 ^3/uL (0-0.8); Eosinophils % (auto) 5.2 % (0.0-7.0); Hematocrit 29.3 % (36.0-46.0); Hemoglobin 9.9 g/dL (12.2-16.2); Lymphocytes # (auto) 1.3 10 ^3/uL (0.4-5.4); Lymphocytes % (auto) 14.8 % (10.0-50.0); Mean Corpuscular Hemoglobin 29.4 pg (28.0-32.0); Mean Corpuscular Hgb Conc. 33.9 g/dL (32.0-36.0); Mean Corpuscular Volume 86.9 fL (80.0-100.0); Monocytes # (auto) 0.7 10 ^3/uL (0-1.3); Monocytes % (auto) 7.7 % (0.0-12.0); Neutrophils # (auto) 6.5 10 ^3/uL (1.6-8.6); Neutrophils % (auto) 71.6 % (37.0-80.0); Red Blood Cells 3.37 10^6/uL (4.0-5.20); Red Cell Distribution Width 14.9 % (11.8-14.3); White Blood Cell 9.1 10^3/uL (4.4-10.8)
[2021-10-23 06:53] LABS: Calcium 8.8 mg/dL (8.5-10.1); Magnesium 2.1 mg/dL (1.6-2.6)
[2021-10-23 07:06] LABS: Immunoglobulin G, Serum 635 mg/dL (586-1602)
[2021-10-23 09:17] VITALS: BP 175/78
[2021-10-23] MEDS: ENOXAPARIN SOD 30 MG/0.3 ML SYRINGE SC SCH (09:34)
[2021-10-23] MEDS: amLODIPine BESYLATE 5 MG TAB PO SCH (09:35)
[2021-10-23] MEDS: METOPROLOL SUCCINATE XL 50 MG TAB PO SCH (09:36)
[2021-10-23] MEDS: AMIODARONE HCL 200 MG TAB PO SCH ×2 (09:36→21:28)
[2021-10-23] MEDS: ENALAPRIL MALEATE 2.5 MG TAB PO SCH (09:37)
[2021-10-23] MEDS: CHOLESTYRAMINE 4 GM POWDER PO SCH ×2 (10:48→21:28)
[2021-10-23 12:42] VITALS: BP 139/88
[2021-10-23 16:32] VITALS: BP 148/64
[2021-10-23] MEDS: TEMAZEPAM 15 MG CAP PO PRN (21:29)
[2021-10-23 22:00] VITALS: BP 157/86
[2021-10-24 05:00] VITALS: BP 150/78
[2021-10-24] MEDS: hydrALAZINE HCL 25 MG TAB PO SCH ×2 (05:45→12:52)
[2021-10-24] MEDS: FUROSEMIDE 20 MG/2 ML VIAL IV SCH ×2 (05:45→17:24)
[2021-10-24] MEDS: VANCOMYCIN HCL 125MG/5ML ORAL SOL PO SCH ×4 (05:45→17:24)
[2021-10-24] MEDS: ACCU-CHEK COMFORT CURVE STRIP VI SCH ×4 (05:46→17:24)
[2021-10-24] MEDS: InsuLIN REG 1unit/0.01ml Soln (100units/ml) SC SCH ×4 (05:46→17:24)
[2021-10-24 09:00] VITALS: BP 151/58
[2021-10-24] MEDS: ENOXAPARIN SOD 30 MG/0.3 ML SYRINGE SC SCH (09:37)
[2021-10-24] MEDS: METOPROLOL SUCCINATE XL 50 MG TAB PO SCH (09:37)
[2021-10-24] MEDS: amLODIPine BESYLATE 5 MG TAB PO SCH (09:38)
[2021-10-24] MEDS: ENALAPRIL MALEATE 2.5 MG TAB PO SCH (09:38)
[2021-10-24] MEDS: AMIODARONE HCL 200 MG TAB PO SCH (09:39)
[2021-10-24] MEDS: ACETAMINOPHEN 500 MG TAB PO PRN (09:45)
[2021-10-24] MEDS: CHOLESTYRAMINE 4 GM POWDER PO SCH (11:23)
[2021-10-24] MEDS ORDERED: HYDR25TA87 PO (13:48)
[2021-10-24] MEDS ORDERED: AMIO200T33 PO (13:48)
[2021-10-24] MEDS ORDERED: ENAL2.5T7 PO (13:48)
[2021-10-24] MEDS ORDERED: VANC125PO PO (13:48)
[2021-10-24] MEDS ORDERED: METO-6 PO (13:48)
[2021-10-24 14:56] VITALS: BP 158/68
== END 2021-10-24 18:45 | disposition home health service (06) | DRG 207 ==
LOC: EDBD 09:29 → ER 09:29 → OVERFLOW 12:55 → ICU WEST 14:26 → TELE-WESTW 10-18 20:23
PROVIDERS: ADMIT Internal Medicine; ATTEND Internal Medicine
PROC: 5A1955Z Respiratory Ventilation, Greater than 96 Consecutive Hours (ICD-10-PCS; principal; 2021-10-12)
PROC: 0BH17EZ Insertion of Endotracheal Airway into Trachea, Via Natural or Artificial Opening (ICD-10-PCS; 2021-10-12)
PROC: 4A143B0 Monitoring of Venous Pressure, Central, Percutaneous Approach (ICD-10-PCS; 2021-10-12)
PROC: 02H633Z Insertion of Infusion Device into Right Atrium, Percutaneous Approach (ICD-10-PCS; 2021-10-12)
DX: J96.21 Acute and chronic respiratory failure with hypoxia (principal); I50.43 Acute on chronic combined systolic (congestive) and diastolic (congestive) heart failure; G93.41 Metabolic encephalopathy; N17.0 Acute kidney failure with tubular necrosis; I13.0 Hypertensive heart and chronic kidney disease with heart failure and stage 1 through stage 4 chronic kidney disease, or unspecified chronic kidney disease; A04.72 Enterocolitis due to Clostridium difficile, not specified as recurrent; G93.1 Anoxic brain damage, not elsewhere classified; I48.20 Chronic atrial fibrillation, unspecified; N39.0 Urinary tract infection, site not specified; N18.4 Chronic kidney disease, stage 4 (severe); J98.11 Atelectasis; E11.22 Type 2 diabetes mellitus with diabetic chronic kidney disease; E66.9 Obesity, unspecified; E88.09 Other disorders of plasma-protein metabolism, not elsewhere classified; J44.9 Chronic obstructive pulmonary disease, unspecified; I48.0 Paroxysmal atrial fibrillation; D63.1 Anemia in chronic kidney disease; R80.9 Proteinuria, unspecified; I25.10 Atherosclerotic heart disease of native coronary artery without angina pectoris; I49.9 Cardiac arrhythmia, unspecified; E78.5 Hyperlipidemia, unspecified; R79.89 Other specified abnormal findings of blood chemistry; R68.0 Hypothermia, not associated with low environmental temperature; T44.7X5A Adverse effect of beta-adrenoreceptor antagonists, initial encounter; Z68.32 Body mass index [BMI] 32.0-32.9, adult; Y92.89 Other specified places as the place of occurrence of the external cause; Z79.01 Long term (current) use of anticoagulants; Z90.710 Acquired absence of both cervix and uterus; Z87.01 Personal history of pneumonia (recurrent); Z83.3 Family history of diabetes mellitus; Z79.899 Other long term (current) drug therapy; Z79.4 Long term (current) use of insulin; Z90.49 Acquired absence of other specified parts of digestive tract
CPT/HCPCS: 31500; 36415; 36556; 36600; 70450; 71045; 76604; 76775; 80048; 80053; 80329; 81001; 82270; 82533; 82550; 82570; 82607; 82746; 82784; 82805; 82962; 83605; 83735; 83880; 84100; 84132; 84156; 84300; 84443; 84484; 84550; 85025; 85379; 86334; 86335; 87040; 87070; 87081; 87086; 87088; 87177; 87186; 87205; 87493; 92610; 93005; 93306; 93970; 94002; 94003; 94640; 94644; 96365; 96368; 96375; 97110; 97116; 97163; 97530; 99291; 99292; G0378; J0461; J0696; J1815; J2250; J2405; J2543; J2704; J3480; J7060

== ENCOUNTER 2022-02-28 13:44 | Inpatient (IN) | payer OTHER, MEDICAID ==
[~2022-02-28] VITALS: Ht 152.4 cm; Wt 66.1 kg
[~2022-02-28 13:44] MED LIST changes: +AMIO200T33 PO; -CAR125T PO; +ENAL2.5T7 PO; +HYDR25TA87 PO; +METO-6 PO; -POTA10TA51 PO; +VANC125PO PO
[2022-02-28] MEDS ORDERED: FUROSEMIDE 40 MG/4 ML VIAL IV ONE (13:45)
[2022-02-28 14:11] LABS: Basophils # (auto) 0.1 10 ^3/uL (0-0.2); Basophils % (auto) 1.1 % (0.0-2.0); Eosinophils # (auto) 0.4 10 ^3/uL (0-0.8); Eosinophils % (auto) 3.1 % (0.0-7.0); Hematocrit 33.8 % (36.0-46.0); Hemoglobin 10.9 g/dL (12.2-16.2); Lymphocytes # (auto) 1.4 10 ^3/uL (0.4-5.4); Lymphocytes % (auto) 10.6 % (10.0-50.0); Mean Corpuscular Hemoglobin 27.7 pg (28.0-32.0); Mean Corpuscular Hgb Conc. 32.1 g/dL (32.0-36.0); Mean Corpuscular Volume 86.4 fL (80.0-100.0); Monocytes # (auto) 0.7 10 ^3/uL (0-1.3); Monocytes % (auto) 5.4 % (0.0-12.0); Neutrophils # (auto) 10.3 10 ^3/uL (1.6-8.6); Neutrophils % (auto) 79.8 % (37.0-80.0); Red Blood Cells 3.92 10^6/uL (4.0-5.20); White Blood Cell 12.9 10^3/uL (4.4-10.8)
[2022-02-28 14:32] LABS: Albumin 3.3 g/dL (3.4-5.0); Calcium 8.8 mg/dL (8.5-10.1)
[2022-02-28 14:36] LABS: BUN/Creatinine Ratio 23.1; Bilirubin, Total 0.4 mg/dL (0.2-1.0); Total Protein 6.9 g/dL (6.4-8.2)
[2022-02-28] MEDS ORDERED: ACETYLCYSTEINE ORAL for CIN 20%(200MG/ML) 4ML PO ONE (16:30)
[2022-02-28] MEDS ORDERED: ENOXAPARIN SOD 80 MG/0.8ML SYRINGE SC ONE (16:30)
[2022-02-28] MEDS ORDERED: SODIUM CHLORIDE 0.9% 500 ML IV ONE (16:30)
[2022-02-28] MEDS ORDERED: IOHEXOL 350 MG/ML 100ML IJ ONE ×2 (17:04→17:47)
[2022-02-28] MEDS ORDERED: DEXTROSE (50%) 50ML SYRG IV PRN ×2 (17:30→18:15)
[2022-02-28] MEDS ORDERED: MORPHINE SULFATE INJ 2 MG/ml SYRG IV PRN (17:30)
[2022-02-28] MEDS ORDERED: NITROGLYCERIN 0.4 MG SL TAB SL PRN (17:30)
[2022-02-28] MEDS ORDERED: FUROSEMIDE 40 MG/4 ML VIAL IV SCH (18:00)
[2022-02-28] MEDS ORDERED: IPRATROPIUM BROM 0.5 MG/2.5ML INH SOL NEB PRN (18:15)
[2022-02-28] MEDS ORDERED: ALBUTEROL SULF 2.5 MG/0.5ML(0.5%) NEB SOLN NEB PRN (18:15)
[2022-02-28 18:17] VITALS: BP 153/101
[2022-02-28 18:25] LABS: Urine Bacteria NONE SEEN /hpf (None Seen); Urine Blood Negative /uL (Negative); Urine Specific Gravity 1.009 (1.001-1.035); Urine WBC 1 /hpf (0 - 5)
[2022-02-28] MEDS ORDERED: cefTRIAXone 1GM/50ML D5W 50 ML IV ONE (18:45)
[2022-02-28] MEDS: hydrALAZINE HCL 20 MG/ML VL IV PRN (18:53)
[2022-02-28 19:27] LABS: Cholesterol 159 mg/dL (< 200)
[2022-02-28 19:30] LABS: HDL Cholesterol 45 mg/dL (40-59); LDL Cholesterol 92 mg/dL (< 100); Triglycerides 143 mg/dL (< 150)
[2022-02-28] MEDS ORDERED: hydrALAZINE HCL 20 MG/ML VL IV ONE (21:45)
[2022-02-28] MEDS ORDERED: ACCU-CHEK COMFORT CURVE STRIP VI SCH (22:00)
[2022-02-28] MEDS ORDERED: InsuLIN REG 1unit/0.01ml Soln (100units/ml) SC SCH (22:00)
[2022-02-28] MEDS: methylPREDNISolone SOD SUCC 40 MG/ML VL IV SCH (22:20)
[2022-02-28] MEDS ORDERED: amLODIPine BESYLATE 5 MG TAB PO ONE (22:30)
[2022-02-28] MEDS: ACCU-CHEK COMFORT CURVE STRIP VI SCH (22:30)
[2022-02-28] MEDS: ACETAMINOPHEN 325 MG TAB PO PRN (22:35)
[2022-02-28] MEDS: InsuLIN REG 1unit/0.01ml Soln (100units/ml) SC SCH (22:42)
[2022-02-28] MEDS: APIXABAN 2.5 MG TAB PO SCH (22:46)
[2022-02-28] MEDS: ATORVASTATIN 20 MG TAB PO SCH (22:48)
[2022-02-28] MEDS: hydrALAZINE HCL 25 MG TAB PO SCH (23:40)
[2022-03-01] MEDS: AMIODARONE HCL 200 MG TAB PO SCH ×3 (00:34→21:43)
[2022-03-01] MEDS: ONDANSETRON HCL 4 MG/2 ML VIAL IV PRN ×2 (03:20→08:02)
[2022-03-01] MEDS ORDERED: TEMAZEPAM 15 MG CAP PO ONE (04:30)
[2022-03-01] MEDS: FAMOTIDINE (10MG/ML) 2ML VL IV SCH ×2 (04:37→10:50)
[2022-03-01] MEDS ORDERED: FUROSEMIDE 40 MG/4 ML VIAL IV SCH (06:00)
[2022-03-01] MEDS: ALBUTEROL SULF 2.5 MG/0.5ML(0.5%) NEB SOLN NEB SCH ×3 (06:32→18:51)
[2022-03-01] MEDS: IPRATROPIUM BROM 0.5 MG/2.5ML INH SOL NEB SCH ×2 (06:33→18:51)
[2022-03-01 06:49] LABS: BUN/Creatinine Ratio 22.8; Calcium 8.2 mg/dL (8.5-10.1); Potassium 4.7 mmol/L (3.5-5.1)
[2022-03-01 06:52] LABS: Hemoglobin 10.8 g/dL (12.2-16.2); Mean Corpuscular Hemoglobin 27.8 pg (28.0-32.0); Mean Corpuscular Hgb Conc. 31.7 g/dL (32.0-36.0); Mean Corpuscular Volume 87.6 fL (80.0-100.0); Red Blood Cells 3.88 10^6/uL (4.0-5.20); Red Cell Distribution Width 15.9 % (11.8-14.3); White Blood Cell 10.9 10^3/uL (4.4-10.8)
[2022-03-01 07:15] LABS: Band Neutrophils % (manual) 0; Blast Cells 0; Eosinophils % (manual) 0 (0-7); Metamyelocytes % 0; Myelocytes % 0; Promyelocytes % 0; Reactive Lymphocytes 0
[2022-03-01] MEDS: hydrALAZINE HCL 25 MG TAB PO SCH ×3 (07:59→21:45)
[2022-03-01] MEDS: methylPREDNISolone SOD SUCC 40 MG/ML VL IV SCH (07:59)
[2022-03-01] MEDS: InsuLIN REG 1unit/0.01ml Soln (100units/ml) SC SCH ×4 (07:59→21:51)
[2022-03-01] MEDS: ACCU-CHEK COMFORT CURVE STRIP VI SCH ×4 (08:02→21:43)
[2022-03-01] MEDS: hydrALAZINE HCL 20 MG/ML VL IV PRN (08:41)
[2022-03-01 09:00] VITALS: BP 174/65
[2022-03-01] MEDS: cefTRIAXone 1GM/50ML D5W 50 ML IV SCH (09:35)
[2022-03-01] MEDS ORDERED: POTASSIUM CHL 10 Meq TABLET PO SCH (10:00)
[2022-03-01] MEDS ORDERED: ENALAPRIL MALEATE 2.5 MG TAB PO SCH (10:00)
[2022-03-01] MEDS ORDERED: amLODIPine BESYLATE 5 MG TAB PO SCH (10:00)
[2022-03-01] MEDS: ASPirin-EC 81 mg tab PO SCH (10:51)
[2022-03-01] MEDS: APIXABAN 2.5 MG TAB PO SCH ×2 (10:51→21:43)
[2022-03-01] MEDS: amLODIPine BESYLATE 5 MG TAB PO SCH (10:53)
[2022-03-01] MEDS: METOPROLOL SUCCINATE XL 50 MG TAB PO SCH (10:53)
[2022-03-01 13:00] VITALS: BP 140/65
[2022-03-01] MEDS ORDERED: HCTZ 25 MG TAB PO ONE (14:15)
[2022-03-01 14:40] LABS: Basophils % (manual) 1 (0.0-2.0); Lymphocytes % (manual) 3 (10.0-50.0); Monocytes % (manual) 1 (0-12)
[2022-03-01 17:00] VITALS: BP 148/51
[2022-03-01] MEDS: FUROSEMIDE 20 MG/2 ML VIAL IV SCH (18:26)
[2022-03-01 20:00] VITALS: BP 145/58
[2022-03-01] MEDS: ATORVASTATIN 20 MG TAB PO SCH (21:43)
[2022-03-01 22:00] VITALS: BP 145/58
[2022-03-02 05:00] VITALS: BP 105/81
[2022-03-02 05:30] LABS: Basophils # (auto) 0.1 10 ^3/uL (0-0.2); Basophils % (auto) 0.5 % (0.0-2.0); Eosinophils # (auto) 0 10 ^3/uL (0-0.8); Eosinophils % (auto) 0.1 % (0.0-7.0); Hematocrit 30.1 % (36.0-46.0); Hemoglobin 9.8 g/dL (12.2-16.2); Lymphocytes # (auto) 0.9 10 ^3/uL (0.4-5.4); Lymphocytes % (auto) 5.5 % (10.0-50.0); Mean Corpuscular Hgb Conc. 32.4 g/dL (32.0-36.0); Mean Corpuscular Volume 86.3 fL (80.0-100.0); Monocytes # (auto) 1.6 10 ^3/uL (0-1.3); Monocytes % (auto) 9.9 % (0.0-12.0); Neutrophils # (auto) 13.5 10 ^3/uL (1.6-8.6); Red Blood Cells 3.49 10^6/uL (4.0-5.20); Red Cell Distribution Width 15.6 % (11.8-14.3)
[2022-03-02 05:46] LABS: Calcium 8.3 mg/dL (8.5-10.1)
[2022-03-02] MEDS: FUROSEMIDE 20 MG/2 ML VIAL IV SCH ×2 (05:52→18:00)
[2022-03-02] MEDS: hydrALAZINE HCL 25 MG TAB PO SCH ×3 (05:52→21:52)
[2022-03-02] MEDS: ACCU-CHEK COMFORT CURVE STRIP VI SCH ×4 (06:31→21:45)
[2022-03-02] MEDS: InsuLIN REG 1unit/0.01ml Soln (100units/ml) SC SCH ×4 (06:33→21:46)
[2022-03-02] MEDS: IPRATROPIUM BROM 0.5 MG/2.5ML INH SOL NEB SCH ×3 (07:30→18:43)
[2022-03-02] MEDS: ALBUTEROL SULF 2.5 MG/0.5ML(0.5%) NEB SOLN NEB SCH ×3 (07:30→18:43)
[2022-03-02 09:00] VITALS: BP 138/65
[2022-03-02] MEDS: cefTRIAXone 1GM/50ML D5W 50 ML IV SCH (09:26)
[2022-03-02] MEDS: ACETAMINOPHEN 325 MG TAB PO PRN ×2 (09:28→21:59)
[2022-03-02] MEDS: ONDANSETRON HCL 4 MG/2 ML VIAL IV PRN ×2 (09:42→20:09)
[2022-03-02] MEDS ORDERED: HCTZ 25 MG TAB PO SCH (10:00)
[2022-03-02] MEDS: FAMOTIDINE (10MG/ML) 2ML VL IV SCH (10:54)
[2022-03-02] MEDS: APIXABAN 2.5 MG TAB PO SCH ×2 (10:55→21:51)
[2022-03-02] MEDS: AMIODARONE HCL 200 MG TAB PO SCH ×2 (10:55→21:51)
[2022-03-02] MEDS: ASPirin-EC 81 mg tab PO SCH (10:55)
[2022-03-02] MEDS: METOPROLOL SUCCINATE XL 50 MG TAB PO SCH (10:57)
[2022-03-02] MEDS: amLODIPine BESYLATE 5 MG TAB PO SCH (10:57)
[2022-03-02 13:00] VITALS: BP 127/46
[2022-03-02 17:07] VITALS: BP 125/45
[2022-03-02] MEDS: ATORVASTATIN 20 MG TAB PO SCH (21:51)
[2022-03-02] MEDS: DOCUSATE SOD 100 MG CAP PO SCH (21:51)
[2022-03-02 22:00] VITALS: BP 144/92
[2022-03-03 04:30] VITALS: BP 147/46
[2022-03-03] MEDS: FUROSEMIDE 20 MG/2 ML VIAL IV SCH (06:00)
[2022-03-03] MEDS: hydrALAZINE HCL 25 MG TAB PO SCH ×3 (06:01→22:13)
[2022-03-03 06:21] LABS: Basophils # (auto) 0.1 10 ^3/uL (0-0.2); Basophils % (auto) 1.1 % (0.0-2.0); Eosinophils # (auto) 0.2 10 ^3/uL (0-0.8); Eosinophils % (auto) 1.4 % (0.0-7.0); Hemoglobin 9.9 g/dL (12.2-16.2); Lymphocytes # (auto) 1.2 10 ^3/uL (0.4-5.4); Lymphocytes % (auto) 9.5 % (10.0-50.0); Mean Corpuscular Hemoglobin 27.9 pg (28.0-32.0); Mean Corpuscular Volume 87.1 fL (80.0-100.0); Monocytes % (auto) 7.6 % (0.0-12.0); Neutrophils # (auto) 10.5 10 ^3/uL (1.6-8.6); Neutrophils % (auto) 80.4 % (37.0-80.0); Red Blood Cells 3.56 10^6/uL (4.0-5.20); Red Cell Distribution Width 15.9 % (11.8-14.3)
[2022-03-03] MEDS: ACCU-CHEK COMFORT CURVE STRIP VI SCH ×4 (06:26→22:14)
[2022-03-03 06:27] LABS: Calcium 8.1 mg/dL (8.5-10.1)
[2022-03-03] MEDS: InsuLIN REG 1unit/0.01ml Soln (100units/ml) SC SCH ×4 (06:28→22:10)
[2022-03-03 06:30] LABS: BUN/Creatinine Ratio 19.4
[2022-03-03] MEDS: IPRATROPIUM BROM 0.5 MG/2.5ML INH SOL NEB SCH ×3 (08:33→17:46)
[2022-03-03] MEDS: ALBUTEROL SULF 2.5 MG/0.5ML(0.5%) NEB SOLN NEB SCH ×3 (08:34→17:46)
[2022-03-03 09:00] VITALS: BP 136/74
[2022-03-03] MEDS: ACETAMINOPHEN 325 MG TAB PO PRN ×2 (09:25→22:14)
[2022-03-03] MEDS: cefTRIAXone 1GM/50ML D5W 50 ML IV SCH (09:55)
[2022-03-03] MEDS: ASPirin-EC 81 mg tab PO SCH (10:08)
[2022-03-03] MEDS: AMIODARONE HCL 200 MG TAB PO SCH ×2 (10:09→22:14)
[2022-03-03] MEDS: amLODIPine BESYLATE 5 MG TAB PO SCH (10:09)
[2022-03-03] MEDS: METOPROLOL SUCCINATE XL 50 MG TAB PO SCH (10:11)
[2022-03-03] MEDS: DOCUSATE SOD 100 MG CAP PO SCH ×2 (10:12→22:13)
[2022-03-03] MEDS: APIXABAN 2.5 MG TAB PO SCH ×2 (10:12→22:14)
[2022-03-03] MEDS ORDERED: SODIUM CHLORIDE 0.9% 1,000 ML IV ONE (12:00)
[2022-03-03 13:00] VITALS: BP 145/45
[2022-03-03 17:00] VITALS: BP 127/52
[2022-03-03 21:33] VITALS: BP 127/52
[2022-03-03] MEDS: ATORVASTATIN 20 MG TAB PO SCH (22:13)
[2022-03-03 22:33] LABS: Urine Bacteria FEW /hpf (None Seen); Urine Blood Negative /uL (Negative); Urine Specific Gravity 1.017 (1.001-1.035); Urine WBC 1 /hpf (0 - 5)
[2022-03-03 22:51] VITALS: BP 129/57
[2022-03-03 23:00] LABS: Protein, Urine 348.8 mg/dL (0.0-11.9)
[2022-03-04] MEDS: hydrALAZINE HCL 25 MG TAB PO SCH ×3 (06:00→22:26)
[2022-03-04 06:32] LABS: Potassium 4.8 mmol/L (3.5-5.1)
[2022-03-04] MEDS: InsuLIN REG 1unit/0.01ml Soln (100units/ml) SC SCH ×4 (06:40→22:22)
[2022-03-04] MEDS: ACCU-CHEK COMFORT CURVE STRIP VI SCH ×4 (06:41→22:26)
[2022-03-04] MEDS: ALBUTEROL SULF 2.5 MG/0.5ML(0.5%) NEB SOLN NEB SCH ×3 (07:06→19:04)
[2022-03-04] MEDS: IPRATROPIUM BROM 0.5 MG/2.5ML INH SOL NEB SCH ×3 (07:06→19:04)
[2022-03-04 08:10] VITALS: BP 144/48
[2022-03-04] MEDS: DOCUSATE SOD 100 MG CAP PO SCH ×2 (08:37→22:26)
[2022-03-04] MEDS: ASPirin-EC 81 mg tab PO SCH (08:38)
[2022-03-04] MEDS: APIXABAN 2.5 MG TAB PO SCH ×2 (08:38→22:25)
[2022-03-04] MEDS: AMIODARONE HCL 200 MG TAB PO SCH (08:38)
[2022-03-04] MEDS: amLODIPine BESYLATE 5 MG TAB PO SCH (08:39)
[2022-03-04] MEDS: FUROSEMIDE 20 MG/2 ML VIAL IV SCH ×2 (09:00→10:00)
[2022-03-04] MEDS: cefTRIAXone 1GM/50ML D5W 50 ML IV SCH (09:00)
[2022-03-04] MEDS ORDERED: FAMOTIDINE (10MG/ML) 2ML VL IV SCH (10:00)
[2022-03-04] MEDS ORDERED: METOPROLOL SUCCINATE XL 25 MG TAB PO SCH (10:00)
[2022-03-04] MEDS ORDERED: FUROSEMIDE 100 MG/10ML VIAL IV ONE (10:30)
[2022-03-04 12:10] VITALS: BP 160/36
[2022-03-04 16:30] VITALS: BP 145/95
[2022-03-04 22:00] VITALS: BP 150/40
[2022-03-04] MEDS: ATORVASTATIN 20 MG TAB PO SCH (22:26)
[2022-03-04] MEDS: ACETAMINOPHEN 325 MG TAB PO PRN (23:33)
[2022-03-05 05:00] VITALS: BP 146/71
[2022-03-05] MEDS: IPRATROPIUM BROM 0.5 MG/2.5ML INH SOL NEB SCH ×3 (05:49→18:28)
[2022-03-05] MEDS: ALBUTEROL SULF 2.5 MG/0.5ML(0.5%) NEB SOLN NEB SCH ×3 (05:49→18:27)
[2022-03-05] MEDS: InsuLIN REG 1unit/0.01ml Soln (100units/ml) SC SCH ×4 (06:24→22:26)
[2022-03-05] MEDS: ACCU-CHEK COMFORT CURVE STRIP VI SCH ×4 (06:24→22:00)
[2022-03-05] MEDS: hydrALAZINE HCL 25 MG TAB PO SCH ×3 (06:45→22:25)
[2022-03-05 09:21] VITALS: BP 142/44
[2022-03-05] MEDS: cefTRIAXone 1GM/50ML D5W 50 ML IV SCH (09:30)
[2022-03-05 09:37] LABS: Basophils # (auto) 0.1 10 ^3/uL (0-0.2); Basophils % (auto) 0.6 % (0.0-2.0); Eosinophils # (auto) 0.4 10 ^3/uL (0-0.8); Eosinophils % (auto) 3.8 % (0.0-7.0); Hemoglobin 9.7 g/dL (12.2-16.2); Lymphocytes # (auto) 1.4 10 ^3/uL (0.4-5.4); Lymphocytes % (auto) 14.5 % (10.0-50.0); Mean Corpuscular Hemoglobin 28.1 pg (28.0-32.0); Mean Corpuscular Hgb Conc. 32.4 g/dL (32.0-36.0); Mean Corpuscular Volume 86.5 fL (80.0-100.0); Monocytes # (auto) 0.9 10 ^3/uL (0-1.3); Monocytes % (auto) 8.6 % (0.0-12.0); Neutrophils # (auto) 7.2 10 ^3/uL (1.6-8.6); Neutrophils % (auto) 72.5 % (37.0-80.0); Red Blood Cells 3.47 10^6/uL (4.0-5.20); Red Cell Distribution Width 15.8 % (11.8-14.3); White Blood Cell 9.9 10^3/uL (4.4-10.8)
[2022-03-05] MEDS: APIXABAN 2.5 MG TAB PO SCH ×2 (09:40→22:24)
[2022-03-05] MEDS: DOCUSATE SOD 100 MG CAP PO SCH ×2 (09:40→22:24)
[2022-03-05] MEDS: amLODIPine BESYLATE 5 MG TAB PO SCH (09:42)
[2022-03-05] MEDS: AMIODARONE HCL 200 MG TAB PO SCH (09:42)
[2022-03-05] MEDS: FUROSEMIDE 20 MG/2 ML VIAL IV SCH (09:43)
[2022-03-05 10:00] LABS: BUN/Creatinine Ratio 18.4; Calcium 8.5 mg/dL (8.5-10.1); Magnesium 2.5 mg/dL (1.6-2.6); Potassium 4.1 mmol/L (3.5-5.1)
[2022-03-05] MEDS ORDERED: ALBUMIN 25% 100 ML IV ONE (10:45)
[2022-03-05] MEDS: ACETAMINOPHEN 325 MG TAB PO PRN (11:52)
[2022-03-05 12:53] VITALS: BP 155/47
[2022-03-05 16:15] VITALS: BP 140/111
[2022-03-05 22:00] VITALS: BP 138/80
[2022-03-05] MEDS: ATORVASTATIN 20 MG TAB PO SCH (22:24)
[2022-03-05] MEDS: TEMAZEPAM 15 MG CAP PO PRN (22:30)
[2022-03-06 05:00] VITALS: BP 148/50
[2022-03-06] MEDS: ACCU-CHEK COMFORT CURVE STRIP VI SCH ×4 (06:28→21:33)
[2022-03-06] MEDS: InsuLIN REG 1unit/0.01ml Soln (100units/ml) SC SCH ×4 (06:28→21:34)
[2022-03-06 06:29] LABS: BUN/Creatinine Ratio 21.1; Calcium 8.2 mg/dL (8.5-10.1); Potassium 4.2 mmol/L (3.5-5.1)
[2022-03-06] MEDS: hydrALAZINE HCL 25 MG TAB PO SCH ×3 (06:37→21:29)
[2022-03-06] MEDS: ALBUTEROL SULF 2.5 MG/0.5ML(0.5%) NEB SOLN NEB SCH ×3 (06:44→18:21)
[2022-03-06] MEDS: IPRATROPIUM BROM 0.5 MG/2.5ML INH SOL NEB SCH ×3 (06:44→18:21)
[2022-03-06 09:00] VITALS: BP 154/89
[2022-03-06] MEDS: cefTRIAXone 1GM/50ML D5W 50 ML IV SCH (09:15)
[2022-03-06] MEDS: AMIODARONE HCL 200 MG TAB PO SCH (10:12)
[2022-03-06] MEDS: APIXABAN 2.5 MG TAB PO SCH ×2 (10:12→21:29)
[2022-03-06] MEDS: FUROSEMIDE 20 MG/2 ML VIAL IV SCH (10:12)
[2022-03-06] MEDS: DOCUSATE SOD 100 MG CAP PO SCH ×2 (10:12→21:29)
[2022-03-06] MEDS: amLODIPine BESYLATE 5 MG TAB PO SCH (10:13)
[2022-03-06 13:00] VITALS: BP 159/61
[2022-03-06 16:50] VITALS: BP 156/44
[2022-03-06] MEDS: ACETAMINOPHEN 325 MG TAB PO PRN (17:48)
[2022-03-06] MEDS: ATORVASTATIN 20 MG TAB PO SCH (21:29)
[2022-03-06 21:30] VITALS: BP 160/51
[2022-03-06 22:00] VITALS: BP 160/51
[2022-03-06] MEDS: TEMAZEPAM 15 MG CAP PO PRN (22:09)
[2022-03-07] MEDS: ACETAMINOPHEN 325 MG TAB PO PRN ×3 (00:29→16:06)
[2022-03-07 05:00] VITALS: BP 125/103
[2022-03-07] MEDS: hydrALAZINE HCL 25 MG TAB PO SCH ×2 (05:57→14:36)
[2022-03-07] MEDS: ALBUTEROL SULF 2.5 MG/0.5ML(0.5%) NEB SOLN NEB SCH ×2 (06:10→11:18)
[2022-03-07] MEDS: IPRATROPIUM BROM 0.5 MG/2.5ML INH SOL NEB SCH ×2 (06:10→11:18)
[2022-03-07] MEDS: ACCU-CHEK COMFORT CURVE STRIP VI SCH ×3 (06:13→16:42)
[2022-03-07] MEDS: InsuLIN REG 1unit/0.01ml Soln (100units/ml) SC SCH ×3 (06:13→16:56)
[2022-03-07 06:42] LABS: BUN/Creatinine Ratio 21.5; Calcium 8.4 mg/dL (8.5-10.1)
[2022-03-07] MEDS: APIXABAN 2.5 MG TAB PO SCH (08:50)
[2022-03-07] MEDS: amLODIPine BESYLATE 5 MG TAB PO SCH (08:51)
[2022-03-07] MEDS: AMIODARONE HCL 200 MG TAB PO SCH (08:51)
[2022-03-07] MEDS: FUROSEMIDE 20 MG/2 ML VIAL IV SCH (08:52)
[2022-03-07] MEDS: DOCUSATE SOD 100 MG CAP PO SCH (08:54)
[2022-03-07] MEDS: cefTRIAXone 1GM/50ML D5W 50 ML IV SCH (08:55)
[2022-03-07 09:00] VITALS: BP 161/48
[2022-03-07 13:00] VITALS: BP 166/61
[2022-03-07 16:51] VITALS: BP 159/64
== END 2022-03-07 18:00 | disposition hospice, home (50) | DRG 871 ==
LOC: ER 13:44 → EDBD 13:44 → EDUNIT# 13:44 → TELE 17:18 → TELE-CENTR 03-01 08:13
PROVIDERS: ADMIT Registered Nurse; ATTEND Internal Medicine
PROC: 05HA33Z Insertion of Infusion Device into Left Brachial Vein, Percutaneous Approach (ICD-10-PCS; principal; 2022-03-04)
PROC: B54NZZA Ultrasonography of Left Upper Extremity Veins, Guidance (ICD-10-PCS; 2022-03-04)
DX: A41.9 Sepsis, unspecified organism (principal); I50.33 Acute on chronic diastolic (congestive) heart failure; J18.9 Pneumonia, unspecified organism; J96.20 Acute and chronic respiratory failure, unspecified whether with hypoxia or hypercapnia; N17.0 Acute kidney failure with tubular necrosis; J44.1 Chronic obstructive pulmonary disease with (acute) exacerbation; J98.11 Atelectasis; D68.69 Other thrombophilia; I13.0 Hypertensive heart and chronic kidney disease with heart failure and stage 1 through stage 4 chronic kidney disease, or unspecified chronic kidney disease; N18.4 Chronic kidney disease, stage 4 (severe); J44.0 Chronic obstructive pulmonary disease with (acute) lower respiratory infection; J91.8 Pleural effusion in other conditions classified elsewhere; Z66 Do not resuscitate; D63.1 Anemia in chronic kidney disease; Z20.822 Contact with and (suspected) exposure to COVID-19; D63.8 Anemia in other chronic diseases classified elsewhere; E11.22 Type 2 diabetes mellitus with diabetic chronic kidney disease; E66.9 Obesity, unspecified; E78.5 Hyperlipidemia, unspecified; I44.0 Atrioventricular block, first degree; I48.0 Paroxysmal atrial fibrillation; F03.90 Unspecified dementia, unspecified severity, without behavioral disturbance, psychotic disturbance, mood disturbance, and anxiety; Z68.28 Body mass index [BMI] 28.0-28.9, adult; Z86.711 Personal history of pulmonary embolism; Z83.3 Family history of diabetes mellitus; Z90.710 Acquired absence of both cervix and uterus; Z79.899 Other long term (current) drug therapy; Z79.01 Long term (current) use of anticoagulants; Z79.4 Long term (current) use of insulin; Z90.49 Acquired absence of other specified parts of digestive tract
CPT/HCPCS: 36415; 36600; 71045; 71275; 74176; 76775; 80048; 80053; 80061; 81001; 82570; 82805; 82962; 83036; 83735; 83880; 84156; 84300; 84443; 84484; 85007; 85025; 85027; 85379; 85610; 87040; 87086; 93005; 93971; 94640; 96365; 96372; 96375; G0378; J0696; J1815; J2405; J3490; P9047